=== PATIENT | female | born 1950 | race Caucasian/White ===

== ENCOUNTER 2017-07-01 00:55 | Emergency (ER) | payer MEDICARE ==
[2017-07-01] MEDS ORDERED: Nitrostat 0.4 MG (ED) SL ONE ×2 (01:10→01:28)
[2017-07-01] MEDS ORDERED: Sodium Chloride 0.9% 1000 ML 1,000 ML IV SCH (01:15)
--- NOTE | 2017-07-01 01:15 | ERPHSYRPT ---
- History of Present Illness Time Seen by Provider: 07/01/17 00:59 Source: patient, family (DAUGHTER) Exam Limitations: no limitations Physician History: FOR THE PAST WEEK PT HAS HAD A LEFT EARACHE; FOR THE PAST 2 DAYS COUGH PRODUCTIVE OF GREEN PHLEGM AND SWELLING OF THE FEET; FOR THE PAST 18.5 HOURS NAUSEA, DIAPHORESIS AND HEADACHE; FOR THE PAST 5 HOURS SHORTNESS OF AIR; FOR THE PAST HOUR CONSTANT MID ANTERIOR CHEST PRESSURE. Allergies/Adverse Reactions: levofloxacin [From Levaquin] Allergy (Mild, Verified 09/16/16 22:23) red rash/burning when gievn IV cefaclor [From Ceclor] Allergy (Verified 09/16/16 22:23) SOB, HIVES ciprofloxacin [From Cipro] Allergy (Verified 09/16/16 22:23) ciprofloxacin HCl [From Cipro] Allergy (Verified 09/16/16 22:23) clarithromycin [From Biaxin] Allergy (Verified 09/16/16 22:23) diphenhydramine HCl [From Benadryl] Allergy (Verified 09/16/16 22:23) SOB HIVES erythromycin base [Erythromycin Base] Allergy (Verified 09/16/16 22:23) SOB HIVES iodine Allergy (Verified 09/16/16 22:23) SOB HIVES latex Allergy (Verified 09/16/16 22:23) SOB HIVES Macrolide Antibiotics Allergy (Verified 09/16/16 22:23) SBO HIVES Penicillins Allergy (Verified 09/16/16 22:23) Swelling of Face sulfamethoxazole [From Bactrim] Allergy (Verified 09/16/16 22:23) trimethoprim [From Bactrim] Allergy (Verified 09/16/16 22:23) melon Adverse Reaction (Severe, Verified 09/16/16 22:23) cantaloupe ibuprofen Adverse Reaction (Verified 09/19/16 17:32) Home Medications: Atorvastatin Calcium [Lipitor 20MG Tablet] 80 mg PO HS 02/01/14 [History] Buspirone HCl 5 mg [Buspar 5 mg] 15 mg PO BID 02/01/14 [History] Cyclobenzaprine HCl [Flexeril] 10 mg PO HS 02/01/14 [History] Esomeprazole Magnesium [Nexium] 40 mg PO DAILY 02/01/14 [History] Insulin Aspart [NovoLOG Insulin] 3.1 unit SQ UD 02/01/14 [History] Levothyroxine Sodium [Synthroid] 137 mcg PO DAILY 02/01/14 [History] Liraglutide [Victoza 2-Alcon] 0.08 mg SQ DAILY 02/01/14 [History] Oxycodone HCl/Acetaminophen [Percocet 10-325 mg Tablet] 1 each PO Q4-6HPRN PRN 02/01/14 [History] Desvenlafaxine Succinate [Pristiq] 100 mg PO DAILY 07/15/14 [History] Loratadine 10 mg [Claritin 10 mg] 10 mg PO DAILY 07/15/14 [History] Pregabalin [Lyrica] 200 mg PO TID 07/15/14 [History] Ranitidine HCl [Zantac] 150 mg PO HS 07/15/14 [History] Albuterol Common Canister [Proventil Common Canister] 2 puff IH TID [History] Aspirin 81 mg PO DAILY 11/04/14 [History] Clopidogrel Bisulfate 75 mg [PLAVIX 75 MG Tablet] 75 mg PO DAILY 11/04/14 [History] Lisinopril 5 mg [Zestril 5 MG] 2.5 mg PO DAILY 11/04/14 [History] Isosorbide Mononitrate 30 mg [Imdur 30 MG] 30 mg DAILY 08/19/15 [History] Fentanyl [Duragesic 12MCG Patch] 12 mcg TOP Q3D 09/06/16 [History] Hydrochlorothiazide 25 mg [hydroDIURIL 25 MG] 12.5 mg PO DAILY 09/06/16 [ History] Metoprolol Succinate 50 mg PO DAILY 09/06/16 [History] Montelukast Sodium [Singulair] 10 mg PO DAILY 09/06/16 [History] Ondansetron [Ondansetron Odt] 4 mg PO Q4-6HPRN PRN 09/06/16 [History] Trazodone HCl 50 mg [Desyrel 50 mg] 50 - 150 mg PO HS 09/06/16 [History] Hx Tetanus, Diphtheria Vaccination/Date Given: Yes Hx Influenza Vaccination/Date Given: No Hx Pneumococcal Vaccination/Date Given: No - Review of Systems Ears, Nose, & Throat: Ear Pain Respiratory: Cough, Dyspnea Cardiac: Other (CHEST PRESSURE) Abdominal/Gastrointestinal: Nausea, No Abdominal Pain, No Vomiting Musculoskeletal: Other (SWELLING OF THE FEET) Neurological: Headache Endocrine: Excessive Sweating All Other Systems: Reviewed and Negative - Past Medical History Pertinent Past Medical History: Yes Neurological History: No Pertinent History ENT History: No Pertinent History Cardiac History: Coronary Artery Disease, High Cholesterol, Hypertension, Myocardial Infarction ([place]), Other Respiratory History: Asthma, COPD, Pneumonia, Sleep Apnea Endocrine Medical History: Diabetes Type II Musculoskeletal History: No Pertinent History GI Medical History: No Pertinent History History: No Pertinent History Psycho-Social History: No Pertinent History Female Reproductive Disorders: No Pertinent History Other Medical History: Rapid heart rate at times; lump in right breast, biopsy non-cancerous, hx breast cellulitis - Past Surgical History Past Surgical History: Yes Neuro Surgical History: No Pertinent History Cardiac: Cardiac Stent Respiratory: No Pertinent History Gastrointestinal: Cholecystectomy Genitourinary: No Pertinent History Musculoskeletal: No Pertinent History Female Surgical History: Tubal Ligation, Other Other Surgical History: Breast biopsy, 5 STENTS - Social History Smoking Status: Former smoker Exposure to second hand smoke: No Drug Use: none Patient Lives Alone: No - Female History Hx Now: No - Nursing Vital Signs Nursing Vital Signs: Initial Vital Signs Pulse Rate 104 H 07/01/17 01:01 Respiratory Rate 18 07/01/17 01:01 Blood Pressure 155/116 07/01/17 01:01 O2 Sat by Pulse Oximetry 95 07/01/17 01:01 Pain Scale Pain Intensity 9 - Physical Exam General Appearance: alert, anxiety Eye Exam: PERRL/EOMI Ears, Nose, Throat Exam: TMs normal, pharynx normal, moist mucous membranes Neck Exam: normal inspection Respiratory Exam: lungs clear Cardiovascular Exam: normal heart sounds Gastrointestinal/Abdomen Exam: soft, normal bowel sounds Back Exam: normal inspection Extremity Exam: normal inspection Neurologic Exam: alert, cooperative Skin Exam: warm, dry SpO2 Interpretation: normal SpO2: 95 Oxygen Delivery: Room Air - Course Nursing assessment & vital signs reviewed: Yes EKG Interpreted by Me: RATE (74), Sinus Rhythm, NORMAL AXIS, Non-specific ST Changes - Radiology Exams Chest X-ray Interpretation: Interpreted by me, No Pneumonia Ordered Tests: Active Orders 24 hr Category Date Time Status Eating Disorder Specialist STAT Care 07/01/17 01:11 Active EKG-ER Only STAT Care 07/01/17 01:10 Active EKG-ER Only STAT Care 07/01/17 03:34 Active IV Insertion STAT Care 07/01/17 01:10 Active Oxygen-ED Only NASAL CANNULA 2 lpm Care 07/01/17 01:10 Active Pulse Oximetry (ED) STAT Care 07/01/17 01:10 Active CHEST 1 VIEW (PORTABLE) Stat Exams 07/01/17 01:10 Taken AMYLASE Stat Lab 07/01/17 01:24 Completed ARTERIAL BLOOD GASES Urgent Lab 07/01/17 01:43 Completed BMP Stat Lab 07/01/17 03:45 Completed CBC W DIFF Stat Lab 07/01/17 01:24 Completed CMP Stat Lab 07/01/17 01:24 Completed CULTURE, THROAT Stat Lab 07/01/17 01:27 Received D-DIMER QUANTITATION Stat Lab 07/01/17 01:24 Completed LIPASE Stat Lab 07/01/17 01:24 Completed MAGNESIUM Stat Lab 07/01/17 01:24 Completed MAGNESIUM Stat Lab 07/01/17 03:45 Completed [place] Screen Stat Lab 07/01/17 01:24 Completed NT PRO BNP Stat Lab 07/01/17 01:24 Completed PROTIME WITH INR Stat Lab 07/01/17 01:24 Completed PTT Stat Lab 07/01/17 01:24 Completed STREP SCREEN-BETA A Stat Lab 07/01/17 01:27 Completed TROPONIN Q3H Lab 07/01/17 01:24 Completed TROPONIN Q3H Lab 07/01/17 03:45 Completed UA W/RFX UR CULTURE Stat Lab 07/01/17 02:26 Completed Medication Summary Generic Name Dose Route Start Last Admin Trade Name Freq PRN Reason Stop Dose Admin Sodium Chloride 1,000 mls @ 100 mls/hr 07/01/17 01:15 07/01/17 01:41 Sodium Chloride 0.9% 1000 Ml IV 07/31/17 01:14 100 mls/hr .Q10H SUZETTE Administration Magnesium Sulfate/Dextrose 100 mls @ 100 mls/hr 07/01/17 02:30 07/01/17 03:12 Magnesium 1 Gm / 100 Ml D5w IV 07/01/17 04:29 100 mls/hr Q1H SUZETTE Administration Discontinued Medications Generic Name Dose Route Start Last Admin Trade Name Mack PRN Reason Stop Dose Admin Nitroglycerin 0.4 mg 07/01/17 01:10 07/01/17 01:41 Nitrostat 0.4 Mg (Ed) SL 07/01/17 01:11 0.4 mg STAT ONE Administration Nitroglycerin Confirm 07/01/17 01:28 Nitrostat 0.4 Mg (Ed) Administered 07/01/17 01:29 Dose 0.4 mg SL .STK-MED ONE Lab/Rad Data: Laboratory Result Diagrams 07/01/17 01:24 07/01/17 03:45 Laboratory Results 07/01/17 07/01/17 07/01/17 Range/Units 03:45 03:45 02:26 WBC (4.0-10.5) K/mm3 RBC (4.1-5.4) M/mm3 Hgb (12.0-16.0) gm/dl Hct (35-47) % MCV (78-100) fl MCH (26-32) pg MCHC (32-36) g/dl RDW (11.5-14.0) % Plt Count (150-450) K/mm3 MPV (6-9.5) fl Gran % (36.0-66.0) % Lymphocytes % (24.0-44.0) % Monocytes % (0.0-12.0) % Eosinophils % (0.00-5.0) % Basophils % (0.0-0.4) % Basophils # (0-0.4) INR (0.8-3.0) APTT (25.3-37.0) SECONDS D-Dimer (0-500) ng/mL Puncture Site pCO2 (35-45) mmHg pO2 (75-100) mmHg Base Excess (-2.0-2.0) O2 Saturation (94-100) g/dF ABG pH (7.35-7.45) ABG HCO3 (22-28) ABG O2 Sat (Measured) (95-100) % Samir Test A-a Gradient a/A Ratio Hemoglobin Carboxyhemoglobin (0.0-6.9) % THgb Methemoglobin (1.4-1.5) % Temperature C POC O2 Flow Rate % Sodium 143 (136-145) mEq/L Potassium 4.1 (3.5-5.1) mEq/L Chloride 102 (98-107) mEq/L Carbon Dioxide 32.3 H (21-32) mEq/L Anion Gap 12.6 (5-15) MEQ/L BUN 19 (9-20) mg/dL Creatinine 0.94 (0.55-1.30) mg/dl Estimated GFR > 60 ML/MIN Glucose 158 H (70-110) MG/DL Calcium 9.7 (8.5-10.1) mg/dL Magnesium 2.1 (1.8-2.4) mg/dL Total Bilirubin (0.2-1.0) mg/dL AST (15-37) U/L ALT (12-78) U/L Alkaline Phosphatase (46-116) U/L Troponin I < 0.017 (0.000-0.056) ng/ml NT-Pro-B Natriuret Pep (0-125) pg/ml Serum Total Protein (6.4-8.2) gm/dL Albumin (3.4-5.0) g/dL Amylase (25-115) U/L Lipase (73-393) U/L Ur Collection Type CLEAN CATCH Urine Color YELLOW (YELLOW) Urine Appearance CLEAR (CLEAR) Urine pH 8.0 (5-6) Ur Specific [place] 1.005 (1.005-1.025) Urine Protein NEGATIVE (Negative) Urine Ketones NEGATIVE (NEGATIVE) Urine Blood NEGATIVE (0-5) [place]/ul Urine Nitrite NEGATIVE (NEGATIVE) Urine Bilirubin NEGATIVE (NEGATIVE) Urine Urobilinogen NORMAL (0-1) mg/dL Ur Leukocyte Esterase NEGATIVE (NEGATIVE) Urine Culture Reflexed NO (NO) Urine Glucose NEGATIVE (NEGATIVE) mg/dL Monoscreen (Negative) Influenza Type A Ag (NEGATIVE) Influenza Type B Ag (NEGATIVE) RSV (PCR) (Negative) Streptococcus Screen (Negative) Specimen Received [id number] 07/01/17 07/01/17 07/01/17 Range/Units 01:43 01:27 01:27 WBC (4.0-10.5) K/mm3 RBC (4.1-5.4) M/mm3 Hgb (12.0-16.0) gm/dl Hct (35-47) % MCV (78-100) fl MCH (26-32) pg MCHC (32-36) g/dl RDW (11.5-14.0) % Plt Count (150-450) K/mm3 MPV (6-9.5) fl Gran % (36.0-66.0) % Lymphocytes % (24.0-44.0) % Monocytes % (0.0-12.0) % Eosinophils % (0.00-5.0) % Basophils % (0.0-0.4) % Basophils # (0-0.4) INR (0.8-3.0) APTT (25.3-37.0) SECONDS D-Dimer (0-500) ng/mL Puncture Site LEFT BRACHIAL pCO2 43 (35-45) mmHg pO2 61 L (75-100) mmHg Base Excess 10.2 H (-2.0-2.0) O2 Saturation 91.6 L (94-100) g/dF ABG pH 7.51 H (7.35-7.45) ABG HCO3 34.3 H* (22-28) ABG O2 Sat (Measured) 93.8 L (95-100) % Samir Test NOT APPLICABLE A-a Gradient 35 a/A Ratio 0.64 Hemoglobin 12.4 Carboxyhemoglobin 1.0 (0.0-6.9) % THgb Methemoglobin 1.2 L (1.4-1.5) % Temperature 37.0 C POC O2 Flow Rate 21 % Sodium (136-145) mEq/L Potassium 3.9 (3.5-5.1) mEq/L Chloride (98-107) mEq/L Carbon Dioxide (21-32) mEq/L Anion Gap (5-15) MEQ/L BUN (9-20) mg/dL Creatinine (0.55-1.30) mg/dl Estimated GFR ML/MIN Glucose (70-110) MG/DL Calcium (8.5-10.1) mg/dL Magnesium (1.8-2.4) mg/dL Total Bilirubin (0.2-1.0) mg/dL AST (15-37) U/L ALT (12-78) U/L Alkaline Phosphatase (46-116) U/L Troponin I (0.000-0.056) ng/ml NT-Pro-B Natriuret Pep (0-125) pg/ml Serum Total Protein (6.4-8.2) gm/dL Albumin (3.4-5.0) g/dL Amylase (25-115) U/L Lipase (73-393) U/L Ur Collection Type Urine Color (YELLOW) Urine Appearance (CLEAR) Urine pH (5-6) Ur Specific [place] (1.005-1.025) Urine Protein (Negative) Urine Ketones (NEGATIVE) Urine Blood (0-5) [place]/ul Urine Nitrite (NEGATIVE) Urine Bilirubin (NEGATIVE) Urine Urobilinogen (0-1) mg/dL Ur Leukocyte Esterase (NEGATIVE) Urine Culture Reflexed (NO) Urine Glucose (NEGATIVE) mg/dL Monoscreen (Negative) Influenza Type A Ag NEGATIVE (NEGATIVE) Influenza Type B Ag NEGATIVE (NEGATIVE) RSV (PCR) NEGATIVE (Negative) Streptococcus Screen NEGATIVE (Negative) Specimen Received 07/01/17 07/01/17 07/01/17 Range/Units 01:24 01:24 01:24 WBC (4.0-10.5) K/mm3 RBC (4.1-5.4) M/mm3 Hgb (12.0-16.0) gm/dl Hct (35-47) % MCV (78-100) fl MCH (26-32) pg MCHC (32-36) g/dl RDW (11.5-14.0) % Plt Count (150-450) K/mm3 MPV (6-9.5) fl Gran % (36.0-66.0) % Lymphocytes % (24.0-44.0) % Monocytes % (0.0-12.0) % Eosinophils % (0.00-5.0) % Basophils % (0.0-0.4) % Basophils # (0-0.4) INR (0.8-3.0) APTT (25.3-37.0) SECONDS D-Dimer 482 (0-500) ng/mL Puncture Site pCO2 (35-45) mmHg pO2 (75-100) mmHg Base Excess (-2.0-2.0) O2 Saturation (94-100) g/dF ABG pH (7.35-7.45) ABG HCO3 (22-28) ABG O2 Sat (Measured) (95-100) % Samir Test A-a Gradient a/A Ratio Hemoglobin Carboxyhemoglobin (0.0-6.9) % THgb Methemoglobin (1.4-1.5) % Temperature C POC O2 Flow Rate % Sodium (136-145) mEq/L Potassium (3.5-5.1) mEq/L Chloride (98-107) mEq/L Carbon Dioxide (21-32) mEq/L Anion Gap (5-15) MEQ/L BUN (9-20) mg/dL Creatinine (0.55-1.30) mg/dl Estimated GFR ML/MIN Glucose (70-110) MG/DL Calcium (8.5-10.1) mg/dL Magnesium (1.8-2.4) mg/dL Total Bilirubin (0.2-1.0) mg/dL AST (15-37) U/L ALT (12-78) U/L Alkaline Phosphatase (46-116) U/L Troponin I < 0.017 (0.000-0.056) ng/ml NT-Pro-B Natriuret Pep (0-125) pg/ml Serum Total Protein (6.4-8.2) gm/dL Albumin (3.4-5.0) g/dL Amylase (25-115) U/L Lipase (73-393) U/L Ur Collection Type Urine Color (YELLOW) Urine Appearance (CLEAR) Urine pH (5-6) Ur Specific [place] (1.005-1.025) Urine Protein (Negative) Urine Ketones (NEGATIVE) Urine Blood (0-5) [place]/ul Urine Nitrite (NEGATIVE) Urine Bilirubin (NEGATIVE) Urine Urobilinogen (0-1) mg/dL Ur Leukocyte Esterase (NEGATIVE) Urine Culture Reflexed (NO) Urine Glucose (NEGATIVE) mg/dL Monoscreen NEGATIVE (Negative) Influenza Type A Ag (NEGATIVE) Influenza Type B Ag (NEGATIVE) RSV (PCR) (Negative) Streptococcus Screen (Negative) Specimen Received 07/01/17 07/01/17 07/01/17 Range/Units 01:24 01:24 01:24 WBC 9.6 (4.0-10.5) K/mm3 RBC 4.15 (4.1-5.4) M/mm3 Hgb 12.1 (12.0-16.0) gm/dl Hct 38.0 (35-47) % MCV 91.6 (78-100) fl MCH 29.2 (26-32) pg MCHC 31.8 L (32-36) g/dl RDW 14.7 H (11.5-14.0) % Plt Count 276 (150-450) K/mm3 MPV 11.0 H (6-9.5) fl Gran % 78.0 H (36.0-66.0) % Lymphocytes % 15.6 L (24.0-44.0) % Monocytes % 6.1 (0.0-12.0) % Eosinophils % 0.1 (0.00-5.0) % Basophils % 0.2 (0.0-0.4) % Basophils # 0.02 (0-0.4) INR 1.13 (0.8-3.0) APTT 36.4 (25.3-37.0) SECONDS D-Dimer (0-500) ng/mL Puncture Site pCO2 (35-45) mmHg pO2 (75-100) mmHg Base Excess (-2.0-2.0) O2 Saturation (94-100) g/dF ABG pH (7.35-7.45) ABG HCO3 (22-28) ABG O2 Sat (Measured) (95-100) % Samir Test A-a Gradient a/A Ratio Hemoglobin Carboxyhemoglobin (0.0-6.9) % THgb Methemoglobin (1.4-1.5) % Temperature C POC O2 Flow Rate % Sodium 143 (136-145) mEq/L Potassium 4.1 (3.5-5.1) mEq/L Chloride 101 (98-107) mEq/L Carbon Dioxide 29.9 (21-32) mEq/L Anion Gap 16.0 H (5-15) MEQ/L BUN 21 H (9-20) mg/dL Creatinine 1.09 (0.55-1.30) mg/dl Estimated GFR 54 ML/MIN Glucose 159 H (70-110) MG/DL Calcium 9.8 (8.5-10.1) mg/dL Magnesium 1.2 L (1.8-2.4) mg/dL Total Bilirubin 0.20 (0.2-1.0) mg/dL AST 17 (15-37) U/L ALT 19 (12-78) U/L Alkaline Phosphatase 107 (46-116) U/L Troponin I (0.000-0.056) ng/ml NT-Pro-B Natriuret Pep 594 H (0-125) pg/ml Serum Total Protein 7.3 (6.4-8.2) gm/dL Albumin 3.4 (3.4-5.0) g/dL Amylase 19 L (25-115) U/L Lipase 64 L (73-393) U/L Ur Collection Type Urine Color (YELLOW) Urine Appearance (CLEAR) Urine pH (5-6) Ur Specific [place] (1.005-1.025) Urine Protein (Negative) Urine Ketones (NEGATIVE) Urine Blood (0-5) [place]/ul Urine Nitrite (NEGATIVE) Urine Bilirubin (NEGATIVE) Urine Urobilinogen (0-1) mg/dL Ur Leukocyte Esterase (NEGATIVE) Urine Culture Reflexed (NO) Urine Glucose (NEGATIVE) mg/dL Monoscreen (Negative) Influenza Type A Ag (NEGATIVE) Influenza Type B Ag (NEGATIVE) RSV (PCR) (Negative) Streptococcus Screen (Negative) Specimen Received - Progress Progress Note: 07/01/17 04:18 REPEAT TROPONIN I < 0.017. REPEAT MAGNESEUM = 2.1. REPEAT EKG : RATE = 89, SINUS ARRHYTHMIA, NORMAL AXIS, NO ST ELEVATION. - Departure Time of Disposition: 04:26 Departure Disposition: Home Clinical Impression: DYSPNEA, HYPOMAGNESEMIA - CORRECTED IN ER., CHEST PAIN, ANXIETY Condition: Stable Critical Care Time: No Referrals: LEORA CORMIER [Primary Care Provider] - Instructions: Chest Pain Additional Instructions: FOLLOW UP WITH PRIVATE DOCTOR TOMORROW.
[2017-07-01] MEDS ORDERED: Sodium Chloride 0.9% 1000 ML 1,000 ML ONE (01:28)
[2017-07-01 01:29] LABS: BASOPHIL % 0.2 % (0.0-0.4); Eosinophil % 0.1 % (0.00-5.0); Lymphocytes % 15.6 % (24.0-44.0); Mean Cell Volume 91.6 fl (78-100); Mean Corpuscular Hemoglobin 29.2 pg (26-32); Monocytes % 6.1 % (0.0-12.0); Platelet Count 276 K/mm3 (150-450); Red Blood Count 4.15 M/mm3 (4.1-5.4); Red Cell Distribution Width 14.7 % (11.5-14.0); White Blood Count 9.6 K/mm3 (4.0-10.5)
[2017-07-01 01:41] LABS: INR 1.13 (0.8-3.0); PROTIME 12.6 SECONDS (9.95-12.35)
[2017-07-01 01:44] LABS: PTT 36.4 SECONDS (25.3-37.0)
[2017-07-01 01:48] LABS: A-aADO2 35; ARTERIAL BLD GAS O2 SATURATION 93.8 % (95-100); ARTERIAL BLOOD GAS BASE EXCESS 10.2 (-2.0-2.0); ARTERIAL BLOOD GAS FIO2 21 %; ARTERIAL BLOOD GAS PO2 61 mmHg (75-100); ARTERIAL BLOOD GAS pH 7.51 (7.35-7.45)
[2017-07-01 01:58] LABS: ALBUMIN 3.4 g/dL (3.4-5.0); BILIRUBIN,TOTAL 0.2 mg/dL (0.2-1.0); Carbon Dioxide 29.9 mEq/L (21-32); MAGNESIUM 1.2 mg/dL (1.8-2.4); Potassium 4.1 mEq/L (3.5-5.1); Total Protein 7.3 gm/dL (6.4-8.2)
[2017-07-01 02:28] LABS: ADD URINE CULTURE? NO (NO); Bilirubin NEGATIVE (NEGATIVE); Blood NEGATIVE Ery/ul (0-5); COMPLETE URINE MICROSCOPIC? NO; Collection Type CLEAN CATCH; Glucose NEGATIVE (NEGATIVE); Leukocyte Esterase NEGATIVE (NEGATIVE)
[2017-07-01] MEDS ORDERED: Magnesium 1 Gm / 100 Ml D5W*** 200 ML IV ONE (02:56)
[2017-07-01] MEDS: Magnesium 1 Gm / 100 Ml D5W*** 100 ML IV SCH ×2 (02:57→03:12)
[2017-07-01 04:00] LABS: ANION GAP 12.6 MEQ/L (5-15); BLOOD UREA NITROGEN 19 mg/dL (9-20); CHLORIDE 102 mEq/L (98-107); Carbon Dioxide 32.3 mEq/L (21-32); Glucose 158 MG/DL (70-110); MAGNESIUM 2.1 mg/dL (1.8-2.4); Potassium 4.1 mEq/L (3.5-5.1); SODIUM 143 mEq/L (136-145)
[2017-07-01 04:17] VITALS: BP 138/79; PULSE 88
[2017-07-01 04:23] VITALS: O2SAT 95
--- NOTE | 2017-07-01 09:28 | XRAY ---
Indication: Short of breath. Comparison: September 16, 2016. Portable chest clear. Heart and mediastinal structures within normal limits. Bony thorax intact with mild degenerative changes. Impression: Nonacute chest.
== END 2017-07-01 04:35 | disposition home or self-care (01) ==
LOC: ED 00:55
DX: R06.00 Dyspnea, unspecified (principal); E87.1 Hypo-osmolality and hyponatremia; R07.89 Other chest pain; F41.9 Anxiety disorder, unspecified; Z79.899 Other long term (current) drug therapy; Z79.891 Long term (current) use of opiate analgesic; I25.10 Atherosclerotic heart disease of native coronary artery without angina pectoris; E78.00 Pure hypercholesterolemia, unspecified; I10 Essential (primary) hypertension; I25.2 Old myocardial infarction; E11.9 Type 2 diabetes mellitus without complications
CPT/HCPCS: 36000; 36415; 36600; 71010; 80048; 80053; 81002; 82150; 82375; 82803; 83690; 83735; 83880; 84484; 85025; 85379; 85610; 85730; 86308; 87070; 87430; 87631; 93005; 93041; 96360; 96361; 96365; 99284; J3475; A9270-GY

== ENCOUNTER 2018-02-24 12:00 | Inpatient (IN) | payer MEDICARE ==
[2018-02-24] MEDS: Merrem 1 GM 1 G in Sodium Chloride 100ML MINI-BAG PLUS 100 ML IV SCH ×2 (14:09→21:41)
[2018-02-24] MEDS: Sodium Chloride 0.9% 1000 ML 1,000 ML IV SCH (14:09)
[2018-02-24 14:39] LABS: BASOPHIL % 0.4 % (0.0-0.4); Basophil (Absolute #) 0.03 (0-0.4); Eosinophil % 2.3 % (0.00-5.0); Eosinophil (Absolute #) 0.18 (0-0.5); Granulocyte Absolute (ANC) 4.99 (1.4-6.9); Granulocytes % 62.3 % (36.0-66.0); Hematocrit 40.1 % (35-47); Lymphocyte (Absolute #) 2.21 (1.0-4.6); Lymphocytes % 27.6 % (24.0-44.0); Mean Cell Volume 92.4 fl (78-100); Mean Corpuscular Hgb Concent. 32.4 g/dl (32-36); Mean Platelet Volume 10.8 fl (6-9.5); Monocyte (Absolute #) 0.59 (0.0-1.3); Monocytes % 7.4 % (0.0-12.0); Platelet Count 240 K/mm3 (150-450); Red Blood Count 4.34 M/mm3 (4.1-5.4); Red Cell Distribution Width 14.2 % (11.5-14.0)
[2018-02-24 14:47] LABS: ALKALINE PHOSPHATASE 107 U/L (38-126); ANION GAP 13.9 MEQ/L (5-15); BLOOD UREA NITROGEN 18 mg/dL (7-17); CHLORIDE 101 mmol/L (98-107); Carbon Dioxide 31 mmol/L (22-30); Creatinine 1 0.84 mg/dL (0.52-1.04); Glucose 82 mg/dL (74-106); Potassium 3.7 mmol/L (3.5-5.1); SGOT/AST 37 U/L (14-36); SGPT/ALT 23 U/L (0-35); SODIUM 142 mmol/L (137-145); Total Protein 7.7 g/dL (6.3-8.2)
[2018-02-24] MEDS ORDERED: PROVENTIL 2.5 MG/3 ML NEB IH PRN (15:11)
[2018-02-24] MEDS ORDERED: NovoLOG Insulin SQ SCH (17:00)
[2018-02-24] MEDS ORDERED: MEDICATION INTERVENTION MC SCH (17:45)
[2018-02-24] MEDS: OXYCODONE-ACETAMINOPHEN 10-325 PO PRN ×2 (18:00→21:55)
[2018-02-24 18:37] LABS: Appearance CLEAR (CLEAR); Bilirubin NEGATIVE (NEGATIVE); Blood NEGATIVE Ery/ul (0-5); Glucose NEGATIVE (NEGATIVE); Ketones NEGATIVE (NEGATIVE); Leukocyte Esterase NEGATIVE (NEGATIVE); Nitrite NEGATIVE (NEGATIVE); Protein,Urine Dip NEGATIVE (Negative); Specific Gravity 1.015 (1.005-1.025); Urobilinogen NORMAL mg/dL (0-1)
[2018-02-24] MEDS: Cyclobenzaprine 10 MG PO SCH (21:45)
[2018-02-24] MEDS: LYRICA 100MG PO SCH (21:45)
[2018-02-24] MEDS: Pepcid 20 MG PO SCH (21:46)
[2018-02-24] MEDS: Desyrel 150 MG PO SCH (21:46)
[2018-02-24] MEDS: BUSPAR 5 MG PO SCH (21:46)
[2018-02-24] MEDS: LIPITOR 40MG PO SCH (21:46)
[2018-02-24] MEDS ORDERED: DESYREL 50 MG PO SCH (22:00)
[2018-02-24] MEDS ORDERED: NON-FORMULARY ITEM (Cyclobenzaprine Hcl [Flexeril] 10 MG) PO SCH (22:00)
[2018-02-24] MEDS ORDERED: NON-FORMULARY ITEM (Ranitidine Hcl [Zantac] 150 MG) PO SCH (22:00)
[2018-02-24] MEDS ORDERED: ATORVASTATIN CALCIUM 80 MG PO SCH (22:00)
[2018-02-24] MEDS ORDERED: NON-FORMULARY ITEM (Brimonidine Tartrate/Timolol [Combigan 0.2%-0.5% Eye Drops] 1 DROP) OP SCH (22:00)
[2018-02-25] MEDS: Merrem 1 GM 1 G in Sodium Chloride 100ML MINI-BAG PLUS 100 ML IV SCH ×3 (05:44→22:18)
[2018-02-25] MEDS: Sodium Chloride 0.9% 1000 ML 1,000 ML IV SCH ×2 (05:44→20:53)
--- NOTE | 2018-02-25 08:55 | PCM.NOTE ---
Date and Time: 02/25/18 0850 Subjective Assessment: Pt is still having pain in the L ear. Drained overnight. Tolerating po well. - Review of Systems Constitutional: No Fever Ears, Nose, & Throat: Ear Pain Objective Exam General Appearance: no apparent distress, alert, obese Neurologic Exam: oriented x 3, cooperative Skin Exam: warm, dry Ears, Nose, Throat Exam: other (L pinna erythematous (with some decreased erythema inferior 1/3). Erythematous extenting approx 3cm anterior to the tragus. Crusting is present at the canal and on the pinna.) Respiratory Exam: normal breath sounds, lungs clear, No crackles/rales, No rhonchi, No wheezing Cardiovascular Exam: regular rate/rhythm, normal heart sounds, No murmur Extremity Exam: No pedal edema, No swelling Back Exam: normal inspection, No rash OBJECTIVE DATA Vital Signs: Vital Signs - 24 hr Temp Pulse Resp BP Pulse Ox 02/25/18 07:05 97.6 F 67 18 111/49 94 L 02/25/18 04:00 97.6 F 60 20 120/58 96 02/25/18 00:15 97.7 F 76 24 147/64 94 L 02/24/18 19:43 98.3 F 77 116/57 91 L 02/24/18 19:40 78 16 91 L 02/24/18 16:00 98.4 F 78 18 129/61 92 L 02/24/18 15:11 94 L 02/24/18 14:58 98.5 F 86 20 138/62 90 L Oxygen-Last 24 hours O2 Percentage 2 Liters = 28% O2 Percentage 2 Liters = 28% O2 Percentage 2 Liters = 28% Pain Assessment - Last Documented Pain Scale Used FLACC Intake and Output: Intake & Output 02/22/18 02/23/18 02/24/18 02/25/18 11:59 11:59 11:59 11:59 Intake Total 1843 Output Total 600 Balance 1243 Weight 157 kg Lab Results: Accuchecks Date 02/25/18 Date 02/24/18 Date 02/24/18 Time 07:30 Time 21:45 Time 16:15 Accucheck Value: 88 Accucheck Value: 213 Accucheck Value: 151 Lab Results-Last 24 Hours 06/05/18 06/05/18 06/05/18 Range/Units 14:35 14:35 18:05 WBC 8.0 (4.0-10.5) K/mm3 RBC 4.34 (4.1-5.4) M/mm3 Hgb 13.0 (12.0-16.0) gm/dl Hct 40.1 (35-47) % MCV 92.4 (78-100) fl MCH 30.0 (26-32) pg MCHC 32.4 (32-36) g/dl RDW 14.2 H (11.5-14.0) % Plt Count 240 (150-450) K/mm3 MPV 10.8 H (6-9.5) fl Gran % 62.3 (36.0-66.0) % Eos # (Auto) 0.18 (0-0.5) Absolute Lymphs (auto) 2.21 (1.0-4.6) Absolute Monos (auto) 0.59 (0.0-1.3) Lymphocytes % 27.6 (24.0-44.0) % Monocytes % 7.4 (0.0-12.0) % Eosinophils % 2.3 (0.00-5.0) % Basophils % 0.4 (0.0-0.4) % Absolute Granulocytes 4.99 (1.4-6.9) Basophils # 0.03 (0-0.4) Sodium 142 (137-145) mmol/L Potassium 3.7 (3.5-5.1) mmol/L Chloride 101 (98-107) mmol/L Carbon Dioxide 31 H (22-30) mmol/L Anion Gap 13.9 (5-15) MEQ/L BUN 18 H (7-17) mg/dL Creatinine 0.84 (0.52-1.04) mg/dL Estimated GFR > 60.0 ML/MIN Glucose 82 (74-106) mg/dL Calcium 9.0 (8.4-10.2) mg/dL Total Bilirubin 0.40 (0.2-1.3) mg/dL AST 37 H (14-36) U/L ALT 23 (0-35) U/L Alkaline Phosphatase 107 (38-126) U/L Serum Total Protein 7.7 (6.3-8.2) g/dL Albumin 4.0 (3.5-5.0) g/dL Ur Collection Type VOID Urine Color LT.YELLOW (YELLOW) Urine Appearance CLEAR (CLEAR) Urine pH 5.0 (5-6) Ur Specific [place] 1.015 (1.005-1.025) Urine Protein NEGATIVE (Negative) Urine Ketones NEGATIVE (NEGATIVE) Urine Blood NEGATIVE (0-5) [place]/ul Urine Nitrite NEGATIVE (NEGATIVE) Urine Bilirubin NEGATIVE (NEGATIVE) Urine Urobilinogen NORMAL (0-1) mg/dL Ur Leukocyte Esterase NEGATIVE (NEGATIVE) Urine Glucose NEGATIVE (NEGATIVE) mg/dL Specimen Received 02/24/18 1835 Assessment/Plan (1) Cellulitis Current Visit: No Status: Acute Qualifiers: Site of cellulitis: face Qualified Code(s): L03.211 - Cellulitis of face Assessment & Plan: On IV meropenem day #2. She had a similar episode last month and was admitted by ophtho/hospitalist at [facility] for what was reported as fungus-related cellulitis superimposed on shingles. Code(s): L03.90 - CELLULITIS, UNSPECIFIED (2) Otitis externa Current Visit: No Status: Acute Qualifiers: Otitis externa type: other infective Chronicity: acute Laterality: left Qualified Code(s): H60.392 - Other infective otitis externa, left ear Assessment & Plan: acute on chronic. Code(s): H60.90 - UNSPECIFIED OTITIS EXTERNA, UNSPECIFIED EAR (3) Coronary artery disease Current Visit: No Status: Chronic Qualifiers: Coronary Disease-Associated Artery/Lesion type: [place] artery Three Aff[place] vs. 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: with mcfp use Diabetes mellitus complication status: with ophthalmic complications Diabetes mellitus complication detail: with diabetic retinopathy Diabetic retinopathy severity: with unspecified retinopathy severity Diabetes mellitus macular edema: macular edema presence unspecified Laterality: bilateral Qualified Code(s): E11.319 - Type 2 diabetes mellitus with unspecified diabetic retinopathy without macular edema; Z79.4 - long-term ( current) use of insulin; 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
[2018-02-25] MEDS: LYRICA 100MG PO SCH ×3 (09:05→22:18)
[2018-02-25] MEDS: hydroDIURIL 25 MG PO SCH (09:05)
[2018-02-25] MEDS: BUSPAR 5 MG PO SCH ×2 (09:05→22:18)
[2018-02-25] MEDS: Imdur 30 MG PO SCH (09:06)
[2018-02-25] MEDS: Protonix 40MG Tablet PO SCH (09:06)
[2018-02-25] MEDS: OXYCODONE-ACETAMINOPHEN 10-325 PO PRN ×3 (09:06→19:33)
[2018-02-25] MEDS: PRISTIQ ER PO SCH (09:06)
[2018-02-25] MEDS: ECOTRIN 81 MG PO SCH (09:06)
[2018-02-25] MEDS: SYNTHROID 25 MCG PO SCH (09:07)
[2018-02-25] MEDS: Zestril 5 MG PO SCH (09:07)
[2018-02-25] MEDS: CLARITIN 10 MG PO SCH (09:07)
[2018-02-25] MEDS: PLAVIX 75 MG Tablet PO SCH (09:07)
[2018-02-25] MEDS: SYNTHROID 112 MCG PO SCH (09:08)
[2018-02-25] MEDS: Singulair 10 MG PO SCH (09:08)
[2018-02-25] MEDS: Toprol Xl 50 MG PO SCH (09:09)
[2018-02-25] MEDS ORDERED: NON-FORMULARY ITEM (Desvenlafaxine Succinate [Pristiq] 100 MG) PO SCH (10:00)
[2018-02-25] MEDS ORDERED: SYNTHROID 125 MCG PO SCH (10:00)
[2018-02-25] MEDS ORDERED: NON-FORMULARY ITEM (Aspirin [Aspirin] 81 MG) PO SCH (10:00)
[2018-02-25] MEDS ORDERED: NON-FORMULARY ITEM (Esomeprazole Magnesium [Nexium] 40 MG) PO SCH (10:00)
[2018-02-25] MEDS ORDERED: LIRAGLUTIDE SQ SCH (10:00)
[2018-02-25] MEDS: ENOXAPARIN SODIUM SQ SCH (11:33)
[2018-02-25] MEDS: LIPITOR 40MG PO SCH (22:18)
[2018-02-25] MEDS: Pepcid 20 MG PO SCH (22:18)
[2018-02-25] MEDS: Desyrel 150 MG PO SCH (22:18)
[2018-02-25] MEDS: Cyclobenzaprine 10 MG PO SCH (22:19)
[2018-02-26] MEDS: Merrem 1 GM 1 G in Sodium Chloride 100ML MINI-BAG PLUS 100 ML IV SCH ×3 (05:08→22:51)
[2018-02-26 05:41] LABS: BASOPHIL % 0.6 % (0.0-0.4); Basophil (Absolute #) 0.03 (0-0.4); Eosinophil % 2.9 % (0.00-5.0); Eosinophil (Absolute #) 0.15 (0-0.5); Granulocyte Absolute (ANC) 2.65 (1.4-6.9); Granulocytes % 50.7 % (36.0-66.0); Hematocrit 35.8 % (35-47); Hemoglobin 11.2 gm/dl (12.0-16.0); Lymphocyte (Absolute #) 1.83 (1.0-4.6); Lymphocytes % 35.1 % (24.0-44.0); Mean Cell Volume 95.5 fl (78-100); Mean Corpuscular Hgb Concent. 31.3 g/dl (32-36); Mean Platelet Volume 10.9 fl (6-9.5); Monocyte (Absolute #) 0.56 (0.0-1.3); Monocytes % 10.7 % (0.0-12.0); Platelet Count 170 K/mm3 (150-450); Red Blood Count 3.75 M/mm3 (4.1-5.4); Red Cell Distribution Width 13.7 % (11.5-14.0); White Blood Count 5.2 K/mm3 (4.0-10.5)
[2018-02-26 05:45] LABS: Mean Corpuscular Hemoglobin 29.8 pg (26-32)
[2018-02-26 06:19] LABS: ANION GAP 10.2 MEQ/L (5-15); BILIRUBIN,TOTAL 0.1 mg/dL (0.2-1.3); Calcium 8.4 mg/dL (8.4-10.2); Potassium 4.2 mmol/L (3.5-5.1); Total Protein 6.1 g/dL (6.3-8.2)
--- NOTE | 2018-02-26 08:22 | PCM.NOTE ---
Date and Time: 02/26/18816 Subjective Assessment: She feels that the ear is improving but it is still painful and draining. - Review of Systems Constitutional: No Fever Ears, Nose, & Throat: Ear Pain Objective Exam General Appearance: no apparent distress, alert, obese Neurologic Exam: oriented x 3, cooperative Ears, Nose, Throat Exam: other (R TM and canal appear wnl. L pinna erythematous and edematous central portion, less erythema/edema on the periphery. Evidence of yellow exudate. The canal is obscured by white exudate.) OBJECTIVE DATA Vital Signs: Vital Signs - 24 hr Temp Pulse Resp BP Pulse Ox 02/26/18 07:36 92 L 02/26/18 03:56 98.2 F 74 18 117/57 95 02/25/18 23:27 98.2 F 64 18 128/62 94 L 02/25/18 21:18 67 17 96 02/25/18 19:37 98.0 F 67 18 106/53 94 L 02/25/18 16:00 98.3 F 65 18 117/56 95 02/25/18 15:09 67 16 95 02/25/18 12:00 97.8 F 66 20 122/66 95 Oxygen-Last 24 hours O2 Percentage 2 Liters = 28% O2 Percentage 2 Liters = 28% O2 Percentage 2 Liters = 28% O2 Percentage 2 Liters = 28% Pain Assessment - Last Documented Pain Intensity 7 Pain Scale Used [facility] Intake and Output: Intake & Output 02/23/18 02/24/18 02/25/18 02/26/18 11:59 11:59 11:59 11:59 Intake Total 2223 3585 Output Total 600 1999 Balance 1623 1585 Weight 157 kg Lab Results: Accuchecks Date 02/25/18 Date 02/25/18 Date 02/25/18 Time 21:00 Time 16:30 Time 11:30 Accucheck Value: 154 Accucheck Value: 124 Accucheck Value: 119 Lab Results-Last 24 Hours 02/25/18 02/26/18 02/26/18 Range/Units 09:10 05:32 05:32 WBC 5.2 (4.0-10.5) K/mm3 RBC 3.75 L (4.1-5.4) M/mm3 Hgb 11.2 L (12.0-16.0) gm/dl Hct 35.8 (35-47) % MCV 95.5 (78-100) fl MCH 29.8 (26-32) pg MCHC 31.3 L (32-36) g/dl RDW 13.7 (11.5-14.0) % Plt Count 170 (150-450) K/mm3 MPV 10.9 H (6-9.5) fl Gran % 50.7 (36.0-66.0) % Eos # (Auto) 0.15 (0-0.5) Absolute Lymphs (auto) 1.83 (1.0-4.6) Absolute Monos (auto) 0.56 (0.0-1.3) Lymphocytes % 35.1 (24.0-44.0) % Monocytes % 10.7 (0.0-12.0) % Eosinophils % 2.9 (0.00-5.0) % Basophils % 0.6 (0.0-0.4) % Absolute Granulocytes 2.65 (1.4-6.9) Basophils # 0.03 (0-0.4) Sodium 141 (137-145) mmol/L Potassium 4.2 (3.5-5.1) mmol/L Chloride 99 (98-107) mmol/L Carbon Dioxide 36 H (22-30) mmol/L Anion Gap 10.2 (5-15) MEQ/L BUN 15 (7-17) mg/dL Creatinine 1.00 (0.52-1.04) mg/dL Estimated GFR 59.1 ML/MIN Glucose 99 (74-106) mg/dL Hemoglobin A1c 7.39 H (4.5-6.0) % Calcium 8.4 (8.4-10.2) mg/dL Total Bilirubin 0.10 L (0.2-1.3) mg/dL AST 39 H (14-36) U/L ALT 25 (0-35) U/L Alkaline Phosphatase 94 (38-126) U/L Serum Total Protein 6.1 L (6.3-8.2) g/dL Albumin 3.0 L (3.5-5.0) g/dL Multi-Disciplinary Progress Notes: Multi-Disciplinary Progress Notes 02/25/18 11:50 (created 02/25/18 15:36) Case Management Note by Shikha Betancourt PRINTED INSTRUCTION MANUAL FOR PT'S CONTOUR NEXT LINK GLUCOSE MONITORING SYSTEM AND GAVE TO PT. Initialized on 02/25/18 15:36 - END OF NOTE 02/25/18 10:25 (created 02/25/18 15:25) Case Management Note by Shikha Betancourt VISITED WITH PT AND DISCUSSED DISCHARGE PLANNING. REPORTS THAT SHE LIVES AT HOME WITH HER DAUGHTER, GRANDDAUGHTER, AND GREAT-GRANDDAUGHTER. IS ACTIVE AND INDEPENDENT WITH ALL ADL'S. DOES NOT USE ANY TYPE OF ASSISTIVE DEVICE, REPORTS THAT SHE WALKS WITHOUT DIFFICULTY, BUT DOES REPORT THAT SHE HAS TROUBLE WITH DISTANCE. PT IS DIABETIC, VERY KNOWLEDGEABLE, HAS A INSULIN PUMP AND A CONTOUR NEXT LINK MONITORING SYSTEM. PT REPORTS THAT SHE HAS HAD SOME TROUBLE WITH THE MONITORING SYSTEM COMMUNICATING WITH HER PUMP, AND THAT SHE HAS MISPLACED THE INSTRUCTION MANUAL. WILL CHECK TO SEE IF IT CAN BE PRINTED ON THE INTERNET. ALSO, HAS HOME OXYGEN, WEARS 2L PER N/C 14/04. REPORTS THAT AT THE END OF THE MONTH SHE IS TRAVELING TO [place] TO SPEND A FEW WEEKS WITH HER SON AND [id number]. DENIES ADDNL NEEDS AT PRESENT TIME. WILL CONTINUE TO FOLLOW AND ASSESS FOR ALL DC NEEDS. DISCUSSED THAT PT HAS APPOINTED DAUGHTER [employer]. PT REPORTS THAT SHE REALLY DID NOT UNDERSTAND WHAT THAT MEANT. UPON DISCUSSION, PT DECLINED THAT I CALL HER DAUGHTER AND DISCUSS DISCHARGE PLANS. WILL CONTINUE TO FOLLOW FOR ALL DC NEEDS. Initialized on 02/25/18 15:25 - END OF NOTE Assessment/Plan (1) Cellulitis Current Visit: Yes Status: Acute Onset Date: ~02/24/18 Qualifiers: Site of cellulitis: face Qualified Code(s): L03.211 - Cellulitis of face Assessment & Plan: On meropenem day #3. Code(s): L03.90 - CELLULITIS, UNSPECIFIED (2) Otitis externa Current Visit: Yes Status: Acute Onset Date: ~02/24/18 Qualifiers: Otitis externa type: other infective Chronicity: acute Laterality: left Qualified Code(s): H60.392 - Other infective otitis externa, left ear Assessment & Plan: She has a history of otitis externa/cellulitis requiring hospital admission ( most recently, in the past 2 mo was admitted at [facility]; she also had ophthalmic shingles on the L face at that time). I suspect pseudomonas, mostly because she is diabetic and the white exudate in the ear looks suspicious for otitis externa. The infection had extended anterior to the ear superficially and seems static there at this time. The erythema and exudate on the pinna seem less today than previously notes. Pt has an extensive allergy list, including anaphylaxis to penicillin and swelling with ciprofloxacin (including ciprodex ear drops). Code(s): H60.90 - UNSPECIFIED OTITIS EXTERNA, UNSPECIFIED EAR (3) Coronary artery disease Current Visit: Yes Status: Chronic Qualifiers: Coronary Disease-Associated Artery/Lesion type: [place] artery [place] vs. transplanted heart: [place] heart Associated angina: with stable angina Qualified Code(s): I25.118 - Atherosclerotic heart disease of [place] coronary artery with other forms of angina pectoris Code(s): I25.10 - ATHSCL HEART DISEASE OF [place] CORONARY ARTERY W/O ANG PCTRS (4) Diabetes mellitus Current Visit: Yes Status: Chronic Qualifiers: Diabetes mellitus type: type 2 Diabetes mellitus lobsterman insulin use: with lobsterman use Diabetes mellitus complication status: with ophthalmic complications Diabetes mellitus complication detail: with diabetic retinopathy Diabetic retinopathy severity: with unspecified retinopathy severity Diabetes mellitus macular edema: macular edema presence unspecified Laterality: bilateral Qualified Code(s): E11.319 - Type 2 diabetes mellitus with unspecified diabetic retinopathy without macular edema; Z79.4 - lobsterman ( current) use of insulin; Z79.4 - halfway (current) use of insulin; Z79.4 - lobsterman (current) use of insulin; Z79.4 - lobsterman (current) use of insulin Assessment & Plan: Has insulin pump. Last a1c 7.39 which is excellent for her. She sees Dr. Myers; has appointment on Friday. Code(s): E11.9 - TYPE 2 DIABETES MELLITUS WITHOUT COMPLICATIONS (5) Hypertension Current Visit: Yes Status: Chronic Qualifiers: Hypertension type: essential hypertension Assessment & Plan: Stable here. Code(s): I10 - ESSENTIAL (PRIMARY) HYPERTENSION (6) Morbid obesity Current Visit: Yes Status: Chronic Code(s): E66.01 - MORBID (SEVERE) OBESITY DUE TO EXCESS CALORIES (7) Sleep apnea Current Visit: Yes Status: Chronic Qualifiers: Sleep apnea type: unspecified type Qualified Code(s): G47.30 - Sleep apnea , unspecified Code(s): G47.30 - SLEEP APNEA, UNSPECIFIED
[2018-02-26] MEDS: PLAVIX 75 MG Tablet PO SCH (09:25)
[2018-02-26] MEDS: ECOTRIN 81 MG PO SCH (09:25)
[2018-02-26] MEDS: ENOXAPARIN SODIUM SQ SCH (09:25)
[2018-02-26] MEDS: Zestril 5 MG PO SCH (09:25)
[2018-02-26] MEDS: Singulair 10 MG PO SCH (09:25)
[2018-02-26] MEDS: CLARITIN 10 MG PO SCH (09:25)
[2018-02-26] MEDS: hydroDIURIL 25 MG PO SCH (09:25)
[2018-02-26] MEDS: OXYCODONE-ACETAMINOPHEN 10-325 PO PRN ×3 (09:25→22:52)
[2018-02-26] MEDS: LYRICA 100MG PO SCH ×3 (09:26→22:51)
[2018-02-26] MEDS: SYNTHROID 25 MCG PO SCH (09:26)
[2018-02-26] MEDS: Toprol Xl 50 MG PO SCH (09:26)
[2018-02-26] MEDS: Imdur 30 MG PO SCH (09:26)
[2018-02-26] MEDS: BUSPAR 5 MG PO SCH ×2 (09:26→22:51)
[2018-02-26] MEDS: PRISTIQ ER PO SCH (09:26)
[2018-02-26] MEDS: Protonix 40MG Tablet PO SCH (09:26)
[2018-02-26] MEDS: SYNTHROID 112 MCG PO SCH (09:27)
[2018-02-26] MEDS: Sodium Chloride 0.9% 1000 ML 1,000 ML IV SCH (12:50)
[2018-02-26] MEDS: Desyrel 150 MG PO SCH (22:51)
[2018-02-26] MEDS: Cyclobenzaprine 10 MG PO SCH (22:51)
[2018-02-26] MEDS: LIPITOR 40MG PO SCH (22:51)
[2018-02-26] MEDS: Pepcid 20 MG PO SCH (22:51)
[2018-02-27] MEDS: Sodium Chloride 0.9% 1000 ML 1,000 ML IV SCH ×2 (04:35→20:33)
[2018-02-27] MEDS: Merrem 1 GM 1 G in Sodium Chloride 100ML MINI-BAG PLUS 100 ML IV SCH ×3 (06:09→22:38)
--- NOTE | 2018-02-27 08:46 | PCM.NOTE ---
Date and Time: 02/27/18 0843 Subjective Assessment: patient doing better, redness has improved but ears are still swollen. no new complaints Objective Exam Skin Exam: normal color, warm, dry Ears, Nose, Throat Exam: other (sp EAC inflammed, debris present. mild erythema , scant drainage) Respiratory Exam: normal breath sounds, lungs clear, No respiratory distress Cardiovascular Exam: regular rate/rhythm, normal heart sounds Gastrointestinal/Abdomen Exam: soft, No tenderness, No mass Extremity Exam: normal inspection, normal range of motion OBJECTIVE DATA Vital Signs: Vital Signs - 24 hr Temp Pulse Resp BP Pulse Ox 02/27/18 07:38 98.1 F 69 18 121/55 95 02/27/18 04:00 98.4 F 72 18 102/50 94 L 02/26/18 23:36 98.1 F 75 16 100/47 94 L 02/26/18 20:16 75 20 94 L 02/26/18 20:00 98.2 F 76 17 99/49 95 02/26/18 16:00 98.6 F 70 20 114/57 93 L 02/26/18 12:00 98.2 F 82 20 103/51 95 Oxygen-Last 24 hours O2 Percentage 2 Liters = 28% O2 Percentage 2 Liters = 28% O2 Percentage 2 Liters = 28% O2 Percentage 2 Liters = 28% O2 Percentage 2 Liters = 28% O2 Percentage 2 Liters = 28% Pain Assessment - Last Documented Pain Intensity 8 Pain Scale Used [facility] Intake and Output: Intake & Output 02/24/18 02/25/18 02/26/18 02/27/18 11:59 11:59 11:59 11:59 Intake Total 2223 4065 3425 Output Total 600 2000 1900 Balance 1623 2065 1525 Weight 157 kg Lab Results: Accuchecks Date 02/26/18 Date 02/26/18 Date 02/26/18 Time 21:00 Time 11:30 Time 11:30 Accucheck Value: 89 Accucheck Value: 141 Accucheck Value: 191 Assessment/Plan (1) Bilateral otitis externa Current Visit: Yes Status: Acute Onset Date: ~02/24/18 Assessment & Plan: receiving meropenem, sounds like it has improved. will add IV solu cortef solution to ear canal tid, discussed with pharmacy to try and improve canal swelling Code(s): H60.93 - UNSPECIFIED OTITIS EXTERNA, BILATERAL (2) Failure of outpatient treatment Current Visit: Yes Status: Acute Onset Date: ~02/25/18 Code(s): Z78.9 - OTHER SPECIFIED HEALTH STATUS (3) Insulin dependent diabetes mellitus Current Visit: No Status: Chronic Code(s): E11.9 - TYPE 2 DIABETES MELLITUS WITHOUT COMPLICATIONS; Z79.4 - PENITENTIARY (CURRENT) 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
[2018-02-27] MEDS: PRISTIQ ER PO SCH (09:45)
[2018-02-27] MEDS: Imdur 30 MG PO SCH (09:45)
[2018-02-27] MEDS: CLARITIN 10 MG PO SCH (09:45)
[2018-02-27] MEDS: Protonix 40MG Tablet PO SCH (09:45)
[2018-02-27] MEDS: Zestril 5 MG PO SCH (09:45)
[2018-02-27] MEDS: BUSPAR 5 MG PO SCH ×2 (09:46→22:37)
[2018-02-27] MEDS: SYNTHROID 25 MCG PO SCH (09:48)
[2018-02-27] MEDS: ECOTRIN 81 MG PO SCH (09:49)
[2018-02-27] MEDS: Singulair 10 MG PO SCH (09:49)
[2018-02-27] MEDS: hydroDIURIL 25 MG PO SCH (09:49)
[2018-02-27] MEDS: SYNTHROID 112 MCG PO SCH (09:49)
[2018-02-27] MEDS: Toprol Xl 50 MG PO SCH (09:50)
[2018-02-27] MEDS: LYRICA 100MG PO SCH ×3 (09:50→22:37)
[2018-02-27] MEDS: ENOXAPARIN SODIUM SQ SCH (09:50)
[2018-02-27] MEDS: PLAVIX 75 MG Tablet PO SCH (09:50)
[2018-02-27] MEDS: solu-CORTEF 100MG IJ SCH ×2 (09:51→17:28)
[2018-02-27] MEDS: OXYCODONE-ACETAMINOPHEN 10-325 PO PRN ×3 (09:53→22:37)
[2018-02-27] MEDS: Pepcid 20 MG PO SCH (22:37)
[2018-02-27] MEDS: Desyrel 150 MG PO SCH (22:37)
[2018-02-27] MEDS: Cyclobenzaprine 10 MG PO SCH (22:37)
[2018-02-27] MEDS: LIPITOR 40MG PO SCH (22:38)
[2018-02-28] MEDS: solu-CORTEF 100MG IJ SCH ×3 (00:06→16:16)
[2018-02-28] MEDS: Merrem 1 GM 1 G in Sodium Chloride 100ML MINI-BAG PLUS 100 ML IV SCH ×3 (05:13→22:45)
[2018-02-28 06:00] LABS: BASOPHIL % 0.5 % (0.0-0.4); Basophil (Absolute #) 0.03 (0-0.4); Eosinophil % 4.3 % (0.00-5.0); Eosinophil (Absolute #) 0.25 (0-0.5); Granulocyte Absolute (ANC) 2.93 (1.4-6.9); Granulocytes % 50.8 % (36.0-66.0); Hematocrit 33.9 % (35-47); Hemoglobin 10.7 gm/dl (12.0-16.0); Lymphocyte (Absolute #) 1.95 (1.0-4.6); Lymphocytes % 33.8 % (24.0-44.0); Mean Cell Volume 96.6 fl (78-100); Mean Corpuscular Hgb Concent. 31.6 g/dl (32-36); Mean Platelet Volume 11.1 fl (6-9.5); Monocyte (Absolute #) 0.61 (0.0-1.3); Monocytes % 10.6 % (0.0-12.0); Platelet Count 171 K/mm3 (150-450); Red Blood Count 3.51 M/mm3 (4.1-5.4); Red Cell Distribution Width 13.8 % (11.5-14.0); White Blood Count 5.8 K/mm3 (4.0-10.5)
[2018-02-28 06:15] LABS: ALBUMIN 3.2 g/dL (3.5-5.0); ALKALINE PHOSPHATASE 92 U/L (38-126); ANION GAP 8.9 MEQ/L (5-15); BLOOD UREA NITROGEN 15 mg/dL (7-17); CHLORIDE 98 mmol/L (98-107); Calcium 8.3 mg/dL (8.4-10.2); Carbon Dioxide 35 mmol/L (22-30); Creatinine 1 0.83 mg/dL (0.52-1.04); Glucose 122 mg/dL (74-106); Potassium 4.4 mmol/L (3.5-5.1); SGOT/AST 37 U/L (14-36); SGPT/ALT 36 U/L (0-35); SODIUM 138 mmol/L (137-145); Total Protein 6.2 g/dL (6.3-8.2)
[2018-02-28 06:19] LABS: Mean Corpuscular Hemoglobin 30.4 pg (26-32)
[2018-02-28] MEDS: OXYCODONE-ACETAMINOPHEN 10-325 PO PRN ×2 (09:02→22:45)
--- NOTE | 2018-02-28 09:03 | PCM.NOTE ---
Date and Time: 02/28/18900 Subjective Assessment: no new problems or concerns, still has significant swelling in sp ears. Objective Exam General Appearance: no apparent distress, alert Ears, Nose, Throat Exam: other (sp EAC swollen, scant drainage. no significant erythema) Respiratory Exam: normal breath sounds, lungs clear, No respiratory distress Cardiovascular Exam: regular rate/rhythm, normal heart sounds OBJECTIVE DATA Vital Signs: Vital Signs - 24 hr Temp Pulse Resp BP Pulse Ox 02/28/18 08:11 95 H 20 88 L 02/28/18 07:31 98.2 F 83 20 110/53 93 L 02/28/18 04:00 98.5 F 78 20 122/56 94 L 02/28/18 00:00 98.1 F 73 18 113/59 93 L 02/27/18 20:12 80 18 94 L 02/27/18 20:00 98.1 F 75 20 103/57 93 L 02/27/18 16:00 98.6 F 76 18 126/72 95 02/27/18 12:00 98.5 F 72 18 122/76 94 L 02/27/18 10:24 92 L Oxygen-Last 24 hours O2 Percentage 2 Liters = 28% O2 Percentage 2 Liters = 28% Oxygen Flowrate (L/min)-RT 2 Oxygen Flowrate (L/min)-RT 2 Oxygen Flowrate (L/min)-RT 2 Pain Assessment - Last Documented Pain Intensity 0 Pain Scale Used 0-10 Pain Scale,FLACC Intake and Output: Intake & Output 02/25/18 02/26/18 02/27/18 02/28/18 11:59 11:59 11:59 11:59 Intake Total 2223 4065 3665 2741 Output Total 600 2000 1900 Balance 1623 2065 1765 2741 Weight 157 kg 157 kg Lab Results: Accuchecks Date 02/28/18 Date 02/27/18 Date 02/27/18 Date 02/27/18 Time 22:00 Time 16:30 Time 11:30 Accucheck Value: 128 Accucheck Value: 169 Accucheck Value: 165 Accucheck Value: 160 Lab Results-Last 24 Hours 02/28/18 02/28/18 Range/Units 05:30 05:30 WBC 5.8 (4.0-10.5) K/mm3 RBC 3.51 L (4.1-5.4) M/mm3 Hgb 10.7 L (12.0-16.0) gm/dl Hct 33.9 L (35-47) % MCV 96.6 (78-100) fl MCH 30.4 (26-32) pg MCHC 31.6 L (32-36) g/dl RDW 13.8 (11.5-14.0) % Plt Count 171 (150-450) K/mm3 MPV 11.1 H (6-9.5) fl Gran % 50.8 (36.0-66.0) % Eos # (Auto) 0.25 (0-0.5) Absolute Lymphs (auto) 1.95 (1.0-4.6) Absolute Monos (auto) 0.61 (0.0-1.3) Lymphocytes % 33.8 (24.0-44.0) % Monocytes % 10.6 (0.0-12.0) % Eosinophils % 4.3 (0.00-5.0) % Basophils % 0.5 (0.0-0.4) % Absolute Granulocytes 2.93 (1.4-6.9) Basophils # 0.03 (0-0.4) Sodium 138 (137-145) mmol/L Potassium 4.4 (3.5-5.1) mmol/L Chloride 98 (98-107) mmol/L Carbon Dioxide 35 H (22-30) mmol/L Anion Gap 8.9 (5-15) MEQ/L BUN 15 (7-17) mg/dL Creatinine 0.83 (0.52-1.04) mg/dL Estimated GFR > 60.0 ML/MIN Glucose 122 H (74-106) mg/dL Calcium 8.3 L (8.4-10.2) mg/dL Total Bilirubin 0.20 (0.2-1.3) mg/dL AST 37 H (14-36) U/L ALT 36 H (0-35) U/L Alkaline Phosphatase 92 (38-126) U/L Serum Total Protein 6.2 L (6.3-8.2) g/dL Albumin 3.2 L (3.5-5.0) g/dL Multi-Disciplinary Progress Notes: Multi-Disciplinary Progress Notes 02/27/18 09:45 (created 02/27/18 11:26) Case Management Note by Shikha Betancourt VISITED WITH PT AND REVIEWED DISCHARGE PLAN. CONTINUES TO PLAN TO RETURN HOME TO PRE EPISODIC LEVEL OF [place]. DISCUSSED SWING BED IN THE EVENT PT WOULD NEED CONTINUED IV ABX, REPORTS THAT SHE WILL NOT HAVE TRANSPORTATION FOR OUTPATIENT I.V. REPORTS THAT SHE IS AGREEABLE TO THIS, BUT HAS AN APPT WITH DR. LEWIS ON FRIDAY THAT SHE DOES NOT WANT TO MISS. REPORTS THAT HE HAS HAD TO CANCEL HER LAST 2 APPTS. DISCUSSED LEAVE OF ABSENCE IN SWING BED. DENIES ADDNL NEEDS AT THIS TIME. REPORTS THAT HER DAUGHTER OR GRANDDAUGHTER WOULD BE TAKING HER TO HER APPT. WILL FOLLOW FOR ALL DC NEEDS. Initialized on 02/27/18 11:26 - END OF NOTE Assessment/Plan (1) Bilateral otitis externa Current Visit: Yes Status: Acute Onset Date: ~02/24/18 Assessment & Plan: continue IV meropenem, added solu cortef otic drops yesterday. 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
[2018-02-28] MEDS: SYNTHROID 25 MCG PO SCH (10:13)
[2018-02-28] MEDS: Imdur 30 MG PO SCH (10:13)
[2018-02-28] MEDS: Toprol Xl 50 MG PO SCH (10:13)
[2018-02-28] MEDS: PRISTIQ ER PO SCH (10:13)
[2018-02-28] MEDS: Zestril 5 MG PO SCH (10:14)
[2018-02-28] MEDS: PLAVIX 75 MG Tablet PO SCH (10:14)
[2018-02-28] MEDS: Protonix 40MG Tablet PO SCH (10:14)
[2018-02-28] MEDS: hydroDIURIL 25 MG PO SCH (10:15)
[2018-02-28] MEDS: SYNTHROID 112 MCG PO SCH (10:15)
[2018-02-28] MEDS: CLARITIN 10 MG PO SCH (10:15)
[2018-02-28] MEDS: BUSPAR 5 MG PO SCH ×2 (10:15→22:46)
[2018-02-28] MEDS: Singulair 10 MG PO SCH (10:15)
[2018-02-28] MEDS: ECOTRIN 81 MG PO SCH (10:15)
[2018-02-28] MEDS: LYRICA 100MG PO SCH ×3 (10:15→22:45)
[2018-02-28] MEDS: ENOXAPARIN SODIUM SQ SCH (10:16)
[2018-02-28] MEDS: Sodium Chloride 0.9% 1000 ML 1,000 ML IV SCH (16:23)
[2018-02-28] MEDS: Desyrel 150 MG PO SCH (22:45)
[2018-02-28] MEDS: Cyclobenzaprine 10 MG PO SCH (22:46)
[2018-02-28] MEDS: LIPITOR 40MG PO SCH (22:46)
[2018-02-28] MEDS: Pepcid 20 MG PO SCH (22:47)
[2018-03-01] MEDS: solu-CORTEF 100MG IJ SCH ×3 (00:17→16:31)
[2018-03-01] MEDS: Merrem 1 GM 1 G in Sodium Chloride 100ML MINI-BAG PLUS 100 ML IV SCH ×3 (05:23→21:06)
[2018-03-01] MEDS: Sodium Chloride 0.9% 1000 ML 1,000 ML IV SCH (05:29)
[2018-03-01] MEDS: OXYCODONE-ACETAMINOPHEN 10-325 PO PRN ×3 (08:36→21:38)
--- NOTE | 2018-03-01 09:06 | PCM.NOTE ---
Date and Time: 03/01/18 09 Subjective Assessment: doing about the same, no new complaints. overall still has ear pain and swelling Objective Exam General Appearance: no apparent distress, alert Ears, Nose, Throat Exam: other (EAC swelling, induration and mild erythema. swelling appears improved) Respiratory Exam: normal breath sounds, lungs clear, No respiratory distress Cardiovascular Exam: regular rate/rhythm, normal heart sounds Gastrointestinal/Abdomen Exam: soft, No tenderness, No mass OBJECTIVE DATA Vital Signs: Vital Signs - 24 hr Temp Pulse Resp BP Pulse Ox 03/01/18 07:27 98.9 F 105 H 20 105/46 93 L 03/01/18 04:00 98.2 F 96 H 26 H 131/68 94 L 03/01/18 00:00 98.4 F 79 16 123/57 95 02/28/18 21:56 75 16 93 L 02/28/18 20:00 98.2 F 78 16 137/63 93 L 02/28/18 16:00 98.1 F 72 20 108/57 92 L 02/28/18 11:48 98.0 F 85 20 115/56 91 L Oxygen-Last 24 hours O2 Percentage 2 Liters = 28% O2 Percentage 2 Liters = 28% O2 Percentage 2 Liters = 28% O2 Percentage 2 Liters = 28% O2 Percentage 2 Liters = 28% O2 Percentage 2 Liters = 28% Pain Assessment - Last Documented Pain Intensity 8 Pain Scale Used [facility] Intake and Output: Intake & Output 02/26/18 02/27/18 02/28/18 03/01/18 11:59 11:59 11:59 11:59 Intake Total 4065 3665 3161 3097 Output Total 1999 1900 Balance 2065 1765 3161 3097 Weight 157 kg Lab Results: Accuchecks Date 02/28/18 Date 02/28/18 Date 02/28/18 Time 22:00 Accucheck Value: 259 Accucheck Value: 235 Accucheck Value: 202 Multi-Disciplinary Progress Notes: Multi-Disciplinary Progress Notes 02/28/18 10:05 Case Management Note by Jo Ann Donnelly DISCHARGE PLAN REVIEWED. PATIENT IS WILLING TO STAY FOR SWINGBED ON D/C FOR IV ATB IF THE MD FEELS THAT SHE REQUIRES IT, OP INFUSION WOULD BE A HARDSHIP FOR THE PATIENT. 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 WILL CONTINUE TO MONITOR FOR ALL D/C NEEDS. 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
[2018-03-01] MEDS: ENOXAPARIN SODIUM SQ SCH (09:54)
[2018-03-01] MEDS: BUSPAR 5 MG PO SCH ×2 (09:55→21:05)
[2018-03-01] MEDS: CLARITIN 10 MG PO SCH (09:55)
[2018-03-01] MEDS: ECOTRIN 81 MG PO SCH (09:56)
[2018-03-01] MEDS: hydroDIURIL 25 MG PO SCH (09:56)
[2018-03-01] MEDS: LYRICA 100MG PO SCH ×3 (09:57→21:06)
[2018-03-01] MEDS: Imdur 30 MG PO SCH (09:57)
[2018-03-01] MEDS: PLAVIX 75 MG Tablet PO SCH (09:57)
[2018-03-01] MEDS: Singulair 10 MG PO SCH (09:58)
[2018-03-01] MEDS: Protonix 40MG Tablet PO SCH (09:58)
[2018-03-01] MEDS: SYNTHROID 25 MCG PO SCH (09:58)
[2018-03-01] MEDS: PRISTIQ ER PO SCH (09:58)
[2018-03-01] MEDS: Toprol Xl 50 MG PO SCH (09:59)
[2018-03-01] MEDS: SYNTHROID 112 MCG PO SCH (09:59)
[2018-03-01] MEDS: Zestril 5 MG PO SCH (09:59)
[2018-03-01] MEDS: Cyclobenzaprine 10 MG PO SCH (21:05)
[2018-03-01] MEDS: Desyrel 150 MG PO SCH (21:05)
[2018-03-01] MEDS: LIPITOR 40MG PO SCH (21:06)
[2018-03-01] MEDS: Pepcid 20 MG PO SCH (21:06)
[2018-03-02] MEDS: Sodium Chloride 0.9% 1000 ML 1,000 ML IV SCH ×2 (00:15→02:03)
[2018-03-02] MEDS: solu-CORTEF 100MG IJ SCH ×2 (00:16→08:24)
[2018-03-02] MEDS: OXYCODONE-ACETAMINOPHEN 10-325 PO PRN (04:22)
[2018-03-02] MEDS: Merrem 1 GM 1 G in Sodium Chloride 100ML MINI-BAG PLUS 100 ML IV SCH (05:55)
[2018-03-02 06:13] LABS: BASOPHIL % 0.4 % (0.0-0.4); Basophil (Absolute #) 0.02 (0-0.4); Eosinophil % 3.8 % (0.00-5.0); Eosinophil (Absolute #) 0.17 (0-0.5); Granulocyte Absolute (ANC) 2.32 (1.4-6.9); Granulocytes % 51.6 % (36.0-66.0); Hematocrit 31.3 % (35-47); Hemoglobin 9.9 gm/dl (12.0-16.0); Lymphocyte (Absolute #) 1.58 (1.0-4.6); Lymphocytes % 35.1 % (24.0-44.0); Mean Cell Volume 96.9 fl (78-100); Mean Corpuscular Hgb Concent. 31.6 g/dl (32-36); Mean Platelet Volume 11.5 fl (6-9.5); Monocyte (Absolute #) 0.41 (0.0-1.3); Monocytes % 9.1 % (0.0-12.0); Platelet Count 161 K/mm3 (150-450); Red Blood Count 3.23 M/mm3 (4.1-5.4); Red Cell Distribution Width 13.8 % (11.5-14.0); White Blood Count 4.5 K/mm3 (4.0-10.5)
[2018-03-02 06:17] LABS: Mean Corpuscular Hemoglobin 30.6 pg (26-32)
[2018-03-02 06:30] LABS: ALBUMIN 2.9 g/dL (3.5-5.0); ALKALINE PHOSPHATASE 103 U/L (38-126); ANION GAP 8.7 MEQ/L (5-15); BILIRUBIN,TOTAL < 0.10 mg/dL (0.2-1.3); BLOOD UREA NITROGEN 14 mg/dL (7-17); CHLORIDE 98 mmol/L (98-107); Calcium 8.3 mg/dL (8.4-10.2); Carbon Dioxide 38 mmol/L (22-30); Creatinine 1 0.75 mg/dL (0.52-1.04); Glucose 194 mg/dL (74-106); Potassium 4.2 mmol/L (3.5-5.1); SGOT/AST 23 U/L (14-36); SGPT/ALT 29 U/L (0-35); SODIUM 141 mmol/L (137-145); Total Protein 5.8 g/dL (6.3-8.2)
[2018-03-02 07:59] VITALS: BP 105/50; PULSE 76; O2SAT 96
[2018-03-02] MEDS: BUSPAR 5 MG PO SCH (08:19)
[2018-03-02] MEDS: Zestril 5 MG PO SCH (08:21)
[2018-03-02] MEDS: Singulair 10 MG PO SCH (08:21)
[2018-03-02] MEDS: Imdur 30 MG PO SCH (08:21)
[2018-03-02] MEDS: LYRICA 100MG PO SCH (08:22)
[2018-03-02] MEDS: PRISTIQ ER PO SCH (08:22)
[2018-03-02] MEDS: PLAVIX 75 MG Tablet PO SCH (08:22)
[2018-03-02] MEDS: Protonix 40MG Tablet PO SCH (08:22)
[2018-03-02] MEDS: hydroDIURIL 25 MG PO SCH (08:23)
[2018-03-02] MEDS: ECOTRIN 81 MG PO SCH (08:23)
[2018-03-02] MEDS: SYNTHROID 25 MCG PO SCH (08:23)
[2018-03-02] MEDS: Toprol Xl 50 MG PO SCH (08:23)
[2018-03-02] MEDS: ENOXAPARIN SODIUM SQ SCH (08:24)
[2018-03-02] MEDS: CLARITIN 10 MG PO SCH (08:24)
[2018-03-02] MEDS: SYNTHROID 112 MCG PO SCH (08:25)
--- NOTE | 2018-03-02 08:41 | PCM.DS ---
Discharge Summary Date of Admission: 02/25/18 12:00 Admitting Physician: LEORA CORMIER Primary Care Provider: LEORA CORMIER Allergies Allergies levofloxacin [From Levaquin] Allergy (Mild, Verified 07/01/17 04:45) red rash/burning when gievn IV cefaclor [From Ceclor] Allergy (Verified 07/01/17 04:45) SOB, HIVES ciprofloxacin [From Cipro] Allergy (Verified 07/01/17 04:45) ciprofloxacin HCl [From Cipro] Allergy (Verified 07/01/17 04:45) clarithromycin [From Biaxin] Allergy (Verified 07/01/17 04:45) diphenhydramine HCl [From Benadryl] Allergy (Verified 07/01/17 04:45) SOB HIVES erythromycin base [Erythromycin Base] Allergy (Verified 07/01/17 04:45) SOB HIVES iodine Allergy (Verified 07/01/17 04:45) SOB HIVES latex Allergy (Verified 07/01/17 04:45) SOB HIVES Macrolide Antibiotics Allergy (Verified 07/01/17 04:45) SBO HIVES Penicillins Allergy (Verified 07/01/17 04:45) Swelling of Face sulfamethoxazole [From Bactrim] Allergy (Verified 07/01/17 04:45) trimethoprim [From Bactrim] Allergy (Verified 07/01/17 04:45) melon Adverse Reaction (Severe, Verified 07/01/17 04:45) cantaloupe aspirin Adverse Reaction (Verified 07/01/17 04:45) ibuprofen Adverse Reaction (Verified 07/01/17 04:45) Hospital Summary - Hospital Course Hospital Course: Pt is 67 yo female pt of mine from [facility] who was admitted from the office with otitis externa and cellulitis. She was put on IV meropenem and has gradually improved throughout her stay. She is feeling somewhat better this morning,a lthough having some nausea. She has been tolerating po. Afebrile. This morning she will be discharged to swing bed. Has an endocrinology appointment with Dr. myers this afternoon that she will leave briefly for. - Vitals & Intake/Output Vital Signs: Vital Signs Temperature 98.1 F 03/02/18 07:58 Pulse Rate 76 03/02/18 07:58 Respiratory Rate 18 03/02/18 07:58 Blood Pressure 105/50 03/02/18 07:58 O2 Sat by Pulse Oximetry 96 03/02/18 07:58 Oxygen-Last Documented O2 Percentage 3 Liters = 32% Intake & Output: Intake & Output 02/27/18 02/28/18 03/01/18 03/02/18 11:59 11:59 11:59 11:59 Intake Total 3665 3161 3097 3362 Output Total 1900 Balance 1765 3161 3097 3362 Weight 157 kg - Lab Result Diagrams: 03/02/18 05:15 03/02/18 05:15 Lab Results-Last 24 Hrs: Accuchecks Date 03/01/18 Time 11:30 Accucheck Value: 224 Accucheck Value: 228 Accucheck Value: 185 Lab Results-Last 24 Hours 03/02/18 03/02/18 Range/Units 05:15 05:15 WBC 4.5 (4.0-10.5) K/mm3 RBC 3.23 L (4.1-5.4) M/mm3 Hgb 9.9 L (12.0-16.0) gm/dl Hct 31.3 L (35-47) % MCV 96.9 (78-100) fl MCH 30.6 (26-32) pg MCHC 31.6 L (32-36) g/dl RDW 13.8 (11.5-14.0) % Plt Count 161 (150-450) K/mm3 MPV 11.5 H (6-9.5) fl Gran % 51.6 (36.0-66.0) % Eos # (Auto) 0.17 (0-0.5) Absolute Lymphs (auto) 1.58 (1.0-4.6) Absolute Monos (auto) 0.41 (0.0-1.3) Lymphocytes % 35.1 (24.0-44.0) % Monocytes % 9.1 (0.0-12.0) % Eosinophils % 3.8 (0.00-5.0) % Basophils % 0.4 (0.0-0.4) % Absolute Granulocytes 2.32 (1.4-6.9) Basophils # 0.02 (0-0.4) Sodium 141 (137-145) mmol/L Potassium 4.2 (3.5-5.1) mmol/L Chloride 98 (98-107) mmol/L Carbon Dioxide 38 H (22-30) mmol/L Anion Gap 8.7 (5-15) MEQ/L BUN 14 (7-17) mg/dL Creatinine 0.75 (0.52-1.04) mg/dL Estimated GFR > 60.0 ML/MIN Glucose 194 H (74-106) mg/dL Calcium 8.3 L (8.4-10.2) mg/dL Total Bilirubin < 0.10 L (0.2-1.3) mg/dL AST 23 (14-36) U/L ALT 29 (0-35) U/L Alkaline Phosphatase 103 (38-126) U/L Serum Total Protein 5.8 L (6.3-8.2) g/dL Albumin 2.9 L (3.5-5.0) g/dL Micro Results-Entire Visit: Accuchecks Date 03/01/18 Time 11:30 Accucheck Value: 224 Accucheck Value: 228 Accucheck Value: 185 - Procedures and Test Procedures and Tests throughout Hospitalization: Therapy Orders & Screens 02/24/18 15:11 Respiratory Nebulizer UD Comment: ALBUTEROL Q4PRN Diagnosis: otitis external 02/24/18 15:12 Oxygen NASAL CANNULA 2 lpm Comment: Diagnosis: otitis external Discharge Exam General Appearance: no apparent distress, obese Neurologic Exam: alert, oriented x 3, cooperative Skin Exam: normal color, warm, dry, No rash Ears, Nose, Throat Exam: moist mucous membranes, other (L pinna very mildly edematous, no edema. There is mild edema extending approx 3cm anterior to the tragus. Canal is edematous, but no exudate is present.) Neck Exam: normal inspection, non-tender, No lymphadenopathy Respiratory Exam: normal breath sounds, lungs clear, No crackles/rales, No rhonchi, No wheezing Cardiovascular Exam: regular rate/rhythm, normal heart sounds, No murmur Extremity Exam: normal inspection, No pedal edema, No swelling Back Exam: normal inspection, No rash Final Diagnosis/Problem List - Final Discharge Diagnosis/Problem (1) Cellulitis Current Visit: Yes Status: Acute Onset Date: ~02/24/18 Assessment & Plan: Improved, but still present. Continue on meropenem outpatient. Pt with extensive allergy list. (2) Otitis externa Current Visit: Yes Status: Acute Onset Date: ~02/24/18 Assessment & Plan: on steroid drops, which appear to have been helping. (3) Coronary artery disease Current Visit: Yes Status: Chronic (4) Diabetes mellitus Current Visit: Yes Status: Chronic Assessment & Plan: seeing Dr. Myers today. (5) Hypertension Current Visit: Yes Status: Chronic (6) Morbid obesity Current Visit: Yes Status: Chronic (7) Sleep apnea Current Visit: Yes Status: Chronic - Discharge Disposition: Swing Bed @ [facility] Condition: Good Prescriptions: No Action Insulin Aspart [NovoLOG Insulin] 3.1 unit SQ UD Esomeprazole Magnesium [Nexium] 40 mg PO DAILY Atorvastatin Calcium [Lipitor 20MG Tablet] 80 mg PO HS Buspirone HCl 5 mg [Buspar 5 mg] 15 mg PO BID Cyclobenzaprine HCl [Flexeril] 10 mg PO HS Levothyroxine Sodium [Synthroid] 137 mcg PO DAILY Oxycodone HCl/Acetaminophen [Percocet 10-325 mg Tablet] 1 each PO Q4-6HPRN PRN PRN Reason: Pain Liraglutide [Victoza 2-Alcon] 0.08 mg SQ DAILY Ranitidine HCl [Zantac] 150 mg PO HS Loratadine 10 mg [Claritin 10 mg] 10 mg PO DAILY Pregabalin [Lyrica] 200 mg PO TID Desvenlafaxine Succinate [Pristiq] 100 mg PO DAILY Lisinopril 5 mg [Zestril 5 MG] 2.5 mg PO DAILY Clopidogrel Bisulfate 75 mg [PLAVIX 75 MG Tablet] 75 mg PO DAILY Aspirin 81 mg PO DAILY Albuterol Common Canister [Proventil Common Canister] 2 puff IH TID Albuterol 2.5 mg/3 ml Neb [Proventil 2.5 mg/3 ml Neb] 2.5 mg IH Q4H # 120 neb Isosorbide Mononitrate 30 mg [Imdur 30 MG] 30 mg PO DAILY Hydrochlorothiazide 25 mg [hydroDIURIL 25 MG] 12.5 mg PO DAILY Trazodone HCl 50 mg [Desyrel 50 mg] 150 mg PO HS Montelukast Sodium [Singulair] 10 mg PO DAILY Metoprolol Succinate 50 mg PO DAILY Brimonidine Tartrate/Timolol [Combigan 0.2%-0.5% Eye Drops] 1 drop OP TID Follow up with: LEORA CORMIER [Primary Care Provider] - 1 Week
[2018-03-02] MEDS ORDERED: Zofran 4 MG/2 ML VIAL IV PRN (08:56)
--- NOTE | 2018-03-02 10:05 | XRAY ---
Indication: Short of breath. Comparison: July 01, 2017. PA/lateral chest remains clear. Heart and mediastinal structures within normal limits. Bony thorax intact again with mild degenerative changes. Impression: Stable nonacute chest.
== END 2018-03-02 10:30 | disposition swing bed (61) | DRG 603 ==
LOC: MED SURG 12:00 → OBSVTOIN 02-25 12:00
PROVIDERS: ADMIT Family Medicine; ATTEND Family Medicine
DX: L03.211 Cellulitis of face (principal); H60.92 Unspecified otitis externa, left ear; I50.9 Heart failure, unspecified; G47.30 Sleep apnea, unspecified; J45.909 Unspecified asthma, uncomplicated; F32.9 Major depressive disorder, single episode, unspecified; E03.9 Hypothyroidism, unspecified; E11.42 Type 2 diabetes mellitus with diabetic polyneuropathy; I25.10 Atherosclerotic heart disease of native coronary artery without angina pectoris; I10 Essential (primary) hypertension; E11.319 Type 2 diabetes mellitus with unspecified diabetic retinopathy without macular edema; Z79.4 Long term (current) use of insulin; Z79.899 Other long term (current) drug therapy
CPT/HCPCS: 36415; 71046; 80053; 81002; 83036; 85025; 94760; G0378; J1650; J1720; J2405; A9270-GY

== ENCOUNTER 2018-03-02 09:35 | Inpatient (IN) | payer MEDICARE ==
[2018-03-02] MEDS ORDERED: NovoLOG Insulin MC SCH (11:45)
[2018-03-02] MEDS ORDERED: Zofran 4 MG/2 ML VIAL IV PRN (11:49)
[2018-03-02] MEDS: LYRICA 100MG PO SCH ×2 (14:04→22:31)
[2018-03-02] MEDS: Merrem 1 GM 1 G in Sodium Chloride 100ML MINI-BAG PLUS 100 ML IV SCH ×2 (14:04→21:06)
[2018-03-02] MEDS: solu-CORTEF 100MG MC SCH ×2 (14:04→22:31)
[2018-03-02] MEDS: Sodium Chloride 0.9% 1000 ML 1,000 ML IV SCH (21:05)
[2018-03-02] MEDS: BUSPAR 5 MG PO SCH (22:30)
[2018-03-02] MEDS: Cyclobenzaprine 10 MG PO SCH (22:31)
[2018-03-02] MEDS: Pepcid 20 MG PO SCH (22:31)
[2018-03-02] MEDS: OXYCODONE-ACETAMINOPHEN 10-325 PO PRN (22:31)
[2018-03-02] MEDS: Desyrel 150 MG PO SCH (22:31)
[2018-03-02] MEDS: LIPITOR 40MG PO SCH (22:31)
[2018-03-03] MEDS: Merrem 1 GM 1 G in Sodium Chloride 100ML MINI-BAG PLUS 100 ML IV SCH ×3 (05:46→23:07)
[2018-03-03] MEDS: solu-CORTEF 100MG MC SCH ×3 (07:12→19:36)
[2018-03-03] MEDS ORDERED: Aplisol ID SCH (10:00)
[2018-03-03] MEDS: SYNTHROID 25 MCG PO SCH (11:19)
[2018-03-03] MEDS: ECOTRIN 81 MG PO SCH (11:19)
[2018-03-03] MEDS: Protonix 40MG Tablet PO SCH (11:19)
[2018-03-03] MEDS: CLARITIN 10 MG PO SCH (11:19)
[2018-03-03] MEDS: BUSPAR 5 MG PO SCH ×2 (11:19→23:08)
[2018-03-03] MEDS: PLAVIX 75 MG Tablet PO SCH (11:19)
[2018-03-03] MEDS: hydroDIURIL 25 MG PO SCH (11:19)
[2018-03-03] MEDS: Imdur 30 MG PO SCH (11:19)
[2018-03-03] MEDS: Singulair 10 MG PO SCH (11:20)
[2018-03-03] MEDS: Zestril 5 MG PO SCH (11:20)
[2018-03-03] MEDS: PRISTIQ ER PO SCH (11:20)
[2018-03-03] MEDS: LYRICA 100MG PO SCH ×3 (11:20→23:09)
[2018-03-03] MEDS: Toprol Xl 50 MG PO SCH (11:21)
[2018-03-03] MEDS: ENOXAPARIN SODIUM SQ SCH (11:21)
[2018-03-03] MEDS: SYNTHROID 112 MCG PO SCH (11:21)
[2018-03-03] MEDS: Sodium Chloride 0.9% 1000 ML 1,000 ML IV SCH (15:52)
[2018-03-03] MEDS: Cyclobenzaprine 10 MG PO SCH (23:08)
[2018-03-03] MEDS: Desyrel 150 MG PO SCH (23:08)
[2018-03-03] MEDS: Pepcid 20 MG PO SCH (23:09)
[2018-03-03] MEDS: LIPITOR 40MG PO SCH (23:09)
[2018-03-04] MEDS: OXYCODONE-ACETAMINOPHEN 10-325 PO PRN ×3 (03:33→21:29)
[2018-03-04] MEDS: solu-CORTEF 100MG MC SCH ×2 (04:54→15:40)
[2018-03-04] MEDS: Merrem 1 GM 1 G in Sodium Chloride 100ML MINI-BAG PLUS 100 ML IV SCH ×3 (06:19→21:46)
[2018-03-04] MEDS: Sodium Chloride 0.9% 1000 ML 1,000 ML IV SCH (06:35)
[2018-03-04 10:20] LABS: Hematocrit 31.4 % (35-47); Hemoglobin 9.7 gm/dl (12.0-16.0); Mean Cell Volume 97.8 fl (78-100); Mean Corpuscular Hemoglobin 30.2 pg (26-32); Mean Corpuscular Hgb Concent. 30.9 g/dl (32-36); Mean Platelet Volume 11.1 fl (6-9.5); Platelet Count 169 K/mm3 (150-450); Red Blood Count 3.21 M/mm3 (4.1-5.4); Red Cell Distribution Width 14.1 % (11.5-14.0)
[2018-03-04] MEDS: CLARITIN 10 MG PO SCH (10:38)
[2018-03-04] MEDS: Protonix 40MG Tablet PO SCH (10:38)
[2018-03-04] MEDS: ECOTRIN 81 MG PO SCH (10:38)
[2018-03-04] MEDS: Singulair 10 MG PO SCH (10:38)
[2018-03-04] MEDS: PLAVIX 75 MG Tablet PO SCH (10:38)
[2018-03-04] MEDS: PRISTIQ ER PO SCH (10:38)
[2018-03-04] MEDS: Imdur 30 MG PO SCH (10:38)
[2018-03-04] MEDS: SYNTHROID 25 MCG PO SCH (10:38)
[2018-03-04] MEDS: LYRICA 100MG PO SCH ×3 (10:38→21:29)
[2018-03-04] MEDS: hydroDIURIL 25 MG PO SCH (10:39)
[2018-03-04] MEDS: BUSPAR 5 MG PO SCH ×2 (10:39→21:29)
[2018-03-04] MEDS: Zestril 5 MG PO SCH (10:39)
[2018-03-04] MEDS: SYNTHROID 112 MCG PO SCH (10:40)
[2018-03-04] MEDS: Toprol Xl 50 MG PO SCH (10:44)
[2018-03-04] MEDS: ENOXAPARIN SODIUM SQ SCH (10:48)
[2018-03-04] MEDS: LIPITOR 40MG PO SCH (21:29)
[2018-03-04] MEDS: Cyclobenzaprine 10 MG PO SCH (21:30)
[2018-03-04] MEDS: Desyrel 150 MG PO SCH (21:35)
[2018-03-04] MEDS: Pepcid 20 MG PO SCH (21:35)
[2018-03-05] MEDS: solu-CORTEF 100MG MC SCH ×4 (00:37→19:53)
[2018-03-05] MEDS: Sodium Chloride 0.9% 1000 ML 1,000 ML IV SCH ×2 (01:37→10:53)
[2018-03-05] MEDS: Merrem 1 GM 1 G in Sodium Chloride 100ML MINI-BAG PLUS 100 ML IV SCH ×3 (05:21→22:32)
[2018-03-05] MEDS: OXYCODONE-ACETAMINOPHEN 10-325 PO PRN ×2 (05:24→15:49)
[2018-03-05 06:13] LABS: Hematocrit 35.1 % (35-47); Hemoglobin 10.8 gm/dl (12.0-16.0); Mean Cell Volume 99.2 fl (78-100); Mean Corpuscular Hemoglobin 30.5 pg (26-32); Mean Corpuscular Hgb Concent. 30.8 g/dl (32-36); Platelet Count 205 K/mm3 (150-450); Red Blood Count 3.54 M/mm3 (4.1-5.4); Red Cell Distribution Width 14.3 % (11.5-14.0)
[2018-03-05 06:40] LABS: BLOOD UREA NITROGEN 14 mg/dL (7-17); CHLORIDE 97 mmol/L (98-107); Calcium 8.4 mg/dL (8.4-10.2); Creatinine 1 0.77 mg/dL (0.52-1.04); SODIUM 143 mmol/L (137-145)
[2018-03-05 07:22] LABS: Glucose 55 mg/dL (74-106)
[2018-03-05 07:29] LABS: Carbon Dioxide 38 mmol/L (22-30)
[2018-03-05 07:43] LABS: ANION GAP 12 MEQ/L (5-15)
--- NOTE | 2018-03-05 08:38 | PCM.NOTE ---
Date and Time: 03/05/18832 Subjective Assessment: She is having some soreness in the ear, some drainage yesterday. She says the L eye is bothering her a little this morning. Blood sugars have been 74-130, but she did have a low of 55 this morning. - Review of Systems Constitutional: No Fever Ears, Nose, & Throat: Ear Pain Objective Exam General Appearance: no apparent distress, alert, obese Neurologic Exam: oriented x 3, cooperative Ears, Nose, Throat Exam: other (L pinna with mild erythema; anterior to tragus there is mild erythema,very mildly ttp, for approx 3 cm. the canal has edema but no exudate. there is mild yellow crusting around the tragus.) OBJECTIVE DATA Vital Signs: Vital Signs - 24 hr Temp Pulse Resp BP Pulse Ox 03/05/18 08:00 98.6 F 78 22 104/51 96 03/05/18 07:51 80 20 94 L 03/04/18 22:02 74 18 94 L 03/04/18 20:00 98.5 F 82 18 119/54 95 Oxygen-Last 24 hours O2 Percentage 2 Liters = 28% O2 Percentage 2 Liters = 28% Pain Assessment - Last Documented Pain Intensity 5 Pain Scale Used 0-10 Pain Scale Intake and Output: Intake & Output 03/02/18 03/03/18 03/04/18 03/05/18 11:59 11:59 11:59 11:59 Intake Total 3129 1440 5330 Balance 3129 1440 5330 Weight 157 kg Lab Results: Accuchecks Date 03/04/18 Time 20:56 Accucheck Value: 122 Accucheck Value: 98 Accucheck Value: 130 Lab Results-Last 24 Hours 03/04/18 03/05/18 03/05/18 Range/Units 10:11 05:45 05:45 WBC 6.0 6.0 (4.0-10.5) K/mm3 RBC 3.21 L 3.54 L (4.1-5.4) M/mm3 Hgb 9.7 L 10.8 L (12.0-16.0) gm/dl Hct 31.4 L 35.1 (35-47) % MCV 97.8 99.2 (78-100) fl MCH 30.2 30.5 (26-32) pg MCHC 30.9 L 30.8 L (32-36) g/dl RDW 14.1 H 14.3 H (11.5-14.0) % Plt Count 169 205 (150-450) K/mm3 MPV 11.1 H 11.0 H (6-9.5) fl Sodium 143 (137-145) mmol/L Potassium 4.0 (3.5-5.1) mmol/L Chloride 97 L (98-107) mmol/L Carbon Dioxide 38 H (22-30) mmol/L Anion Gap 12 (5-15) MEQ/L BUN 14 (7-17) mg/dL Creatinine 0.77 (0.52-1.04) mg/dL Estimated GFR > 60.0 ML/MIN Glucose 55 L (74-106) mg/dL Calcium 8.4 (8.4-10.2) mg/dL Assessment/Plan (1) Otitis externa Current Visit: No Status: Acute Onset Date: ~02/24/18 Qualifiers: Otitis externa type: unspecified type Chronicity: acute Laterality: left Qualified Code(s): H60.502 - Unspecified acute noninfective otitis externa, left ear Assessment & Plan: there is improvement with the merrem and steroid ear drops. Code(s): H60.90 - UNSPECIFIED OTITIS EXTERNA, UNSPECIFIED EAR (2) Cellulitis Current Visit: No Status: Acute Onset Date: ~02/24/18 Qualifiers: Site of cellulitis: head Qualified Code(s): L03.811 - Cellulitis of head [ any part, except face] Assessment & Plan: L ear and just anterior to ear. She is on merrem day #10. 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
[2018-03-05] MEDS: LYRICA 100MG PO SCH ×3 (09:38→22:33)
[2018-03-05] MEDS: PRISTIQ ER PO SCH (09:38)
[2018-03-05] MEDS: Protonix 40MG Tablet PO SCH (09:38)
[2018-03-05] MEDS: ECOTRIN 81 MG PO SCH (09:38)
[2018-03-05] MEDS: hydroDIURIL 25 MG PO SCH (09:38)
[2018-03-05] MEDS: Zestril 5 MG PO SCH (09:39)
[2018-03-05] MEDS: PLAVIX 75 MG Tablet PO SCH (09:39)
[2018-03-05] MEDS: Imdur 30 MG PO SCH (09:39)
[2018-03-05] MEDS: Toprol Xl 50 MG PO SCH (09:39)
[2018-03-05] MEDS: CLARITIN 10 MG PO SCH (09:39)
[2018-03-05] MEDS: SYNTHROID 25 MCG PO SCH (09:39)
[2018-03-05] MEDS: BUSPAR 5 MG PO SCH ×2 (09:39→22:32)
[2018-03-05] MEDS: Singulair 10 MG PO SCH (09:40)
[2018-03-05] MEDS: SYNTHROID 112 MCG PO SCH (09:40)
[2018-03-05] MEDS: ENOXAPARIN SODIUM SQ SCH (09:40)
[2018-03-05] MEDS: Desyrel 150 MG PO SCH (22:32)
[2018-03-05] MEDS: Cyclobenzaprine 10 MG PO SCH (22:32)
[2018-03-05] MEDS: Pepcid 20 MG PO SCH (22:33)
[2018-03-05] MEDS: LIPITOR 40MG PO SCH (22:33)
[2018-03-06] MEDS: Sodium Chloride 0.9% 1000 ML 1,000 ML IV SCH ×2 (02:25→17:50)
[2018-03-06] MEDS: Merrem 1 GM 1 G in Sodium Chloride 100ML MINI-BAG PLUS 100 ML IV SCH ×3 (05:35→21:12)
[2018-03-06] MEDS: solu-CORTEF 100MG MC SCH ×3 (05:39→21:13)
[2018-03-06] MEDS: ENOXAPARIN SODIUM SQ SCH (09:40)
[2018-03-06] MEDS: LYRICA 100MG PO SCH ×3 (09:42→21:12)
[2018-03-06] MEDS: PRISTIQ ER PO SCH (09:42)
[2018-03-06] MEDS: PLAVIX 75 MG Tablet PO SCH (09:42)
[2018-03-06] MEDS: Imdur 30 MG PO SCH (09:42)
[2018-03-06] MEDS: SYNTHROID 25 MCG PO SCH (09:43)
[2018-03-06] MEDS: hydroDIURIL 25 MG PO SCH (09:43)
[2018-03-06] MEDS: Protonix 40MG Tablet PO SCH (09:43)
[2018-03-06] MEDS: Toprol Xl 50 MG PO SCH (09:43)
[2018-03-06] MEDS: Zestril 5 MG PO SCH (09:43)
[2018-03-06] MEDS: ECOTRIN 81 MG PO SCH (09:44)
[2018-03-06] MEDS: BUSPAR 5 MG PO SCH ×2 (09:44→21:11)
[2018-03-06] MEDS: Singulair 10 MG PO SCH (09:44)
[2018-03-06] MEDS: CLARITIN 10 MG PO SCH (09:44)
[2018-03-06] MEDS: SYNTHROID 112 MCG PO SCH (09:45)
[2018-03-06] MEDS: PROVENTIL 2.5 MG/3 ML NEB IH PRN (19:21)
[2018-03-06] MEDS: Cyclobenzaprine 10 MG PO SCH (21:11)
[2018-03-06] MEDS: Desyrel 150 MG PO SCH (21:12)
[2018-03-06] MEDS: LIPITOR 40MG PO SCH (21:12)
[2018-03-06] MEDS: Pepcid 20 MG PO SCH (21:13)
[2018-03-07] MEDS: PROVENTIL 2.5 MG/3 ML NEB IH PRN ×3 (04:10→20:23)
[2018-03-07] MEDS ORDERED: Lasix 20 MG/2 ML IV ONE (04:30)
[2018-03-07] MEDS: solu-CORTEF 100MG MC SCH ×3 (05:15→21:02)
[2018-03-07] MEDS: Merrem 1 GM 1 G in Sodium Chloride 100ML MINI-BAG PLUS 100 ML IV SCH ×3 (05:15→21:12)
[2018-03-07] MEDS: Imdur 30 MG PO SCH (09:05)
[2018-03-07] MEDS: ENOXAPARIN SODIUM SQ SCH (09:05)
[2018-03-07] MEDS: Toprol Xl 50 MG PO SCH (09:06)
[2018-03-07] MEDS: PRISTIQ ER PO SCH (09:06)
[2018-03-07] MEDS: BUSPAR 5 MG PO SCH ×2 (09:06→21:00)
[2018-03-07] MEDS: Zestril 5 MG PO SCH (09:06)
[2018-03-07] MEDS: SYNTHROID 25 MCG PO SCH (09:06)
[2018-03-07] MEDS: PLAVIX 75 MG Tablet PO SCH (09:06)
[2018-03-07] MEDS: hydroDIURIL 25 MG PO SCH (09:06)
[2018-03-07] MEDS: Protonix 40MG Tablet PO SCH (09:06)
[2018-03-07] MEDS: CLARITIN 10 MG PO SCH (09:06)
[2018-03-07] MEDS: LYRICA 100MG PO SCH ×3 (09:06→21:01)
[2018-03-07] MEDS: ECOTRIN 81 MG PO SCH (09:07)
[2018-03-07] MEDS: SYNTHROID 112 MCG PO SCH (09:07)
[2018-03-07] MEDS: Singulair 10 MG PO SCH (09:07)
[2018-03-07] MEDS: OXYCODONE-ACETAMINOPHEN 10-325 PO PRN ×2 (15:57→21:05)
[2018-03-07] MEDS: Pepcid 20 MG PO SCH (21:00)
[2018-03-07] MEDS: Cyclobenzaprine 10 MG PO SCH (21:01)
[2018-03-07] MEDS: Desyrel 150 MG PO SCH (21:01)
[2018-03-07] MEDS: LIPITOR 40MG PO SCH (21:01)
[2018-03-08] MEDS: Merrem 1 GM 1 G in Sodium Chloride 100ML MINI-BAG PLUS 100 ML IV SCH ×3 (05:45→21:57)
[2018-03-08] MEDS: solu-CORTEF 100MG MC SCH ×3 (05:52→21:56)
[2018-03-08] MEDS: ENOXAPARIN SODIUM SQ SCH (09:47)
[2018-03-08] MEDS: PLAVIX 75 MG Tablet PO SCH (09:48)
[2018-03-08] MEDS: Imdur 30 MG PO SCH (09:48)
[2018-03-08] MEDS: PRISTIQ ER PO SCH (09:48)
[2018-03-08] MEDS: hydroDIURIL 25 MG PO SCH (09:48)
[2018-03-08] MEDS: BUSPAR 5 MG PO SCH ×2 (09:48→21:56)
[2018-03-08] MEDS: SYNTHROID 25 MCG PO SCH (09:49)
[2018-03-08] MEDS: Toprol Xl 50 MG PO SCH (09:49)
[2018-03-08] MEDS: ECOTRIN 81 MG PO SCH (09:49)
[2018-03-08] MEDS: Zestril 5 MG PO SCH (09:49)
[2018-03-08] MEDS: CLARITIN 10 MG PO SCH (09:49)
[2018-03-08] MEDS: Singulair 10 MG PO SCH (09:49)
[2018-03-08] MEDS: SYNTHROID 112 MCG PO SCH (09:50)
[2018-03-08] MEDS: Protonix 40MG Tablet PO SCH (09:50)
[2018-03-08] MEDS: LYRICA 100MG PO SCH ×3 (09:58→21:56)
[2018-03-08] MEDS: Sodium Chloride 0.9% 1000 ML 1,000 ML IV SCH (19:22)
[2018-03-08] MEDS: OXYCODONE-ACETAMINOPHEN 10-325 PO PRN (19:37)
[2018-03-08] MEDS: Pepcid 20 MG PO SCH (21:56)
[2018-03-08] MEDS: Desyrel 150 MG PO SCH (21:57)
[2018-03-08] MEDS: Cyclobenzaprine 10 MG PO SCH (21:57)
[2018-03-08] MEDS: LIPITOR 40MG PO SCH (21:57)
[2018-03-09] MEDS: OXYCODONE-ACETAMINOPHEN 10-325 PO PRN ×3 (01:59→23:41)
[2018-03-09] MEDS: solu-CORTEF 100MG MC SCH ×3 (05:29→23:09)
[2018-03-09] MEDS: Merrem 1 GM 1 G in Sodium Chloride 100ML MINI-BAG PLUS 100 ML IV SCH ×3 (05:29→23:09)
--- NOTE | 2018-03-09 08:50 | PCM.NOTE ---
Date and Time: 03/09/18 0848 Subjective Assessment: Pt had some L eye pain last night; she has episodes of pain intermittently. Has been seeing ophthalmology and is going to see a subspecialist in 2 days. This morning there is some exudate in the eye. She is tolerating po well. BS 77-306. OBJECTIVE DATA Vital Signs: Vital Signs - 24 hr Temp Pulse Resp BP Pulse Ox 03/09/18 07:23 98.3 F 67 18 123/58 93 L 03/09/18 07:22 91 L 03/08/18 20:35 70 18 91 L 03/08/18 20:00 98.2 F 68 18 115/55 91 L Oxygen-Last 24 hours O2 Percentage 2 Liters = 28% O2 Percentage 2 Liters = 28% Pain Assessment - Last Documented Pain Intensity 4 Pain Scale Used 0-10 Pain Scale Intake and Output: Intake & Output 03/06/18 03/07/18 03/08/18 03/09/18 11:59 11:59 11:59 11:59 Intake Total 2205 1891 1982 550 Output Total 750 978 5787 Balance 1805 1241 -1818 550 Weight 157 kg 170 kg 165 kg Lab Results: Accuchecks Date 03/08/18 Date 03/08/18 Date 03/08/18 Time 21:30 Time 16:30 Time 11:30 Accucheck Value: 77 Accucheck Value: 71 Accucheck Value: 91 Accucheck Value: 77 Assessment/Plan (1) Otitis externa Current Visit: No Status: Acute Onset Date: ~02/24/18 Qualifiers: Otitis externa type: unspecified type Chronicity: acute Laterality: left Qualified Code(s): H60.502 - Unspecified acute noninfective otitis externa, left ear Code(s): H60.90 - UNSPECIFIED OTITIS EXTERNA, UNSPECIFIED EAR (2) Cellulitis Current Visit: No Status: Acute Onset Date: ~02/24/18 Qualifiers: Site of cellulitis: head Qualified Code(s): L03.811 - Cellulitis of head [ any part, except face] Code(s): L03.90 - CELLULITIS, UNSPECIFIED (3) Failure of outpatient treatment Current Visit: No Status: Acute Onset Date: ~02/25/18 Code(s): Z78.9 - OTHER SPECIFIED HEALTH STATUS (4) Coronary artery disease Current Visit: No Status: Chronic Qualifiers: Code(s): I25.10 - ATHSCL HEART DISEASE OF [place] CORONARY ARTERY W/O ANG PCTRS (5) Diabetes mellitus Current Visit: No Status: Chronic Qualifiers: Diabetes mellitus type: type 2 Diabetes 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
[2018-03-09] MEDS ORDERED: PHARMACY DOSING REQUEST MC ONE (09:28)
[2018-03-09] MEDS: SYNTHROID 25 MCG PO SCH (10:16)
[2018-03-09] MEDS: Protonix 40MG Tablet PO SCH (10:16)
[2018-03-09] MEDS: PLAVIX 75 MG Tablet PO SCH (10:16)
[2018-03-09] MEDS: BUSPAR 5 MG PO SCH ×2 (10:16→23:07)
[2018-03-09] MEDS: Imdur 30 MG PO SCH (10:16)
[2018-03-09] MEDS: hydroDIURIL 25 MG PO SCH (10:17)
[2018-03-09] MEDS: SYNTHROID 112 MCG PO SCH (10:17)
[2018-03-09] MEDS: Zestril 5 MG PO SCH (10:17)
[2018-03-09] MEDS: Acidophilus TABLET PO SCH ×2 (10:17→23:06)
[2018-03-09] MEDS: CLARITIN 10 MG PO SCH (10:17)
[2018-03-09] MEDS: PRISTIQ ER PO SCH (10:17)
[2018-03-09] MEDS: LYRICA 100MG PO SCH ×3 (10:17→23:07)
[2018-03-09] MEDS: Singulair 10 MG PO SCH (10:17)
[2018-03-09] MEDS: Toprol Xl 50 MG PO SCH (10:17)
[2018-03-09] MEDS: ECOTRIN 81 MG PO SCH (10:17)
[2018-03-09] MEDS: ENOXAPARIN SODIUM SQ SCH (10:17)
--- NOTE | 2018-03-09 16:04 | XRAY ---
Indication: Left ear cellulitis 2 weeks. 0.6 mm thin axial images obtained through the left and right temporal bones. Coronal reformatted images obtained. Comparison: None There is soft tissue swelling of the left external auditory canal and external ear favoring known cellulitis. Small centimeter/subcentimeter reactive nodes adjacently. Moderate opacification of the left mastoid air cells presumed inflammatory. Right mastoid air cells pneumatized and clear. Right middle ear demonstrates minimal opacification presumed inflammatory. No suspicious bone lesions or osseous destructive process. No suspicious mass in the right middle ear or either epitympanic recess. Ossicles and scutum are bilaterally normal. Cochlea, semicircular canals, and internal auditory canals are bilaterally symmetric. Visualized brain parenchyma unremarkable. Impression: 1. Left external ear and external auditory canal soft tissue swelling favoring known cellulitis/otitis externa. There is also minimal opacification of the left middle ear probable otitis media. Small reactive lymph nodes. 2. Partial opacification of the left mastoid air cells also presumed inflammatory. 3. No suspicious bone lesions or osseous destructive process. CTDI 165.81
[2018-03-09] MEDS: LIPITOR 40MG PO SCH (23:06)
[2018-03-09] MEDS: Pepcid 20 MG PO SCH (23:06)
[2018-03-09] MEDS: Desyrel 150 MG PO SCH (23:07)
[2018-03-09] MEDS: Cyclobenzaprine 10 MG PO SCH (23:07)
[2018-03-10] MEDS: solu-CORTEF 100MG MC SCH ×3 (05:26→23:09)
[2018-03-10] MEDS: Merrem 1 GM 1 G in Sodium Chloride 100ML MINI-BAG PLUS 100 ML IV SCH ×3 (05:26→23:09)
[2018-03-10] MEDS: CLARITIN 10 MG PO SCH (09:22)
[2018-03-10] MEDS: ECOTRIN 81 MG PO SCH (09:22)
[2018-03-10] MEDS: BUSPAR 5 MG PO SCH ×2 (09:22→23:09)
[2018-03-10] MEDS: Protonix 40MG Tablet PO SCH (09:22)
[2018-03-10] MEDS: Acidophilus TABLET PO SCH ×2 (09:22→23:10)
[2018-03-10] MEDS: LYRICA 100MG PO SCH ×3 (09:22→23:10)
[2018-03-10] MEDS: Singulair 10 MG PO SCH (09:22)
[2018-03-10] MEDS: Imdur 30 MG PO SCH (09:22)
[2018-03-10] MEDS: Toprol Xl 50 MG PO SCH (09:22)
[2018-03-10] MEDS: SYNTHROID 25 MCG PO SCH (09:22)
[2018-03-10] MEDS: PRISTIQ ER PO SCH (09:22)
[2018-03-10] MEDS: ENOXAPARIN SODIUM SQ SCH (09:23)
[2018-03-10] MEDS: hydroDIURIL 25 MG PO SCH (09:23)
[2018-03-10] MEDS: PLAVIX 75 MG Tablet PO SCH (09:23)
[2018-03-10] MEDS: Zestril 5 MG PO SCH (09:23)
[2018-03-10] MEDS: SYNTHROID 112 MCG PO SCH (09:23)
[2018-03-10] MEDS: OXYCODONE-ACETAMINOPHEN 10-325 PO PRN ×2 (14:07→20:55)
--- NOTE | 2018-03-10 14:30 | PCM.NOTE ---
Date and Time: 03/10/18 1426 Subjective Assessment: Pt feeling pretty good. Less drainage from the ear. [place] po fine. - Review of Systems Constitutional: No Fever Ears, Nose, & Throat: Ear Pain Objective Exam General Appearance: no apparent distress, obese Neurologic Exam: alert, oriented x 3, cooperative Skin Exam: warm, dry Ears, Nose, Throat Exam: other (L pinna very mildly edematous; no erythema. Tragus and approx 2 cm anterior to tragus very lightly erythematous. There is minima evidence of yellow exudate. The canal is edematous but the TM is petty. Canal appears dry.) Respiratory Exam: normal breath sounds, lungs clear, No crackles/rales, No rhonchi, No wheezing Cardiovascular Exam: regular rate/rhythm, normal heart sounds, No murmur OBJECTIVE DATA Vital Signs: Vital Signs - 24 hr Temp Pulse Resp BP Pulse Ox 03/10/18 07:19 98.2 F 78 18 115/59 94 L 03/10/18 07:18 93 L 03/09/18 20:00 97.5 F 73 20 94/45 93 L 03/09/18 19:21 72 18 92 L Oxygen-Last 24 hours O2 Percentage 2 Liters = 28% O2 Percentage 2 Liters = 28% Pain Assessment - Last Documented Pain Intensity 9 Pain Scale Used 0-10 Pain Scale Intake and Output: Intake & Output 03/08/18 03/09/18 03/10/18 03/11/18 11:59 11:59 11:59 11:59 Intake Total 1982 550 520 Output Total 3800 Balance -1818 550 520 Weight 165 kg 167.9 kg Lab Results: Accuchecks Date 03/10/18 Date 03/10/18 Date 03/09/18 Time 07:30 Time 21:30 Accucheck Value: 82 Accucheck Value: 91 Accucheck Value: 79 Accucheck Value: 114 Radiology Exams: Radiology Procedures Category Date Time Status IAC W/O CONTRAST [CT] Urgent Exams 03/09/18 15:20 Completed Assessment/Plan (1) Otitis externa Current Visit: No Status: Acute Onset Date: ~02/24/18 Qualifiers: Otitis externa type: unspecified type Chronicity: acute Laterality: left Qualified Code(s): H60.502 - Unspecified acute noninfective otitis externa, left ear Assessment & Plan: Has improved since admission but still present. On merropenem IV and steroid ear drops. I spoke with Dr. Andujar, ENT in [place]. The plan is to discharge the pt to home tomorrow (on doxycycline for the celluitis) and have her see Dr. Andujar in office either that day or the following day. Code(s): H60.90 - UNSPECIFIED OTITIS EXTERNA, UNSPECIFIED EAR (2) Cellulitis Current Visit: No Status: Acute Onset Date: ~02/24/18 Qualifiers: Site of cellulitis: head Qualified Code(s): L03.811 - Cellulitis of head [ any part, except face] Assessment & Plan: Anterior to L ear; improved. Code(s): L03.90 - CELLULITIS, UNSPECIFIED (3) Failure of outpatient treatment Current Visit: No Status: Acute Onset Date: ~02/25/18 Code(s): Z78.9 - OTHER SPECIFIED HEALTH STATUS (4) Coronary artery disease Current Visit: No Status: Chronic Qualifiers: Coronary Disease-Associated Artery/Lesion type: [place] artery [place] vs. 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 Myers, BS have been fairly well controlled, 79-114 over the past 24+ hours. She did have a few elevated BS over 200 and 300 during the stay. Code(s): E11.9 - TYPE 2 DIABETES MELLITUS WITHOUT COMPLICATIONS (6) Hypertension Current Visit: No Status: Chronic Qualifiers: Hypertension type: essential hypertension Assessment & Plan: stable. Code(s): I10 - ESSENTIAL (PRIMARY) HYPERTENSION
[2018-03-10] MEDS: Cyclobenzaprine 10 MG PO SCH (23:09)
[2018-03-10] MEDS: LIPITOR 40MG PO SCH (23:09)
[2018-03-10] MEDS: Desyrel 150 MG PO SCH (23:10)
[2018-03-10] MEDS: Pepcid 20 MG PO SCH (23:10)
[2018-03-11] MEDS: solu-CORTEF 100MG MC SCH (05:47)
[2018-03-11] MEDS: Merrem 1 GM 1 G in Sodium Chloride 100ML MINI-BAG PLUS 100 ML IV SCH (05:47)
[2018-03-11] MEDS: OXYCODONE-ACETAMINOPHEN 10-325 PO PRN (05:56)
[2018-03-11 07:26] VITALS: BP 138/59; PULSE 72; O2SAT 91
--- NOTE | 2018-03-11 08:56 | PCM.DS ---
Discharge Summary Date of Admission: 03/02/18 10:30 Admitting Physician: LEORA CORMIER Primary Care Provider: LEORA CORMIER Allergies Allergies levofloxacin [From Levaquin] Allergy (Mild, Verified 03/02/18 10:52) red rash/burning when gievn IV cefaclor [From Ceclor] Allergy (Verified 03/02/18 10:52) SOB, HIVES ciprofloxacin [From Cipro] Allergy (Verified 03/02/18 10:52) ciprofloxacin HCl [From Cipro] Allergy (Verified 03/02/18 10:52) clarithromycin [From Biaxin] Allergy (Verified 03/02/18 10:52) diphenhydramine HCl [From Benadryl] Allergy (Verified 03/02/18 10:52) SOB HIVES erythromycin base [Erythromycin Base] Allergy (Verified 03/02/18 10:52) SOB HIVES iodine Allergy (Verified 03/02/18 10:52) SOB HIVES latex Allergy (Verified 03/02/18 10:52) SOB HIVES Macrolide Antibiotics Allergy (Verified 03/02/18 10:52) SBO HIVES Penicillins Allergy (Verified 03/02/18 10:52) Swelling of Face sulfamethoxazole [From Bactrim] Allergy (Verified 03/02/18 10:52) trimethoprim [From Bactrim] Allergy (Verified 03/02/18 10:52) melon Adverse Reaction (Severe, Verified 03/02/18 10:52) cantaloupe aspirin Adverse Reaction (Verified 03/02/18 10:52) ibuprofen Adverse Reaction (Verified 03/02/18 10:52) Hospital Summary - Hospital Course Hospital Course: Pt is a 67 yo diabetic pt of mine from [facility] who was admitted 16d ago from home to acute care for L otitis externa and cellulitis of the face. She has many allergies so was placed on IV meropenem and steroid ear drops. She has slowly improved and in fact was placed in a swing bed during her stay here. CT of the head with no bony changes. She has been afebrile during her stay. Although the ear is much improved, it is not back to baseline so she will be sent home on po doxycycline and has an appointment with Dr. Phoenix, ENT, tomorrow. On December 31 2017 she was sent from my office to [place] (to her opthalmologist) with a case of shingles affecting the L eye, L facial cellulitis , and L otitis externa. She was treated inpatient there and released to home but she doesn't think she ever completely recovered with respect to the ear. Blood sugars during the stay were mostly in the low 100s wiht an occasional sugar up to 300. She does have an insulin pump and sees Dr. 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 COPD was stable, with her on her home dose of 2L O2 per NC. She has complained of L eye pain intermittently during her stay. She has been seeing ophthalmology in [place] for the L eye and has an appointment wiht a subspecialist later this month. - Vitals & Intake/Output Vital Signs: Vital Signs Temperature 97.9 F 03/11/18 07:25 Pulse Rate 72 03/11/18 07:25 Respiratory Rate 18 03/11/18 07:25 Blood Pressure 138/59 03/11/18 07:25 O2 Sat by Pulse Oximetry 91 L 03/11/18 07:25 Oxygen-Last Documented O2 Percentage 2 Liters = 28% Intake & Output: Intake & Output 03/08/18 03/09/18 03/10/18 03/11/18 11:59 11:59 11:59 11:59 Intake Total 1982 184 650 3506 Output Total 3800 Balance -1818 892 551 1978 Weight 165 kg 167.9 kg 168.9 kg - Lab Result Diagrams: 03/11/18 08:58 03/11/18 08:58 Lab Results-Last 24 Hrs: Accuchecks Date 03/11/18 Date 03/10/18 Date 03/10/1803/10/18 Time 07:30 Time 21:30 Time 16:30 Accucheck Value: 86 Accucheck Value: 195 Accucheck Value: 146 Accucheck Value: 82 Micro Results-Entire Visit: Accuchecks Date 03/11/18 Date 03/10/18 Date 03/10/18 Date 03/10/18 Time 07:30 Time 21:30 Time 16:30 Accucheck Value: 86 Accucheck Value: 195 Accucheck Value: 146 Accucheck Value: 82 - Radiology Exams Ordered Rad Exams-Entire Visit: Radiology Procedures Category Date Time Status IAC W/O CONTRAST [CT] Urgent Exams 03/09/18 15:20 Completed - Procedures and Test Procedures and Tests throughout Hospitalization: Therapy Orders & Screens 03/02/18 12:44 Respiratory Nebulizer Comment: ALBUTEROL Q4PRN Diagnosis: Infection requiring I.V. Antibiotics 03/02/18 12:45 Oxygen NASAL CANNULA 2 lpm Comment: Diagnosis: Infection requiring I.V. Antibiotics Discharge Exam General Appearance: no apparent distress, obese Neurologic Exam: oriented x 3, cooperative Skin Exam: warm, dry Ears, Nose, Throat Exam: other (L pinna mildly edematous. there is erythema approx 2cm anterior to the tragus. minimal evidence of yellow exudate.) Respiratory Exam: lungs clear, diminished breath sounds, No crackles/rales, No rhonchi, No wheezing Cardiovascular Exam: regular rate/rhythm, normal heart sounds, No murmur Extremity Exam: swelling (1+ pretibial edema bilat) Back Exam: normal inspection, No rash Final Diagnosis/Problem List - Final Discharge Diagnosis/Problem (1) Otitis externa Current Visit: No Status: Acute Onset Date: ~02/24/18 Assessment & Plan: Sending pt to ENT tomorrow, Dr. Phoenix, thank you! (2) Cellulitis Current Visit: No Status: Acute Onset Date: ~02/24/18 Assessment & Plan: Home on doxycycline. Pt with extensive allergies. (3) Failure of outpatient treatment Current Visit: No Status: Acute Onset Date: ~02/25/18 (4) Coronary artery disease Current Visit: No Status: Chronic (5) Diabetes mellitus Current Visit: No Status: Chronic (6) Hypertension Current Visit: No Status: Chronic - Discharge Disposition: Home, Self-Care Condition: Stable Prescriptions: New Lactobacillus Acidophilus [Acidophilus TABLET] 1 tab PO BID #60 tablet Doxycycline Hyclate 100 mg [Vibramycin 100 MG] 100 mg PO BID #20 tab Continue Insulin Aspart [NovoLOG Insulin] 3.1 unit SQ UD Esomeprazole Magnesium [Nexium] 40 mg PO DAILY Atorvastatin Calcium [Lipitor 20MG Tablet] 80 mg PO HS Buspirone HCl 5 mg [Buspar 5 mg] 15 mg PO BID Cyclobenzaprine HCl [Flexeril] 10 mg PO HS Levothyroxine Sodium [Synthroid] 137 mcg PO DAILY Oxycodone HCl/Acetaminophen [Percocet 10-325 mg Tablet] 1 each PO Q4-6HPRN PRN PRN Reason: Pain Liraglutide [Victoza 2-Alcon] 0.08 mg SQ DAILY Ranitidine HCl [Zantac] 150 mg PO HS Loratadine 10 mg [Claritin 10 mg] 10 mg PO DAILY Pregabalin [Lyrica] 200 mg PO TID Desvenlafaxine Succinate [Pristiq] 100 mg PO DAILY Lisinopril 5 mg [Zestril 5 MG] 2.5 mg PO DAILY Clopidogrel Bisulfate 75 mg [PLAVIX 75 MG Tablet] 75 mg PO DAILY Aspirin 81 mg PO DAILY Albuterol Common Canister [Proventil Common Canister] 2 puff IH TID Albuterol 2.5 mg/3 ml Neb [Proventil 2.5 mg/3 ml Neb] 2.5 mg IH Q4H # 120 neb Isosorbide Mononitrate 30 mg [Imdur 30 MG] 30 mg PO DAILY Hydrochlorothiazide 25 mg [hydroDIURIL 25 MG] 12.5 mg PO DAILY Trazodone HCl 50 mg [Desyrel 50 mg] 150 mg PO HS Montelukast Sodium [Singulair] 10 mg PO DAILY Metoprolol Succinate 50 mg PO DAILY Brimonidine Tartrate/Timolol [Combigan 0.2%-0.5% Eye Drops] 1 drop OP TID Instructions: Cellulitis (Skin Infection), Adult (DC) Follow up with: SHYLA PHOENIX MD [NON-STAFF PHY W/O PRIVILEGES] - 03/12/18 1:00 pm LEORA CORMIER [Primary Care Provider] - 03/17/18 9:15 am Forms: Discharge Instructions
[2018-03-11 09:06] LABS: BASOPHIL % 0.5 % (0.0-0.4); Basophil (Absolute #) 0.03 (0-0.4); Eosinophil % 7.8 % (0.00-5.0); Eosinophil (Absolute #) 0.48 (0-0.5); Granulocytes % 53.3 % (36.0-66.0); Hemoglobin 11.1 gm/dl (12.0-16.0); Lymphocyte (Absolute #) 1.79 (1.0-4.6); Lymphocytes % 28.9 % (24.0-44.0); Mean Cell Volume 98.4 fl (78-100); Mean Corpuscular Hemoglobin 30.3 pg (26-32); Mean Corpuscular Hgb Concent. 30.8 g/dl (32-36); Mean Platelet Volume 10.7 fl (6-9.5); Monocyte (Absolute #) 0.59 (0.0-1.3); Monocytes % 9.5 % (0.0-12.0); Platelet Count 225 K/mm3 (150-450); Red Blood Count 3.66 M/mm3 (4.1-5.4); White Blood Count 6.2 K/mm3 (4.0-10.5)
[2018-03-11] MEDS: PLAVIX 75 MG Tablet PO SCH (09:10)
[2018-03-11] MEDS: ENOXAPARIN SODIUM SQ SCH (09:10)
[2018-03-11] MEDS: hydroDIURIL 25 MG PO SCH (09:10)
[2018-03-11] MEDS: Singulair 10 MG PO SCH (09:10)
[2018-03-11] MEDS: Toprol Xl 50 MG PO SCH (09:10)
[2018-03-11] MEDS: Imdur 30 MG PO SCH (09:10)
[2018-03-11] MEDS: Acidophilus TABLET PO SCH (09:11)
[2018-03-11] MEDS: SYNTHROID 25 MCG PO SCH (09:11)
[2018-03-11] MEDS: Zestril 5 MG PO SCH (09:11)
[2018-03-11] MEDS: PRISTIQ ER PO SCH (09:11)
[2018-03-11] MEDS: BUSPAR 5 MG PO SCH (09:11)
[2018-03-11] MEDS: Protonix 40MG Tablet PO SCH (09:11)
[2018-03-11] MEDS: ECOTRIN 81 MG PO SCH (09:11)
[2018-03-11] MEDS: LYRICA 100MG PO SCH ×2 (09:11→16:31)
[2018-03-11] MEDS: SYNTHROID 112 MCG PO SCH (09:12)
[2018-03-11] MEDS: CLARITIN 10 MG PO SCH (09:12)
[2018-03-11 09:45] LABS: ALBUMIN 3.6 g/dL (3.5-5.0); ALKALINE PHOSPHATASE 113 U/L (38-126); BLOOD UREA NITROGEN 17 mg/dL (7-17); CHLORIDE 95 mmol/L (98-107); Calcium 8.8 mg/dL (8.4-10.2); Creatinine 1 0.84 mg/dL (0.52-1.04); Glucose 67 mg/dL (74-106); Potassium 3.6 mmol/L (3.5-5.1); SGOT/AST 32 U/L (14-36); SGPT/ALT 26 U/L (0-35); SODIUM 143 mmol/L (137-145); Total Protein 7.3 g/dL (6.3-8.2)
[2018-03-11 09:53] LABS: ANION GAP 12.6 MEQ/L (5-15); Carbon Dioxide 39 mmol/L (22-30)
[2018-03-13] MEDS ORDERED: Aplisol ID SCH (10:00)
== END 2018-03-11 17:00 | disposition home or self-care (01) | DRG 155 ==
LOC: MED SURG 10:30
PROVIDERS: ADMIT Family Medicine; ATTEND Family Medicine
DX: H60.90 Unspecified otitis externa, unspecified ear (principal); L03.211 Cellulitis of face; Z78.9 Other specified health status; I25.10 Atherosclerotic heart disease of native coronary artery without angina pectoris; E11.42 Type 2 diabetes mellitus with diabetic polyneuropathy; Z79.4 Long term (current) use of insulin; H66.90 Otitis media, unspecified, unspecified ear; I10 Essential (primary) hypertension; I50.9 Heart failure, unspecified; G47.30 Sleep apnea, unspecified; K21.9 Gastro-esophageal reflux disease without esophagitis; J45.909 Unspecified asthma, uncomplicated; M19.90 Unspecified osteoarthritis, unspecified site; F32.9 Major depressive disorder, single episode, unspecified; E03.9 Hypothyroidism, unspecified; Z79.899 Other long term (current) drug therapy
CPT/HCPCS: 36415; 70480; 80048; 80053; 85025; 85027; 94640; 94760; J1650; J1720; J1940; J2405; J7609; A9270-GY

== ENCOUNTER 2018-04-08 02:19 | Emergency (ER) | payer MEDICARE ==
[2018-04-08 02:44] VITALS: BP 119/66; PULSE 85; O2SAT 93
[2018-04-08] MEDS ORDERED: Phenergan 25 MG INJ IM ONE (02:55)
[2018-04-08] MEDS ORDERED: MORPHINE SULFATE 4 MG INJ IM ONE (02:55)
[2018-04-08] MEDS ORDERED: CORTISPORIN EAR DROPS 10 ML SUSPENSION OT ONE ×2 (02:56→03:05)
[2018-04-08] MEDS ORDERED: CLEOCIN 150 MG CAPSULE PO ONE (02:56)
[2018-04-08] MEDS ORDERED: Phenergan 25 MG INJ ONE (03:05)
[2018-04-08] MEDS ORDERED: CLEOCIN 150 MG CAPSULE ONE (03:06)
[2018-04-08] MEDS ORDERED: MORPHINE SULFATE 4 MG INJ ONE (03:06)
--- NOTE | 2018-04-08 03:06 | ERPHSYRPT ---
- History of Present Illness Time Seen by Provider: 04/08/18 02:48 Source: patient Exam Limitations: no limitations Patient Subjective Stated Complaint: Pt arrives to ER with daughter for cellulitis since September stating has been treated for it multiple times but has never fully gone away. Pt states she was going to wait until the morning to see her PCP, but her daughter thought it has now become an emergency so she made pt come in. States has been more swollen over past couple days and redness and pain is worse tonight. Denies difficulty breathing or swallowing. Denies fever or any other emergency. Triage Nursing Assessment: see above Physician History: Pt is c/o left earache since September o this year. She was treated here as inpatient on iv antibiotics and discharged 3 weeks ago on PO Doxycycline. She states, her pain and swelling in front of her left ear became worse tonight. She denies fever, throat swelling, difficulty swallowing, vomiting, chest pain, SOB other complaints. He denies taking antibiotics or using ear drops at this time. Timing/Duration: gradual onset Severity: severe ENT Location: ear (L) Prearrival Treatment: no prearrival treatment Modifying Factors: Improves With: nothing Associated Symptoms: ear pain (L), No drooling, No ear drainage, No facial pain/ swelling, No headache Allergies/Adverse Reactions: levofloxacin [From Levaquin] Allergy (Mild, Verified 04/08/18 02:45) red rash/burning when gievn IV cefaclor [From Ceclor] Allergy (Verified 04/08/18 02:45) SOB, HIVES ciprofloxacin [From Cipro] Allergy (Verified 04/08/18 02:45) ciprofloxacin HCl [From Cipro] Allergy (Verified 04/08/18 02:45) clarithromycin [From Biaxin] Allergy (Verified 04/08/18 02:45) diphenhydramine HCl [From Benadryl] Allergy (Verified 04/08/18 02:45) SOB HIVES erythromycin base [Erythromycin Base] Allergy (Verified 04/08/18 02:45) SOB HIVES iodine Allergy (Verified 04/08/18 02:45) SOB HIVES latex Allergy (Verified 04/08/18 02:45) SOB HIVES Macrolide Antibiotics Allergy (Verified 04/08/18 02:45) SBO HIVES Penicillins Allergy (Verified 04/08/18 02:45) Swelling of Face sulfamethoxazole [From Bactrim] Allergy (Verified 04/08/18 02:45) trimethoprim [From Bactrim] Allergy (Verified 04/08/18 02:45) melon Adverse Reaction (Severe, Verified 04/08/18 02:45) cantaloupe aspirin Adverse Reaction (Verified 04/08/18 02:45) ibuprofen Adverse Reaction (Verified 04/08/18 02:45) Home Medications: Atorvastatin Calcium [Lipitor 20MG Tablet] 80 mg PO HS 02/01/14 [History] Buspirone HCl 5 mg [Buspar 5 mg] 15 mg PO BID 02/01/14 [History] Cyclobenzaprine HCl [Flexeril] 10 mg PO HS 02/01/14 [History] Esomeprazole Magnesium [Nexium] 40 mg PO DAILY 02/01/14 [History] Insulin Aspart [NovoLOG Insulin] 3.1 unit SQ UD 02/01/14 [History] Levothyroxine Sodium [Synthroid] 137 mcg PO DAILY 02/01/14 [History] Liraglutide [Victoza 2-Alcon] 0.08 mg SQ DAILY 02/01/14 [History] Oxycodone HCl/Acetaminophen [Percocet 10-325 mg Tablet] 1 each PO Q4-6HPRN PRN 02/01/14 [History] Desvenlafaxine Succinate [Pristiq] 100 mg PO DAILY 07/15/14 [History] Loratadine 10 mg [Claritin 10 mg] 10 mg PO DAILY 07/15/14 [History] Pregabalin [Lyrica] 200 mg PO TID 07/15/14 [History] Ranitidine HCl [Zantac] 150 mg PO HS 07/15/14 [History] Albuterol Common Canister [Proventil Common Canister] 2 puff IH TID [History] Aspirin 81 mg PO DAILY 11/04/14 [History] Clopidogrel Bisulfate 75 mg [PLAVIX 75 MG Tablet] 75 mg PO DAILY 11/04/14 [History] Lisinopril 5 mg [Zestril 5 MG] 2.5 mg PO DAILY 11/04/14 [History] Isosorbide Mononitrate 30 mg [Imdur 30 MG] 30 mg PO DAILY 08/19/15 [History ] Hydrochlorothiazide 25 mg [hydroDIURIL 25 MG] 12.5 mg PO DAILY 09/06/16 [ History] Metoprolol Succinate 50 mg PO DAILY 09/06/16 [History] Montelukast Sodium [Singulair] 10 mg PO DAILY 09/06/16 [History] Trazodone HCl 50 mg [Desyrel 50 mg] 150 mg PO HS 09/06/16 [History] Brimonidine Tartrate/Timolol [Combigan 0.2%-0.5% Eye Drops] 1 drop OP TID [History] Hx Tetanus, Diphtheria Vaccination/Date Given: Yes Hx Influenza Vaccination/Date Given: No Hx Pneumococcal Vaccination/Date Given: No - Review of Systems Constitutional: No Symptoms Ears, Nose, & Throat: Ear Pain Respiratory: No Symptoms Cardiac: No Symptoms All Other Systems: Reviewed and Negative - Past Medical History Pertinent Past Medical History: Yes Neurological History: Other ENT History: No Pertinent History Cardiac History: Coronary Artery Disease, High Cholesterol, Hypertension, Myocardial Infarction ([place]), Other Respiratory History: Asthma, COPD, Pneumonia, Sleep Apnea Endocrine Medical History: Diabetes Type II Musculoskeletal History: No Pertinent History GI Medical History: No Pertinent History History: No Pertinent History Psycho-Social History: No Pertinent History Female Reproductive Disorders: No Pertinent History Other Medical History: Rapid heart rate at times; lump in right breast, biopsy non-cancerous, "stroke" in left eye - Past Surgical History Past Surgical History: Yes Neuro Surgical History: No Pertinent History Cardiac: Cardiac Stent Respiratory: No Pertinent History Gastrointestinal: Cholecystectomy Genitourinary: No Pertinent History Musculoskeletal: No Pertinent History Female Surgical History: Tubal Ligation, Other Other Surgical History: Breast biopsy, 5 STENTS - Social History Smoking Status: Never smoker Exposure to second hand smoke: No Drug Use: none Patient Lives Alone: No - Nursing Vital Signs Nursing Vital Signs: Initial Vital Signs Temperature 97.9 F 04/08/18 02:32 Pulse Rate 85 04/08/18 02:32 Respiratory Rate 18 04/08/18 02:32 Blood Pressure 119/66 04/08/18 02:32 O2 Sat by Pulse Oximetry 93 L 04/08/18 02:32 Pain Scale Pain Intensity 10 - Physical Exam General Appearance: no apparent distress Ear Exam: left ear: auricle normal (swollen, reddened ( chronic )), canal normal (edema, eryhtema, no discharge or foreign body), TM normal (not visualized), erythema (left external canal, no blisters or other lesions), swelling (left outer canal) Nasal Exam: normal inspection Throat Exam: normal, pharynx normal Neck Exam: normal inspection, non-tender, supple, trachea midline, No JVD, No lymphadenopathy (R), No lymphadenopathy (L) Cardiovascular/Respiratory Exam: chest non-tender, normal breath sounds, regular rate/rhythm, heart sounds normal, no JVD Abdominal Exam: non-tender Neurologic Exam: alert, oriented x 3 Skin Exam: normal color, warm, dry, No rash SpO2 Interpretation: normal SpO2: 93 Oxygen Delivery: Room Air - Course Nursing assessment & vital signs reviewed: Yes Ordered Tests: Active Orders 24 hr Category Date Time Status Accucheck STAT Care 04/08/18 02:56 Active Medication Summary Discontinued Medications Generic Name Dose Route Start Last Admin Trade Name Mack PRN Reason Stop Dose Admin Clindamycin HCl 300 mg 04/08/18 02:56 Cleocin 150 Mg Capsule PO 04/08/18 02:57 STAT ONE Clindamycin HCl Confirm 04/08/18 03:06 Cleocin 150 Mg Capsule Administered 04/08/18 03:07 Dose 300 mg .ROUTE .STK-MED ONE Morphine Sulfate 4 mg 04/08/18 02:55 Morphine Sulfate 4 Mg Inj IM 04/08/18 02:56 STAT ONE Morphine Sulfate Confirm 04/08/18 03:06 Morphine Sulfate 4 Mg Inj Administered 04/08/18 03:07 Dose 4 mg .ROUTE .STK-MED ONE Neomycin/Polymyxin/Hydrocortisone 1 ml 04/08/18 02:56 Cortisporin Ear Drops 10 Ml Suspension OT 04/08/18 02:57 STAT ONE Neomycin/Polymyxin/Hydrocortisone Confirm 04/08/18 03:05 Cortisporin Ear Drops 10 Ml Suspension Administered 04/08/18 03:06 Dose 10 ml OT .STK-MED ONE Promethazine HCl 25 mg 04/08/18 02:55 Phenergan 25 Mg Inj IM 04/08/18 02:56 STAT ONE Promethazine HCl Confirm 04/08/18 03:05 Phenergan 25 Mg Inj Administered 04/08/18 03:06 Dose 25 mg .ROUTE .STK-MED ONE - Progress Progress: improved Progress Note: 04/08/18 03:19 Accucheck : 145, I reviewed her discharge summary, Dr Jiang describes erythema approximately 2 cm anterior to the tragus on the left side ( same as today) She is afebrile, no sign of severe pain or distress. She was given 4mg Morphine im, 25 mg Phenergan im, and discharged on Cortisporin eardrops and PO Clindamycin. Counseled pt/family regarding: lab results, diagnosis, need for follow-up - Departure Time of Disposition: 03:22 Departure Disposition: Home Clinical Impression: Facial cellulitis Otitis externa Qualifiers: Otitis externa type: unspecified type Chronicity: chronic Laterality: left Qualified Code(s): H60.62 - Unspecified chronic otitis externa, left ear Condition: Stable Critical Care Time: No Referrals: LEORA JIANG [Primary Care Provider] - Instructions: Outer Ear Infection (DC), Cellulitis (Skin Infection), Adult (DC) Additional Instructions: Follow up with your physician and ENT doctor in 3-4 days, return if severe headaches, vomiting, high fever> 102 F, lethargy, vomiting! Prescriptions: Clindamycin HCl [Cleocin HCl] 300 mg PO QID #40 capsule [place]/Baci/Poly/Hc Ear Susp [Cortisporin Ear Drops 10 ml Suspension] 0.5 ml OT QID #1 bottle
== END 2018-04-08 03:47 | disposition home or self-care (01) ==
LOC: ED 02:19
DX: L03.211 Cellulitis of face (principal); H60.62 Unspecified chronic otitis externa, left ear; I25.10 Atherosclerotic heart disease of native coronary artery without angina pectoris; I10 Essential (primary) hypertension; J45.909 Unspecified asthma, uncomplicated; H92.02 Otalgia, left ear; E11.9 Type 2 diabetes mellitus without complications; E78.00 Pure hypercholesterolemia, unspecified; J44.9 Chronic obstructive pulmonary disease, unspecified; Z79.899 Other long term (current) drug therapy; I25.2 Old myocardial infarction; Z79.4 Long term (current) use of insulin
CPT/HCPCS: 82962; 96372; 99284; J2270; J2550; A9270-GY

== ENCOUNTER 2018-06-04 18:05 | Inpatient (IN) | payer MEDICARE ==
--- NOTE | 2018-06-04 18:28 | ERPHSYRPT ---
- History of Present Illness Source: patient, family, EMS Exam Limitations: no limitations Timing/Duration: day(s) (2) Severity: mild Character of Deficits: altered sensation (right upper ext), RUE Baseline/Normal Cognition: alert oriented x 3 Current Cognition: alert oriented x 3 Baseline Gait: walks w/o assistance Associated Symptoms: confusion, No nausea, No vomiting Hx Tetanus, Diphtheria Vaccination/Date Given: Yes Hx Influenza Vaccination/Date Given: No Hx Pneumococcal Vaccination/Date Given: No <ANNALISE HERNANDEZ - Last Filed: 06/04/18 19:07> <DIAMOND CHU - Last Filed: 06/04/18 20:44> - History of Present Illness Time Seen by Provider: 06/04/18 18:15 Physician History: 67 y/o obese white female with h/o htn, diabetes and cadz presents with "a couple of days" h/o left sided headache, right upper ext numbness, increased confusion and slow but accurate reponses to questions per daughter. pt has a h/ o tias in past as well as recurrent bladder infections. pt also states she has mild substernal cp without radiation. no soa. pt has chronically dilated left pupil post surgical (ANNALISE HERNANDEZ) Allergies/Adverse Reactions: levofloxacin [From Levaquin] Allergy (Mild, Verified 06/04/18 18:31) red rash/burning when gievn IV cefaclor [From Ceclor] Allergy (Verified 06/04/18 18:31) SOB, HIVES ciprofloxacin [From Cipro] Allergy (Verified 06/04/18 18:31) ciprofloxacin HCl [From Cipro] Allergy (Verified 06/04/18 18:31) clarithromycin [From Biaxin] Allergy (Verified 06/04/18 18:31) diphenhydramine HCl [From Benadryl] Allergy (Verified 06/04/18 18:31) SOB HIVES erythromycin base [Erythromycin Base] Allergy (Verified 06/04/18 18:31) SOB HIVES iodine Allergy (Verified 06/04/18 18:31) SOB HIVES latex Allergy (Verified 06/04/18 18:31) SOB HIVES Macrolide Antibiotics Allergy (Verified 06/04/18 18:31) SBO HIVES Penicillins Allergy (Verified 06/04/18 18:31) Swelling of Face sulfamethoxazole [From Bactrim] Allergy (Verified 06/04/18 18:31) trimethoprim [From Bactrim] Allergy (Verified 06/04/18 18:31) melon Adverse Reaction (Severe, Verified 06/04/18 18:31) cantaloupe aspirin Adverse Reaction (Verified 06/04/18 18:31) ibuprofen Adverse Reaction (Verified 06/04/18 18:31) Home Medications: Atorvastatin Calcium [Lipitor 20MG Tablet] 80 mg PO HS 02/01/14 [History] Buspirone HCl 5 mg [Buspar 5 mg] 15 mg PO BID 02/01/14 [History] Cyclobenzaprine HCl [Flexeril] 10 mg PO HS 02/01/14 [History] Esomeprazole Magnesium [Nexium] 40 mg PO DAILY 02/01/14 [History] Insulin Aspart [NovoLOG Insulin] 3.1 unit SQ UD 02/01/14 [History] Levothyroxine Sodium [Synthroid] 137 mcg PO DAILY 02/01/14 [History] Liraglutide [Victoza 2-Alcon] 0.08 mg SQ DAILY 02/01/14 [History] Oxycodone HCl/Acetaminophen [Percocet 10-325 mg Tablet] 1 each PO Q4-6HPRN PRN 02/01/14 [History] Desvenlafaxine Succinate [Pristiq] 100 mg PO DAILY 07/15/14 [History] Loratadine 10 mg [Claritin 10 mg] 10 mg PO DAILY 07/15/14 [History] Pregabalin [Lyrica] 200 mg PO TID 07/15/14 [History] Ranitidine HCl [Zantac] 150 mg PO HS 07/15/14 [History] Albuterol Common Canister [Proventil Common Canister] 2 puff IH TID [History] Aspirin 81 mg PO DAILY 11/04/14 [History] Clopidogrel Bisulfate 75 mg [PLAVIX 75 MG Tablet] 75 mg PO DAILY 11/04/14 [History] Lisinopril 5 mg [Zestril 5 MG] 2.5 mg PO DAILY 11/04/14 [History] Isosorbide Mononitrate 30 mg [Imdur 30 MG] 30 mg PO DAILY 08/19/15 [History ] Hydrochlorothiazide 25 mg [hydroDIURIL 25 MG] 12.5 mg PO DAILY 09/06/16 [ History] Metoprolol Succinate 50 mg PO DAILY 09/06/16 [History] Montelukast Sodium [Singulair] 10 mg PO DAILY 09/06/16 [History] Trazodone HCl 50 mg [Desyrel 50 mg] 150 mg PO HS 09/06/16 [History] Brimonidine Tartrate/Timolol [Combigan 0.2%-0.5% Eye Drops] 1 drop OP TID [History] - Review of Systems Constitutional: No Symptoms, No Fever, No Chills Eyes: No Symptoms, No Discharge, No Eye Pain Ears, Nose, & Throat: No Symptoms, No Ear Pain, No Ear Discharge Respiratory: No Symptoms, No Cough, No Dyspnea, No Stridor, No Wheezing Cardiac: Chest Pain (mild), No Palpitations, No Syncope Abdominal/Gastrointestinal: No Symptoms, No Nausea, No Vomiting, No Diarrhea Genitourinary Symptoms: No Symptoms, No Dysuria, No Frequency, No Hematuria Musculoskeletal: No Symptoms Skin: No Symptoms Neurological: Headache (left), Parasthesia (left hand), No Paralysis, No Seizure , No Speech Changes Psychological: No Symptoms, No Anxiety, No Depression, No Suicidal Ideations, No Homicidal Ideations, No Hallucinations Endocrine: No Symptoms Hematologic/Lymphatic: No Symptoms Immunological/Allergic: No Symptoms All Other Systems: Reviewed and Negative <ANNALISE HERNANDEZ - Last Filed: 06/04/18 19:07> - Past Medical History Pertinent Past Medical History: Yes Neurological History: Other ENT History: No Pertinent History Cardiac History: Coronary Artery Disease, High Cholesterol, Hypertension, Myocardial Infarction ([place]), Other Respiratory History: Asthma, COPD, Pneumonia, Sleep Apnea Endocrine Medical History: Diabetes Type II Musculoskeletal History: No Pertinent History GI Medical History: No Pertinent History History: No Pertinent History Psycho-Social History: No Pertinent History Female Reproductive Disorders: No Pertinent History Other Medical History: Rapid heart rate at times; lump in right breast, biopsy non-cancerous, "stroke" in left eye - Past Surgical History Past Surgical History: Yes Neuro Surgical History: No Pertinent History Cardiac: Cardiac Stent Respiratory: No Pertinent History Gastrointestinal: Cholecystectomy Genitourinary: No Pertinent History Musculoskeletal: No Pertinent History Female Surgical History: Tubal Ligation, Other Other Surgical History: Breast biopsy, 5 STENTS - Social History Smoking Status: Never smoker Exposure to second hand smoke: No Drug Use: none Patient Lives Alone: No <ANNALISE HERNANDEZ - Last Filed: 06/04/18 19:07> - Laura Coma Scale Best Eye Response ([place]): (4) open spontaneously Best Verbal Response ([place]aura): (5) oriented Best Motor Response ([place]): (6) obeys commands [place] Total: 15 - Physical Exam General Appearance: no apparent distress, alert, anxiety Eye Exam: left eye: normal inspection (chronic dilated left pupil), bilateral eye: PERRL, EOMI Ears, Nose, Throat Exam: normal ENT inspection, TMs normal, moist mucous membranes Neck Exam: normal inspection, non-tender Respiratory: normal breath sounds, lungs clear, No chest tenderness, No respiratory distress, No airway intact, No accessory muscle use, No rhonchi, No wheezing, No stridor Cardiovascular: regular rate/rhythm, normal heart sounds, normal peripheral pulses Gastrointestinal: soft, normal bowel sounds, No tenderness, No distention, No guarding, No rebound Pelvic Exam: not done Rectal Exam: not done Back Exam: normal inspection, normal range of motion, CVA tenderness Extremity Exam: normal inspection, normal range of motion, pelvis stable, parasthesia (right hand) Mental Status: alert, oriented x 3, 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 Exam: normal hearing, normal speech, PERRL, tongue midline, No abnormal gag reflex, No abnormal speech, No facial asymmetry, No facial droop, No facial paresthesias, No facial weakness, No hearing deficit (R), No hearing deficit (L) , No tongue deviation to R, No tongue deviation to L Coordination/Gait: normal finger to nose, No ABN nose to finger (R), No ABN nose to finger (L) Motor/Sensory: no motor deficit, no sensory deficit, no pronator drift, No weak motor strength RUE, No weak motor strength LUE Skin Exam: normal color, warm, dry SpO2 Interpretation: normal <ANNALISE HERNANDEZ - Last Filed: 06/04/18 19:07> - Nursing Vital Signs Nursing Vital Signs: Initial Vital Signs Temperature 98.7 F 06/04/18 18:17 Pulse Rate 96 H 06/04/18 18:17 Respiratory Rate 18 06/04/18 18:17 Blood Pressure 153/72 06/04/18 18:17 O2 Sat by Pulse Oximetry 95 06/04/18 18:17 Pain Scale Pain Intensity 0 - Course Nursing assessment & vital signs reviewed: Yes <ANNALISE HERNANDEZ - Last Filed: 06/04/18 19:07> - Course Nursing assessment & vital signs reviewed: Yes EKG Interpreted by Me: RATE (82 bpm), Sinus Rhythm, NORMAL AXIS, Other (EKG: Sinus rhythm, 82 bpm, normal axis, no acute ST or T wave changes noted) - CT Exams Head CT Interpretation: Discussed w/radiologist (stable nefgative head ct) <DIAMOND CHU - Last Filed: 06/04/18 20:44> Ordered Tests: Active Orders 24 hr Category Date Time Status Sandblaster Supervisor STAT Care 06/04/18 18:36 Active Clean Catch Urine Specimen STAT Care 06/04/18 18:35 Active EKG-ER Only STAT Care 06/04/18 18:35 Active IV Insertion STAT Care 06/04/18 18:35 Active Pulse Oximetry (ED) STAT Care 06/04/18 18:35 Active HEAD WITHOUT CONTRAST [CT] Stat Exams 06/04/18 18:36 Taken AMYLASE Stat Lab 06/04/18 18:45 Completed CBC W DIFF Stat Lab 06/04/18 18:45 Completed CMP Stat Lab 06/04/18 18:45 Completed CULTURE,URINE Stat Lab 06/04/18 19:30 Received LIPASE Stat Lab 06/04/18 18:45 Completed Manual Differential NC Stat Lab 06/04/18 18:45 Completed PROTIME WITH INR Stat Lab 06/04/18 18:45 Completed TROPONIN Q3H Lab 06/04/18 18:45 Completed TROPONIN Q3H Lab 06/04/18 23:15 Ordered TROPONIN Q3H Lab 06/05/18 02:15 Ordered TROPONIN Q3H Lab 06/05/18 05:15 Ordered TROPONIN Q3H Lab 06/05/18 08:15 Ordered UA W/ MICROSCOPIC Stat Lab 06/04/18 19:30 Completed Lab/Rad Data: Laboratory Result Diagrams 06/04/18 18:45 06/04/18 18:45 Laboratory Results 06/04/18 06/04/18 06/04/18 Range/Units 19:30 18:45 18:45 WBC (4.0-10.5) K/mm3 RBC (4.1-5.4) M/mm3 Hgb (12.0-16.0) gm/dl Hct (35-47) % MCV (78-100) fl MCH (26-32) pg MCHC (32-36) g/dl RDW (11.5-14.0) % Plt Count (150-450) K/mm3 MPV (6-9.5) fl Absolute Granulocytes (1.4-6.9) Segmented Neutrophils (36.0-66.0) % Lymphocytes (Manual) (24-44) % Monocytes (Manual) (0.0-12.0) % Eosinophils (Manual) (0.00-3.0) % Platelet Estimate (NORMAL) RBC Morphology PT (9.95-12.35) SECONDS INR (0.8-3.0) Sodium (137-145) mmol/L Potassium (3.5-5.1) mmol/L Chloride (98-107) mmol/L Carbon Dioxide (22-30) mmol/L Anion Gap (5-15) MEQ/L BUN (7-17) mg/dL Creatinine (0.52-1.04) mg/dL Estimated GFR ML/MIN Glucose (74-106) mg/dL Calcium (8.4-10.2) mg/dL Total Bilirubin (0.2-1.3) mg/dL AST (14-36) U/L ALT (0-35) U/L Alkaline Phosphatase (38-126) U/L Troponin I < 0.012 (0.000-0.034) ng/mL Serum Total Protein (6.3-8.2) g/dL Albumin (3.5-5.0) g/dL Amylase 31 (30-110) U/L Lipase 13 L (23-300) U/L Ur Collection Type VOID Urine Color YELLOW (YELLOW) Urine Appearance CLOUDY (CLEAR) Urine pH 5.0 (5-6) Ur Specific [place] 1.025 (1.005-1.025) Urine Protein TRACE (Negative) Urine Ketones NEGATIVE (NEGATIVE) Urine Blood 250 (0-5) [place]/ul Urine Nitrite POSITIVE (NEGATIVE) Urine Bilirubin SMALL (NEGATIVE) Urine Urobilinogen NORMAL (0-1) mg/dL Ur Leukocyte Esterase 2+ (NEGATIVE) Urine Microscopic RBC 5-10 (0-2) /HPF Urine Microscopic WBC 50-100 (0-5) /HPF Ur Epithelial Cells MODERATE (FEW) /HPF Urine Bacteria PACKED (NEGATIVE) /HPF Urine Mucus MODERATE (NEGATIVE) /HPF Urine Culture Reflexed YES (NO) Urine Glucose NEGATIVE (NEGATIVE) mg/dL Specimen Received 06/04/18 19306/04/18 06/04/18 06/04/18 Range/Units 18:45 18:45 18:45 WBC 9.1 (4.0-10.5) K/mm3 RBC 4.06 L (4.1-5.4) M/mm3 Hgb 12.4 (12.0-16.0) gm/dl Hct 38.8 (35-47) % MCV 95.6 (78-100) fl MCH 30.5 (26-32) pg MCHC 32.0 (32-36) g/dl RDW 14.1 H (11.5-14.0) % Plt Count 241 (150-450) K/mm3 MPV 10.6 H (6-9.5) fl Absolute Granulocytes 5.83 (1.4-6.9) Segmented Neutrophils 69 H (36.0-66.0) % Lymphocytes (Manual) 20 L (24-44) % Monocytes (Manual) 6 (0.0-12.0) % Eosinophils (Manual) 5 H (0.00-3.0) % Platelet Estimate NORMAL (NORMAL) RBC Morphology NORMAL PT 12.7 H (9.95-12.35) SECONDS INR 1.09 (0.8-3.0) Sodium 140 (137-145) mmol/L Potassium 3.8 (3.5-5.1) mmol/L Chloride 93 L (98-107) mmol/L Carbon Dioxide 38 H (22-30) mmol/L Anion Gap 12.4 (5-15) MEQ/L BUN 18 H (7-17) mg/dL Creatinine 1.04 (0.52-1.04) mg/dL Estimated GFR 56.5 ML/MIN Glucose 171 H (74-106) mg/dL Calcium 8.9 (8.4-10.2) mg/dL Total Bilirubin 0.40 (0.2-1.3) mg/dL AST 22 (14-36) U/L ALT 18 (0-35) U/L Alkaline Phosphatase 102 (38-126) U/L Troponin I (0.000-0.034) ng/mL Serum Total Protein 7.0 (6.3-8.2) g/dL Albumin 3.9 (3.5-5.0) g/dL Amylase (30-110) U/L Lipase (23-300) U/L Ur Collection Type Urine Color (YELLOW) Urine Appearance (CLEAR) Urine pH (5-6) Ur Specific [place] (1.005-1.025) Urine Protein (Negative) Urine Ketones (NEGATIVE) Urine Blood (0-5) [place]/ul Urine Nitrite (NEGATIVE) Urine Bilirubin (NEGATIVE) Urine Urobilinogen (0-1) mg/dL Ur Leukocyte Esterase (NEGATIVE) Urine Microscopic RBC (0-2) /HPF Urine Microscopic WBC (0-5) /HPF Ur Epithelial Cells (FEW) /HPF Urine Bacteria (NEGATIVE) /HPF Urine Mucus (NEGATIVE) /HPF Urine Culture Reflexed (NO) Urine Glucose (NEGATIVE) mg/dL Specimen Received <ANNALISE HERNANDEZ - Last Filed: 06/04/18 19:07> - Progress Progress: improved <DIAMOND CHU - Last Filed: 06/04/18 20:44> - Progress Progress Note: 06/04/18 19:[address] chu. (ANNALISE HERNANDEZ) 06/04/18 20:12 67-year-old morbidly obese white female with history of diabetes, high blood pressure coronary artery disease complaints of a couple of days of left-sided headache right upper extremity numbness increased confusion and slow to answer questions Patient initially seen by Dr. Hernandez patient is alert oriented 3 patient is moving all extremities speaking without problems no focal neurologic deficits are noted Patient with a head CT which is read as normal EKG normal sinus rhythm [address] or T wave changes are noted patient's CBC essentially normal chemistry essentially normal with the exception of a glucose of 171 Patient does have a urinalysis which shows 50-100 white cells per high-power field Patient with multiple allergies to antibiotics. Family states that patient is not comfortable going home Will await troponin amylase lipase and discuss case with physician non licensed operator for Dr. Jiang 06/04/18 20:41 Patient's troponin, amylase, lipase are within normal limits. I've discussed patient's case with Dr. Jiang. Will admit patient to observation with diagnosis of UTI paresthesia right arm. Will place patient on meropenem. Sliding scale insulin coverage to telemetry. Diagnosis UTI paresthesia right arm, (DIAMOND CHU) <ANNALISE HERNANDEZ - Last Filed: 06/04/18 19:07> - Departure Time of Disposition: 20:42 Departure Disposition: Observation (Dr Jiang) Critical Care Time: No <DIAMOND CHU - Last Filed: 06/04/18 20:44> - Departure Clinical Impression: UTI (urinary tract infection) Qualifiers: Urinary tract infection type: site unspecified Hematuria presence: without hematuria Qualified Code(s): N39.0 - Urinary tract infection, site not specified Condition: Fair Referrals: LEORA JIANG [Primary Care Provider] -
[2018-06-04 18:53] LABS: Granulocyte Absolute (ANC) 5.83 (1.4-6.9); Hematocrit 38.8 % (35-47); Hemoglobin 12.4 gm/dl (12.0-16.0); Mean Cell Volume 95.6 fl (78-100); Mean Corpuscular Hemoglobin 30.5 pg (26-32); Mean Platelet Volume 10.6 fl (6-9.5); Platelet Count 241 K/mm3 (150-450); Red Blood Count 4.06 M/mm3 (4.1-5.4); Red Cell Distribution Width 14.1 % (11.5-14.0); White Blood Count 9.1 K/mm3 (4.0-10.5)
[2018-06-04 19:06] LABS: INR 1.09 (0.8-3.0)
[2018-06-04 19:10] LABS: ALBUMIN 3.9 g/dL (3.5-5.0); ANION GAP 12.4 MEQ/L (5-15); BILIRUBIN,TOTAL 0.4 mg/dL (0.2-1.3); Calcium 8.9 mg/dL (8.4-10.2); Creatinine 1 1.04 mg/dL (0.52-1.04); Potassium 3.8 mmol/L (3.5-5.1)
[2018-06-04 19:36] LABS: Eosinophil 5 % (0.00-3.0); Lymphocytes 20 % (24-44); Monocyte 6 % (0.0-12.0); Neutrophils 69 % (36.0-66.0); Platelet Estimate NORMAL (NORMAL); Total Cells Counted 100
[2018-06-04 20:00] LABS: Appearance CLOUDY (CLEAR); Bilirubin SMALL (NEGATIVE); Blood 250 Ery/ul (0-5); Glucose NEGATIVE (NEGATIVE); Ketones NEGATIVE (NEGATIVE); Leukocyte Esterase 2+ (NEGATIVE); Mucus MODERATE /HPF (NEGATIVE); Nitrite POSITIVE (NEGATIVE); Protein,Urine Dip TRACE (Negative); Specific Gravity 1.025 (1.005-1.025); Urobilinogen NORMAL mg/dL (0-1); WBC 50-100 /HPF (0-5)
[2018-06-04 20:01] LABS: Bacteria PACKED /HPF (NEGATIVE); Epithelial Cells MODERATE /HPF (FEW)
[2018-06-04 20:15] LABS: AMYLASE 31 U/L (30-110); LIPASE 13 U/L (23-300)
[2018-06-04] MEDS ORDERED: Merrem 1 GM 1 G in Sodium Chloride 100ML MINI-BAG PLUS 100 ML IV STA (20:45)
[2018-06-04] MEDS ORDERED: Merrem 1 GM IV ONE (21:00)
[2018-06-04] MEDS ORDERED: Sodium Chloride 0.9% 100 ML IVPB 100 ML IV ONE (21:00)
[2018-06-04] MEDS: Merrem 1 GM 1 G in Sodium Chloride 100ML MINI-BAG PLUS 100 ML IV SCH (23:11)
[2018-06-04] MEDS ORDERED: PROVENTIL 2.5 MG/3 ML NEB IH PRN (23:16)
[2018-06-04] MEDS ORDERED: PROVENTIL COMMON CANISTER IH PRN (23:18)
[2018-06-04] MEDS ORDERED: Cyclobenzaprine 10 MG PO SCH (23:45)
[2018-06-04] MEDS: ZOCOR 20MG PO SCH (23:50)
[2018-06-04] MEDS: LYRICA 150MG PO SCH (23:50)
[2018-06-04] MEDS: Pepcid 20 MG PO SCH (23:50)
[2018-06-04] MEDS: BUSPAR 5 MG PO SCH (23:50)
[2018-06-04] MEDS: Desyrel 150 MG PO SCH (23:51)
[2018-06-05] MEDS ORDERED: Merrem 1 GM IV ONE (05:17)
[2018-06-05] MEDS ORDERED: Sodium Chloride 0.9% 100 ML IVPB 100 ML IV ONE (05:18)
[2018-06-05] MEDS: Merrem 1 GM 1 G in Sodium Chloride 100ML MINI-BAG PLUS 100 ML IV SCH ×3 (05:28→22:15)
[2018-06-05 05:36] LABS: BASOPHIL % 0.2 % (0.0-0.4); Basophil (Absolute #) 0.02 (0-0.4); Eosinophil % 4.8 % (0.00-5.0); Eosinophil (Absolute #) 0.39 (0-0.5); Granulocytes % 60.7 % (36.0-66.0); Hematocrit 37.3 % (35-47); Hemoglobin 11.9 gm/dl (12.0-16.0); Lymphocyte (Absolute #) 2.13 (1.0-4.6); Lymphocytes % 26.4 % (24.0-44.0); Mean Cell Volume 96.6 fl (78-100); Mean Corpuscular Hemoglobin 30.8 pg (26-32); Mean Corpuscular Hgb Concent. 31.9 g/dl (32-36); Monocyte (Absolute #) 0.64 (0.0-1.3); Monocytes % 7.9 % (0.0-12.0); Platelet Count 217 K/mm3 (150-450); Red Blood Count 3.86 M/mm3 (4.1-5.4); White Blood Count 8.1 K/mm3 (4.0-10.5)
[2018-06-05 05:49] LABS: ALBUMIN 3.7 g/dL (3.5-5.0); BILIRUBIN,TOTAL 0.2 mg/dL (0.2-1.3); Calcium 8.8 mg/dL (8.4-10.2); Creatinine 1 1.04 mg/dL (0.52-1.04); Potassium 4.1 mmol/L (3.5-5.1); Total Protein 6.9 g/dL (6.3-8.2)
[2018-06-05 05:58] LABS: ANION GAP 11.1 MEQ/L (5-15)
--- NOTE | 2018-06-05 08:35 | PCM.HP ---
History of Present Illness - Chief Complaint Chief Complaint: UTI History of Present Illness: is a 67 year old female pt of mine from [facility] with DM and COPD who was admitted through ER yesterday with UTI. She had been disoriented at home, apparently, but family is not here currently to provide details. She is unsure of fever but did have dysuria a few days ago. She has had some cough for the past few days. Also c/o some pain medial to R scapula. - Review of Systems Respiratory: Cough Genitourinary Symptoms: Dysuria Musculoskeletal: Back Pain Neurological: Other (AMS) Psychological: No Depression, No Suicidal Ideations Medications & Allergies Home Medications: Home Medication List Atorvastatin Calcium [Lipitor 20MG Tablet] 80 mg PO HS 02/01/14 [History Confirmed 06/04/18] Buspirone HCl 5 mg [Buspar 5 mg] 15 mg PO BID 02/01/14 [History Confirmed 06/04/18] Cyclobenzaprine HCl [Flexeril] 10 mg PO HS 02/01/14 [History Confirmed 06/04/18] Esomeprazole Magnesium [Nexium] 40 mg PO DAILY 02/01/14 [History Confirmed 06/04] Insulin Aspart [NovoLOG Insulin] 3.1 unit SQ UD 02/01/14 [History Confirmed 06/04/18] Levothyroxine Sodium [Synthroid] 137 mcg PO DAILY 02/01/14 [History Confirmed ] Liraglutide [Victoza 2-Alcon] 0.08 mg SQ DAILY 02/01/14 [History Confirmed ] Oxycodone HCl/Acetaminophen [Percocet 10-325 mg Tablet] 1 each PO Q4-6HPRN PRN 02/01/14 [History Confirmed 06/04/18] Desvenlafaxine Succinate [Pristiq] 100 mg PO DAILY 07/15/14 [History Confirmed 06/04/18] Loratadine 10 mg [Claritin 10 mg] 10 mg PO DAILY 07/15/14 [History Confirmed 06/04/18] Pregabalin [Lyrica] 200 mg PO TID 07/15/14 [History Confirmed 06/04/18] Ranitidine HCl [Zantac] 150 mg PO HS 07/15/14 [History Confirmed 06/04/18] Albuterol Common Canister [Proventil Common Canister] 2 puff IH TID [History Confirmed 06/04/18] Aspirin 81 mg PO DAILY 11/04/14 [History Confirmed 06/04/18] Clopidogrel Bisulfate 75 mg [PLAVIX 75 MG Tablet] 75 mg PO DAILY 11/04/14 [History Confirmed 06/04/18] Lisinopril 5 mg [Zestril 5 MG] 2.5 mg PO DAILY 11/04/14 [History Confirmed 06/04/18] Albuterol 2.5 mg/3 ml Neb [Proventil 2.5 mg/3 ml Neb] 2.5 mg IH Q4H #120 neb 11/16/14 [Rx Confirmed 06/04/18] Isosorbide Mononitrate 30 mg [Imdur 30 MG] 30 mg PO DAILY 08/19/15 [ History Confirmed 06/04/18] Hydrochlorothiazide 25 mg [hydroDIURIL 25 MG] 12.5 mg PO DAILY 09/06/16 [ History Confirmed 06/04/18] Metoprolol Succinate 50 mg PO DAILY 09/06/16 [History Confirmed 06/04/18] Montelukast Sodium [Singulair] 10 mg PO DAILY 09/06/16 [History Confirmed ] Trazodone HCl 50 mg [Desyrel 50 mg] 150 mg PO HS 09/06/16 [History Confirmed 06/04/18] Brimonidine Tartrate/Timolol [Combigan 0.2%-0.5% Eye Drops] 1 drop OP TID [History Confirmed 06/04/18] Lactobacillus Acidophilus [Acidophilus TABLET] 1 tab PO BID #60 tablet [Rx Confirmed 06/04/18] Kendell/Baci/Poly/Hc Ear Susp [Cortisporin Ear Drops 10 ml Suspension] 0.5 ml OT QID #1 bottle 04/08/18 [Rx Confirmed 06/04/18] Allergies/Adverse Reactions: Allergies Allergy/AdvReac Type Severity Reaction Status Date / Time levofloxacin [From Levaquin] Allergy Mild Verified 06/04/18 18:31 cefaclor [From Ceclor] Allergy SOB, HIVES Verified 06/04/18 18:31 ciprofloxacin [From Cipro] Allergy Verified 06/04/18 18:31 ciprofloxacin HCl Allergy Verified 06/04/18 18:31 [From Cipro] clarithromycin [From Biaxin] Allergy Verified 06/04/18 18:31 diphenhydramine HCl Allergy SOB HIVES Verified 06/04/18 18:31 [From Benadryl] erythromycin base Allergy SOB HIVES Verified 06/04/18 18:31 [Erythromycin Base] iodine Allergy SOB HIVES Verified 06/04/18 18:31 latex Allergy SOB HIVES Verified 06/04/18 18:31 Macrolide Antibiotics Allergy SBO HIVES Verified 06/04/18 18:31 Penicillins Allergy Swelling Verified 06/04/18 18:31 of Face sulfamethoxazole Allergy Verified 06/04/18 18:31 [From Bactrim] trimethoprim [From Bactrim] Allergy Verified 06/04/18 18:31 melon AdvReac Severe cantaloupe Verified 06/04/18 18:31 aspirin AdvReac Verified 06/04/18 18:31 ibuprofen AdvReac Verified 06/04/18 18:31 - Past Medical History Past Medical History: Yes Neurological History: Other ENT History: Cataracts Cardiac History: Coronary Artery Disease, High Cholesterol, Hypertension, Myocardial Infarction ([place]), Other Respiratory History: Asthma, COPD, Pneumonia, Sleep Apnea Endocrine Medical History: Diabetes Type II Musculoskelatal History: No Pertinent History GI Medical History: No Pertinent History History: No Pertinent History Pyscho-Social History: No Pertinent History Reproductive Disorders: No Pertinent History Comment: Rapid heart rate at times; lump in right breast, biopsy non-cancerous, "stroke" in left eye - Female History Are you now?: No - Past Surgical History Past Surgical History: Yes Neuro Surgical History: No Pertinent History Cardiac History: Cardiac Stent Respiratory Surgery: No Pertinent History GI Surgical History: Cholecystectomy Genitourinary Surgical Hx: No Pertinent History Musculskeletal Surgical Hx: No Pertinent History Female Surgical History: Tubal Ligation, Other Other Surgical History: Breast biopsy, 5 STENTS - Social History Smoking Status: Never smoker Exposure to second hand smoke: No Alcohol: None Drug Use: none - Physical Exam Vital Signs: Vital Signs - 24 hr Temp Pulse Resp BP Pulse Ox 06/05/18 06:59 98.2 F 71 22 113/48 95 06/05/18 03:55 98.4 F 73 18 108/58 97 06/04/18 23:46 98.6 F 89 121/57 06/04/18 23:04 89 19 94 L 06/04/18 22:22 98.6 F 81 20 121/57 95 06/04/18 21:56 95 06/04/18 20:50 93 L 06/04/18 20:40 93 L 06/04/18 19:50 102/53 92 L 06/04/18 19:46 128/64 95 06/04/18 18:56 128/64 96 06/04/18 18:35 95 06/04/18 18:17 98.7 F 96 H 18 153/72 95 Oxygen-Last 24 hours O2 Percentage 4 Liters = 36% O2 Percentage 4 Liters = 36% O2 Percentage 4 Liters = 36% O2 Percentage 4 Liters = 36% O2 Percentage 4 Liters = 36% O2 Percentage 4 Liters = 36% O2 Percentage 4 Liters = 36% O2 Percentage 4 Liters = 36% O2 Percentage 4 Liters = 36% General Appearance: no apparent distress, obese Neurologic Exam: oriented x 3, cooperative Eye Exam: eyes nml inspection Ears, Nose, Throat Exam: moist mucous membranes, pharyngeal erythema (mild), other (ear canals small bilat; TM difficult to see but appear wnl bilat. no exudates.) Respiratory Exam: diminished breath sounds, prolonged expirations, No crackles/ rales, No rhonchi, No wheezing Cardiovascular Exam: regular rate/rhythm, normal heart sounds, No murmur Back Exam: normal inspection, No rash Extremity Exam: swelling (trace pretibial edema), No pedal edema Skin Exam: normal color, warm, dry, No rash Results - Labs Lab/Micro Results: Accuchecks Date 06/05/18 Time 07:17 Accucheck Value: 176 Lab Results-Last 24 Hours 06/04/18 06/04/18 06/04/18 Range/Units 18:45 18:45 18:45 WBC 9.1 (4.0-10.5) K/mm3 RBC 4.06 L (4.1-5.4) M/mm3 Hgb 12.4 (12.0-16.0) gm/dl Hct 38.8 (35-47) % MCV 95.6 (78-100) fl MCH 30.5 (26-32) pg MCHC 32.0 (32-36) g/dl RDW 14.1 H (11.5-14.0) % Plt Count 241 (150-450) K/mm3 MPV 10.6 H (6-9.5) fl Gran % (36.0-66.0) % Eos # (Auto) (0-0.5) Absolute Lymphs (auto) (1.0-4.6) Absolute Monos (auto) (0.0-1.3) Lymphocytes % (24.0-44.0) % Monocytes % (0.0-12.0) % Eosinophils % (0.00-5.0) % Basophils % (0.0-0.4) % Absolute Granulocytes 5.83 (1.4-6.9) Segmented Neutrophils 69 H (36.0-66.0) % Lymphocytes (Manual) 20 L (24-44) % Monocytes (Manual) 6 (0.0-12.0) % Eosinophils (Manual) 5 H (0.00-3.0) % Basophils # (0-0.4) Platelet Estimate NORMAL (NORMAL) RBC Morphology NORMAL PT 12.7 H (9.95-12.35) SECONDS INR 1.09 (0.8-3.0) Sodium 140 (137-145) mmol/L Potassium 3.8 (3.5-5.1) mmol/L Chloride 93 L (98-107) mmol/L Carbon Dioxide 38 H (22-30) mmol/L Anion Gap 12.4 (5-15) MEQ/L BUN 18 H (7-17) mg/dL Creatinine 1.04 (0.52-1.04) mg/dL Estimated GFR 56.5 ML/MIN Glucose 171 H (74-106) mg/dL Calcium 8.9 (8.4-10.2) mg/dL Total Bilirubin 0.40 (0.2-1.3) mg/dL AST 22 (14-36) U/L ALT 18 (0-35) U/L Alkaline Phosphatase 102 (38-126) U/L Troponin I (0.000-0.034) ng/mL Serum Total Protein 7.0 (6.3-8.2) g/dL Albumin 3.9 (3.5-5.0) g/dL Amylase (30-110) U/L Lipase (23-300) U/L Ur Collection Type Urine Color (YELLOW) Urine Appearance (CLEAR) Urine pH (5-6) Ur Specific [place] (1.005-1.025) Urine Protein (Negative) Urine Ketones (NEGATIVE) Urine Blood (0-5) [place]/ul Urine Nitrite (NEGATIVE) Urine Bilirubin (NEGATIVE) Urine Urobilinogen (0-1) mg/dL Ur Leukocyte Esterase (NEGATIVE) Urine Microscopic RBC (0-2) /HPF Urine Microscopic WBC (0-5) /HPF Ur Epithelial Cells (FEW) /HPF Urine Bacteria (NEGATIVE) /HPF Urine Mucus (NEGATIVE) /HPF Urine Culture Reflexed (NO) Urine Glucose (NEGATIVE) mg/dL Specimen Received 06/04/18 06/04/18 06/04/18 Range/Units 18:45 18:45 19:30 WBC (4.0-10.5) K/mm3 RBC (4.1-5.4) M/mm3 Hgb (12.0-16.0) gm/dl Hct (35-47) % MCV (78-100) fl MCH (26-32) pg MCHC (32-36) g/dl RDW (11.5-14.0) % Plt Count (150-450) K/mm3 MPV (6-9.5) fl Gran % (36.0-66.0) % Eos # (Auto) (0-0.5) Absolute Lymphs (auto) (1.0-4.6) Absolute Monos (auto) (0.0-1.3) Lymphocytes % (24.0-44.0) % Monocytes % (0.0-12.0) % Eosinophils % (0.00-5.0) % Basophils % (0.0-0.4) % Absolute Granulocytes (1.4-6.9) Segmented Neutrophils (36.0-66.0) % Lymphocytes (Manual) (24-44) % Monocytes (Manual) (0.0-12.0) % Eosinophils (Manual) (0.00-3.0) % Basophils # (0-0.4) Platelet Estimate (NORMAL) RBC Morphology PT (9.95-12.35) SECONDS INR (0.8-3.0) Sodium (137-145) mmol/L Potassium (3.5-5.1) mmol/L Chloride (98-107) mmol/L Carbon Dioxide (22-30) mmol/L Anion Gap (5-15) MEQ/L BUN (7-17) mg/dL Creatinine (0.52-1.04) mg/dL Estimated GFR ML/MIN Glucose (74-106) mg/dL Calcium (8.4-10.2) mg/dL Total Bilirubin (0.2-1.3) mg/dL AST (14-36) U/L ALT (0-35) U/L Alkaline Phosphatase (38-126) U/L Troponin I < 0.012 (0.000-0.034) ng/mL Serum Total Protein (6.3-8.2) g/dL Albumin (3.5-5.0) g/dL Amylase 31 (30-110) U/L Lipase 13 L (23-300) U/L Ur Collection Type VOID Urine Color YELLOW (YELLOW) Urine Appearance CLOUDY (CLEAR) Urine pH 5.0 (5-6) Ur Specific [place] 1.025 (1.005-1.025) Urine Protein TRACE (Negative) Urine Ketones NEGATIVE (NEGATIVE) Urine Blood 250 (0-5) [place]/ul Urine Nitrite POSITIVE (NEGATIVE) Urine Bilirubin SMALL (NEGATIVE) Urine Urobilinogen NORMAL (0-1) mg/dL Ur Leukocyte Esterase 2+ (NEGATIVE) Urine Microscopic RBC 5-10 (0-2) /HPF Urine Microscopic WBC 50-100 (0-5) /HPF Ur Epithelial Cells MODERATE (FEW) /HPF Urine Bacteria PACKED (NEGATIVE) /HPF Urine Mucus MODERATE (NEGATIVE) /HPF Urine Culture Reflexed YES (NO) Urine Glucose NEGATIVE (NEGATIVE) mg/dL Specimen Received 06/04/18 19306/04/18 06/05/18 06/05/18 Range/Units 23:15 02:48 05:07 WBC (4.0-10.5) K/mm3 RBC (4.1-5.4) M/mm3 Hgb (12.0-16.0) gm/dl Hct (35-47) % MCV (78-100) fl MCH (26-32) pg MCHC (32-36) g/dl RDW (11.5-14.0) % Plt Count (150-450) K/mm3 MPV (6-9.5) fl Gran % (36.0-66.0) % Eos # (Auto) (0-0.5) Absolute Lymphs (auto) (1.0-4.6) Absolute Monos (auto) (0.0-1.3) Lymphocytes % (24.0-44.0) % Monocytes % (0.0-12.0) % Eosinophils % (0.00-5.0) % Basophils % (0.0-0.4) % Absolute Granulocytes (1.4-6.9) Segmented Neutrophils (36.0-66.0) % Lymphocytes (Manual) (24-44) % Monocytes (Manual) (0.0-12.0) % Eosinophils (Manual) (0.00-3.0) % Basophils # (0-0.4) Platelet Estimate (NORMAL) RBC Morphology PT (9.95-12.35) SECONDS INR (0.8-3.0) Sodium (137-145) mmol/L Potassium (3.5-5.1) mmol/L Chloride (98-107) mmol/L Carbon Dioxide (22-30) mmol/L Anion Gap (5-15) MEQ/L BUN (7-17) mg/dL Creatinine (0.52-1.04) mg/dL Estimated GFR ML/MIN Glucose (74-106) mg/dL Calcium (8.4-10.2) mg/dL Total Bilirubin (0.2-1.3) mg/dL AST (14-36) U/L ALT (0-35) U/L Alkaline Phosphatase (38-126) U/L Troponin I < 0.012 < 0.012 < 0.012 (0.000-0.034) ng/mL Serum Total Protein (6.3-8.2) g/dL Albumin (3.5-5.0) g/dL Amylase (30-110) U/L Lipase (23-300) U/L Ur Collection Type Urine Color (YELLOW) Urine Appearance (CLEAR) Urine pH (5-6) Ur Specific [place] (1.005-1.025) Urine Protein (Negative) Urine Ketones (NEGATIVE) Urine Blood (0-5) [place]/ul Urine Nitrite (NEGATIVE) Urine Bilirubin (NEGATIVE) Urine Urobilinogen (0-1) mg/dL Ur Leukocyte Esterase (NEGATIVE) Urine Microscopic RBC (0-2) /HPF Urine Microscopic WBC (0-5) /HPF Ur Epithelial Cells (FEW) /HPF Urine Bacteria (NEGATIVE) /HPF Urine Mucus (NEGATIVE) /HPF Urine Culture Reflexed (NO) Urine Glucose (NEGATIVE) mg/dL Specimen Received 06/05/18 06/05/18 Range/Units 05:07 05:07 WBC 8.1 (4.0-10.5) K/mm3 RBC 3.86 L (4.1-5.4) M/mm3 Hgb 11.9 L (12.0-16.0) gm/dl Hct 37.3 (35-47) % MCV 96.6 (78-100) fl MCH 30.8 (26-32) pg MCHC 31.9 L (32-36) g/dl RDW 14.0 (11.5-14.0) % Plt Count 217 (150-450) K/mm3 MPV 11.0 H (6-9.5) fl Gran % 60.7 (36.0-66.0) % Eos # (Auto) 0.39 (0-0.5) Absolute Lymphs (auto) 2.13 (1.0-4.6) Absolute Monos (auto) 0.64 (0.0-1.3) Lymphocytes % 26.4 (24.0-44.0) % Monocytes % 7.9 (0.0-12.0) % Eosinophils % 4.8 (0.00-5.0) % Basophils % 0.2 (0.0-0.4) % Absolute Granulocytes 4.90 (1.4-6.9) Segmented Neutrophils (36.0-66.0) % Lymphocytes (Manual) (24-44) % Monocytes (Manual) (0.0-12.0) % Eosinophils (Manual) (0.00-3.0) % Basophils # 0.02 (0-0.4) Platelet Estimate (NORMAL) RBC Morphology PT (9.95-12.35) SECONDS INR (0.8-3.0) Sodium 139 (137-145) mmol/L Potassium 4.1 (3.5-5.1) mmol/L Chloride 93 L (98-107) mmol/L Carbon Dioxide 39 H (22-30) mmol/L Anion Gap 11.1 (5-15) MEQ/L BUN 19 H (7-17) mg/dL Creatinine 1.04 (0.52-1.04) mg/dL Estimated GFR 56.5 ML/MIN Glucose 176 H (74-106) mg/dL Calcium 8.8 (8.4-10.2) mg/dL Total Bilirubin 0.20 (0.2-1.3) mg/dL AST 21 (14-36) U/L ALT 17 (0-35) U/L Alkaline Phosphatase 100 (38-126) U/L Troponin I (0.000-0.034) ng/mL Serum Total Protein 6.9 (6.3-8.2) g/dL Albumin 3.7 (3.5-5.0) g/dL Amylase (30-110) U/L Lipase (23-300) U/L Ur Collection Type Urine Color (YELLOW) Urine Appearance (CLEAR) Urine pH (5-6) Ur Specific [place] (1.005-1.025) Urine Protein (Negative) Urine Ketones (NEGATIVE) Urine Blood (0-5) [place]/ul Urine Nitrite (NEGATIVE) Urine Bilirubin (NEGATIVE) Urine Urobilinogen (0-1) mg/dL Ur Leukocyte Esterase (NEGATIVE) Urine Microscopic RBC (0-2) /HPF Urine Microscopic WBC (0-5) /HPF Ur Epithelial Cells (FEW) /HPF Urine Bacteria (NEGATIVE) /HPF Urine Mucus (NEGATIVE) /HPF Urine Culture Reflexed (NO) Urine Glucose (NEGATIVE) mg/dL Specimen Received Microbiology 06/04/18 19:30 Urine Culture - Preliminary Urine, Void GRAM NEGATIVE ID AND SENSITIVITY PENDING Accuchecks Date 06/05/18 Time 07:17 Accucheck Value: 176 - Radiology Impressions Radiology Exams & Impressions: Radiology Procedures Category Date Time Status HEAD WITHOUT CONTRAST [CT] Stat Exams 06/04/18 18:36 Taken - Other Procedures and Tests Respiratory Therapy 06/04/18 23:17 BiPap/CPAP ROUTINE Oxygen NASAL CANNULA 4 lpm 06/04/18 23:18 Respiratory Therapy Assessment DAILY Assessment/Plan (1) Altered mental status Current Visit: Yes Status: Resolved Qualifiers: Altered mental status type: disorientation Qualified Code(s): R41.0 - Disorientation, unspecified Assessment & Plan: Appears fine this morning. due to UTI. Code(s): R41.82 - ALTERED MENTAL STATUS, UNSPECIFIED (2) UTI (urinary tract infection) Current Visit: Yes Status: Acute Qualifiers: Urinary tract infection type: site unspecified Hematuria presence: without hematuria Qualified Code(s): N39.0 - Urinary tract infection, site not specified Assessment & Plan: UCx pending. On meropenem due to numerous allergies. Code(s): N39.0 - URINARY TRACT INFECTION, SITE NOT SPECIFIED (3) Hypertension Current Visit: No Status: Chronic Qualifiers: Hypertension type: essential hypertension Assessment & Plan: stable on current meds Code(s): I10 - ESSENTIAL (PRIMARY) HYPERTENSION (4) Insulin dependent diabetes mellitus Current Visit: No Status: Chronic Assessment & Plan: stable Code(s): E11.9 - TYPE 2 DIABETES MELLITUS WITHOUT COMPLICATIONS; Z79.4 - SNF (CURRENT) 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 (5) Morbid obesity Current Visit: No Status: Chronic Code(s): E66.01 - MORBID (SEVERE) OBESITY DUE TO EXCESS CALORIES (6) Sleep apnea Current Visit: No Status: Chronic Qualifiers: Sleep apnea type: unspecified type Qualified Code(s): G47.30 - Sleep apnea , unspecified Code(s): G47.30 - SLEEP APNEA, UNSPECIFIED
[2018-06-05] MEDS ORDERED: Sodium Chloride 0.9% 10 ML FLUSH Syringe IV PRN (08:45)
--- NOTE | 2018-06-05 08:55 | XRAY ---
Indication: Confusion and slowness. Multiple contiguous axial images obtained through the head without contrast. Comparison: September 20, 2016. Again no acute intracranial hemorrhage, abnormal extra-axial fluid collection, or mass effect. Fourth ventricle is midline without hydrocephalus. Jean-white matter differentiation is preserved. Bony calvarium intact again with diffuse thickening. Visualized paranasal sinuses and mastoid air cells are clear. Impression: Stable negative CT head without contrast exam. CT DI 64.95
[2018-06-05] MEDS: Phenergan 25 MG INJ IV PRN ×2 (09:09→15:52)
[2018-06-05] MEDS: Protonix 40MG Tablet PO SCH ×2 (09:09)
[2018-06-05] MEDS ORDERED: Pepcid 20 MG PO ONE (09:15)
[2018-06-05] MEDS: Sodium Chloride 0.9% 10 ML FLUSH Syringe IV SCH ×3 (09:20→22:22)
[2018-06-05] MEDS ORDERED: BUSPAR 5 MG PO SCH (10:00)
[2018-06-05] MEDS: PROTONIX 40 MG IV IV SCH (10:10)
[2018-06-05] MEDS: BUSPAR 5 MG PO SCH ×2 (10:18→22:03)
[2018-06-05] MEDS: LYRICA 150MG PO SCH ×3 (10:18→22:04)
[2018-06-05] MEDS ORDERED: Cyclobenzaprine 10 MG PO PRN (10:30)
[2018-06-05] MEDS ORDERED: NovoLOG Insulin SQ SCH (10:45)
[2018-06-05] MEDS ORDERED: PLAVIX 75 MG Tablet PO SCH (11:00)
[2018-06-05] MEDS ORDERED: ENOXAPARIN SODIUM SQ SCH (11:00)
[2018-06-05] MEDS ORDERED: ECOTRIN 81 MG PO SCH (11:00)
[2018-06-05] MEDS ORDERED: PATIENT OWN MEDICATION SQ SCH (11:00)
[2018-06-05] MEDS ORDERED: MEDICATION INTERVENTION MC SCH ×2 (11:15)
[2018-06-05] MEDS: NovoLOG Insulin SQ PRN ×2 (12:19→16:32)
[2018-06-05] MEDS: Lactated Ringers 1,000 ML IV SCH (14:18)
[2018-06-05] MEDS: CLARITIN 10 MG PO SCH (14:21)
[2018-06-05] MEDS: hydroDIURIL 25 MG PO SCH (14:21)
[2018-06-05] MEDS: Acidophilus TABLET PO SCH ×2 (14:21→22:03)
[2018-06-05] MEDS: Imdur 30 MG PO SCH (14:21)
[2018-06-05] MEDS: Toprol Xl 50 MG PO SCH (14:22)
[2018-06-05] MEDS: SYNTHROID 25 MCG PO SCH (14:22)
[2018-06-05] MEDS: PRISTIQ ER PO SCH (14:22)
[2018-06-05] MEDS: SYNTHROID 112 MCG PO SCH (14:22)
[2018-06-05] MEDS: Singulair 10 MG PO SCH (14:22)
[2018-06-05] MEDS: Zestril 5 MG PO SCH (14:23)
[2018-06-05] MEDS: CORTISPORIN EAR DROPS 10 ML SUSPENSION OT SCH ×3 (14:24→22:15)
[2018-06-05] MEDS ORDERED: NON-FORMULARY ITEM (Brimonidine Tartrate/Timolol [Combigan 0.2%-0.5% Eye Drops] 1 DROP) OP SCH (15:00)
[2018-06-05] MEDS ORDERED: PROTONIX 40 MG IV IV ONE (17:45)
[2018-06-05] MEDS ORDERED: Sodium Chloride 0.9% 500 ML 500 ML IV ONE (17:48)
--- NOTE | 2018-06-05 18:07 | XRAY ---
Indication: Vomiting. Comparison: None 2 views of the abdomen demonstrates nonspecific nonobstructed bowel gas pattern with cholecystectomy clips. No focal bowel dilatation or free air. Solid organs unremarkable. A few round pelvic phleboliths and probable right gluteal calcified injection granuloma. Osseous structures intact with moderate multilevel degenerative spondylosis and mild double curvature scoliosis. Lung bases clear. Impression: Nonacute nonobstructed abdomen with chronic features.
[2018-06-05 18:09] LABS: Hematocrit 41.2 % (35-47); Hemoglobin 13.5 gm/dl (12.0-16.0)
[2018-06-05] MEDS: PROTONIX 40 MG IV*** 80 MG in Sodium Chloride 0.9% 500 ML 500 ML IV SCH (18:24)
[2018-06-05] MEDS ORDERED: ZOCOR 20MG PO SCH (22:00)
[2018-06-05] MEDS ORDERED: Cyclobenzaprine 10 MG PO SCH (22:00)
[2018-06-05] MEDS: Desyrel 150 MG PO SCH (22:03)
[2018-06-05] MEDS: Pepcid 20 MG PO SCH (22:04)
[2018-06-05] MEDS: ZOCOR 20MG PO SCH (22:04)
[2018-06-06] MEDS: Phenergan 25 MG INJ IV PRN (01:16)
[2018-06-06] MEDS ORDERED: Sodium Chloride 0.9% 500 ML 500 ML IV ONE (04:23)
[2018-06-06] MEDS: PROTONIX 40 MG IV*** 80 MG in Sodium Chloride 0.9% 500 ML 500 ML IV SCH ×2 (04:50→15:42)
[2018-06-06] MEDS: Lactated Ringers 1,000 ML IV SCH ×2 (04:50→17:40)
[2018-06-06] MEDS: Merrem 1 GM 1 G in Sodium Chloride 100ML MINI-BAG PLUS 100 ML IV SCH ×4 (05:22→22:02)
[2018-06-06] MEDS: Sodium Chloride 0.9% 10 ML FLUSH Syringe IV SCH ×3 (05:22→22:11)
[2018-06-06 06:14] LABS: BASOPHIL % 0.2 % (0.0-0.4); Basophil (Absolute #) 0.02 (0-0.4); Eosinophil (Absolute #) 0.38 (0-0.5); Granulocyte Absolute (ANC) 9.97 (1.4-6.9); Granulocytes % 77.6 % (36.0-66.0); Hematocrit 39.6 % (35-47); Hemoglobin 12.8 gm/dl (12.0-16.0); Lymphocytes % 13.3 % (24.0-44.0); Mean Cell Volume 94.1 fl (78-100); Mean Corpuscular Hemoglobin 30.4 pg (26-32); Mean Corpuscular Hgb Concent. 32.3 g/dl (32-36); Mean Platelet Volume 11.2 fl (6-9.5); Monocyte (Absolute #) 0.76 (0.0-1.3); Monocytes % 5.9 % (0.0-12.0); Platelet Count 279 K/mm3 (150-450); Red Blood Count 4.21 M/mm3 (4.1-5.4); White Blood Count 12.8 K/mm3 (4.0-10.5)
[2018-06-06 06:21] LABS: ALBUMIN 3.8 g/dL (3.5-5.0); ALKALINE PHOSPHATASE 98 U/L (38-126); BLOOD UREA NITROGEN 12 mg/dL (7-17); CHLORIDE 93 mmol/L (98-107); Carbon Dioxide 37 mmol/L (22-30); Creatinine 1 0.76 mg/dL (0.52-1.04); Glucose 218 mg/dL (74-106); Potassium 4.4 mmol/L (3.5-5.1); SGOT/AST 26 U/L (14-36); SGPT/ALT 16 U/L (0-35); SODIUM 137 mmol/L (137-145); Total Protein 7.2 g/dL (6.3-8.2)
--- NOTE | 2018-06-06 07:19 | PCM.NOTE ---
Date and Time: 06/06/18 0716 Subjective Assessment: patient feeling much better this am, vomiting has resolved. she has no pain in her epigastrium or chest. she has been on aspirin/plavix and lovenox which are now discontinued due to new upper gi bleed. h/h has been quite stable. Objective Exam General Appearance: no apparent distress, obese Respiratory Exam: normal breath sounds, lungs clear, No respiratory distress Cardiovascular Exam: regular rate/rhythm, normal heart sounds Gastrointestinal/Abdomen Exam: soft, No tenderness, No mass Extremity Exam: normal inspection, normal range of motion OBJECTIVE DATA Vital Signs: Vital Signs - 24 hr Temp Pulse Resp BP Pulse Ox 06/06/18 06:58 96 06/06/18 05:25 94 H 20 139/63 95 06/06/18 03:46 98.9 F 96 H 20 171/70 97 06/05/18 23:40 99.2 F 90 20 163/72 97 06/05/18 19:30 100 H 20 95 06/05/18 18:46 98.8 F 100 H 20 142/65 99 06/05/18 16:00 98 F 104 H 22 143/65 97 06/05/18 12:00 97.6 F 66 18 140/64 96 06/05/18 10:31 95 H 18 96 Oxygen-Last 24 hours O2 Percentage 4 Liters = 36% O2 Percentage 4 Liters = 36% O2 Percentage 4 Liters = 36% O2 Percentage 4 Liters = 36% O2 Percentage 4 Liters = 36% O2 Percentage 4 Liters = 36% Pain Assessment - Last Documented Pain Intensity 0 Pain Scale Used 0-10 Pain Scale,FLACC Intake and Output: Intake & Output 06/03/18 06/04/18 06/05/18 06/06/18 11:59 11:59 11:59 11:59 Intake Total 240 1618 Output Total 600 4342 Balance -360 -9595 Weight 157.8 kg 157.2 kg Lab Results: Accuchecks Date 06/05/18 Date 06/05/18 Date 06/05/18 Date 06/05/18 Time 21:50 Time 16:33 Time 12:26 Time 07:17 Accucheck Value: 220 Accucheck Value: 231 Accucheck Value: 249 Accucheck Value: 176 Lab Results-Last 24 Hours 06/05/18 06/05/18 06/05/18 Range/Units 08:07 11:15 14:22 WBC (4.0-10.5) K/mm3 RBC (4.1-5.4) M/mm3 Hgb (12.0-16.0) gm/dl Hct (35-47) % MCV (78-100) fl MCH (26-32) pg MCHC (32-36) g/dl RDW (11.5-14.0) % Plt Count (150-450) K/mm3 MPV (6-9.5) fl Gran % (36.0-66.0) % Eos # (Auto) (0-0.5) Absolute Lymphs (auto) (1.0-4.6) Absolute Monos (auto) (0.0-1.3) Lymphocytes % (24.0-44.0) % Monocytes % (0.0-12.0) % Eosinophils % (0.00-5.0) % Basophils % (0.0-0.4) % Absolute Granulocytes (1.4-6.9) Basophils # (0-0.4) Sodium (137-145) mmol/L Potassium (3.5-5.1) mmol/L Chloride (98-107) mmol/L Carbon Dioxide (22-30) mmol/L Anion Gap (5-15) MEQ/L BUN (7-17) mg/dL Creatinine (0.52-1.04) mg/dL Estimated GFR ML/MIN Glucose (74-106) mg/dL Calcium (8.4-10.2) mg/dL Total Bilirubin (0.2-1.3) mg/dL AST (14-36) U/L ALT (0-35) U/L Alkaline Phosphatase (38-126) U/L Troponin I < 0.012 < 0.012 < 0.012 (0.000-0.034) ng/mL Serum Total Protein (6.3-8.2) g/dL Albumin (3.5-5.0) g/dL 06/05/18 06/05/18 06/06/18 Range/Units 17:20 18:00 05:08 WBC 12.8 H (4.0-10.5) K/mm3 RBC 4.21 (4.1-5.4) M/mm3 Hgb 13.5 12.8 (12.0-16.0) gm/dl Hct 41.2 39.6 (35-47) % MCV 94.1 (78-100) fl MCH 30.4 (26-32) pg MCHC 32.3 (32-36) g/dl RDW 14.0 (11.5-14.0) % Plt Count 279 (150-450) K/mm3 MPV 11.2 H (6-9.5) fl Gran % 77.6 H (36.0-66.0) % Eos # (Auto) 0.38 (0-0.5) Absolute Lymphs (auto) 1.70 (1.0-4.6) Absolute Monos (auto) 0.76 (0.0-1.3) Lymphocytes % 13.3 L (24.0-44.0) % Monocytes % 5.9 (0.0-12.0) % Eosinophils % 3.0 (0.00-5.0) % Basophils % 0.2 (0.0-0.4) % Absolute Granulocytes 9.97 H (1.4-6.9) Basophils # 0.02 (0-0.4) Sodium (137-145) mmol/L Potassium (3.5-5.1) mmol/L Chloride (98-107) mmol/L Carbon Dioxide (22-30) mmol/L Anion Gap (5-15) MEQ/L BUN (7-17) mg/dL Creatinine (0.52-1.04) mg/dL Estimated GFR ML/MIN Glucose (74-106) mg/dL Calcium (8.4-10.2) mg/dL Total Bilirubin (0.2-1.3) mg/dL AST (14-36) U/L ALT (0-35) U/L Alkaline Phosphatase (38-126) U/L Troponin I < 0.012 (0.000-0.034) ng/mL Serum Total Protein (6.3-8.2) g/dL Albumin (3.5-5.0) g/dL 06/06/18 Range/Units 05:08 WBC (4.0-10.5) K/mm3 RBC (4.1-5.4) M/mm3 Hgb (12.0-16.0) gm/dl Hct (35-47) % MCV (78-100) fl MCH (26-32) pg MCHC (32-36) g/dl RDW (11.5-14.0) % Plt Count (150-450) K/mm3 MPV (6-9.5) fl Gran % (36.0-66.0) % Eos # (Auto) (0-0.5) Absolute Lymphs (auto) (1.0-4.6) Absolute Monos (auto) (0.0-1.3) Lymphocytes % (24.0-44.0) % Monocytes % (0.0-12.0) % Eosinophils % (0.00-5.0) % Basophils % (0.0-0.4) % Absolute Granulocytes (1.4-6.9) Basophils # (0-0.4) Sodium 137 (137-145) mmol/L Potassium 4.4 (3.5-5.1) mmol/L Chloride 93 L (98-107) mmol/L Carbon Dioxide 37 H (22-30) mmol/L Anion Gap 11.0 (5-15) MEQ/L BUN 12 (7-17) mg/dL Creatinine 0.76 (0.52-1.04) mg/dL Estimated GFR > 60.0 ML/MIN Glucose 218 H (74-106) mg/dL Calcium 9.0 (8.4-10.2) mg/dL Total Bilirubin 0.40 (0.2-1.3) mg/dL AST 26 (14-36) U/L ALT 16 (0-35) U/L Alkaline Phosphatase 98 (38-126) U/L Troponin I (0.000-0.034) ng/mL Serum Total Protein 7.2 (6.3-8.2) g/dL Albumin 3.8 (3.5-5.0) g/dL Radiology Exams: Radiology Procedures Category Date Time Status ABDOMEN 2 VIEW Routine Exams 06/05/18 15:59 Completed HEAD WITHOUT CONTRAST [CT] Stat Exams 06/04/18 18:36 Completed Multi-Disciplinary Progress Notes: Multi-Disciplinary Progress Notes 06/05/18 12:28 Case Management Note by Shikha Betancourt CALL TO [facility] TO REPORT THAT PT HAD REPORTED THAT HER OXYGEN EQUIPMENT HAS NOT BEEN WORKING PROPERLY AT HOME, PROVIDED DAUGHTERELISABET'S CONTACT INFORMATION. RASHMI @ [facility] REPORTS THAT THEY WILL CALL PT'S DAUGHTER TO SCHEDULE SERVICE OF EQUIP. Initialized on 06/05/18 12:28 - END OF NOTE Assessment/Plan (1) Upper GI bleed Current Visit: Yes Status: Acute Assessment & Plan: continue protonix gtt, held aspirin/plavix and lovenox. will order teds and scds. has cardiac stents but have been in place for nearly 5 years Code(s): K92.2 - GASTROINTESTINAL HEMORRHAGE, UNSPECIFIED (2) Failure of outpatient treatment Current Visit: Yes Status: Acute Onset Date: ~06/06/18 Code(s): Z78.9 - OTHER SPECIFIED HEALTH STATUS (3) UTI (urinary tract infection) Current Visit: Yes Status: Acute Onset Date: ~06/04/18 Qualifiers: Urinary tract infection type: site unspecified Hematuria presence: without hematuria Qualified Code(s): N39.0 - Urinary tract infection, site not specified Assessment & Plan: on meropenem, urine culture is pending. Code(s): N39.0 - URINARY TRACT INFECTION, SITE NOT SPECIFIED (4) Altered mental status Current Visit: Yes Status: Resolved Onset Date: ~06/04/18 Qualifiers: Altered mental status type: disorientation Qualified Code(s): R41.0 - Disorientation, unspecified Code(s): R41.82 - ALTERED MENTAL STATUS, UNSPECIFIED
[2018-06-06] MEDS: NovoLOG Insulin SQ PRN ×2 (08:21→11:46)
[2018-06-06] MEDS ORDERED: NON-FORMULARY ITEM (Desvenlafaxine Succinate [Pristiq] 100 MG) PO SCH (10:00)
[2018-06-06] MEDS ORDERED: LIRAGLUTIDE SQ SCH (10:00)
[2018-06-06] MEDS ORDERED: NON-FORMULARY ITEM (Aspirin [Aspirin] 81 MG) PO SCH (10:00)
[2018-06-06] MEDS ORDERED: NON-FORMULARY ITEM (Esomeprazole Magnesium [Nexium] 40 MG) PO SCH (10:00)
[2018-06-06] MEDS: CLARITIN 10 MG PO SCH (10:07)
[2018-06-06] MEDS: BUSPAR 5 MG PO SCH ×2 (10:07→22:02)
[2018-06-06] MEDS: Acidophilus TABLET PO SCH ×2 (10:07→22:02)
[2018-06-06] MEDS: CORTISPORIN EAR DROPS 10 ML SUSPENSION OT SCH ×4 (10:08→22:03)
[2018-06-06] MEDS: hydroDIURIL 25 MG PO SCH (10:08)
[2018-06-06] MEDS: Imdur 30 MG PO SCH (10:09)
[2018-06-06] MEDS: LYRICA 150MG PO SCH ×3 (10:09→22:02)
[2018-06-06] MEDS: PROTONIX 40 MG IV IV SCH (10:10)
[2018-06-06] MEDS: Singulair 10 MG PO SCH (10:10)
[2018-06-06] MEDS: Toprol Xl 50 MG PO SCH (10:11)
[2018-06-06] MEDS: Zestril 5 MG PO SCH (10:11)
[2018-06-06] MEDS: SYNTHROID 112 MCG PO SCH (10:11)
[2018-06-06] MEDS: SYNTHROID 25 MCG PO SCH (10:11)
[2018-06-06] MEDS: OXYCODONE-ACETAMINOPHEN 10-325 PO PRN ×2 (10:23→22:10)
[2018-06-06] MEDS: PRISTIQ ER PO SCH (10:32)
[2018-06-06] MEDS: Desyrel 150 MG PO SCH (22:02)
[2018-06-06] MEDS: ZOCOR 20MG PO SCH (22:02)
[2018-06-06] MEDS: Pepcid 20 MG PO SCH (22:03)
[2018-06-07] MEDS: PROTONIX 40 MG IV*** 80 MG in Sodium Chloride 0.9% 500 ML 500 ML IV SCH ×2 (02:29→15:02)
[2018-06-07 05:40] LABS: BASOPHIL % 0.2 % (0.0-0.4); Basophil (Absolute #) 0.02 (0-0.4); Eosinophil % 5.3 % (0.00-5.0); Eosinophil (Absolute #) 0.45 (0-0.5); Granulocyte Absolute (ANC) 5.29 (1.4-6.9); Granulocytes % 62.4 % (36.0-66.0); Hematocrit 36.1 % (35-47); Hemoglobin 11.4 gm/dl (12.0-16.0); Lymphocyte (Absolute #) 2.15 (1.0-4.6); Lymphocytes % 25.3 % (24.0-44.0); Mean Corpuscular Hemoglobin 30.3 pg (26-32); Mean Corpuscular Hgb Concent. 31.6 g/dl (32-36); Mean Platelet Volume 10.7 fl (6-9.5); Monocyte (Absolute #) 0.58 (0.0-1.3); Monocytes % 6.8 % (0.0-12.0); Platelet Count 226 K/mm3 (150-450); Red Blood Count 3.76 M/mm3 (4.1-5.4); Red Cell Distribution Width 14.2 % (11.5-14.0); White Blood Count 8.5 K/mm3 (4.0-10.5)
[2018-06-07 05:58] LABS: ALBUMIN 3.4 g/dL (3.5-5.0); ALKALINE PHOSPHATASE 76 U/L (38-126); ANION GAP 9.6 MEQ/L (5-15); BLOOD UREA NITROGEN 9 mg/dL (7-17); CHLORIDE 96 mmol/L (98-107); Calcium 8.5 mg/dL (8.4-10.2); Carbon Dioxide 37 mmol/L (22-30); Creatinine 1 0.71 mg/dL (0.52-1.04); Glucose 147 mg/dL (74-106); SGOT/AST 20 U/L (14-36); SGPT/ALT 13 U/L (0-35); SODIUM 139 mmol/L (137-145); Total Protein 6.3 g/dL (6.3-8.2)
[2018-06-07] MEDS: Merrem 1 GM 1 G in Sodium Chloride 100ML MINI-BAG PLUS 100 ML IV SCH ×3 (06:38→21:30)
[2018-06-07] MEDS: Sodium Chloride 0.9% 10 ML FLUSH Syringe IV SCH ×3 (06:38→22:03)
[2018-06-07] MEDS: Lactated Ringers 1,000 ML IV SCH ×2 (07:22→19:37)
[2018-06-07] MEDS: OXYCODONE-ACETAMINOPHEN 10-325 PO PRN ×2 (07:22→21:22)
--- NOTE | 2018-06-07 08:08 | PCM.NOTE ---
Date and Time: 06/07/18 08 Subjective Assessment: patient tolerating clear liquids, no more vomiting or epigastric/chest pain noted. overall feeling better. Objective Exam General Appearance: no apparent distress, alert Skin Exam: normal color, warm, dry Respiratory Exam: normal breath sounds, lungs clear, No respiratory distress Cardiovascular Exam: regular rate/rhythm, normal heart sounds Gastrointestinal/Abdomen Exam: soft, No tenderness, No mass Extremity Exam: normal inspection, normal range of motion OBJECTIVE DATA Vital Signs: Vital Signs - 24 hr Temp Pulse Resp BP Pulse Ox 06/07/18 07:10 97.7 F 80 20 127/59 96 06/07/18 06:57 96 06/07/18 06:00 98 06/07/18 04:12 98.1 F 60 20 114/87 98 06/06/18 23:50 98.1 F 73 20 88/40 98 06/06/18 21:00 98.3 F 103 H 20 117/59 98 06/06/18 16:07 98.6 F 88 20 129/62 96 06/06/18 11:07 98.7 F 86 20 133/63 96 Oxygen-Last 24 hours O2 Percentage 4 Liters = 36% O2 Percentage 4 Liters = 36% O2 Percentage 4 Liters = 36% O2 Percentage 4 Liters = 36% O2 Percentage 4 Liters = 36% Pain Assessment - Last Documented Pain Intensity 8 Pain Scale Used 0-10 Pain Scale Intake and Output: Intake & Output 06/04/18 06/05/18 06/06/18 06/07/18 11:59 11:59 11:59 11:59 Intake Total 240 2098 5036 Output Total 600 9222 7277 Balance -360 -7301 4936 Weight 157.8 kg 157.2 kg 157.7 kg Lab Results: Accuchecks Date 06/07/18 Date 06/06/18 Date 06/06/18 Date 06/06/18 Time 05:00 Time 21:00 Time 16:30 Accucheck Value: 155 Accucheck Value: 175 Accucheck Value: 220 Lab Results-Last 24 Hours 06/07/18 06/07/18 Range/Units 05:05 05:05 WBC 8.5 (4.0-10.5) K/mm3 RBC 3.76 L (4.1-5.4) M/mm3 Hgb 11.4 L (12.0-16.0) gm/dl Hct 36.1 (35-47) % MCV 96.0 (78-100) fl MCH 30.3 (26-32) pg MCHC 31.6 L (32-36) g/dl RDW 14.2 H (11.5-14.0) % Plt Count 226 (150-450) K/mm3 MPV 10.7 H (6-9.5) fl Gran % 62.4 (36.0-66.0) % Eos # (Auto) 0.45 (0-0.5) Absolute Lymphs (auto) 2.15 (1.0-4.6) Absolute Monos (auto) 0.58 (0.0-1.3) Lymphocytes % 25.3 (24.0-44.0) % Monocytes % 6.8 (0.0-12.0) % Eosinophils % 5.3 H (0.00-5.0) % Basophils % 0.2 (0.0-0.4) % Absolute Granulocytes 5.29 (1.4-6.9) Basophils # 0.02 (0-0.4) Sodium 139 (137-145) mmol/L Potassium 4.0 (3.5-5.1) mmol/L Chloride 96 L (98-107) mmol/L Carbon Dioxide 37 H (22-30) mmol/L Anion Gap 9.6 (5-15) MEQ/L BUN 9 (7-17) mg/dL Creatinine 0.71 (0.52-1.04) mg/dL Estimated GFR > 60.0 ML/MIN Glucose 147 H (74-106) mg/dL Calcium 8.5 (8.4-10.2) mg/dL Total Bilirubin 0.30 (0.2-1.3) mg/dL AST 20 (14-36) U/L ALT 13 (0-35) U/L Alkaline Phosphatase 76 (38-126) U/L Serum Total Protein 6.3 (6.3-8.2) g/dL Albumin 3.4 L (3.5-5.0) g/dL Radiology Exams: Radiology Procedures Category Date Time Status ABDOMEN 2 VIEW Routine Exams 06/05/18 15:59 Completed Assessment/Plan (1) Upper GI bleed Current Visit: Yes Status: Acute Assessment & Plan: on protonix gtt, tolerating clears. will continue, likely d/c protonix drip tomorrow and advance diet if continues to do well. aspirin/plavix/lovenox are all on hold at this time Code(s): K92.2 - GASTROINTESTINAL HEMORRHAGE, UNSPECIFIED (2) Failure of outpatient treatment Current Visit: Yes Status: Acute Onset Date: ~06/06/18 Code(s): Z78.9 - OTHER SPECIFIED HEALTH STATUS (3) UTI (urinary tract infection) Current Visit: Yes Status: Acute Onset Date: ~06/04/18 Qualifiers: Urinary tract infection type: site unspecified Hematuria presence: without hematuria Qualified Code(s): N39.0 - Urinary tract infection, site not specified Assessment & Plan: martell-sensitive e coli, on meropenem due to multiple drug allergies Code(s): N39.0 - URINARY TRACT INFECTION, SITE NOT SPECIFIED (4) Altered mental status Current Visit: Yes Status: Resolved Onset Date: ~06/04/18 Qualifiers: Altered mental status type: disorientation Qualified Code(s): R41.0 - Disorientation, unspecified Code(s): R41.82 - ALTERED MENTAL STATUS, UNSPECIFIED
[2018-06-07] MEDS: SYNTHROID 25 MCG PO SCH (10:13)
[2018-06-07] MEDS: Imdur 30 MG PO SCH (10:13)
[2018-06-07] MEDS: PRISTIQ ER PO SCH (10:13)
[2018-06-07] MEDS: BUSPAR 5 MG PO SCH ×2 (10:14→21:21)
[2018-06-07] MEDS: Toprol Xl 50 MG PO SCH (10:14)
[2018-06-07] MEDS: Zestril 5 MG PO SCH (10:15)
[2018-06-07] MEDS: CLARITIN 10 MG PO SCH (10:16)
[2018-06-07] MEDS: Singulair 10 MG PO SCH (10:16)
[2018-06-07] MEDS: Acidophilus TABLET PO SCH ×2 (10:16→21:21)
[2018-06-07] MEDS: SYNTHROID 112 MCG PO SCH (10:16)
[2018-06-07] MEDS: LYRICA 150MG PO SCH ×3 (10:16→21:22)
[2018-06-07] MEDS: CORTISPORIN EAR DROPS 10 ML SUSPENSION OT SCH ×4 (10:17→21:23)
[2018-06-07] MEDS: hydroDIURIL 25 MG PO SCH (13:01)
[2018-06-07] MEDS: ZOCOR 20MG PO SCH (21:22)
[2018-06-07] MEDS: Pepcid 20 MG PO SCH (21:22)
[2018-06-07] MEDS: Desyrel 150 MG PO SCH (21:23)
[2018-06-08] MEDS: PROTONIX 40 MG IV*** 80 MG in Sodium Chloride 0.9% 500 ML 500 ML IV SCH (02:08)
[2018-06-08] MEDS: Merrem 1 GM 1 G in Sodium Chloride 100ML MINI-BAG PLUS 100 ML IV SCH ×3 (05:26→22:37)
[2018-06-08] MEDS: Sodium Chloride 0.9% 10 ML FLUSH Syringe IV SCH ×3 (05:27→22:41)
[2018-06-08 05:41] LABS: BASOPHIL % 0.3 % (0.0-0.4); Basophil (Absolute #) 0.02 (0-0.4); Eosinophil % 7.8 % (0.00-5.0); Eosinophil (Absolute #) 0.47 (0-0.5); Granulocyte Absolute (ANC) 3.32 (1.4-6.9); Granulocytes % 55.2 % (36.0-66.0); Hematocrit 33.5 % (35-47); Hemoglobin 10.6 gm/dl (12.0-16.0); Lymphocyte (Absolute #) 1.71 (1.0-4.6); Lymphocytes % 28.4 % (24.0-44.0); Mean Cell Volume 96.8 fl (78-100); Mean Corpuscular Hemoglobin 30.6 pg (26-32); Mean Corpuscular Hgb Concent. 31.6 g/dl (32-36); Mean Platelet Volume 10.4 fl (6-9.5); Monocytes % 8.3 % (0.0-12.0); Platelet Count 182 K/mm3 (150-450); Red Blood Count 3.46 M/mm3 (4.1-5.4); Red Cell Distribution Width 13.9 % (11.5-14.0)
[2018-06-08 06:23] LABS: ALKALINE PHOSPHATASE 65 U/L (38-126); ANION GAP 7.8 MEQ/L (5-15); BLOOD UREA NITROGEN 7 mg/dL (7-17); CHLORIDE 98 mmol/L (98-107); Calcium 8.1 mg/dL (8.4-10.2); Carbon Dioxide 37 mmol/L (22-30); Glucose 123 mg/dL (74-106); Potassium 3.7 mmol/L (3.5-5.1); SGOT/AST 20 U/L (14-36); SGPT/ALT 12 U/L (0-35); SODIUM 140 mmol/L (137-145); Total Protein 5.7 g/dL (6.3-8.2)
--- NOTE | 2018-06-08 08:30 | PCM.NOTE ---
Date and Time: 06/08/18826 Subjective Assessment: She is tolerating clear liquid diet. Feeling somewhat shaky. - Review of Systems Constitutional: No Fever Abdominal/Gastrointestinal: No Vomiting Objective Exam General Appearance: no apparent distress, obese Neurologic Exam: alert, oriented x 3, cooperative Skin Exam: normal color, warm, dry, No rash Respiratory Exam: lungs clear, diminished breath sounds (good air exchange), No crackles/rales, No rhonchi, No wheezing Cardiovascular Exam: regular rate/rhythm, normal heart sounds, No murmur Gastrointestinal/Abdomen Exam: soft, normal bowel sounds, No tenderness OBJECTIVE DATA Vital Signs: Vital Signs - 24 hr Temp Pulse Resp BP Pulse Ox 06/08/18 07:47 98.3 F 69 20 127/61 95 06/08/18 07:30 95 06/08/18 04:25 98.2 F 64 20 98/52 98 06/07/18 23:42 97.8 F 64 20 90/46 96 06/07/18 19:44 97.8 F 79 20 110/58 95 06/07/18 19:15 73 20 96 06/07/18 16:00 98.1 F 64 18 96/48 98 06/07/18 11:43 98.2 F 84 18 98/50 96 Oxygen-Last 24 hours O2 Percentage 2 Liters = 28% O2 Percentage 4 Liters = 36% O2 Percentage 4 Liters = 36% O2 Percentage 4 Liters = 36% O2 Percentage 4 Liters = 36% O2 Percentage 4 Liters = 36% Pain Assessment - Last Documented Pain Intensity 9 Pain Scale Used 0-10 Pain Scale Intake and Output: Intake & Output 06/05/18 06/06/18 06/07/18 06/08/18 11:59 11:59 11:59 11:59 Intake Total 240 3361 5336 5192 Output Total 600 4982 2721 831 Balance -094 -8694 4317 2461 Weight 157.8 kg 157.2 kg 157.7 kg 162 kg Lab Results: Accuchecks Date 06/08/18 Date 06/07/18 Date 06/07/1806/07/18 Time 05:00 Time 21:50 Time 16:30 Time 11:30 Accucheck Value: 145 Accucheck Value: 130 Accucheck Value: 178 Lab Results-Last 24 Hours 09/06/08/18 06/08/18 Range/Units 05:00 05:00 05:00 WBC 6.0 (4.0-10.5) K/mm3 RBC 3.46 L (4.1-5.4) M/mm3 Hgb 10.6 L (12.0-16.0) gm/dl Hct 33.5 L (35-47) % MCV 96.8 (78-100) fl MCH 30.6 (26-32) pg MCHC 31.6 L (32-36) g/dl RDW 13.9 (11.5-14.0) % Plt Count 182 (150-450) K/mm3 MPV 10.4 H (6-9.5) fl Gran % 55.2 (36.0-66.0) % Eos # (Auto) 0.47 (0-0.5) Absolute Lymphs (auto) 1.71 (1.0-4.6) Absolute Monos (auto) 0.50 (0.0-1.3) Lymphocytes % 28.4 (24.0-44.0) % Monocytes % 8.3 (0.0-12.0) % Eosinophils % 7.8 H (0.00-5.0) % Basophils % 0.3 (0.0-0.4) % Absolute Granulocytes 3.32 (1.4-6.9) Basophils # 0.02 (0-0.4) Sodium 140 (137-145) mmol/L Potassium 3.7 (3.5-5.1) mmol/L Chloride 98 (98-107) mmol/L Carbon Dioxide 37 H (22-30) mmol/L Anion Gap 7.8 (5-15) MEQ/L BUN 7 (7-17) mg/dL Creatinine 0.70 (0.52-1.04) mg/dL Estimated GFR > 60.0 ML/MIN Glucose 123 H (74-106) mg/dL Hemoglobin A1c 7.34 H (4.5-6.0) % Calcium 8.1 L (8.4-10.2) mg/dL Total Bilirubin 0.20 (0.2-1.3) mg/dL AST 20 (14-36) U/L ALT 12 (0-35) U/L Alkaline Phosphatase 65 (38-126) U/L Serum Total Protein 5.7 L (6.3-8.2) g/dL Albumin 3.0 L (3.5-5.0) g/dL Multi-Disciplinary Progress Notes: Multi-Disciplinary Progress Notes 06/07/18 12:55 Case Management Note by Jo Ann Donnelly DISCHARGE PLANS REVIEWED WITH MS CHAVEZ. HER OXYGEN, NEBS AND BIPAP AT HOME ARE FROM [facility]. SHE ALSO HAS A WALKER, A WHEELCHAIR AND A DIABETIC STERLING. SHE LIVES AT HOME WITH FAMILY. SHE DENIES THE NEED FOR ANY HELP AT HOME, BUT SHE STATES THAT SHE RECENTLY MOVED AND CANNOT FIND HER BIPAP MACHINE. HER FAMILY IS STILL LOOKING FOR THIS. SHE STATES THAT SHE HAS HAD IT FOR 2-3 YEARS. UNKNOWN WHETHER [facility] WOULD COVER ANOTHER AT THIS TIME, IF IT CANNOT BE FOUND. WILL CHECK WITH RESPIRATORY HERE AT THE HOSPITAL TO SEE IF THEY WOULD HAVE KNOWLEDGE, AND CONTACT RACHEL IF HER FAMILY CANNOT FIND HERS. IMPORTANT PAPERS FROM MEDICARE EXPLAINED, SIGNED, COPY GIVEN TO THE PATIENT AND THE ORIGINAL GIVEN TO JAYLYN, PACKING CHECKER, TO PUT ON THE PAPER CHART. WILL CONTINUE TO MONITOR FOR ALL D/C NEEDS. Initialized on 06/07/18 12:55 - END OF NOTE Assessment/Plan (1) UTI (urinary tract infection) Current Visit: Yes Status: Acute Onset Date: ~06/04/18 Qualifiers: Urinary tract infection type: site unspecified Hematuria presence: without hematuria Qualified Code(s): N39.0 - Urinary tract infection, site not specified Assessment & Plan: On IV meropenem. Code(s): N39.0 - URINARY TRACT INFECTION, SITE NOT SPECIFIED (2) Hypertension Current Visit: No Status: Chronic Qualifiers: Hypertension type: essential hypertension Assessment & Plan: stable; actually had some decreased bp in the past 24 h (98/52). Code(s): I10 - ESSENTIAL (PRIMARY) HYPERTENSION (3) Insulin dependent diabetes mellitus Current Visit: No Status: Chronic Assessment & Plan: BS 130-175. Code(s): E11.9 - TYPE 2 DIABETES MELLITUS WITHOUT COMPLICATIONS; Z79.4 - SNF (CURRENT) 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 (4) Morbid obesity Current Visit: No Status: Chronic Code(s): E66.01 - MORBID (SEVERE) OBESITY DUE TO EXCESS CALORIES (5) Sleep apnea Current Visit: No Status: Chronic Qualifiers: Sleep apnea type: unspecified type Qualified Code(s): G47.30 - Sleep apnea , unspecified Code(s): G47.30 - SLEEP APNEA, UNSPECIFIED
[2018-06-08] MEDS: Imdur 30 MG PO SCH (08:47)
[2018-06-08] MEDS: BUSPAR 5 MG PO SCH ×2 (08:47→22:30)
[2018-06-08] MEDS: OXYCODONE-ACETAMINOPHEN 10-325 PO PRN ×2 (08:47→22:34)
[2018-06-08] MEDS: Singulair 10 MG PO SCH (08:47)
[2018-06-08] MEDS: Acidophilus TABLET PO SCH ×2 (08:47→22:29)
[2018-06-08] MEDS: PRISTIQ ER PO SCH (08:47)
[2018-06-08] MEDS: hydroDIURIL 25 MG PO SCH (08:48)
[2018-06-08] MEDS: CLARITIN 10 MG PO SCH (08:48)
[2018-06-08] MEDS: Zestril 5 MG PO SCH (08:48)
[2018-06-08] MEDS: SYNTHROID 25 MCG PO SCH (08:48)
[2018-06-08] MEDS: Toprol Xl 50 MG PO SCH (08:49)
[2018-06-08] MEDS: SYNTHROID 112 MCG PO SCH (08:49)
[2018-06-08] MEDS: LYRICA 150MG PO SCH ×3 (08:49→22:29)
[2018-06-08] MEDS: CORTISPORIN EAR DROPS 10 ML SUSPENSION OT SCH ×4 (08:49→22:31)
[2018-06-08] MEDS: Pepcid 20 MG PO SCH (22:30)
[2018-06-08] MEDS: ZOCOR 20MG PO SCH (22:31)
[2018-06-08] MEDS: Desyrel 150 MG PO SCH (22:32)
[2018-06-09] MEDS: OXYCODONE-ACETAMINOPHEN 10-325 PO PRN (03:21)
[2018-06-09] MEDS: Sodium Chloride 0.9% 10 ML FLUSH Syringe IV SCH ×2 (06:40→14:02)
[2018-06-09] MEDS: Merrem 1 GM 1 G in Sodium Chloride 100ML MINI-BAG PLUS 100 ML IV SCH ×2 (06:40→14:02)
--- NOTE | 2018-06-09 09:49 | XRAY ---
Indication: Cough. Comparison: March 02, 2018. PA/lateral chest now demonstrates mild lingular infiltrate versus atelectasis without consolidation or large effusion. Remaining heart, lungs, and bony thorax unremarkable.
[2018-06-09] MEDS ORDERED: Protonix 40MG Tablet PO SCH (10:00)
[2018-06-09] MEDS: Zestril 5 MG PO SCH (10:14)
[2018-06-09] MEDS: Singulair 10 MG PO SCH (10:14)
[2018-06-09] MEDS: Imdur 30 MG PO SCH (10:14)
[2018-06-09] MEDS: SYNTHROID 25 MCG PO SCH (10:15)
[2018-06-09] MEDS: BUSPAR 5 MG PO SCH (10:15)
[2018-06-09] MEDS: CLARITIN 10 MG PO SCH (10:15)
[2018-06-09] MEDS: Acidophilus TABLET PO SCH (10:15)
[2018-06-09] MEDS: PRISTIQ ER PO SCH (10:15)
[2018-06-09] MEDS: hydroDIURIL 25 MG PO SCH (10:15)
[2018-06-09] MEDS: Toprol Xl 50 MG PO SCH (10:15)
[2018-06-09] MEDS: CORTISPORIN EAR DROPS 10 ML SUSPENSION OT SCH ×3 (10:16→17:30)
[2018-06-09] MEDS: SYNTHROID 112 MCG PO SCH (10:16)
[2018-06-09] MEDS: LYRICA 150MG PO SCH ×2 (10:16→15:24)
--- NOTE | 2018-06-09 15:24 | PCM.DS ---
Discharge Summary Date of Admission: 06/05/18 17:35 Admitting Physician: LEORA CORMIER Primary Care Provider: LEORA CORMIER Allergies Allergies levofloxacin [From Levaquin] Allergy (Mild, Verified 06/04/18 18:31) red rash/burning when gievn IV cefaclor [From Ceclor] Allergy (Verified 06/04/18 18:31) SOB, HIVES ciprofloxacin [From Cipro] Allergy (Verified 06/04/18 18:31) ciprofloxacin HCl [From Cipro] Allergy (Verified 06/04/18 18:31) clarithromycin [From Biaxin] Allergy (Verified 06/04/18 18:31) diphenhydramine HCl [From Benadryl] Allergy (Verified 06/04/18 18:31) SOB HIVES erythromycin base [Erythromycin Base] Allergy (Verified 06/04/18 18:31) SOB HIVES iodine Allergy (Verified 06/04/18 18:31) SOB HIVES latex Allergy (Verified 06/04/18 18:31) SOB HIVES Macrolide Antibiotics Allergy (Verified 06/04/18 18:31) SBO HIVES Penicillins Allergy (Verified 06/04/18 18:31) Swelling of Face sulfamethoxazole [From Bactrim] Allergy (Verified 06/04/18 18:31) trimethoprim [From Bactrim] Allergy (Verified 06/04/18 18:31) melon Adverse Reaction (Severe, Verified 06/04/18 18:31) cantaloupe aspirin Adverse Reaction (Verified 06/04/18 18:31) ibuprofen Adverse Reaction (Verified 06/04/18 18:31) Hospital Summary - Hospital Course Hospital Course: Pt is 67 yo with DM and COPD admitted through ER with confusion. Found to have UTI and put on IV meropenem due to numerous antibiotic allergies. CT head non acute. She started having epigastric pain and vomiting the next day; abd XR was fine but she vomited blood so her aspirin, plavix, and lovenox were all held. Pt on plavix s/p cardiac stents but they were remote (several years ago). Pt was placed on protonix drip with resolution of GI bleeding. Hemoglobin has been stable. She is tolerating po. BS have been stable. She will be discharged to home, off ASA, plavix, and protonix and have EGD in [address] Quigley. - Vitals & Intake/Output Vital Signs: Vital Signs Temperature 98.0 F 06/09/18 12:12 Pulse Rate 71 06/09/18 12:12 Respiratory Rate 19 06/09/18 12:12 Blood Pressure 113/50 06/09/18 12:12 O2 Sat by Pulse Oximetry 97 06/09/18 12:12 Oxygen-Last Documented O2 Percentage 3 Liters = 32% Intake & Output: Intake & Output 06/07/18 06/08/18 06/09/18 06/10/18 11:59 11:59 11:59 11:59 Intake Total 5336 5672 1660 120 Output Total 2950 800 Balance 2386 4872 1660 120 Weight 157.7 kg 162 kg 161.3 kg - Lab Result Diagrams: 06/08/18 05:00 06/08/18 05:00 Lab Results-Last 24 Hrs: Accuchecks Date 06/09/18 Date 06/09/18 Date 06/08/18 Date 06/08/18 Time 11:30 Time 07:30 Time 21:30 Time 16:30 Accucheck Value: 166 Accucheck Value: 120 Accucheck Value: 162 Accucheck Value: 152 Micro Results-Entire Visit: Microbiology 06/04/18 19:30 Urine Culture - Final Urine, Void Escherichia Coli Accuchecks Date 06/09/18 Date 06/09/18 Date 06/08/18 Date 06/08/18 Time 11:30 Time 07:30 Time 21:30 Time 16:30 Accucheck Value: 166 Accucheck Value: 120 Accucheck Value: 162 Accucheck Value: 152 - Radiology Exams Ordered Rad Exams-Entire Visit: Radiology Procedures Category Date Time Status CHEST 2 VIEWS (PA AND LAT) Routine Exams 06/09/18 09:34 Completed - Procedures and Test Procedures and Tests throughout Hospitalization: Therapy Orders & Screens 06/04/18 21:56 Respiratory Therapy Consult ROUTINE Comment: Reason For Exam: 06/04/18 23:03 RT Screen per Nursing Assess ONCE Comment: Protocol Order Physician Instructions: Greater than 3 points order RT Admission Screen Reason For Exam: Triggered on Admission Diagnosis: UTI Diagnosis: UTI Pneumonia: No Home O2: Yes Asthma: No CHF: No Home CPAP/BIPAP: Yes Home Nebs/MDI: Yes Total Points: 15 06/04/18 23:17 BiPap/CPAP ROUTINE Comment: PER HOME SETTINGS. Diagnosis: UTI Oxygen NASAL CANNULA 4 lpm Comment: Diagnosis: UTI 06/04/18 23:18 Respiratory Therapy Assessment DAILY Comment: Diagnosis: UTI 06/05/18 08:57 EKG STAT Comment: Diagnosis: chest pain Discharge Exam General Appearance: no apparent distress, alert, obese Neurologic Exam: oriented x 3, cooperative Skin Exam: normal color, warm, dry, No rash Ears, Nose, Throat Exam: moist mucous membranes Neck Exam: normal inspection Respiratory Exam: lungs clear, diminished breath sounds, prolonged expirations, No crackles/rales, No rhonchi, No wheezing Cardiovascular Exam: regular rate/rhythm, normal heart sounds, No murmur Gastrointestinal/Abdomen Exam: soft, normal bowel sounds, No tenderness, No distention, No mass, No guarding, No rebound Extremity Exam: swelling (trace LE edema bilat) Back Exam: normal inspection, No rash Final Diagnosis/Problem List - Final Discharge Diagnosis/Problem (1) Upper GI bleed Current Visit: Yes Status: Acute Assessment & Plan: Will have OP EGD in 1 wk; home off blood thinners until then. (2) UTI (urinary tract infection) Current Visit: Yes Status: Resolved Onset Date: ~06/04/18 (3) Hypertension Current Visit: No Status: Chronic (4) Insulin dependent diabetes mellitus Current Visit: No Status: Chronic (5) Morbid obesity Current Visit: No Status: Chronic (6) Sleep apnea Current Visit: No Status: Chronic - Discharge Disposition: Home, Self-Care Condition: Good Prescriptions: Continue Insulin Aspart [NovoLOG Insulin] 3.1 unit SQ UD Esomeprazole Magnesium [Nexium] 40 mg PO DAILY Atorvastatin Calcium [Lipitor 20MG Tablet] 80 mg PO HS Buspirone HCl 5 mg [Buspar 5 mg] 15 mg PO BID Cyclobenzaprine HCl [Flexeril] 10 mg PO HS Levothyroxine Sodium [Synthroid] 137 mcg PO DAILY Oxycodone HCl/Acetaminophen [Percocet 10-325 mg Tablet] 1 each PO Q4-6HPRN PRN PRN Reason: Pain Liraglutide [Victoza 2-Alcon] 0.08 mg SQ DAILY Ranitidine HCl [Zantac] 150 mg PO HS Loratadine 10 mg [Claritin 10 mg] 10 mg PO DAILY Pregabalin [Lyrica] 200 mg PO TID Desvenlafaxine Succinate [Pristiq] 100 mg PO DAILY Lisinopril 5 mg [Zestril 5 MG] 2.5 mg PO DAILY Albuterol Common Canister [Proventil Common Canister] 2 puff IH TID Albuterol 2.5 mg/3 ml Neb [Proventil 2.5 mg/3 ml Neb] 2.5 mg IH Q4H # 120 neb Isosorbide Mononitrate 30 mg [Imdur 30 MG] 30 mg PO DAILY Hydrochlorothiazide 25 mg [hydroDIURIL 25 MG] 12.5 mg PO DAILY Trazodone HCl 50 mg [Desyrel 50 mg] 150 mg PO HS Montelukast Sodium [Singulair] 10 mg PO DAILY Metoprolol Succinate 50 mg PO DAILY Brimonidine Tartrate/Timolol [Combigan 0.2%-0.5% Eye Drops] 1 drop OP TID Lactobacillus Acidophilus [Acidophilus TABLET] 1 tab PO BID #60 tablet Kendell/Baci/Poly/Hc Ear Susp [Cortisporin Ear Drops 10 ml Suspension] 0.5 ml OT QID #1 bottle Discontinued Clopidogrel Bisulfate 75 mg [PLAVIX 75 MG Tablet] 75 mg PO DAILY Aspirin 81 mg PO DAILY Additional Instructions: Return to ER [facility] for any vomiting blood, blood in stool, black tarry stool, severe abdominal pain, or passing out. Return to ER [facility] for any unexplained numbness or tingling, difficulty speaking , or other signs of stroke. Follow up with: LEORA CORMIER [Primary Care Provider] - 06/16/18 10:00 am
[2018-06-09 19:50] VITALS: PULSE 72; O2SAT 98
[2018-06-09 20:31] VITALS: BP 90/50
== END 2018-06-09 20:40 | disposition home or self-care (01) | DRG 378 ==
LOC: ED 18:05 → MED SURG 21:53 → OBSVTOIN 06-05 17:35 → INTOOBSV 06-05 17:35
PROVIDERS: ADMIT Family Medicine; ATTEND Family Medicine
DX: K92.2 Gastrointestinal hemorrhage, unspecified (principal); N39.0 Urinary tract infection, site not specified; I10 Essential (primary) hypertension; E66.01 Morbid (severe) obesity due to excess calories; Z79.4 Long term (current) use of insulin; E11.9 Type 2 diabetes mellitus without complications; G47.30 Sleep apnea, unspecified; I25.10 Atherosclerotic heart disease of native coronary artery without angina pectoris; J44.9 Chronic obstructive pulmonary disease, unspecified; R41.0 Disorientation, unspecified; E78.00 Pure hypercholesterolemia, unspecified; I25.2 Old myocardial infarction; J45.909 Unspecified asthma, uncomplicated; R41.82 Altered mental status, unspecified; Z79.899 Other long term (current) drug therapy; Z78.9 Other specified health status
CPT/HCPCS: 36415; 70450; 71046; 74021; 80053; 81000; 82150; 82962; 83036; 83690; 84484; 85014; 85018; 85025; 85610; 87077; 87086; 87186; 93005; 93041; 93268; 94002; 94003; 94760; 94762; 96365; 99285; G0378; J1650; J2550; A9270-GY

== ENCOUNTER 2018-06-16 15:43 | Emergency (ER) | payer MEDICARE ==
[2018-06-16] MEDS ORDERED: Sodium Chloride 0.9% 1000 ML 1,000 ML IV SCH ×2 (16:15→17:15)
[2018-06-16] MEDS ORDERED: Sodium Chloride 0.9% 1000 ML 1,000 ML ONE ×2 (16:29→17:12)
[2018-06-16 16:30] LABS: BASOPHIL % 0.5 % (0.0-0.4); Basophil (Absolute #) 0.05 (0-0.4); Eosinophil (Absolute #) 0.42 (0-0.5); Granulocyte Absolute (ANC) 7.93 (1.4-6.9); Granulocytes % 75.4 % (36.0-66.0); Hematocrit 42.4 % (35-47); Hemoglobin 13.8 gm/dl (12.0-16.0); Lymphocyte (Absolute #) 1.49 (1.0-4.6); Lymphocytes % 14.2 % (24.0-44.0); Mean Cell Volume 93.6 fl (78-100); Mean Corpuscular Hemoglobin 30.5 pg (26-32); Mean Corpuscular Hgb Concent. 32.5 g/dl (32-36); Mean Platelet Volume 10.7 fl (6-9.5); Monocyte (Absolute #) 0.62 (0.0-1.3); Monocytes % 5.9 % (0.0-12.0); Platelet Count 269 K/mm3 (150-450); Red Blood Count 4.53 M/mm3 (4.1-5.4); Red Cell Distribution Width 13.7 % (11.5-14.0); White Blood Count 10.5 K/mm3 (4.0-10.5)
[2018-06-16 16:46] LABS: INR 1.09 (0.8-3.0)
[2018-06-16 16:51] LABS: ALBUMIN 4.3 g/dL (3.5-5.0); ANION GAP 16.5 MEQ/L (5-15); BILIRUBIN,TOTAL 0.7 mg/dL (0.2-1.3); Calcium 9.1 mg/dL (8.4-10.2); Creatinine 1 1.26 mg/dL (0.52-1.04); Potassium 3.6 mmol/L (3.5-5.1); Total Protein 7.7 g/dL (6.3-8.2)
--- NOTE | 2018-06-16 17:34 | ERPHSYRPT ---
- History of Present Illness Time Seen by Provider: 06/16/18 15:50 Source: patient, family Exam Limitations: clinical condition Patient Subjective Stated Complaint: Medics states "When we got there she was a little cyanotic and not responding. She was breathing and had a sinus rhythm, she also had a FSBS of 171. Her family stated she was just fine then she sat down on the ground." Triage Nursing Assessment: Pt arrived via SCAT 4, pt responsive with slow speech , alert and oriented X 4. Pt able to move all extremeties. Pt does not remember what happened. Physician History: PATIENT WITH A HISTORY OF CVA, COPD, HYPERTENSION, TYPE 2 DIABETES, HYPOTHYROIDISM, FAMILY STATES WHILE SITTING UP IN BED HAS AN EPISODE OF SYNCOPE , FELL AND STRUCK HEAD AGAINST NIGHT STAND, BECAME UNRESPONSIVE, APHASIC, DROOPING CORNER OF RIGHT MOUTH, AND RIGHT SIDED WEAKNESS. EMS STATES PATIENT WAS APHASIC, WITH RIGHT SIDE PARALYSIS. Timing/Duration: resolved prior to arrival Severity: mild Character of Deficits: altered sensation Deficits: no difficulties Baseline/Normal Cognition: alert oriented x 3 Current Cognition: alert oriented x 3 Associated Symptoms: paresthesia (RIGHT SIDED) Allergies/Adverse Reactions: levofloxacin [From Levaquin] Allergy (Mild, Verified 06/04/18 18:31) red rash/burning when gievn IV cefaclor [From Ceclor] Allergy (Verified 06/04/18 18:31) SOB, HIVES ciprofloxacin [From Cipro] Allergy (Verified 06/04/18 18:31) ciprofloxacin HCl [From Cipro] Allergy (Verified 06/04/18 18:31) clarithromycin [From Biaxin] Allergy (Verified 06/04/18 18:31) diphenhydramine HCl [From Benadryl] Allergy (Verified 06/04/18 18:31) SOB HIVES erythromycin base [Erythromycin Base] Allergy (Verified 06/04/18 18:31) SOB HIVES iodine Allergy (Verified 06/04/18 18:31) SOB HIVES latex Allergy (Verified 06/04/18 18:31) SOB HIVES Macrolide Antibiotics Allergy (Verified 06/04/18 18:31) SBO HIVES Penicillins Allergy (Verified 06/04/18 18:31) Swelling of Face sulfamethoxazole [From Bactrim] Allergy (Verified 06/04/18 18:31) trimethoprim [From Bactrim] Allergy (Verified 06/04/18 18:31) melon Adverse Reaction (Severe, Verified 06/04/18 18:31) cantaloupe aspirin Adverse Reaction (Verified 06/04/18 18:31) ibuprofen Adverse Reaction (Verified 06/04/18 18:31) Home Medications: Atorvastatin Calcium [Lipitor 20MG Tablet] 80 mg PO HS 02/01/14 [History] Buspirone HCl 5 mg [Buspar 5 mg] 15 mg PO BID 02/01/14 [History] Cyclobenzaprine HCl [Flexeril] 10 mg PO HS 02/01/14 [History] Esomeprazole Magnesium [Nexium] 40 mg PO DAILY 02/01/14 [History] Insulin Aspart [NovoLOG Insulin] 3.1 unit SQ UD 02/01/14 [History] Levothyroxine Sodium [Synthroid] 137 mcg PO DAILY 02/01/14 [History] Liraglutide [Victoza 2-Alcon] 0.08 mg SQ DAILY 02/01/14 [History] Oxycodone HCl/Acetaminophen [Percocet 10-325 mg Tablet] 1 each PO Q4-6HPRN PRN 02/01/14 [History] Desvenlafaxine Succinate [Pristiq] 100 mg PO DAILY 07/15/14 [History] Loratadine 10 mg [Claritin 10 mg] 10 mg PO DAILY 07/15/14 [History] Pregabalin [Lyrica] 200 mg PO TID 07/15/14 [History] Ranitidine HCl [Zantac] 150 mg PO HS 07/15/14 [History] Albuterol Common Canister [Proventil Common Canister] 2 puff IH TID [History] Lisinopril 5 mg [Zestril 5 MG] 2.5 mg PO DAILY 11/04/14 [History] Isosorbide Mononitrate 30 mg [Imdur 30 MG] 30 mg PO DAILY 08/19/15 [History ] Hydrochlorothiazide 25 mg [hydroDIURIL 25 MG] 12.5 mg PO DAILY 09/06/16 [ History] Metoprolol Succinate 50 mg PO DAILY 09/06/16 [History] Montelukast Sodium [Singulair] 10 mg PO DAILY 09/06/16 [History] Trazodone HCl 50 mg [Desyrel 50 mg] 150 mg PO HS 09/06/16 [History] Brimonidine Tartrate/Timolol [Combigan 0.2%-0.5% Eye Drops] 1 drop OP TID [History] Hx Tetanus, Diphtheria Vaccination/Date Given: No Hx Influenza Vaccination/Date Given: Yes Hx Pneumococcal Vaccination/Date Given: Yes Immunizations Up to Date: Yes - Review of Systems Constitutional: No Fever, No Chills Eyes: No Symptoms Ears, Nose, & Throat: No Symptoms Respiratory: No Symptoms, No Cough, No Dyspnea Cardiac: No Chest Pain, No Edema, No Syncope Abdominal/Gastrointestinal: No Symptoms, No Abdominal Pain, No Nausea, No Vomiting, No Diarrhea Genitourinary Symptoms: No Symptoms, No Dysuria Musculoskeletal: No Back Pain, No Neck Pain Skin: No Rash Neurological: Parasthesia, No Dizziness, No Focal Weakness, No Sensory Changes Psychological: No Symptoms Endocrine: No Symptoms All Other Systems: Reviewed and Negative - Past Medical History Pertinent Past Medical History: Yes Neurological History: Other ENT History: Cataracts Cardiac History: Coronary Artery Disease, High Cholesterol, Hypertension, Myocardial Infarction ([place]), Other Respiratory History: Asthma, COPD, Pneumonia, Sleep Apnea Endocrine Medical History: Diabetes Type II Musculoskeletal History: No Pertinent History GI Medical History: No Pertinent History History: No Pertinent History Psycho-Social History: No Pertinent History Female Reproductive Disorders: No Pertinent History Other Medical History: Rapid heart rate at times; lump in right breast, biopsy non-cancerous, "stroke" in left eye - Past Surgical History Past Surgical History: Yes Neuro Surgical History: No Pertinent History Cardiac: Cardiac Stent Respiratory: No Pertinent History Gastrointestinal: Cholecystectomy Genitourinary: No Pertinent History Musculoskeletal: No Pertinent History Female Surgical History: Tubal Ligation, Other Other Surgical History: Breast biopsy, 5 STENTS - Social History Smoking Status: Never smoker Exposure to second hand smoke: Yes Drug Use: none Patient Lives Alone: No - Female History Hx Now: No - Nursing Vital Signs Nursing Vital Signs: Initial Vital Signs Temperature 97.9 F 06/16/18 15:46 Pulse Rate 94 H 06/16/18 15:46 Respiratory Rate 16 06/16/18 15:46 Blood Pressure 107/79 06/16/18 15:46 O2 Sat by Pulse Oximetry 95 06/16/18 15:46 Pain Scale Pain Intensity 4 - Physical Exam SpO2: 98 Oxygen Delivery: Nasal Cannula - Course EKG Interpreted by Me: RATE, Sinus Rhythm, NORMAL AXIS - CT Exams Head CT Interpretation: Discussed w/radiologist, No/Intracranial Hemorrhag Ordered Tests: Active Orders 24 hr Category Date Time Status English Professor STAT Care 06/16/18 16:10 Active Cath [Catheter-[place] Valadez] STAT Care 06/16/18 17:07 Active EKG-ER Only STAT Care 06/16/18 16:11 Active IV Insertion STAT Care 06/16/18 16:10 Active Oxygen-ED Only NASAL CANNULA 2 lpm Care 06/16/18 16:10 Active CERVICAL SPINE WO CONTRAST [CT] Stat Exams 06/16/18 18:16 Taken CHEST 1 VIEW (PORTABLE) Stat Exams 06/16/18 16:10 Taken HEAD WITHOUT CONTRAST [CT] Stat Exams 06/16/18 15:45 Taken BLOOD CULTURE Stat Lab 06/16/18 18:44 Received CBC W DIFF Stat Lab 06/16/18 16:25 Completed CMP Stat Lab 06/16/18 16:25 Completed CULTURE,URINE Stat Lab 06/16/18 18:00 Received PROTIME WITH INR Stat Lab 06/16/18 16:25 Completed UA W/ MICROSCOPIC Stat Lab 06/16/18 18:00 Completed Medication Summary Generic Name Dose Route Start Last Admin Trade Name Freq PRN Reason Stop Dose Admin Sodium Chloride 1,000 mls @ 50 mls/hr 06/16/18 16:15 06/16/18 16:31 Sodium Chloride 0.9% 1000 Ml IV 07/16/18 16:14 50 mls/hr .Q20H SUZETTE Administration Discontinued Medications Generic Name Dose Route Start Last Admin Trade Name Freq PRN Reason Stop Dose Admin Fentanyl Citrate 25 mcg 06/16/18 18:57 Sublimaze 100 Mcg/2 Ml IV 06/16/18 18:58 STAT ONE Ondansetron HCl Confirm 06/16/18 17:40 Zofran 4 Mg/2 Ml Vial Administered 06/16/18 17:41 Dose 4 mg .ROUTE .STK-MED ONE Ondansetron HCl 4 mg 06/16/18 17:42 06/16/18 17:44 Zofran 4 Mg/2 Ml Vial IV 06/16/18 17:43 4 mg STAT ONE Administration Lab/Rad Data: Laboratory Result Diagrams 06/16/18 16:25 06/16/18 16:25 Laboratory Results 06/16/18 06/16/18 06/16/18 Range/Units 18:00 16:25 16:25 WBC (4.0-10.5) K/mm3 RBC (4.1-5.4) M/mm3 Hgb (12.0-16.0) gm/dl Hct (35-47) % MCV (78-100) fl MCH (26-32) pg MCHC (32-36) g/dl RDW (11.5-14.0) % Plt Count (150-450) K/mm3 MPV (6-9.5) fl Gran % (36.0-66.0) % Eos # (Auto) (0-0.5) Absolute Lymphs (auto) (1.0-4.6) Absolute Monos (auto) (0.0-1.3) Lymphocytes % (24.0-44.0) % Monocytes % (0.0-12.0) % Eosinophils % (0.00-5.0) % Basophils % (0.0-0.4) % Absolute Granulocytes (1.4-6.9) Basophils # (0-0.4) PT 12.7 H (9.95-12.35) SECONDS INR 1.09 (0.8-3.0) Sodium 140 (137-145) mmol/L Potassium 3.6 (3.5-5.1) mmol/L Chloride 96 L (98-107) mmol/L Carbon Dioxide 31 H (22-30) mmol/L Anion Gap 16.5 H (5-15) MEQ/L BUN 18 H (7-17) mg/dL Creatinine 1.26 H (0.52-1.04) mg/dL Estimated GFR 45.3 ML/MIN Glucose 228 H (74-106) mg/dL Calcium 9.1 (8.4-10.2) mg/dL Total Bilirubin 0.70 (0.2-1.3) mg/dL AST 56 H (14-36) U/L ALT 39 H (0-35) U/L Alkaline Phosphatase 107 (38-126) U/L Serum Total Protein 7.7 (6.3-8.2) g/dL Albumin 4.3 (3.5-5.0) g/dL Ur Collection Type CATH Urine Color DARK YELLOW (YELLOW) Urine Appearance HAZY (CLEAR) Urine pH 5.0 (5-6) Ur Specific [place] 1.025 (1.005-1.025) Urine Protein TRACE (Negative) Urine Ketones SMALL (NEGATIVE) Urine Blood TRACE NON-HEM (0-5) [place]/ul Urine Nitrite NEGATIVE (NEGATIVE) Urine Bilirubin MODERATE (NEGATIVE) Urine Urobilinogen NORMAL (0-1) mg/dL Ur Leukocyte Esterase TRACE (NEGATIVE) Urine Microscopic RBC 2-5 (0-2) /HPF Urine Microscopic WBC 15-25 (0-5) /HPF Ur Epithelial Cells MODERATE (FEW) /HPF Urine Bacteria MANY (NEGATIVE) /HPF Hyaline Casts 2-5 (0-2) /LPF Urine Mucus MANY (NEGATIVE) /HPF Urine Culture Reflexed YES (NO) Urine Glucose 50 (NEGATIVE) mg/dL 06/16/18 Range/Units 16:25 WBC 10.5 (4.0-10.5) K/mm3 RBC 4.53 (4.1-5.4) M/mm3 Hgb 13.8 (12.0-16.0) gm/dl Hct 42.4 (35-47) % MCV 93.6 (78-100) fl MCH 30.5 (26-32) pg MCHC 32.5 (32-36) g/dl RDW 13.7 (11.5-14.0) % Plt Count 269 (150-450) K/mm3 MPV 10.7 H (6-9.5) fl Gran % 75.4 H (36.0-66.0) % Eos # (Auto) 0.42 (0-0.5) Absolute Lymphs (auto) 1.49 (1.0-4.6) Absolute Monos (auto) 0.62 (0.0-1.3) Lymphocytes % 14.2 L (24.0-44.0) % Monocytes % 5.9 (0.0-12.0) % Eosinophils % 4.0 (0.00-5.0) % Basophils % 0.5 (0.0-0.4) % Absolute Granulocytes 7.93 H (1.4-6.9) Basophils # 0.05 (0-0.4) PT (9.95-12.35) SECONDS INR (0.8-3.0) Sodium (137-145) mmol/L Potassium (3.5-5.1) mmol/L Chloride (98-107) mmol/L Carbon Dioxide (22-30) mmol/L Anion Gap (5-15) MEQ/L BUN (7-17) mg/dL Creatinine (0.52-1.04) mg/dL Estimated GFR ML/MIN Glucose (74-106) mg/dL Calcium (8.4-10.2) mg/dL Total Bilirubin (0.2-1.3) mg/dL AST (14-36) U/L ALT (0-35) U/L Alkaline Phosphatase (38-126) U/L Serum Total Protein (6.3-8.2) g/dL Albumin (3.5-5.0) g/dL Ur Collection Type Urine Color (YELLOW) Urine Appearance (CLEAR) Urine pH (5-6) Ur Specific [place] (1.005-1.025) Urine Protein (Negative) Urine Ketones (NEGATIVE) Urine Blood (0-5) [place]/ul Urine Nitrite (NEGATIVE) Urine Bilirubin (NEGATIVE) Urine Urobilinogen (0-1) mg/dL Ur Leukocyte Esterase (NEGATIVE) Urine Microscopic RBC (0-2) /HPF Urine Microscopic WBC (0-5) /HPF Ur Epithelial Cells (FEW) /HPF Urine Bacteria (NEGATIVE) /HPF Hyaline Casts (0-2) /LPF Urine Mucus (NEGATIVE) /HPF Urine Culture Reflexed (NO) Urine Glucose (NEGATIVE) mg/dL - Progress Progress Note: 06/16/18 19:03 IV NORMAL SALINE 200ML/HR, ZOFRAN 4MG, FENTANYL 25MCG IV, REMAINS ALERT ORIENTED X 3 THROUGH ER VISIT, FAMILY REQUEST TRANSFER TO [facility] 06/16/18 19:04 Discussed with : Other (DISCUSSED WITH DR SHANE AT 1800 ACCEPTS TRANSFER VIA [facility] TO [facility]) - Departure Time of Disposition: 19:30 Departure Disposition: Transfer Clinical Impression: TRANSIENT ISCHEMIC ATTACK Condition: Stable Critical Care Time: No Referrals: LEORA CORMIER [Primary Care Provider] -
[2018-06-16] MEDS ORDERED: Zofran 4 MG/2 ML VIAL ONE (17:40)
[2018-06-16] MEDS ORDERED: Zofran 4 MG/2 ML VIAL IV ONE (17:42)
[2018-06-16 18:24] LABS: Appearance HAZY (CLEAR); Bilirubin MODERATE (NEGATIVE); Blood TRACE NON-HEM Ery/ul (0-5); Glucose 50 mg/dL (NEGATIVE); Ketones SMALL (NEGATIVE); Leukocyte Esterase TRACE (NEGATIVE); Nitrite NEGATIVE (NEGATIVE); Protein,Urine Dip TRACE (Negative); Specific Gravity 1.025 (1.005-1.025); Urobilinogen NORMAL mg/dL (0-1)
[2018-06-16 18:25] LABS: Bacteria MANY /HPF (NEGATIVE); Epithelial Cells MODERATE /HPF (FEW); Mucus MANY /HPF (NEGATIVE); WBC 15-25 /HPF (0-5)
[2018-06-16] MEDS ORDERED: SUBLIMAZE 100 MCG/2 ML IV ONE (18:57)
[2018-06-16] MEDS ORDERED: SUBLIMAZE 100 MCG/2 ML ONE (19:16)
[2018-06-16] MEDS ORDERED: TYLENOL 325 MG PO STA (19:21)
[2018-06-16] MEDS ORDERED: TYLENOL 325 MG ONE (19:22)
[2018-06-16 19:48] VITALS: BP 124/90; PULSE 85; O2SAT 95
[2018-06-16] MEDS ORDERED: MORPHINE SULFATE 2 MG INJ ONE (19:50)
[2018-06-16] MEDS ORDERED: MORPHINE SULFATE 2 MG INJ IV ONE (19:50)
--- NOTE | 2018-06-16 21:52 | XRAY ---
Indication: Short of breath. Possible stroke. Comparison: June 09, 2018. Portable chest unchanged again demonstrating minimal lingular atelectasis/scarring. Remaining heart and lungs normal. No new/acute findings.
--- NOTE | 2018-06-16 21:56 | XRAY ---
Indication: Right arm weakness. Possible stroke. Multiple contiguous axial images obtained through the head without contrast. Comparison: June 04, 2018. Again no acute intracranial hemorrhage, abnormal extra-axial fluid collection, or mass effect. Fourth ventricle is midline without hydrocephalus. Jean-white matter differentiation is preserved. Bony calvarium intact. Visualized paranasal sinuses and mastoid air cells are clear. Impression: Stable negative CT head without contrast exam. CTDI 66.90
--- NOTE | 2018-06-17 13:37 | XRAY ---
Exam: CT of the cervical spine without IV contrast from 06/16/2018. CTDI: 75.08 Comparison: None. Indication: 67-year-old female fell out of bed, striking head on nightstand, right arm weakness. Technique: Non-IV contrast axial images were obtained through the cervical spine. Reconstructed coronal and sagittal images were created and reviewed. Findings: There is mild reversal of the normal cervical lordosis centered at C3-C4. I see no acute cervical spine fracture, AP traumatic subluxation, or prevertebral soft tissue swelling. There are moderate to marked osteoarthritic changes at the preodontoid space. Several old small calcifications are seen adjacent to the superior margin of the odontoid process tip. There is moderate to marked degenerative disc disease at C6-C7 and mild degenerative disc disease at C5-C6. I also note minimal anterior vertebral endplate spurring at C3-C4. I believe there is slight retrolisthesis of C4 with respect to C3 on the sagittal images, likely due to mild posterior facet joint arthropathy at C3-C4, left greater than right.. A lesser amount of bilateral facet joint arthropathy is seen at C2-C3, left greater than right. There is also mild bilateral posterior facet joint arthropathy at C4-C5, right greater than left. I also note some mild scattered spurring of the uncovertebral joints. This is more pronounced on the left than right on the coronal images. No central cervical canal stenosis is seen. There is a tiny nuchal ligament calcification posterior to the C4 spinous process. The lung apices have not been included on this study.. Regarding the neural foramen, there is minimal narrowing at C2-C3 on the left and moderate narrowing at C3-C4 on the left. Impression: 1. I see no acute cervical spine fracture or AP traumatic subluxation. The prevertebral soft tissues appear unremarkable. 2. Slight retrolisthesis of C4 with respect to C3, likely degenerative. 3. Moderate to marked degenerative disc disease at C6-C7 and mild degenerative disc disease at C5-C6 are seen. I also note scattered degenerative changes of the cervical facet joints and uncovertebral joints, more pronounced on the left than right.
== END 2018-06-16 20:01 | disposition short-term general hospital (02) ==
LOC: ED 15:43
DX: G45.9 Transient cerebral ischemic attack, unspecified (principal); I10 Essential (primary) hypertension; R53.1 Weakness; R47.01 Aphasia; R20.2 Paresthesia of skin; W06.XXXA Fall from bed, initial encounter; Y93.9 Activity, unspecified; Y92.003 Bedroom of unspecified non-institutional (private) residence as the place of occurrence of the external cause; Z79.899 Other long term (current) drug therapy; E11.9 Type 2 diabetes mellitus without complications; Z79.4 Long term (current) use of insulin
CPT/HCPCS: 36000; 36415; 51702; 70450; 71045; 72125; 80053; 81001; 85025; 85610; 87040; 87086; 93005; 93041; 96374; 96375; 99285; J2270; J2405; J3010; A9270-GY

== ENCOUNTER 2018-08-03 09:38 | Inpatient (IN) | payer MEDICARE ==
[2018-08-03] MEDS: Invanz 1 GM*** 1 G in Sodium Chloride 100ML MINI-BAG PLUS 100 ML IV SCH (12:01)
[2018-08-03 12:57] LABS: BASOPHIL % 0.2 % (0.0-0.4); Basophil (Absolute #) 0.01 (0-0.4); Eosinophil % 2.3 % (0.00-5.0); Eosinophil (Absolute #) 0.15 (0-0.5); Granulocyte Absolute (ANC) 3.93 (1.4-6.9); Granulocytes % 61.5 % (36.0-66.0); Hematocrit 35.2 % (35-47); Hemoglobin 10.7 gm/dl (12.0-16.0); Lymphocyte (Absolute #) 1.77 (1.0-4.6); Lymphocytes % 27.7 % (24.0-44.0); Mean Cell Volume 98.3 fl (78-100); Mean Corpuscular Hgb Concent. 30.4 g/dl (32-36); Mean Platelet Volume 11.5 fl (6-9.5); Monocyte (Absolute #) 0.53 (0.0-1.3); Monocytes % 8.3 % (0.0-12.0); Platelet Count 179 K/mm3 (150-450); Red Blood Count 3.58 M/mm3 (4.1-5.4); White Blood Count 6.4 K/mm3 (4.0-10.5)
[2018-08-03 12:59] LABS: Mean Corpuscular Hemoglobin 29.8 pg (26-32)
[2018-08-03] MEDS ORDERED: Sodium Chloride 0.9% 10 ML FLUSH Syringe IV PRN (13:15)
[2018-08-03 13:20] LABS: ALBUMIN 3.5 g/dL (3.5-5.0); ALKALINE PHOSPHATASE 107 U/L (38-126); BLOOD UREA NITROGEN 13 mg/dL (7-17); CHLORIDE 97 mmol/L (98-107); Calcium 8.8 mg/dL (8.4-10.2); Creatinine 1 0.84 mg/dL (0.52-1.04); Glucose 67 mg/dL (74-106); Potassium 3.9 mmol/L (3.5-5.1); SGOT/AST 22 U/L (14-36); SGPT/ALT 17 U/L (0-35); SODIUM 141 mmol/L (137-145); Total Protein 6.6 g/dL (6.3-8.2)
[2018-08-03 13:28] LABS: Carbon Dioxide 40 mmol/L (22-30)
[2018-08-03 13:42] LABS: ANION GAP 7.9 MEQ/L (5-15)
[2018-08-03 14:03] LABS: Erythrocyte Sedimentation Rate 67 mm/hr (0-20)
[2018-08-03] MEDS: Sodium Chloride 0.9% 10 ML FLUSH Syringe IV SCH ×2 (15:06→22:21)
[2018-08-03] MEDS ORDERED: PROVENTIL 2.5 MG/3 ML NEB IH PRN (15:25)
[2018-08-03] MEDS ORDERED: DESYREL 50 MG PO PRN (15:28)
[2018-08-03] MEDS ORDERED: NON-FORMULARY ITEM (Cholecalciferol (Vitamin D3) [Vitamin D3] 50,000 UNIT) PO SCH (15:30)
[2018-08-03] MEDS ORDERED: NovoLOG Insulin SQ SCH (15:30)
[2018-08-03] MEDS ORDERED: Desyrel 150 MG PO PRN (15:38)
[2018-08-03] MEDS ORDERED: PATIENT OWN MEDICATION IJ PRN (15:50)
[2018-08-03] MEDS ORDERED: MEDICATION INTERVENTION MC SCH ×2 (16:00→16:15)
[2018-08-03] MEDS ORDERED: TYLENOL 325 MG PO PRN (16:22)
[2018-08-03] MEDS ORDERED: CORTISPORIN EAR DROPS 10 ML SUSPENSION OT SCH (17:00)
[2018-08-03] MEDS ORDERED: Advair Hfa 230/21 Mcg COMMON CANISTER IH SCH (19:00)
[2018-08-03] MEDS: OXYCODONE-ACETAMINOPHEN 10-325 PO PRN (20:27)
[2018-08-03] MEDS ORDERED: NON-FORMULARY ITEM (Cyclobenzaprine Hcl [Flexeril] 10 MG) PO SCH (22:00)
[2018-08-03] MEDS ORDERED: ADVAIR 500-50 DISKUS IH SCH (22:00)
[2018-08-03] MEDS ORDERED: NON-FORMULARY ITEM (Ranitidine Hcl [Zantac] 150 MG) PO SCH (22:00)
[2018-08-03] MEDS ORDERED: NON-FORMULARY ITEM (Brimonidine Tartrate/Timolol [Combigan 0.2%-0.5% Eye Drops] 1 DROP) OP SCH (22:00)
[2018-08-03] MEDS ORDERED: ATORVASTATIN CALCIUM 80 MG PO SCH (22:00)
[2018-08-03] MEDS: Acidophilus TABLET PO SCH (22:01)
[2018-08-03] MEDS: BUSPAR 5 MG PO SCH (22:02)
[2018-08-03] MEDS: Cyclobenzaprine 10 MG PO SCH (22:02)
[2018-08-03] MEDS: LYRICA 100MG PO SCH (22:03)
[2018-08-03] MEDS: NYSTOP POWDER 15 GM TOP SCH (22:04)
[2018-08-03] MEDS: Pepcid 20 MG PO SCH (22:04)
[2018-08-03] MEDS: LIPITOR 40MG PO SCH (22:05)
[2018-08-03] MEDS: Lantus Insulin SQ SCH (22:05)
[2018-08-04] MEDS: OXYCODONE-ACETAMINOPHEN 10-325 PO PRN ×3 (04:54→22:08)
[2018-08-04] MEDS: Sodium Chloride 0.9% 10 ML FLUSH Syringe IV SCH ×3 (06:39→22:08)
--- NOTE | 2018-08-04 08:32 | PCM.NOTE ---
Date and Time: 08/04/18826 Subjective Assessment: Pt admitted from office yesterday with UTI; pt has many medication allergies so the only susceptible medicines she can take are IV. She was symptomatic with some dysuria and pelvic pressure with urination. Started on IV Invanz. She was also c/o increased pain in L eye yesterday with some erythema inferior to the eye; has known issues in that eye, has partial blindness and hx zoster. I did do a sed rate which was elevated but the pt was not c/o headache after admission and was not tender to the mormon on the L. This morning she is tolerating po well. Still having some pelvic pressure with urination. States the eye discomfort is "the same as ever." Last night her insulin pump stopped working and she will need new supplies before she restarts it - Dr. Solorio started her on 20 units of Lantus and her a.m. bs was 155. - Review of Systems Constitutional: No Fever Genitourinary Symptoms: Other (pelvic pressure) Objective Exam General Appearance: no apparent distress, obese (morbidly) Neurologic Exam: alert, oriented x 3, cooperative Skin Exam: normal color, warm, dry, No rash Eye Exam: other (no erythema inferior to eye. There is some increased erythema surrounding the iris; decreased from yesterday. no exudate.) Respiratory Exam: lungs clear, diminished breath sounds, prolonged expirations, No crackles/rales, No rhonchi, No wheezing Cardiovascular Exam: regular rate/rhythm, normal heart sounds, No murmur OBJECTIVE DATA Vital Signs: Vital Signs - 24 hr Temp Pulse Resp BP Pulse Ox 08/04/18 07:36 95 08/04/18 07:23 98.0 F 79 18 91/43 98 08/04/18 04:00 98 F 87 21 135/64 92 L 08/04/18 00:00 98.4 F 74 134/61 95 08/03/18 20:09 75 18 97 08/03/18 19:48 98.3 F 70 22 134/62 70 L 08/03/18 16:00 98.4 F 68 18 101/49 98 08/03/18 15:29 79 16 98 08/03/18 10:38 98.4 F 72 18 120/58 89 L Oxygen-Last 24 hours O2 Percentage 3 Liters = 32% O2 Percentage 3 Liters = 32% O2 Percentage 3 Liters = 32% O2 Percentage 3 Liters = 32% O2 Percentage 3 Liters = 32% Pain Assessment - Last Documented Pain Intensity 0 Pain Scale Used 0-10 Pain Scale Intake and Output: Intake & Output 08/01/18 08/02/18 08/03/18 08/04/18 11:59 11:59 11:59 11:59 Intake Total 1680 Output Total 1400 Balance 280 Weight 155 kg Lab Results: Accuchecks Date 08/03/18 Time 22:05 Accucheck Value: 129 Accucheck Value: 155 Accucheck Value: 82 Accucheck Value: 64 Lab Results-Last 24 Hours 08/03/18 08/03/18 Range/Units 12:30 12:30 WBC 6.4 (4.0-10.5) K/mm3 RBC 3.58 L (4.1-5.4) M/mm3 Hgb 10.7 L (12.0-16.0) gm/dl Hct 35.2 (35-47) % MCV 98.3 (78-100) fl MCH 29.8 (26-32) pg MCHC 30.4 L (32-36) g/dl RDW 13.0 (11.5-14.0) % Plt Count 179 (150-450) K/mm3 MPV 11.5 H (6-9.5) fl Gran % 61.5 (36.0-66.0) % Eos # (Auto) 0.15 (0-0.5) Absolute Lymphs (auto) 1.77 (1.0-4.6) Absolute Monos (auto) 0.53 (0.0-1.3) Lymphocytes % 27.7 (24.0-44.0) % Monocytes % 8.3 (0.0-12.0) % Eosinophils % 2.3 (0.00-5.0) % Basophils % 0.2 (0.0-0.4) % Absolute Granulocytes 3.93 (1.4-6.9) Basophils # 0.01 (0-0.4) ESR 67 H (0-20) mm/hr Sodium 141 (137-145) mmol/L Potassium 3.9 (3.5-5.1) mmol/L Chloride 97 L (98-107) mmol/L Carbon Dioxide 40 H (22-30) mmol/L Anion Gap 7.9 (5-15) MEQ/L BUN 13 (7-17) mg/dL Creatinine 0.84 (0.52-1.04) mg/dL Estimated GFR > 60.0 ML/MIN Glucose 67 L (74-106) mg/dL Calcium 8.8 (8.4-10.2) mg/dL Total Bilirubin 0.20 (0.2-1.3) mg/dL AST 22 (14-36) U/L ALT 17 (0-35) U/L Alkaline Phosphatase 107 (38-126) U/L Serum Total Protein 6.6 (6.3-8.2) g/dL Albumin 3.5 (3.5-5.0) g/dL Assessment/Plan (1) UTI (urinary tract infection) Current Visit: No Status: Resolved Onset Date: ~06/04/18 Qualifiers: Urinary tract infection type: site unspecified Hematuria presence: without hematuria Qualified Code(s): N39.0 - Urinary tract infection, site not specified Assessment & Plan: On IV Invanz day #2. Code(s): N39.0 - URINARY TRACT INFECTION, SITE NOT SPECIFIED (2) Eye pain Current Visit: Yes Status: Chronic Qualifiers: Laterality: left Qualified Code(s): H57.12 - Ocular pain, left eye Assessment & Plan: at baseline this morning Code(s): H57.10 - OCULAR PAIN, UNSPECIFIED EYE (3) COPD (chronic obstructive pulmonary disease) Current Visit: Yes Status: Chronic Qualifiers: COPD type: unspecified COPD Qualified Code(s): J44.9 - Chronic obstructive pulmonary disease, unspecified Assessment & Plan: stable (4) Coronary artery disease Current Visit: No Status: Chronic Qualifiers: Coronary Disease-Associated Artery/Lesion type: [place] artery [place] vs. transplanted heart: [place] heart Associated angina: with stable angina Qualified Code(s): I25.118 - Atherosclerotic heart disease of [place] coronary artery with other forms of angina pectoris Code(s): I25.10 - ATHSCL HEART DISEASE OF [place] CORONARY ARTERY W/O ANG PCTRS (5) Diabetes mellitus Current Visit: No Status: Chronic Qualifiers: Diabetes mellitus type: type 2 Diabetes mellitus retirement insulin use: with retirement use Diabetes mellitus complication status: with ophthalmic complications Assessment & Plan: stable; ok to resume insulin pump when she gets supplies Code(s): E11.9 - TYPE 2 DIABETES MELLITUS WITHOUT COMPLICATIONS (6) Hypertension Current Visit: No Status: Chronic Qualifiers: Hypertension type: essential hypertension Assessment & Plan: stable Code(s): I10 - ESSENTIAL (PRIMARY) HYPERTENSION (7) Morbid obesity Current Visit: No Status: Chronic Code(s): E66.01 - MORBID (SEVERE) OBESITY DUE TO EXCESS CALORIES
[2018-08-04] MEDS: ENOXAPARIN SODIUM SQ SCH (09:50)
[2018-08-04] MEDS: NYSTOP POWDER 15 GM TOP SCH ×2 (09:51→22:07)
[2018-08-04] MEDS: PRISTIQ ER PO SCH (09:56)
[2018-08-04] MEDS: Pepcid 20 MG PO SCH ×2 (09:56→22:07)
[2018-08-04] MEDS: Toprol Xl 50 MG PO SCH (09:57)
[2018-08-04] MEDS: hydroDIURIL 25 MG PO SCH (09:58)
[2018-08-04] MEDS: Acidophilus TABLET PO SCH ×2 (09:59→22:05)
[2018-08-04] MEDS: Imdur 30 MG PO SCH (09:59)
[2018-08-04] MEDS: LYRICA 100MG PO SCH ×2 (09:59→22:07)
[2018-08-04] MEDS ORDERED: NON-FORMULARY ITEM (Desvenlafaxine Succinate [Pristiq] 100 MG) PO SCH (10:00)
[2018-08-04] MEDS: Zestril 5 MG PO SCH (10:00)
[2018-08-04] MEDS ORDERED: NON-FORMULARY ITEM (Esomeprazole Magnesium [Nexium] 40 MG) PO SCH (10:00)
[2018-08-04] MEDS ORDERED: LIRAGLUTIDE 18 MG SQ SCH (10:00)
[2018-08-04] MEDS: SYNTHROID 150 MCG PO SCH (10:02)
[2018-08-04] MEDS: BUSPAR 5 MG PO SCH ×2 (10:02→22:05)
[2018-08-04] MEDS: ECOTRIN 81 MG PO SCH (10:03)
[2018-08-04] MEDS: PLAVIX 75 MG Tablet PO SCH (10:03)
[2018-08-04] MEDS: Protonix 40MG Tablet PO SCH (10:04)
[2018-08-04] MEDS: Singulair 10 MG PO SCH (10:04)
[2018-08-04] MEDS: CLARITIN 10 MG PO SCH (10:04)
[2018-08-04] MEDS: Invanz 1 GM*** 1 G in Sodium Chloride 100ML MINI-BAG PLUS 100 ML IV SCH (10:08)
[2018-08-04] MEDS: NovoLOG Insulin SQ PRN (17:17)
[2018-08-04] MEDS: Cyclobenzaprine 10 MG PO SCH (22:05)
[2018-08-04] MEDS: Lantus Insulin SQ SCH (22:06)
[2018-08-04] MEDS: LIPITOR 40MG PO SCH (22:07)
[2018-08-05] MEDS: OXYCODONE-ACETAMINOPHEN 10-325 PO PRN ×3 (03:44→15:16)
--- NOTE | 2018-08-05 09:35 | PCM.NOTE ---
Date and Time: 08/05/18932 Subjective Assessment: Pt is feeling tired this morning. Still c/o lower abd pressure. [place] po well. Has been up out of bed without issues (in the room). - Review of Systems Constitutional: No Fever Abdominal/Gastrointestinal: Abdominal Pain Objective Exam General Appearance: no apparent distress, alert, obese Neurologic Exam: oriented x 3, cooperative Skin Exam: normal color, warm, dry, No rash Respiratory Exam: normal breath sounds, lungs clear, No crackles/rales, No rhonchi, No wheezing Cardiovascular Exam: regular rate/rhythm, normal heart sounds, No murmur Gastrointestinal/Abdomen Exam: soft, normal bowel sounds, No tenderness, No distention, No mass, No guarding, No rebound Extremity Exam: No pedal edema, No swelling OBJECTIVE DATA Vital Signs: Vital Signs - 24 hr Temp Pulse Resp BP Pulse Ox 08/05/18 08:00 98 F 66 18 115/56 95 08/05/18 07:10 95 08/05/18 04:08 97.9 F 69 20 125/64 94 L 08/05/18 00:09 98.2 F 69 16 120/56 97 08/04/18 20:00 68 20 95 08/04/18 19:53 98.4 F 70 20 112/56 96 08/04/18 16:00 98.2 F 68 18 121/58 96 08/04/18 11:20 98.2 F 68 18 107/52 95 Oxygen-Last 24 hours O2 Percentage 3 Liters = 32% O2 Percentage 3 Liters = 32% O2 Percentage 3 Liters = 32% O2 Percentage 3 Liters = 32% O2 Percentage 3 Liters = 32% O2 Percentage 3 Liters = 32% Pain Assessment - Last Documented Pain Intensity 8 Pain Scale Used 0-10 Pain Scale Intake and Output: Intake & Output 08/02/18 08/03/18 08/04/18 08/05/18 11:59 11:59 11:59 11:59 Intake Total 2160 1820 Output Total 1400 2800 Balance 760 -980 Weight 155 kg Lab Results: Accuchecks Date 08/05/18 Time 07:30 Accucheck Value: 164 Accucheck Value: 155 Accucheck Value: 206 Accucheck Value: 181 Assessment/Plan (1) UTI (urinary tract infection) Current Visit: No Status: Resolved Onset Date: ~06/04/18 Qualifiers: Urinary tract infection type: site unspecified Hematuria presence: without hematuria Qualified Code(s): N39.0 - Urinary tract infection, site not specified Assessment & Plan: Will treat for 5 d instead of 3d since she is diabetic and frequently ill. On day #3 of IV Invanz. Code(s): N39.0 - URINARY TRACT INFECTION, SITE NOT SPECIFIED (2) Eye pain Current Visit: Yes Status: Chronic Qualifiers: Laterality: left Qualified Code(s): H57.12 - Ocular pain, left eye Assessment & Plan: no c/o this morning. Code(s): H57.10 - OCULAR PAIN, UNSPECIFIED EYE (3) COPD (chronic obstructive pulmonary disease) Current Visit: Yes Status: Chronic Qualifiers: COPD type: unspecified COPD Qualified Code(s): J44.9 - Chronic obstructive pulmonary disease, unspecified (4) Coronary artery disease Current Visit: No Status: Chronic Qualifiers: Coronary Disease-Associated Artery/Lesion type: [place] artery [place] vs. transplanted heart: [place] heart Associated angina: with stable angina Qualified Code(s): I25.118 - Atherosclerotic heart disease of [place] coronary artery with other forms of angina pectoris Code(s): I25.10 - ATHSCL HEART DISEASE OF [place] CORONARY ARTERY W/O ANG PCTRS (5) Diabetes mellitus Current Visit: No Status: Chronic Qualifiers: Diabetes mellitus type: type 2 Diabetes mellitus snf insulin use: with long term care social worker use Diabetes mellitus complication status: with ophthalmic complications Code(s): E11.9 - TYPE 2 DIABETES MELLITUS WITHOUT COMPLICATIONS (6) Hypertension Current Visit: No Status: Chronic Qualifiers: Hypertension type: essential hypertension Code(s): I10 - ESSENTIAL (PRIMARY) HYPERTENSION (7) Morbid obesity Current Visit: No Status: Chronic Code(s): E66.01 - MORBID (SEVERE) OBESITY DUE TO EXCESS CALORIES
[2018-08-05] MEDS: BUSPAR 5 MG PO SCH ×2 (10:07→22:20)
[2018-08-05] MEDS: PRISTIQ ER PO SCH (10:07)
[2018-08-05] MEDS: Protonix 40MG Tablet PO SCH (10:08)
[2018-08-05] MEDS: CLARITIN 10 MG PO SCH (10:08)
[2018-08-05] MEDS: Toprol Xl 50 MG PO SCH (10:08)
[2018-08-05] MEDS: SYNTHROID 150 MCG PO SCH (10:08)
[2018-08-05] MEDS: LYRICA 100MG PO SCH ×2 (10:08→22:20)
[2018-08-05] MEDS: Zestril 5 MG PO SCH (10:08)
[2018-08-05] MEDS: ECOTRIN 81 MG PO SCH (10:08)
[2018-08-05] MEDS: Singulair 10 MG PO SCH (10:08)
[2018-08-05] MEDS: Acidophilus TABLET PO SCH ×2 (10:09→22:20)
[2018-08-05] MEDS: Imdur 30 MG PO SCH (10:09)
[2018-08-05] MEDS: Pepcid 20 MG PO SCH ×2 (10:09→22:20)
[2018-08-05] MEDS: hydroDIURIL 25 MG PO SCH (10:09)
[2018-08-05] MEDS: PLAVIX 75 MG Tablet PO SCH (10:09)
[2018-08-05] MEDS: ENOXAPARIN SODIUM SQ SCH (10:10)
[2018-08-05] MEDS: Invanz 1 GM*** 1 G in Sodium Chloride 100ML MINI-BAG PLUS 100 ML IV SCH (10:10)
[2018-08-05] MEDS: NYSTOP POWDER 15 GM TOP SCH ×2 (10:10→22:22)
[2018-08-05] MEDS: Sodium Chloride 0.9% 10 ML FLUSH Syringe IV SCH ×2 (15:18→22:20)
[2018-08-05] MEDS: Lantus Insulin SQ SCH (22:21)
[2018-08-05] MEDS: LIPITOR 40MG PO SCH (22:21)
[2018-08-05] MEDS: Cyclobenzaprine 10 MG PO SCH (22:22)
[2018-08-06] MEDS: Sodium Chloride 0.9% 10 ML FLUSH Syringe IV SCH ×3 (05:47→22:36)
--- NOTE | 2018-08-06 08:37 | PCM.NOTE ---
Date and Time: 08/06/18 0835 Subjective Assessment: Pt having a bit more bladder discomfort today. Has been up out of bed. vito po fine. Objective Exam General Appearance: no apparent distress, obese Neurologic Exam: alert, oriented x 3, cooperative Skin Exam: normal color, warm, dry, No rash Respiratory Exam: normal breath sounds, lungs clear, No crackles/rales, No rhonchi, No wheezing Cardiovascular Exam: regular rate/rhythm, normal heart sounds, No murmur Gastrointestinal/Abdomen Exam: soft, normal bowel sounds, No tenderness, No guarding, No rebound Extremity Exam: No pedal edema, No swelling OBJECTIVE DATA Vital Signs: Vital Signs - 24 hr Temp Pulse Resp BP Pulse Ox 08/06/18 08:01 88 16 96 08/06/18 08:00 97.9 F 70 18 113/53 95 08/06/18 04:05 98.3 F 66 16 102/49 96 08/05/18 23:40 98.1 F 65 18 103/50 97 08/05/18 20:55 66 20 97 08/05/18 19:19 97.6 F 68 20 90/50 96 08/05/18 16:07 97.2 F 68 18 116/60 96 08/05/18 11:56 97.8 F 67 18 113/55 95 Oxygen-Last 24 hours O2 Percentage 3 Liters = 32% O2 Percentage 3 Liters = 32% O2 Percentage 3 Liters = 32% O2 Percentage 3 Liters = 32% O2 Percentage 3 Liters = 32% O2 Percentage 3 Liters = 32% Pain Assessment - Last Documented Pain Intensity 6 Pain Scale Used [facility] Intake and Output: Intake & Output 08/03/18 08/04/18 08/05/18 08/06/18 11:59 11:59 11:59 11:59 Intake Total 2160 2180 1640 Output Total 1400 2800 1700 Balance 760 -620 -60 Weight 155 kg Lab Results: Accuchecks Date 08/06/18 Date 08/05/18 Date 08/05/18 Time 07:30 Time 16:30 Time 11:30 Accucheck Value: 151 Accucheck Value: 188 Accucheck Value: 192 Accucheck Value: 174 Assessment/Plan (1) UTI (urinary tract infection) Current Visit: Yes Status: Acute Onset Date: ~08/03/18 Qualifiers: Urinary tract infection type: site unspecified Hematuria presence: without hematuria Qualified Code(s): N39.0 - Urinary tract infection, site not specified Assessment & Plan: On IV Invanz, day #4. Plan is to d/c home tomorrow. Will add pyridium today. F/ u outpatient with urology - my office to schedule. Code(s): N39.0 - URINARY TRACT INFECTION, SITE NOT SPECIFIED (2) Eye pain Current Visit: Yes Status: Chronic Qualifiers: Laterality: left Qualified Code(s): H57.12 - Ocular pain, left eye Code(s): H57.10 - OCULAR PAIN, UNSPECIFIED EYE (3) COPD (chronic obstructive pulmonary disease) Current Visit: Yes Status: Chronic Qualifiers: COPD type: unspecified COPD Qualified Code(s): J44.9 - Chronic obstructive pulmonary disease, unspecified (4) Coronary artery disease Current Visit: No Status: Chronic Qualifiers: Coronary Disease-Associated Artery/Lesion type: [place] artery [place] vs. transplanted heart: [place] heart Associated angina: with stable angina Qualified Code(s): I25.118 - Atherosclerotic heart disease of [place] coronary artery with other forms of angina pectoris Code(s): I25.10 - ATHSCL HEART DISEASE OF [place] CORONARY ARTERY W/O ANG PCTRS (5) Diabetes mellitus Current Visit: No Status: Chronic Qualifiers: Diabetes mellitus type: type 2 Diabetes mellitus jail insulin use: with jail use Diabetes mellitus complication status: with ophthalmic complications Code(s): E11.9 - TYPE 2 DIABETES MELLITUS WITHOUT COMPLICATIONS (6) Hypertension Current Visit: No Status: Chronic Qualifiers: Hypertension type: essential hypertension Code(s): I10 - ESSENTIAL (PRIMARY) HYPERTENSION (7) Morbid obesity Current Visit: No Status: Chronic Code(s): E66.01 - MORBID (SEVERE) OBESITY DUE TO EXCESS CALORIES
[2018-08-06] MEDS: OXYCODONE-ACETAMINOPHEN 10-325 PO PRN (09:12)
[2018-08-06] MEDS: PYRIDIUM 200 MG PO SCH ×3 (09:12→22:35)
[2018-08-06] MEDS: BUSPAR 5 MG PO SCH ×2 (09:39→22:33)
[2018-08-06] MEDS: Imdur 30 MG PO SCH (09:39)
[2018-08-06] MEDS: Invanz 1 GM*** 1 G in Sodium Chloride 100ML MINI-BAG PLUS 100 ML IV SCH (09:39)
[2018-08-06] MEDS: PLAVIX 75 MG Tablet PO SCH (09:39)
[2018-08-06] MEDS: PRISTIQ ER PO SCH (09:39)
[2018-08-06] MEDS: Pepcid 20 MG PO SCH ×2 (09:39→22:35)
[2018-08-06] MEDS: Zestril 5 MG PO SCH (09:40)
[2018-08-06] MEDS: SYNTHROID 150 MCG PO SCH (09:40)
[2018-08-06] MEDS: LYRICA 100MG PO SCH ×2 (09:40→22:34)
[2018-08-06] MEDS: Singulair 10 MG PO SCH (09:40)
[2018-08-06] MEDS: Toprol Xl 50 MG PO SCH (09:40)
[2018-08-06] MEDS: ECOTRIN 81 MG PO SCH (09:40)
[2018-08-06] MEDS: Acidophilus TABLET PO SCH ×2 (09:40→22:33)
[2018-08-06] MEDS: Protonix 40MG Tablet PO SCH (09:40)
[2018-08-06] MEDS: NYSTOP POWDER 15 GM TOP SCH ×2 (09:41→22:35)
[2018-08-06] MEDS: CLARITIN 10 MG PO SCH (09:41)
[2018-08-06] MEDS: hydroDIURIL 25 MG PO SCH (09:41)
[2018-08-06] MEDS: ENOXAPARIN SODIUM SQ SCH (09:41)
[2018-08-06] MEDS ORDERED: VITAMIN D2 PO SCH (10:00)
[2018-08-06] MEDS: Cyclobenzaprine 10 MG PO SCH (22:33)
[2018-08-06] MEDS: LIPITOR 40MG PO SCH (22:34)
[2018-08-06] MEDS: Lantus Insulin SQ SCH (22:34)
[2018-08-07] MEDS: Sodium Chloride 0.9% 10 ML FLUSH Syringe IV SCH (06:48)
--- NOTE | 2018-08-07 08:27 | PCM.DS ---
Discharge Summary Date of Admission: 08/05/18 09:38 Admitting Physician: LEORA CORMIER Primary Care Provider: LEORA CORMIER Allergies Allergies levofloxacin [From Levaquin] Allergy (Mild, Verified 08/03/18 11:29) red rash/burning when gievn IV cefaclor [From Ceclor] Allergy (Verified 08/03/18 11:29) SOB, HIVES ciprofloxacin [From Cipro] Allergy (Verified 08/03/18 11:29) ciprofloxacin HCl [From Cipro] Allergy (Verified 08/03/18 11:29) clarithromycin [From Biaxin] Allergy (Verified 08/03/18 11:29) diphenhydramine HCl [From Benadryl] Allergy (Verified 08/03/18 11:29) SOB HIVES erythromycin base [Erythromycin Base] Allergy (Verified 08/03/18 11:29) SOB HIVES iodine Allergy (Verified 08/03/18 11:29) SOB HIVES latex Allergy (Verified 08/03/18 11:29) SOB HIVES Macrolide Antibiotics Allergy (Verified 08/03/18 11:29) SBO HIVES Penicillins Allergy (Verified 08/03/18 11:29) Swelling of Face sulfamethoxazole [From Bactrim] Allergy (Verified 08/03/18 11:29) trimethoprim [From Bactrim] Allergy (Verified 08/03/18 11:29) melon Adverse Reaction (Severe, Verified 08/03/18 11:29) cantaloupe aspirin Adverse Reaction (Verified 08/03/18 11:29) ibuprofen Adverse Reaction (Verified 08/03/18 11:29) Hospital Summary - Hospital Course Hospital Course: Pt is 67 yo female pt of mine with DM, obesity, CAD, COPD admitted directly for UTI with known C&S results, pt wiht multiple drugs allergies so placed in hospital for IV Invanz. She was having lower abd pressure which has persisted - she is feeling better with the addition of pyridium yesterday. She has had 5d of Invanz so will be discharged to home and f/u OP with urologist. - Vitals & Intake/Output Vital Signs: Vital Signs Temperature 98.1 F 08/07/18 07:40 Pulse Rate 60 08/07/18 07:40 Respiratory Rate 18 08/07/18 07:40 Blood Pressure 139/64 08/07/18 07:40 O2 Sat by Pulse Oximetry 92 L 08/07/18 07:40 Oxygen-Last Documented O2 Percentage 3 Liters = 32% Intake & Output: Intake & Output 08/04/18 08/05/18 08/06/18 08/07/18 11:59 11:59 11:59 11:59 Intake Total 2160 2180 1880 1890 Output Total 1400 2800 1700 2300 Balance 760 -460 180 -410 - Lab Result Diagrams: 08/03/18 12:30 08/03/18 12:30 Lab Results-Last 24 Hrs: Accuchecks Date 08/07/18 Date 08/06/18 Date 08/06/18 Time 07:17 Time 16:30 Time 11:30 Accucheck Value: 166 Accucheck Value: 184 Accucheck Value: 192 Accucheck Value: 199 Micro Results-Entire Visit: Accuchecks Date 08/07/18 Date 08/06/18 Date 08/06/18 Time 07:17 Time 16:30 Time 11:30 Accucheck Value: 166 Accucheck Value: 184 Accucheck Value: 192 Accucheck Value: 199 - Procedures and Test Procedures and Tests throughout Hospitalization: Therapy Orders & Screens 08/03/18 11:22 RT Screen per Nursing Assess ONCE Comment: Protocol Order Physician Instructions: Greater than 3 points order RT Admission Screen Reason For Exam: Triggered on Admission Diagnosis: UTI Diagnosis: UTI Pneumonia: No Home O2: Yes Asthma: No CHF: No Home CPAP/BIPAP: No Home Nebs/MDI: Yes Total Points: 10 08/03/18 15:26 Peak Expiratory Flow Rate ONCE Comment: Reason For Exam: Diagnosis: UTI Respiratory Therapy Assessment DAILY Comment: Diagnosis: UTI 08/03/18 15:27 Oxygen NASAL CANNULA 3 lpm Comment: Diagnosis: UTI Discharge Exam General Appearance: no apparent distress, alert, obese Neurologic Exam: oriented x 3, cooperative Skin Exam: normal color, warm, dry, No rash Respiratory Exam: normal breath sounds, lungs clear, No crackles/rales, No rhonchi, No wheezing Cardiovascular Exam: regular rate/rhythm, normal heart sounds, No murmur Gastrointestinal/Abdomen Exam: soft, normal bowel sounds, tenderness (mild suprapubic) Extremity Exam: No pedal edema, No swelling Back Exam: normal inspection, No rash Final Diagnosis/Problem List - Final Discharge Diagnosis/Problem (1) UTI (urinary tract infection) Current Visit: Yes Status: Acute Onset Date: ~08/03/18 Assessment & Plan: D/c home today (2) Eye pain Current Visit: Yes Status: Chronic (3) COPD (chronic obstructive pulmonary disease) Current Visit: Yes Status: Chronic (4) Coronary artery disease Current Visit: No Status: Chronic (5) Diabetes mellitus Current Visit: No Status: Chronic (6) Hypertension Current Visit: No Status: Chronic (7) Morbid obesity Current Visit: No Status: Chronic - Discharge Disposition: Home, Self-Care Condition: Good Prescriptions: New Phenazopyridine HCl 200 mg [Pyridium 200 mg] 200 mg PO TID #15 tablet Continue Insulin Aspart [NovoLOG Insulin] 3.1 unit SQ UD Esomeprazole Magnesium [Nexium] 40 mg PO DAILY Atorvastatin Calcium [Lipitor 20MG Tablet] 80 mg PO HS Buspirone HCl 5 mg [Buspar 5 mg] 15 mg PO BID Cyclobenzaprine HCl [Flexeril] 10 mg PO HS Oxycodone HCl/Acetaminophen [Percocet 10-325 mg Tablet] 1 each PO Q4-6HPRN PRN PRN Reason: Pain Liraglutide [Victoza 2-Alcon] 18 mg SQ DAILY Ranitidine HCl [Zantac] 150 mg PO BID Loratadine 10 mg [Claritin 10 mg] 10 mg PO DAILY Pregabalin [Lyrica] 200 mg PO BID Desvenlafaxine Succinate [Pristiq] 100 mg PO DAILY Lisinopril 5 mg [Zestril 5 MG] 2.5 mg PO DAILY Albuterol Common Canister [Proventil Common Canister] 1 - 2 puff IH Q4- 6HPRN PRN PRN Reason: Shortness Of Breath Isosorbide Mononitrate 30 mg [Imdur 30 MG] 30 mg PO DAILY Hydrochlorothiazide 25 mg [hydroDIURIL 25 MG] 12.5 mg PO DAILY Trazodone HCl 50 mg [Desyrel 50 mg] 150 mg PO HSPRN PRN PRN Reason: Insomnia Montelukast Sodium [Singulair] 10 mg PO DAILY Metoprolol Succinate 50 mg PO DAILY Brimonidine Tartrate/Timolol [Combigan 0.2%-0.5% Eye Drops] 1 drop OP TID Lactobacillus Acidophilus [Acidophilus TABLET] 1 tab PO BID #60 tablet Levothyroxine Sodium 150 Mcg [Synthroid 150 Mcg] 150 mcg PO DAILY Aspirin EC 81 mg [Ecotrin 81 mg] 81 mg PO DAILY Exenatide Microspheres [Bydureon Bcise] 2 mg SQ WEEKLY Nystatin Powder 15 gm [Nystop Powder 15 gm] 1 applic TOP BID Clopidogrel Bisulfate 75 mg [PLAVIX 75 MG Tablet] 75 mg PO DAILY Fluticasone/Salmeterol 500/50* [Advair 500-50 Diskus] 1 each IH BID Cholecalciferol (Vitamin D3) [Vitamin D3] 50,000 unit PO UD Follow up with: LEORA CORMIER [Primary Care Provider] - 1 Week
[2018-08-07] MEDS: PRISTIQ ER PO SCH (09:25)
[2018-08-07] MEDS: Acidophilus TABLET PO SCH (09:25)
[2018-08-07] MEDS: CLARITIN 10 MG PO SCH (09:25)
[2018-08-07] MEDS: ENOXAPARIN SODIUM SQ SCH (09:25)
[2018-08-07] MEDS: Pepcid 20 MG PO SCH (09:25)
[2018-08-07] MEDS: Imdur 30 MG PO SCH (09:25)
[2018-08-07] MEDS: SYNTHROID 150 MCG PO SCH (09:26)
[2018-08-07] MEDS: NYSTOP POWDER 15 GM TOP SCH (09:26)
[2018-08-07] MEDS: PLAVIX 75 MG Tablet PO SCH (09:26)
[2018-08-07] MEDS: Toprol Xl 50 MG PO SCH (09:26)
[2018-08-07] MEDS: hydroDIURIL 25 MG PO SCH (09:26)
[2018-08-07] MEDS: ECOTRIN 81 MG PO SCH (09:27)
[2018-08-07] MEDS: LYRICA 100MG PO SCH (09:27)
[2018-08-07] MEDS: Protonix 40MG Tablet PO SCH (09:27)
[2018-08-07] MEDS: PYRIDIUM 200 MG PO SCH (09:27)
[2018-08-07] MEDS: Zestril 5 MG PO SCH (09:27)
[2018-08-07] MEDS: BUSPAR 5 MG PO SCH (09:27)
[2018-08-07] MEDS: Singulair 10 MG PO SCH (09:28)
[2018-08-07] MEDS: Invanz 1 GM*** 1 G in Sodium Chloride 100ML MINI-BAG PLUS 100 ML IV SCH (09:43)
[2018-08-07 11:04] VITALS: BP 118/50; PULSE 62; O2SAT 95
[2018-08-07] MEDS: NovoLOG Insulin SQ PRN (11:34)
== END 2018-08-07 14:32 | disposition home or self-care (01) | DRG 690 ==
LOC: MED SURG 09:38 → OBSVTOIN 08-05 09:38
PROVIDERS: ADMIT Family Medicine; ATTEND Family Medicine
DX: N39.0 Urinary tract infection, site not specified (principal); H57.12 Ocular pain, left eye; J44.9 Chronic obstructive pulmonary disease, unspecified; I25.10 Atherosclerotic heart disease of native coronary artery without angina pectoris; E11.42 Type 2 diabetes mellitus with diabetic polyneuropathy; Z79.4 Long term (current) use of insulin; I10 Essential (primary) hypertension; E66.01 Morbid (severe) obesity due to excess calories; I50.9 Heart failure, unspecified; G47.30 Sleep apnea, unspecified; K21.9 Gastro-esophageal reflux disease without esophagitis; J45.909 Unspecified asthma, uncomplicated; F32.9 Major depressive disorder, single episode, unspecified; E03.9 Hypothyroidism, unspecified; Z79.899 Other long term (current) drug therapy
CPT/HCPCS: 36415; 80053; 82962; 85025; 85652; 94760; G0378; J1335; J1650; A9270-GY

== ENCOUNTER 2018-12-19 17:36 | Emergency (ER) | payer MEDICARE ==
[2018-12-19] MEDS ORDERED: Sodium Chloride 0.9% 1000 ML 1,000 ML IV STA (18:23)
[2018-12-19] MEDS ORDERED: Zofran 4 MG/2 ML VIAL IV ONE (18:23)
--- NOTE | 2018-12-19 18:31 | ERPHSYRPT ---
<ANNALISE HERNANDEZ - Last Filed: 12/20/18 00:14> - History of Present Illness Historian: patient Exam Limitations: no limitations Patient Subjective Stated Complaint: all over abdominal pain with N&V since Friday Triage Nursing Assessment: Pt presents with abdominal pain in all quadrants with more on the upper and lower left side, red, hot and hard umbilical hernia, rates pain 10/10, abdomen appears off center and umbilicus is more to the left, N&V, last intake on Friday, decreased fluid intake, reports less urinating than usual, reports urinating one time today, diarrhea, lethargic Timing/Duration: day(s) (3) Activities at Onset: none Quality: cramping, sharpness Abdominal Pain Onset Location: periumbilical Pain Radiation: no radiation Severity of Pain-Max: severe Severity of Pain-Current: severe Modifying Factors: Improves With: nothing Associated Symptoms: nausea, vomiting Previous symptoms: no prior history Hx Tetanus, Diphtheria Vaccination/Date Given: No Hx Influenza Vaccination/Date Given: Yes Hx Pneumococcal Vaccination/Date Given: Yes <FAVIAN ADAN - Last Filed: 12/21/18 11:16> - History of Present Illness Time Seen by Provider: 12/19/18 18:22 Physician History: Pt has been c/o mid abdominal pain, nausea, frequent vomiting x 3 days, denies fever, chills, had one loose BM today, denies vomiting, or passing blood or black stool, no urinary complaints. (FAVIAN ADAN) Allergies/Adverse Reactions: levofloxacin [From Levaquin] Allergy (Mild, Verified 08/03/18 11:29) red rash/burning when gievn IV cefaclor [From Ceclor] Allergy (Verified 08/03/18 11:29) SOB, HIVES ciprofloxacin [From Cipro] Allergy (Verified 08/03/18 11:29) ciprofloxacin HCl [From Cipro] Allergy (Verified 08/03/18 11:29) clarithromycin [From Biaxin] Allergy (Verified 08/03/18 11:29) diphenhydramine HCl [From Benadryl] Allergy (Verified 08/03/18 11:29) SOB HIVES erythromycin base [Erythromycin Base] Allergy (Verified 08/03/18 11:29) SOB HIVES Iodinated Contrast- Oral and IV Dye Allergy (Verified 03/30/19 19:45) iodine Allergy (Verified 08/03/18 11:29) SOB HIVES latex Allergy (Verified 08/03/18 11:29) SOB HIVES Macrolide Antibiotics Allergy (Verified 08/03/18 11:29) SBO HIVES Penicillins Allergy (Verified 08/03/18 11:29) Swelling of Face sulfamethoxazole [From Bactrim] Allergy (Verified 08/03/18 11:29) trimethoprim [From Bactrim] Allergy (Verified 08/03/18 11:29) melon Adverse Reaction (Severe, Verified 08/03/18 11:29) cantaloupe aspirin Adverse Reaction (Verified 08/03/18 11:29) ibuprofen Adverse Reaction (Verified 08/03/18 11:29) Home Medications: Atorvastatin Calcium [Lipitor 20MG Tablet] 80 mg PO HS 02/01/14 [History] Buspirone HCl 5 mg [Buspar 5 mg] 15 mg PO BID 02/01/14 [History] Cyclobenzaprine HCl [Flexeril] 10 mg PO HS 02/01/14 [History] Esomeprazole Magnesium [Nexium] 40 mg PO DAILY 02/01/14 [History] Insulin Aspart [NovoLOG Insulin] 3.1 unit SQ UD 02/01/14 [History] Liraglutide [Victoza 2-Alcon] 18 mg SQ DAILY 02/01/14 [History] Oxycodone HCl/Acetaminophen [Percocet 10-325 mg Tablet] 1 each PO Q4-6HPRN PRN 02/01/14 [History] Desvenlafaxine Succinate [Pristiq] 100 mg PO DAILY 07/15/14 [History] Loratadine 10 mg [Claritin 10 mg] 10 mg PO DAILY 07/15/14 [History] Pregabalin [Lyrica] 200 mg PO BID 07/15/14 [History] Ranitidine HCl [Zantac] 150 mg PO BID 07/15/14 [History] Albuterol Common Canister [Proventil Common Canister] 1 - 2 puff IH Q4- 6HPRN PRN 11/04/14 [History] Lisinopril 5 mg [Zestril 5 MG] 2.5 mg PO DAILY 11/04/14 [History] Isosorbide Mononitrate 30 mg [Imdur 30 MG] 30 mg PO DAILY 08/19/15 [History ] Hydrochlorothiazide 25 mg [hydroDIURIL 25 MG] 12.5 mg PO DAILY 09/06/16 [ History] Metoprolol Succinate 50 mg PO DAILY 09/06/16 [History] Montelukast Sodium [Singulair] 10 mg PO DAILY 09/06/16 [History] Trazodone HCl 50 mg [Desyrel 50 mg] 150 mg PO HSPRN PRN 09/06/16 [History] Brimonidine Tartrate/Timolol [Combigan 0.2%-0.5% Eye Drops] 1 drop OP TID [History] Aspirin EC 81 mg [Ecotrin 81 mg] 81 mg PO DAILY 08/03/18 [History] Cholecalciferol (Vitamin D3) [Vitamin D3] 50,000 unit PO UD 08/03/18 [History] Clopidogrel Bisulfate 75 mg [PLAVIX 75 MG Tablet] 75 mg PO DAILY 08/03/18 [History] Exenatide Microspheres [Bydureon Bcise] 2 mg SQ WEEKLY 08/03/18 [History] Fluticasone/Salmeterol 500/50* [Advair 500-50 Diskus] 1 each IH BID 08/03/18 [History] Levothyroxine Sodium 150 Mcg [Synthroid 150 Mcg] 150 mcg PO DAILY 08/03/18 [History] Nystatin Powder 15 gm [Nystop Powder 15 gm] 1 applic TOP BID 08/03/18 [ History] - Review of Systems Constitutional: No Symptoms Eyes: No Symptoms Ears, Nose, & Throat: No Symptoms Respiratory: No Symptoms Abdominal/Gastrointestinal: Abdominal Pain, Nausea, Vomiting Genitourinary Symptoms: No Symptoms Musculoskeletal: No Symptoms Skin: No Symptoms Neurological: No Symptoms All Other Systems: Reviewed and Negative <FAVIAN ADAN - Last Filed: 12/21/18 11:16> - Past Medical History Pertinent Past Medical History: Yes Neurological History: Stroke ENT History: Cataracts Cardiac History: Coronary Artery Disease, High Cholesterol, Hypertension, Myocardial Infarction (CA), Other Respiratory History: Asthma, COPD, Pneumonia, Sleep Apnea Endocrine Medical History: Diabetes Type II Musculoskeletal History: No Pertinent History GI Medical History: No Pertinent History History: No Pertinent History Psycho-Social History: No Pertinent History Female Reproductive Disorders: No Pertinent History Other Medical History: Rapid heart rate at times; lump in right breast, biopsy non-cancerous, "stroke" in left eye - Past Surgical History Past Surgical History: Yes Neuro Surgical History: No Pertinent History Cardiac: Cardiac Stent Respiratory: No Pertinent History Gastrointestinal: Cholecystectomy Genitourinary: No Pertinent History Musculoskeletal: No Pertinent History Female Surgical History: Tubal Ligation, Other Other Surgical History: Breast biopsy, 5 STENTS, CLOT REMOVED FROM ARTERY ON LEFT NECK/STROKE - Social History Smoking Status: Never smoker Exposure to second hand smoke: Yes Drug Use: none Patient Lives Alone: No - Female History Hx Now: No <FAVIAN ADAN - Last Filed: 12/21/18 11:16> - Physical Exam General Appearance: no apparent distress Eye Exam: eyes nml inspection Ears, Nose, Throat Exam: normal ENT inspection Neck Exam: normal inspection, non-tender, No JVD Respiratory Exam: normal breath sounds, lungs clear, airway intact Cardiovascular Exam: regular rate/rhythm, normal heart sounds, normal peripheral pulses, No murmur Gastrointestinal/Abdomen Exam: soft, tenderness, mass, other (obese, diminished bowel sounds. large umbilical hernia, hard, double adult palm sized erythema, no skin lesion or necrosis.) Back Exam: normal inspection, No CVA tenderness Extremity Exam: normal inspection Neurologic Exam: alert, oriented x 3, cooperative, normal mood/affect Skin Exam: normal color, warm, dry, No rash Lymphatic Exam: No adenopathy SpO2 Interpretation: normal SpO2: 98 O2 Delivery: Room Air <FAVIAN ADAN - Last Filed: 12/21/18 11:16> - Nursing Vital Signs Nursing Vital Signs: Initial Vital Signs Temperature 98.1 F 12/19/18 17:44 Pulse Rate 95 H 12/19/18 17:44 Blood Pressure 147/48 12/19/18 17:44 O2 Sat by Pulse Oximetry 98 12/19/18 17:44 Pain Scale Pain Intensity 4 - Course Nursing assessment & vital signs reviewed: Yes EKG Interpreted by Me: RATE, Sinus Rhythm, NORMAL AXIS, NORMAL INTERVALS, NORMAL QRS, Non-specific ST Changes <FAVIAN ADAN - Last Filed: 12/21/18 11:16> Ordered Tests: Medication Summary Discontinued Medications Generic Name Dose Route Start Last Admin Trade Name Mack PRN Reason Stop Dose Admin Sodium Chloride 1,000 mls @ 999 mls/hr 12/19/18 18:23 12/20/18 02:22 Sodium Chloride 0.9% 1000 Ml IV 12/19/18 19:23 Infused .Q1H1M STA Infusion Sodium Chloride Confirm 12/19/18 18:34 Sodium Chloride 0.9% 1000 Ml Administered 12/19/18 18:35 Dose 1,000 mls @ ud .ROUTE .STK-MED ONE Sodium Chloride 500 mls @ 500 mls/hr 12/19/18 19:46 12/20/18 02:23 Sodium Chloride 0.9% 500 Ml IV 12/19/18 20:45 Infused .Q1H ONE Infusion Sodium Chloride Confirm 12/19/18 19:53 Sodium Chloride 0.9% 500 Ml Administered 12/19/18 19:54 Dose 500 mls @ ud IV .STK-MED ONE Lorazepam 1 mg 12/19/18 22:09 12/19/18 22:36 Ativan 2 Mg/1 Ml Vial IV 12/19/18 22:10 1 mg STAT ONE Administration Lorazepam Confirm 12/19/18 22:33 Ativan 2 Mg/1 Ml Vial Administered 12/19/18 22:34 Dose 2 mg .ROUTE .STK-MED ONE Morphine Sulfate 4 mg 12/19/18 20:06 12/19/18 20:10 Morphine Sulfate 4 Mg Inj IV 12/19/18 20:07 4 mg STAT ONE Administration Morphine Sulfate Confirm 12/19/18 20:10 Morphine Sulfate 4 Mg Inj Administered 12/19/18 20:11 Dose 4 mg .ROUTE .STK-MED ONE Morphine Sulfate 4 mg 12/19/18 22:08 12/19/18 22:24 Morphine Sulfate 4 Mg Inj IV 12/19/18 22:09 4 mg STAT ONE Administration Morphine Sulfate Confirm 12/19/18 22:23 Morphine Sulfate 4 Mg Inj Administered 12/19/18 22:24 Dose 4 mg .ROUTE .STK-MED ONE Ondansetron HCl 4 mg 12/19/18 18:23 12/19/18 18:37 Zofran 4 Mg/2 Ml Vial IV 12/19/18 18:24 4 mg STAT ONE Administration Ondansetron HCl Confirm 12/19/18 18:34 Zofran 4 Mg/2 Ml Vial Administered 12/19/18 18:35 Dose 4 mg .ROUTE .STK-MED ONE Lab/Rad Data: Laboratory Result Diagrams 12/19/18 18:29 12/19/18 18:29 Laboratory Results 12/19/18 12/19/18 12/19/18 Range/Units 19:41 19:00 18:29 WBC (4.0-10.5) K/mm3 RBC (4.1-5.4) M/mm3 Hgb (12.0-16.0) gm/dl Hct (35-47) % MCV (78-100) fl MCH (26-32) pg MCHC (32-36) g/dl RDW (11.5-14.0) % Plt Count (150-450) K/mm3 MPV (6-9.5) fl Gran % (36.0-66.0) % Eos # (Auto) (0-0.5) Absolute Lymphs (auto) (1.0-4.6) Absolute Monos (auto) (0.0-1.3) Lymphocytes % (24.0-44.0) % Monocytes % (0.0-12.0) % Eosinophils % (0.00-5.0) % Basophils % (0.0-0.4) % Absolute Granulocytes (1.4-6.9) Basophils # (0-0.4) PT 13.3 H (9.95-12.35) SECONDS INR 1.14 (0.8-3.0) Sodium (137-145) mmol/L Potassium (3.5-5.1) mmol/L Chloride (98-107) mmol/L Carbon Dioxide (22-30) mmol/L Anion Gap (5-15) MEQ/L BUN (7-17) mg/dL Creatinine (0.52-1.04) mg/dL Estimated GFR ML/MIN Glucose (74-106) mg/dL Lactic Acid 1.6 (0.4-2.0) Calcium (8.4-10.2) mg/dL Total Bilirubin (0.2-1.3) mg/dL AST (14-36) U/L ALT (0-35) U/L Alkaline Phosphatase (38-126) U/L Serum Total Protein (6.3-8.2) g/dL Albumin (3.5-5.0) g/dL Lipase (23-300) U/L Urine Color YELLOW (YELLOW) Urine Appearance SLIGHTLY CLOUDY (CLEAR) Urine pH 5.0 (5-6) Ur Specific [place] 1.026 (1.005-1.025) Urine Protein NEGATIVE (Negative) Urine Ketones TRACE (NEGATIVE) Urine Blood NEGATIVE (0-5) [place]/ul Urine Nitrite NEGATIVE (NEGATIVE) Urine Bilirubin SMALL (NEGATIVE) Urine Urobilinogen 4 (0-1) mg/dL Ur Leukocyte Esterase NEGATIVE (NEGATIVE) Urine WBC (Auto) 3-5 (0-5) /HPF Urine RBC (Auto) NONE (0-2) /HPF U Hyaline Cast (Auto) 0-2 (0-2) /LPF U Epithel Cells (Auto) MODERATE (FEW) /HPF Urine Bacteria (Auto) NONE (NEGATIVE) /HPF Other Casts (Auto) NEGATIVE (NEGATIVE) /LPF Urine Culture Reflexed NO (NO) Urine Glucose NEGATIVE (NEGATIVE) mg/dL 12/19/18 12/19/18 Range/Units 18:29 18:29 WBC 11.7 H (4.0-10.5) K/mm3 RBC 4.18 (4.1-5.4) M/mm3 Hgb 12.5 (12.0-16.0) gm/dl Hct 39.1 (35-47) % MCV 93.5 (78-100) fl MCH 29.9 (26-32) pg MCHC 32.0 (32-36) g/dl RDW 13.9 (11.5-14.0) % Plt Count 289 (150-450) K/mm3 MPV 11.1 H (6-9.5) fl Gran % 72.2 H (36.0-66.0) % Eos # (Auto) 0.07 (0-0.5) Absolute Lymphs (auto) 2.25 (1.0-4.6) Absolute Monos (auto) 0.91 (0.0-1.3) Lymphocytes % 19.2 L (24.0-44.0) % Monocytes % 7.8 (0.0-12.0) % Eosinophils % 0.6 (0.00-5.0) % Basophils % 0.2 (0.0-0.4) % Absolute Granulocytes 8.45 H (1.4-6.9) Basophils # 0.02 (0-0.4) PT (9.95-12.35) SECONDS INR (0.8-3.0) Sodium 134 L (137-145) mmol/L Potassium 4.4 (3.5-5.1) mmol/L Chloride 89 L (98-107) mmol/L Carbon Dioxide 32 H (22-30) mmol/L Anion Gap 16.4 H (5-15) MEQ/L BUN 28 H (7-17) mg/dL Creatinine 1.17 H (0.52-1.04) mg/dL Estimated GFR 49.2 ML/MIN Glucose 175 H (74-106) mg/dL Lactic Acid (0.4-2.0) Calcium 9.4 (8.4-10.2) mg/dL Total Bilirubin 1.20 (0.2-1.3) mg/dL AST 24 (14-36) U/L ALT 21 (0-35) U/L Alkaline Phosphatase 116 (38-126) U/L Serum Total Protein 8.2 (6.3-8.2) g/dL Albumin 4.0 (3.5-5.0) g/dL Lipase 25 (23-300) U/L Urine Color (YELLOW) Urine Appearance (CLEAR) Urine pH (5-6) Ur Specific [place] (1.005-1.025) Urine Protein (Negative) Urine Ketones (NEGATIVE) Urine Blood (0-5) [place]/ul Urine Nitrite (NEGATIVE) Urine Bilirubin (NEGATIVE) Urine Urobilinogen (0-1) mg/dL Ur Leukocyte Esterase (NEGATIVE) Urine WBC (Auto) (0-5) /HPF Urine RBC (Auto) (0-2) /HPF U Hyaline Cast (Auto) (0-2) /LPF U Epithel Cells (Auto) (FEW) /HPF Urine Bacteria (Auto) (NEGATIVE) /HPF Other Casts (Auto) (NEGATIVE) /LPF Urine Culture Reflexed (NO) Urine Glucose (NEGATIVE) mg/dL - Progress Progress: improved, re-examined Discussed with .: Gloria, Other (Joya) Counseled pt/family regarding: need for follow-up, rad results <ANNALISE HERNANDEZ - Last Filed: 12/20/18 00:14> <FAVIAN ADAN - Last Filed: 12/21/18 11:16> - Progress Progress Note: 12/20/18 00:[address] javier, general surgeon, at [facility] he will be information systems consultant. i also reviewed pt hx, condition, lab, xray results with [facility] hospitalist dr. pina . he accepts pt for transfer to [facility] and general surgery to consult. ( ANNALISE HERNANDEZ) - Departure Departure Disposition: Transfer Critical Care Time: No <ANNALISE HERNANDEZ - Last Filed: 12/20/18 00:14> <FAVIAN ADAN - Last Filed: 12/21/18 11:16> - Departure Clinical Impression: Incarcerated ventral hernia, Abdominal pain, Vomiting Condition: Stable Referrals: LEORA CORMIER [Primary Care Provider] -
[2018-12-19 18:33] LABS: BASOPHIL % 0.2 % (0.0-0.4); Basophil (Absolute #) 0.02 (0-0.4); Eosinophil % 0.6 % (0.00-5.0); Eosinophil (Absolute #) 0.07 (0-0.5); Granulocyte Absolute (ANC) 8.45 (1.4-6.9); Granulocytes % 72.2 % (36.0-66.0); Hematocrit 39.1 % (35-47); Hemoglobin 12.5 gm/dl (12.0-16.0); Lymphocyte (Absolute #) 2.25 (1.0-4.6); Lymphocytes % 19.2 % (24.0-44.0); Mean Cell Volume 93.5 fl (78-100); Mean Corpuscular Hemoglobin 29.9 pg (26-32); Mean Platelet Volume 11.1 fl (6-9.5); Monocyte (Absolute #) 0.91 (0.0-1.3); Monocytes % 7.8 % (0.0-12.0); Platelet Count 289 K/mm3 (150-450); Red Blood Count 4.18 M/mm3 (4.1-5.4); Red Cell Distribution Width 13.9 % (11.5-14.0); White Blood Count 11.7 K/mm3 (4.0-10.5)
[2018-12-19 18:34] LABS: INR 1.14 (0.8-3.0); PROTIME 13.3 SECONDS (9.95-12.35)
[2018-12-19] MEDS ORDERED: Zofran 4 MG/2 ML VIAL ONE (18:34)
[2018-12-19] MEDS ORDERED: Sodium Chloride 0.9% 1000 ML 1,000 ML ONE (18:34)
[2018-12-19 18:40] LABS: ANION GAP 16.4 MEQ/L (5-15); BILIRUBIN,TOTAL 1.2 mg/dL (0.2-1.3); Calcium 9.4 mg/dL (8.4-10.2); Creatinine 1 1.17 mg/dL (0.52-1.04); Potassium 4.4 mmol/L (3.5-5.1); Total Protein 8.2 g/dL (6.3-8.2)
[2018-12-19] MEDS ORDERED: Sodium Chloride 0.9% 500 ML 500 ML IV ONE ×2 (19:46→19:53)
[2018-12-19 19:56] LABS: Appearance SLIGHTLY CLOUDY (CLEAR); Bilirubin SMALL (NEGATIVE); Blood NEGATIVE Ery/ul (0-5); Epithelial Cells MODERATE /HPF (FEW); Glucose NEGATIVE (NEGATIVE); Hyaline Casts 0-2 /LPF (0-2); Ketones TRACE (NEGATIVE); Leukocyte Esterase NEGATIVE (NEGATIVE); Nitrite NEGATIVE (NEGATIVE); Protein,Urine Dip NEGATIVE (Negative); Specific Gravity 1.026 (1.005-1.025); Urobilinogen 4 mg/dL (0-1)
[2018-12-19] MEDS ORDERED: MORPHINE SULFATE 4 MG INJ IV ONE ×2 (20:06→22:08)
[2018-12-19] MEDS ORDERED: MORPHINE SULFATE 4 MG INJ ONE ×2 (20:10→22:23)
--- NOTE | 2018-12-19 20:14 | XRAY ---
Indication: Vomiting. Comparison: June 09, 2018. Portable chest less inflated and clear. Heart and mediastinal structures within normal limits. Bony thorax intact again with mild osteopenia, degenerative changes, and proximal left humeral enchondroma. Impression: Stable nonacute chest with chronic features.
[2018-12-19] MEDS ORDERED: Ativan 2 MG/1 ML VIAL IV ONE (22:09)
[2018-12-19] MEDS ORDERED: Ativan 2 MG/1 ML VIAL ONE (22:33)
[2018-12-20 02:14] VITALS: BP 128/75; PULSE 74
--- NOTE | 2018-12-20 07:59 | XRAY ---
Indication: Abdomen pain. Multiple contiguous axial images obtained through the abdomen and pelvis without contrast as ordered. Comparison: None Lung bases are clear. Heart is not enlarged. Limited exam due to patient body habitus. Noncontrasted stomach appears nonobstructed. Moderate sized periumbilical hernia with knuckle of small bowel herniating. The more proximal small bowel loops are moderately fluid distended with air-fluid leveling favoring partial obstruction. Normal colonic bowel gas and normal appearing appendix. No free fluid/air. Previous cholecystectomy. Remaining liver, pancreas, spleen, adrenal glands, kidneys, ureters, bladder, and uterus appear unremarkable for noncontrast exam. Moderate scattered vascular calcifications. No AAA. Osseous structures intact with mild degenerative changes throughout the thoracolumbar spine. Impression: 1. Partial small bowel obstruction due to moderate sized periumbilical ventral hernia as detailed. 2. Remaining CT abdomen/pelvis without contrast exam is negative. Comment: Preliminary interpretation was made by [facility]. No critical discrepancy. CTDI 23.68
[2018-12-21 11:16] VITALS: O2SAT 98
== END 2018-12-20 01:55 | disposition short-term general hospital (02) ==
LOC: ED 17:36
DX: K43.6 Other and unspecified ventral hernia with obstruction, without gangrene (principal); R10.9 Unspecified abdominal pain; R11.2 Nausea with vomiting, unspecified; I25.10 Atherosclerotic heart disease of native coronary artery without angina pectoris; E78.00 Pure hypercholesterolemia, unspecified; I10 Essential (primary) hypertension; I25.2 Old myocardial infarction; J44.9 Chronic obstructive pulmonary disease, unspecified; J45.909 Unspecified asthma, uncomplicated; E11.9 Type 2 diabetes mellitus without complications; G47.30 Sleep apnea, unspecified; Z79.899 Other long term (current) drug therapy
CPT/HCPCS: 36000; 36415; 71045; 74176; 80053; 81001; 83605; 83690; 85025; 85610; 87040; 93005; 96360; 96361; 96374; 96375; 96376; 99285; J2060; J2270; J2405

== ENCOUNTER 2019-04-27 08:00 | Inpatient (IN) | payer MEDICARE ==
[2019-04-27 15:25] LABS: BASOPHIL % 0.4 % (0.0-0.4); Basophil (Absolute #) 0.03 (0-0.4); Eosinophil % 2.6 % (0.00-5.0); Granulocyte Absolute (ANC) 4.94 (1.4-6.9); Granulocytes % 64.6 % (36.0-66.0); Hemoglobin 11.7 gm/dl (12.0-16.0); Lymphocyte (Absolute #) 1.92 (1.0-4.6); Lymphocytes % 25.1 % (24.0-44.0); Mean Cell Volume 89.8 fl (78-100); Mean Corpuscular Hgb Concent. 31.6 g/dl (32-36); Mean Platelet Volume 11.9 fl (6-9.5); Monocyte (Absolute #) 0.56 (0.0-1.3); Monocytes % 7.3 % (0.0-12.0); Platelet Count 238 K/mm3 (150-450); Red Blood Count 4.12 M/mm3 (4.1-5.4); Red Cell Distribution Width 14.8 % (11.5-14.0); White Blood Count 7.7 K/mm3 (4.0-10.5)
[2019-04-27 15:28] LABS: Mean Corpuscular Hemoglobin 28.3 pg (26-32)
--- NOTE | 2019-04-27 15:37 | XRAY ---
Indication: COPD. Comparison: December 19, 2018. PA/lateral chest remains clear. Heart and mediastinal structures within normal limits. Bony thorax intact again with mild osteopenia, degenerative changes, and proximal left humeral enchondroma. Interval left carotid endarterectomy. Impression: Again nonacute chest with chronic features.
[2019-04-27 15:45] LABS: ALBUMIN 3.9 g/dL (3.5-5.0); ALKALINE PHOSPHATASE 122 U/L (38-126); ANION GAP 13.4 MEQ/L (5-15); BLOOD UREA NITROGEN 11 mg/dL (7-17); CHLORIDE 99 mmol/L (98-107); Calcium 9.3 mg/dL (8.4-10.2); Carbon Dioxide 33 mmol/L (22-30); Creatinine 1 0.85 mg/dL (0.52-1.04); Glucose 289 mg/dL (74-106); NT PRO BNP 353 pg/mL (0-900); Potassium 3.8 mmol/L (3.5-5.1); SGOT/AST 22 U/L (14-36); SGPT/ALT 21 U/L (0-35); SODIUM 142 mmol/L (137-145); Total Protein 7.5 g/dL (6.3-8.2)
[2019-04-27] MEDS: Sodium Chloride 0.9% 1000 ML 1,000 ML IV SCH (15:46)
[2019-04-27] MEDS: MERREM 500MG 500 MG in Sodium Chloride 100ML MINI-BAG PLUS 100 ML IV SCH ×2 (15:51→22:13)
[2019-04-27] MEDS: NovoLOG Insulin SQ PRN ×2 (16:44→22:06)
[2019-04-27] MEDS ORDERED: PROVENTIL COMMON CANISTER IH PRN (16:55)
[2019-04-27] MEDS ORDERED: NYSTOP POWDER 15 GM TOP PRN (16:55)
[2019-04-27] MEDS ORDERED: DESYREL 50 MG PO PRN (16:55)
[2019-04-27] MEDS ORDERED: MEDICATION INTERVENTION MC SCH (17:30)
[2019-04-27] MEDS: Advair Hfa 230/21 Mcg COMMON CANISTER IH SCH (18:37)
[2019-04-27] MEDS: OXYCODONE-ACETAMINOPHEN 10-325 PO PRN (18:44)
[2019-04-27 19:31] LABS: Appearance SLIGHTLY CLOUDY (CLEAR); Bacteria RARE /HPF (NEGATIVE); Bilirubin NEGATIVE (NEGATIVE); Blood NEGATIVE Ery/ul (0-5); Epithelial Cells RARE /HPF (FEW); Glucose 150 mg/dL (NEGATIVE); Ketones TRACE (NEGATIVE); Leukocyte Esterase NEGATIVE (NEGATIVE); Mucus SLIGHT /HPF (NEGATIVE); Nitrite NEGATIVE (NEGATIVE); Protein,Urine Dip NEGATIVE (Negative); RBC 0-2 /HPF (0-2); Urobilinogen NEGATIVE mg/dL (0-1)
[2019-04-27] MEDS ORDERED: ADVAIR 500-50 DISKUS IH SCH (22:00)
[2019-04-27] MEDS ORDERED: ATORVASTATIN CALCIUM 80 MG PO SCH (22:00)
[2019-04-27] MEDS ORDERED: AZELASTINE HCL SCH (22:00)
[2019-04-27] MEDS ORDERED: NON-FORMULARY ITEM (Cyclobenzaprine Hcl [Flexeril] 10 MG) PO SCH (22:00)
[2019-04-27] MEDS ORDERED: NON-FORMULARY ITEM (Ranitidine Hcl [Zantac] 150 MG) PO SCH (22:00)
[2019-04-27] MEDS: BUSPAR 5 MG PO SCH (22:04)
[2019-04-27] MEDS: Acidophilus TABLET PO SCH (22:04)
[2019-04-27] MEDS: Cyclobenzaprine 10 MG PO SCH (22:05)
[2019-04-27] MEDS: Pepcid 20 MG PO SCH (22:05)
[2019-04-27] MEDS: LYRICA 100MG PO SCH (22:05)
[2019-04-27] MEDS: ZOCOR 20MG PO SCH (22:06)
[2019-04-28] MEDS: MERREM 500MG 500 MG in Sodium Chloride 100ML MINI-BAG PLUS 100 ML IV SCH ×3 (05:21→21:09)
[2019-04-28] MEDS: Sodium Chloride 0.9% 1000 ML 1,000 ML IV SCH ×2 (05:21→19:40)
[2019-04-28] MEDS: Advair Hfa 230/21 Mcg COMMON CANISTER IH SCH ×2 (06:59→19:05)
[2019-04-28] MEDS: NovoLOG Insulin SQ PRN ×4 (08:05→22:37)
--- NOTE | 2019-04-28 08:15 | PCM.HP.ADD ---
Addendum to History & Physical - History & Physical Addendum Addendum to History & Physical: This certifies that the History & Physical in the electronic chart reflects the current health status of the patient. If there are changes in the H&P these changes/exceptions are listed as follows.
--- NOTE | 2019-04-28 08:20 | PCM.NOTE ---
Date and Time: 04/28/19814 Subjective Assessment: Pt "not feeling good" this morning. Having exudate from eyes, L>R. Dalton po. On O2. Sitting at bedside, preparing to eat. - Review of Systems Constitutional: No Fever Respiratory: Cough Objective Exam General Appearance: no apparent distress, alert, obese Neurologic Exam: oriented x 3, cooperative Skin Exam: normal color, warm, dry, No rash Respiratory Exam: diminished breath sounds, prolonged expirations, No crackles/ rales, No rhonchi, No wheezing Cardiovascular Exam: regular rate/rhythm, normal heart sounds, No murmur Back Exam: normal inspection, No rash OBJECTIVE DATA Vital Signs: Vital Signs - 24 hr Temp Pulse Resp BP Pulse Ox 04/28/19 07:10 97.9 F 78 20 140/68 98 04/28/19 06:59 66 18 97 04/28/19 04:16 98.2 F 75 20 153/70 97 04/27/19 23:44 97.9 F 80 20 138/61 96 04/27/19 19:02 97.7 F 94 H 20 127/71 96 04/27/19 18:37 96 H 21 96 04/27/19 17:08 94 H 18 95 04/27/19 16:05 98.4 F 99 H 18 164/67 94 L 04/27/19 16:00 98.4 F 99 H 18 164/67 94 L 04/27/19 14:45 98.4 F 99 H 18 164/67 94 L 04/27/19 14:38 98.4 F 99 H 18 164/67 94 L Oxygen-Last 24 hours O2 Percentage 3 Liters = 32% O2 Percentage 3 Liters = 32% O2 Percentage 3 Liters = 32% O2 Percentage 3 Liters = 32% Pain Assessment - Last Documented Pain Intensity 10 Pain Scale Used [facility] Intake and Output: Intake & Output 04/25/19 04/26/19 04/27/19 04/28/19 11:59 11:59 11:59 11:59 Intake Total 2791 Output Total 2200 Balance 591 Weight 141.1 kg Lab Results: Accuchecks Accucheck Value: 306 Accucheck Value: 317 Lab Results-Last 24 Hours 04/27/19 04/27/19 04/27/19 Range/Units 15:18 15:18 15:18 WBC 7.7 (4.0-10.5) K/mm3 RBC 4.12 (4.1-5.4) M/mm3 Hgb 11.7 L (12.0-16.0) gm/dl Hct 37.0 (35-47) % MCV 89.8 (78-100) fl MCH 28.3 (26-32) pg MCHC 31.6 L (32-36) g/dl RDW 14.8 H (11.5-14.0) % Plt Count 238 (150-450) K/mm3 MPV 11.9 H (6-9.5) fl Gran % 64.6 (36.0-66.0) % Eos # (Auto) 0.20 (0-0.5) Absolute Lymphs (auto) 1.92 (1.0-4.6) Absolute Monos (auto) 0.56 (0.0-1.3) Lymphocytes % 25.1 (24.0-44.0) % Monocytes % 7.3 (0.0-12.0) % Eosinophils % 2.6 (0.00-5.0) % Basophils % 0.4 (0.0-0.4) % Absolute Granulocytes 4.94 (1.4-6.9) Basophils # 0.03 (0-0.4) Sodium 142 (137-145) mmol/L Potassium 3.8 (3.5-5.1) mmol/L Chloride 99 (98-107) mmol/L Carbon Dioxide 33 H (22-30) mmol/L Anion Gap 13.4 (5-15) MEQ/L BUN 11 (7-17) mg/dL Creatinine 0.85 (0.52-1.04) mg/dL Estimated GFR > 60.0 ML/MIN Glucose 289 H (74-106) mg/dL Hemoglobin A1c 8.04 H (4.5-6.0) % Calcium 9.3 (8.4-10.2) mg/dL Total Bilirubin 0.40 (0.2-1.3) mg/dL AST 22 (14-36) U/L ALT 21 (0-35) U/L Alkaline Phosphatase 122 (38-126) U/L NT-Pro-B Natriuret Pep 353 (0-900) pg/mL Serum Total Protein 7.5 (6.3-8.2) g/dL Albumin 3.9 (3.5-5.0) g/dL Urine Color (YELLOW) Urine Appearance (CLEAR) Urine pH (5-6) Ur Specific Bucks (1.005-1.025) Urine Protein (Negative) Urine Ketones (NEGATIVE) Urine Blood (0-5) Ti[place]/ul Urine Nitrite (NEGATIVE) Urine Bilirubin (NEGATIVE) Urine Urobilinogen (0-1) mg/dL Ur Leukocyte Esterase (NEGATIVE) Urine WBC (Auto) (0-5) /HPF Urine RBC (Auto) (0-2) /HPF U Epithel Cells (Auto) (FEW) /HPF Urine Bacteria (Auto) (NEGATIVE) /HPF Urine Mucus (Auto) (NEGATIVE) /HPF Urine Glucose (NEGATIVE) mg/dL 04/27/19 Range/Units 19:00 WBC (4.0-10.5) K/mm3 RBC (4.1-5.4) M/mm3 Hgb (12.0-16.0) gm/dl Hct (35-47) % MCV (78-100) fl MCH (26-32) pg MCHC (32-36) g/dl RDW (11.5-14.0) % Plt Count (150-450) K/mm3 MPV (6-9.5) fl Gran % (36.0-66.0) % Eos # (Auto) (0-0.5) Absolute Lymphs (auto) (1.0-4.6) Absolute Monos (auto) (0.0-1.3) Lymphocytes % (24.0-44.0) % Monocytes % (0.0-12.0) % Eosinophils % (0.00-5.0) % Basophils % (0.0-0.4) % Absolute Granulocytes (1.4-6.9) Basophils # (0-0.4) Sodium (137-145) mmol/L Potassium (3.5-5.1) mmol/L Chloride (98-107) mmol/L Carbon Dioxide (22-30) mmol/L Anion Gap (5-15) MEQ/L BUN (7-17) mg/dL Creatinine (0.52-1.04) mg/dL Estimated GFR ML/MIN Glucose (74-106) mg/dL Hemoglobin A1c (4.5-6.0) % Calcium (8.4-10.2) mg/dL Total Bilirubin (0.2-1.3) mg/dL AST (14-36) U/L ALT (0-35) U/L Alkaline Phosphatase (38-126) U/L NT-Pro-B Natriuret Pep (0-900) pg/mL Serum Total Protein (6.3-8.2) g/dL Albumin (3.5-5.0) g/dL Urine Color YELLOW (YELLOW) Urine Appearance SLIGHTLY CLOUDY (CLEAR) Urine pH 5.0 (5-6) Ur Specific Bucks 1.030 (1.005-1.025) Urine Protein NEGATIVE (Negative) Urine Ketones TRACE (NEGATIVE) Urine Blood NEGATIVE (0-5) [place]/ul Urine Nitrite NEGATIVE (NEGATIVE) Urine Bilirubin NEGATIVE (NEGATIVE) Urine Urobilinogen NEGATIVE (0-1) mg/dL Ur Leukocyte Esterase NEGATIVE (NEGATIVE) Urine WBC (Auto) 6-10 (0-5) /HPF Urine RBC (Auto) 0-2 (0-2) /HPF U Epithel Cells (Auto) RARE (FEW) /HPF Urine Bacteria (Auto) RARE (NEGATIVE) /HPF Urine Mucus (Auto) SLIGHT (NEGATIVE) /HPF Urine Glucose 150 (NEGATIVE) mg/dL Radiology Exams: Radiology Procedures Category Date Time Status CHEST 2 VIEWS (PA AND LAT) Routine Exams 04/27/19 15:00 Completed Assessment/Plan (1) COPD exacerbation Current Visit: Yes Status: Acute Assessment & Plan: On IV merrem day #2 (due to many allergies). Will add duonebs QID. Just not moving a lot of air this morning. Does seem less visibly SOB than in the office , but that may be due to the oxygen. Code(s): J44.1 - CHRONIC OBSTRUCTIVE PULMONARY DISEASE W (ACUTE) EXACERBATION (2) Otitis externa Current Visit: Yes Status: Acute Qualifiers: Otitis externa type: noninfectious Noninfectious otitis externa type: eczematoid Chronicity: chronic Laterality: left Qualified Code(s): H60.8X2 - Other otitis externa, left ear Assessment & Plan: Has chronic issues, there is no exudate currently but there is pain with traction on pinna and edema in the canal. Start with ear drops. Verbally ordered from pharmacy this morning. Code(s): H60.90 - UNSPECIFIED OTITIS EXTERNA, UNSPECIFIED EAR (3) Conjunctivitis Current Visit: Yes Status: Acute Qualifiers: Conjunctivitis type: acute Acute conjunctivitis type: unspecified Laterality: bilateral Qualified Code(s): H10.33 - Unspecified acute conjunctivitis, bilateral Assessment & Plan: Will try patanol drops first. If persistent exudate will change to abx. Code(s): H10.9 - UNSPECIFIED CONJUNCTIVITIS (4) Diabetes mellitus out of control Current Visit: No Status: Chronic Onset Date: ~08/05/18 Qualifiers: Diabetes mellitus type: type 2 Glycemic state: with hyperglycemia Qualified Code(s): E11.65 - Type 2 diabetes mellitus with hyperglycemia Assessment & Plan: Add lantus 20 units. She normally has an insulin pump but is out of supplies until Friday. Sees Dr. Myers. Her A1c was actually not too bad at 8.04. Code(s): E11.65 - TYPE 2 DIABETES MELLITUS WITH HYPERGLYCEMIA (5) Hypertension Current Visit: No Status: Chronic Qualifiers: Hypertension type: essential hypertension Code(s): I10 - ESSENTIAL (PRIMARY) HYPERTENSION
[2019-04-28] MEDS: OXYCODONE-ACETAMINOPHEN 10-325 PO PRN ×3 (08:29→19:50)
[2019-04-28] MEDS: ENOXAPARIN SODIUM SQ SCH (09:37)
[2019-04-28] MEDS: Lantus Insulin SQ SCH (09:37)
[2019-04-28] MEDS: ECOTRIN 81 MG PO SCH (09:39)
[2019-04-28] MEDS: hydroDIURIL 25 MG PO SCH (09:40)
[2019-04-28] MEDS: LYRICA 100MG PO SCH ×2 (09:41→21:10)
[2019-04-28] MEDS: Imdur 30 MG PO SCH (09:41)
[2019-04-28] MEDS: Pepcid 20 MG PO SCH ×2 (09:42→21:11)
[2019-04-28] MEDS: PRISTIQ ER PO SCH (09:42)
[2019-04-28] MEDS: PLAVIX 75 MG Tablet PO SCH (09:42)
[2019-04-28] MEDS: Singulair 10 MG PO SCH (09:43)
[2019-04-28] MEDS: Zestril 5 MG PO SCH (09:43)
[2019-04-28] MEDS: Protonix 40MG Tablet PO SCH (09:43)
[2019-04-28] MEDS: SYNTHROID 150 MCG PO SCH (09:43)
[2019-04-28] MEDS: Toprol Xl 50 MG PO SCH (09:43)
[2019-04-28] MEDS: CLARITIN 10 MG PO SCH (09:44)
[2019-04-28] MEDS: BUSPAR 5 MG PO SCH ×2 (09:45→21:09)
[2019-04-28] MEDS: Acidophilus TABLET PO SCH ×2 (09:45→21:11)
[2019-04-28] MEDS: CORTISPORIN EAR DROPS 10 ML SUSPENSION OT SCH ×2 (09:52→21:12)
[2019-04-28] MEDS: Patanol 1% OPHTHALMIC OP SCH ×2 (09:55→21:13)
[2019-04-28] MEDS ORDERED: NON-FORMULARY ITEM (Esomeprazole Magnesium [Nexium] 40 MG) PO SCH (10:00)
[2019-04-28] MEDS ORDERED: NON-FORMULARY ITEM (Desvenlafaxine Succinate [Pristiq] 100 MG) PO SCH (10:00)
[2019-04-28] MEDS: DUONEB 0.5-3 MG/3 ml Neb IH SCH ×3 (13:55→19:02)
[2019-04-28] MEDS: ZOCOR 20MG PO SCH (21:10)
[2019-04-28] MEDS: Cyclobenzaprine 10 MG PO SCH (21:11)
[2019-04-29] MEDS: DUONEB 0.5-3 MG/3 ml Neb IH SCH ×4 (00:36→19:43)
[2019-04-29] MEDS: OXYCODONE-ACETAMINOPHEN 10-325 PO PRN ×2 (03:47→20:31)
[2019-04-29] MEDS: MERREM 500MG 500 MG in Sodium Chloride 100ML MINI-BAG PLUS 100 ML IV SCH ×3 (06:19→22:24)
[2019-04-29] MEDS: Advair Hfa 230/21 Mcg COMMON CANISTER IH SCH ×2 (06:56→19:44)
[2019-04-29] MEDS: Lantus Insulin SQ SCH (08:14)
[2019-04-29] MEDS: NovoLOG Insulin SQ PRN ×3 (08:14→22:25)
[2019-04-29] MEDS: Sodium Chloride 0.9% 1000 ML 1,000 ML IV SCH (10:04)
[2019-04-29] MEDS: LYRICA 100MG PO SCH ×2 (10:04→22:24)
[2019-04-29] MEDS: Imdur 30 MG PO SCH (10:04)
[2019-04-29] MEDS: ENOXAPARIN SODIUM SQ SCH (10:05)
[2019-04-29] MEDS: Zestril 5 MG PO SCH (10:05)
[2019-04-29] MEDS: PRISTIQ ER PO SCH (10:05)
[2019-04-29] MEDS: CLARITIN 10 MG PO SCH (10:05)
[2019-04-29] MEDS: Pepcid 20 MG PO SCH ×2 (10:05→22:25)
[2019-04-29] MEDS: ECOTRIN 81 MG PO SCH (10:05)
[2019-04-29] MEDS: SYNTHROID 150 MCG PO SCH (10:05)
[2019-04-29] MEDS: BUSPAR 5 MG PO SCH ×2 (10:05→22:23)
[2019-04-29] MEDS: hydroDIURIL 25 MG PO SCH (10:05)
[2019-04-29] MEDS: Singulair 10 MG PO SCH (10:05)
[2019-04-29] MEDS: Protonix 40MG Tablet PO SCH (10:05)
[2019-04-29] MEDS: Toprol Xl 50 MG PO SCH (10:05)
[2019-04-29] MEDS: PLAVIX 75 MG Tablet PO SCH (10:05)
[2019-04-29] MEDS: CORTISPORIN EAR DROPS 10 ML SUSPENSION OT SCH ×2 (10:06→22:23)
[2019-04-29] MEDS: Acidophilus TABLET PO SCH ×2 (10:06→22:22)
[2019-04-29] MEDS: Patanol 1% OPHTHALMIC OP SCH ×2 (10:07→22:24)
--- NOTE | 2019-04-29 16:59 | PCM.NOTE ---
Date and Time: 04/29/19 1653 Subjective Assessment: Pt seen at 0830 this morning. She said her eyes were no better, in fact feeling worse, with exudate and diffuse pain. Her ear pain does seem better. Breathing better but feels tight. Having mild nausea. - Review of Systems Constitutional: Fever Respiratory: Cough Objective Exam General Appearance: no apparent distress, alert, obese Neurologic Exam: oriented x 3, cooperative Skin Exam: normal color, warm, dry, rash Eye Exam: eyes nml inspection (grossly) Ears, Nose, Throat Exam: moist mucous membranes Respiratory Exam: diminished breath sounds, prolonged expirations, No crackles/ rales, No rhonchi, No wheezing Cardiovascular Exam: regular rate/rhythm, normal heart sounds, No murmur OBJECTIVE DATA Vital Signs: Vital Signs - 24 hr Temp Pulse Resp BP Pulse Ox 04/29/19 16:31 98 F 89 20 129/58 96 04/29/19 13:52 78 18 98 04/29/19 12:00 97.6 F 84 17 156/68 95 04/29/19 08:00 97.5 F 76 16 136/62 96 04/29/19 07:30 97.5 F 76 16 136/62 96 04/29/19 06:58 97 H 18 98 04/29/19 04:05 98.0 F 75 20 135/60 96 04/29/19 00:36 74 15 98 04/28/19 23:49 97.5 F 66 20 116/54 98 04/28/19 20:22 97.9 F 71 18 109/55 97 04/28/19 19:02 70 18 97 Oxygen-Last 24 hours O2 Percentage 2 Liters = 28% O2 Percentage 3 Liters = 32% O2 Percentage 3 Liters = 32% O2 Percentage 3 Liters = 32% O2 Percentage 3 Liters = 32% O2 Percentage 3 Liters = 32% O2 Percentage 3 Liters = 32% Pain Assessment - Last Documented Pain Intensity 0 Pain Scale Used 0-10 Pain Scale Intake and Output: Intake & Output 04/27/19 04/28/19 04/29/19 04/30/19 11:59 11:59 11:59 11:59 Intake Total 3151 4904 360 Output Total 2200 5400 Balance 951 -496 360 Weight 141.1 kg Lab Results: Accuchecks Accucheck Value: 180 Accucheck Value: 247 Accucheck Value: 252 Accucheck Value: 278 Assessment/Plan (1) COPD exacerbation Current Visit: Yes Status: Acute Assessment & Plan: Breathing is better, and SOB at rest is markedly improved. Will continue to monitor for improvement. Code(s): J44.1 - CHRONIC OBSTRUCTIVE PULMONARY DISEASE W (ACUTE) EXACERBATION (2) Otitis externa Current Visit: Yes Status: Acute Qualifiers: Otitis externa type: noninfectious Noninfectious otitis externa type: eczematoid Chronicity: chronic Laterality: left Qualified Code(s): H60.8X2 - Other otitis externa, left ear Code(s): H60.90 - UNSPECIFIED OTITIS EXTERNA, UNSPECIFIED EAR (3) Conjunctivitis Current Visit: Yes Status: Acute Qualifiers: Conjunctivitis type: acute Acute conjunctivitis type: unspecified Laterality: bilateral Qualified Code(s): H10.33 - Unspecified acute conjunctivitis, bilateral Assessment & Plan: add antibiotic salve to eyes. Code(s): H10.9 - UNSPECIFIED CONJUNCTIVITIS (4) Diabetes mellitus out of control Current Visit: No Status: Chronic Onset Date: ~08/05/18 Qualifiers: Diabetes mellitus type: type 2 Glycemic state: with hyperglycemia Qualified Code(s): E11.65 - Type 2 diabetes mellitus with hyperglycemia Assessment & Plan: added 20 units lantus daily yesterday Code(s): E11.65 - TYPE 2 DIABETES MELLITUS WITH HYPERGLYCEMIA (5) Hypertension Current Visit: No Status: Chronic Qualifiers: Hypertension type: essential hypertension Code(s): I10 - ESSENTIAL (PRIMARY) HYPERTENSION
[2019-04-29] MEDS: Bacitracin EYE OINT OP SCH ×2 (17:52→22:22)
[2019-04-29] MEDS: Cyclobenzaprine 10 MG PO SCH (22:24)
[2019-04-29] MEDS: ZOCOR 20MG PO SCH (22:25)
[2019-04-30] MEDS: Sodium Chloride 0.9% 1000 ML 1,000 ML IV SCH ×2 (00:10→13:34)
[2019-04-30] MEDS: DUONEB 0.5-3 MG/3 ml Neb IH SCH ×4 (01:23→19:34)
[2019-04-30] MEDS: OXYCODONE-ACETAMINOPHEN 10-325 PO PRN ×3 (02:32→13:35)
[2019-04-30 05:09] LABS: BASOPHIL % 0.4 % (0.0-0.4); Basophil (Absolute #) 0.02 (0-0.4); Eosinophil (Absolute #) 0.17 (0-0.5); Granulocytes % 58.2 % (36.0-66.0); Hematocrit 32.2 % (35-47); Lymphocyte (Absolute #) 1.69 (1.0-4.6); Lymphocytes % 29.8 % (24.0-44.0); Mean Cell Volume 92.8 fl (78-100); Mean Corpuscular Hemoglobin 28.8 pg (26-32); Mean Corpuscular Hgb Concent. 31.1 g/dl (32-36); Mean Platelet Volume 11.6 fl (6-9.5); Monocyte (Absolute #) 0.49 (0.0-1.3); Monocytes % 8.6 % (0.0-12.0); Platelet Count 153 K/mm3 (150-450); Red Blood Count 3.47 M/mm3 (4.1-5.4); Red Cell Distribution Width 14.8 % (11.5-14.0); White Blood Count 5.7 K/mm3 (4.0-10.5)
[2019-04-30 05:31] LABS: ANION GAP 7.6 MEQ/L (5-15); BLOOD UREA NITROGEN 9 mg/dL (7-17); CHLORIDE 98 mmol/L (98-107); Calcium 8.1 mg/dL (8.4-10.2); Carbon Dioxide 39 mmol/L (22-30); Creatinine 1 0.72 mg/dL (0.52-1.04); Glucose 210 mg/dL (74-106); Potassium 3.9 mmol/L (3.5-5.1); SODIUM 140 mmol/L (137-145)
[2019-04-30] MEDS: MERREM 500MG 500 MG in Sodium Chloride 100ML MINI-BAG PLUS 100 ML IV SCH ×3 (06:28→21:52)
[2019-04-30] MEDS: Advair Hfa 230/21 Mcg COMMON CANISTER IH SCH ×2 (06:36→19:34)
[2019-04-30] MEDS: NovoLOG Insulin SQ PRN ×4 (07:40→21:25)
[2019-04-30] MEDS: Lantus Insulin SQ SCH (07:40)
--- NOTE | 2019-04-30 09:07 | PCM.NOTE ---
Date and Time: 04/30/19901 Subjective Assessment: Her breathing is gradually getting better. Still having discomfort in eyes, L> R. Dalton po well. urinating well. - Review of Systems Constitutional: No Fever Respiratory: Cough Objective Exam General Appearance: no apparent distress, alert Neurologic Exam: oriented x 3, cooperative Skin Exam: normal color, warm, dry, No rash Ears, Nose, Throat Exam: moist mucous membranes, other (L conjunctiva with erythema, no exudates bilat) Respiratory Exam: diminished breath sounds, prolonged expirations, No crackles/ rales, No rhonchi, No wheezing Cardiovascular Exam: regular rate/rhythm, normal heart sounds, No murmur Extremity Exam: swelling (trace pretibial edema) OBJECTIVE DATA Vital Signs: Vital Signs - 24 hr Temp Pulse Resp BP Pulse Ox 04/30/19 07:45 98.1 F 82 20 135/62 93 L 04/30/19 06:43 72 18 97 04/30/19 04:00 98.1 F 82 20 124/61 97 04/30/19 01:24 80 17 92 L 04/30/19 00:00 98.2 F 78 20 140/63 97 04/29/19 20:05 98.4 F 80 20 137/76 97 04/29/19 19:47 80 20 97 04/29/19 16:31 98 F 89 20 129/58 96 04/29/19 13:52 78 18 98 04/29/19 12:00 97.6 F 84 17 156/68 95 Oxygen-Last 24 hours O2 Percentage 3 Liters = 32% O2 Percentage 3 Liters = 32% O2 Percentage 3 Liters = 32% O2 Percentage 3 Liters = 32% O2 Percentage 2 Liters = 28% O2 Percentage 3 Liters = 32% Pain Assessment - Last Documented Pain Intensity 8 Pain Scale Used 0-10 Pain Scale Intake and Output: Intake & Output 04/27/19 04/28/19 04/29/19 04/30/19 11:59 11:59 11:59 11:59 Intake Total 3151 4904 4149 Output Total 2200 5400 3850 Balance 951 -076 299 Weight 141.1 kg Lab Results: Accuchecks Date 04/30/19 Accucheck Value: 210 Accucheck Value: 309 Accucheck Value: 180 Accucheck Value: 247 Lab Results-Last 24 Hours 04/30/19 04/30/19 Range/Units 05:07 05:17 WBC 5.7 (4.0-10.5) K/mm3 RBC 3.47 L (4.1-5.4) M/mm3 Hgb 10.0 L (12.0-16.0) gm/dl Hct 32.2 L (35-47) % MCV 92.8 (78-100) fl MCH 28.8 (26-32) pg MCHC 31.1 L (32-36) g/dl RDW 14.8 H (11.5-14.0) % Plt Count 153 (150-450) K/mm3 MPV 11.6 H (6-9.5) fl Gran % 58.2 (36.0-66.0) % Eos # (Auto) 0.17 (0-0.5) Absolute Lymphs (auto) 1.69 (1.0-4.6) Absolute Monos (auto) 0.49 (0.0-1.3) Lymphocytes % 29.8 (24.0-44.0) % Monocytes % 8.6 (0.0-12.0) % Eosinophils % 3.0 (0.00-5.0) % Basophils % 0.4 (0.0-0.4) % Absolute Granulocytes 3.30 (1.4-6.9) Basophils # 0.02 (0-0.4) Sodium 140 (137-145) mmol/L Potassium 3.9 (3.5-5.1) mmol/L Chloride 98 (98-107) mmol/L Carbon Dioxide 39 H (22-30) mmol/L Anion Gap 7.6 (5-15) MEQ/L BUN 9 (7-17) mg/dL Creatinine 0.72 (0.52-1.04) mg/dL Estimated GFR > 60.0 ML/MIN Glucose 210 H (74-106) mg/dL Calcium 8.1 L (8.4-10.2) mg/dL Assessment/Plan (1) COPD exacerbation Current Visit: Yes Status: Acute Assessment & Plan: overall she is looking better. continue meropenem Code(s): J44.1 - CHRONIC OBSTRUCTIVE PULMONARY DISEASE W (ACUTE) EXACERBATION (2) Otitis externa Current Visit: Yes Status: Acute Qualifiers: Otitis externa type: noninfectious Noninfectious otitis externa type: eczematoid Chronicity: chronic Laterality: left Qualified Code(s): H60.8X2 - Other otitis externa, left ear Code(s): H60.90 - UNSPECIFIED OTITIS EXTERNA, UNSPECIFIED EAR (3) Conjunctivitis Current Visit: Yes Status: Acute Qualifiers: Conjunctivitis type: acute Acute conjunctivitis type: unspecified Laterality: bilateral Qualified Code(s): H10.33 - Unspecified acute conjunctivitis, bilateral Code(s): H10.9 - UNSPECIFIED CONJUNCTIVITIS (4) Diabetes mellitus out of control Current Visit: No Status: Chronic Onset Date: ~08/05/18 Qualifiers: Diabetes mellitus type: type 2 Glycemic state: with hyperglycemia Qualified Code(s): E11.65 - Type 2 diabetes mellitus with hyperglycemia Assessment & Plan: on Lantus 20 units daily Code(s): E11.65 - TYPE 2 DIABETES MELLITUS WITH HYPERGLYCEMIA (5) Hypertension Current Visit: No Status: Chronic Qualifiers: Hypertension type: essential hypertension Code(s): I10 - ESSENTIAL (PRIMARY) HYPERTENSION
[2019-04-30] MEDS: LYRICA 100MG PO SCH ×2 (09:21→21:24)
[2019-04-30] MEDS: BUSPAR 5 MG PO SCH ×2 (09:21→21:23)
[2019-04-30] MEDS: Protonix 40MG Tablet PO SCH (09:22)
[2019-04-30] MEDS: hydroDIURIL 25 MG PO SCH (09:22)
[2019-04-30] MEDS: Imdur 30 MG PO SCH (09:22)
[2019-04-30] MEDS: Zestril 5 MG PO SCH (09:22)
[2019-04-30] MEDS: Pepcid 20 MG PO SCH ×2 (09:22→21:24)
[2019-04-30] MEDS: SYNTHROID 150 MCG PO SCH (09:22)
[2019-04-30] MEDS: Singulair 10 MG PO SCH (09:22)
[2019-04-30] MEDS: PRISTIQ ER PO SCH (09:22)
[2019-04-30] MEDS: CLARITIN 10 MG PO SCH (09:22)
[2019-04-30] MEDS: ECOTRIN 81 MG PO SCH (09:22)
[2019-04-30] MEDS: PLAVIX 75 MG Tablet PO SCH (09:23)
[2019-04-30] MEDS: Toprol Xl 50 MG PO SCH (09:23)
[2019-04-30] MEDS: ENOXAPARIN SODIUM SQ SCH (09:23)
[2019-04-30] MEDS: Patanol 1% OPHTHALMIC OP SCH ×2 (09:24→21:27)
[2019-04-30] MEDS: CORTISPORIN EAR DROPS 10 ML SUSPENSION OT SCH ×2 (09:26→21:28)
[2019-04-30] MEDS: Bacitracin EYE OINT OP SCH ×4 (09:27→21:29)
[2019-04-30] MEDS: Acidophilus TABLET PO SCH ×2 (09:31→21:23)
[2019-04-30] MEDS: ZOCOR 20MG PO SCH (21:24)
[2019-04-30] MEDS: Cyclobenzaprine 10 MG PO SCH (21:24)
[2019-04-30] MEDS: Zofran 4 MG/2 ML VIAL IV PRN (21:25)
[2019-05-01] MEDS: DUONEB 0.5-3 MG/3 ml Neb IH SCH ×4 (01:17→19:02)
[2019-05-01] MEDS: Sodium Chloride 0.9% 1000 ML 1,000 ML IV SCH ×2 (03:43→17:33)
[2019-05-01] MEDS: OXYCODONE-ACETAMINOPHEN 10-325 PO PRN ×4 (04:01→23:14)
[2019-05-01] MEDS: MERREM 500MG 500 MG in Sodium Chloride 100ML MINI-BAG PLUS 100 ML IV SCH ×3 (04:01→22:03)
[2019-05-01] MEDS: Zofran 4 MG/2 ML VIAL IV PRN ×3 (04:03→23:14)
[2019-05-01] MEDS: Advair Hfa 230/21 Mcg COMMON CANISTER IH SCH ×2 (06:27→19:03)
[2019-05-01] MEDS: BUSPAR 5 MG PO SCH ×2 (08:23→22:03)
[2019-05-01] MEDS: hydroDIURIL 25 MG PO SCH (08:24)
[2019-05-01] MEDS: PRISTIQ ER PO SCH (08:24)
[2019-05-01] MEDS: Imdur 30 MG PO SCH (08:24)
[2019-05-01] MEDS: LYRICA 100MG PO SCH ×2 (08:26→22:03)
[2019-05-01] MEDS: CLARITIN 10 MG PO SCH (08:26)
[2019-05-01] MEDS: PLAVIX 75 MG Tablet PO SCH (08:26)
[2019-05-01] MEDS: Singulair 10 MG PO SCH (08:27)
[2019-05-01] MEDS: Zestril 5 MG PO SCH (08:27)
[2019-05-01] MEDS: Pepcid 20 MG PO SCH ×2 (08:27→22:03)
[2019-05-01] MEDS: Protonix 40MG Tablet PO SCH (08:27)
[2019-05-01] MEDS: ENOXAPARIN SODIUM SQ SCH (08:27)
[2019-05-01] MEDS: SYNTHROID 150 MCG PO SCH (08:27)
[2019-05-01] MEDS: ECOTRIN 81 MG PO SCH (08:27)
[2019-05-01] MEDS: Acidophilus TABLET PO SCH ×2 (08:27→22:03)
[2019-05-01] MEDS: Lantus Insulin SQ SCH (08:28)
[2019-05-01] MEDS: Toprol Xl 50 MG PO SCH (08:28)
[2019-05-01] MEDS: NovoLOG Insulin SQ PRN ×4 (08:28→22:04)
[2019-05-01] MEDS: Bacitracin EYE OINT OP SCH ×4 (08:28→22:05)
[2019-05-01] MEDS: CORTISPORIN EAR DROPS 10 ML SUSPENSION OT SCH ×2 (08:33→22:06)
[2019-05-01] MEDS: Patanol 1% OPHTHALMIC OP SCH ×2 (08:35→22:07)
--- NOTE | 2019-05-01 11:17 | PCM.NOTE ---
Date and Time: 05/01/19 1113 Subjective Assessment: She is not feeling good but can't pinpoint why. Her breathing is better but still not at baseline. Her L eye feels just a little better. L ear is much better. Dalton po. - Review of Systems Constitutional: No Fever Respiratory: Cough, Short Of Breath Objective Exam General Appearance: no apparent distress, other (sleeping initially but wakes to voice) Neurologic Exam: alert, cooperative Skin Exam: normal color, warm, dry, No rash Respiratory Exam: diminished breath sounds, prolonged expirations, No crackles/ rales, No rhonchi, No wheezing Cardiovascular Exam: regular rate/rhythm, normal heart sounds, No murmur Gastrointestinal/Abdomen Exam: soft, normal bowel sounds Extremity Exam: No pedal edema, No swelling Back Exam: normal inspection, No rash OBJECTIVE DATA Vital Signs: Vital Signs - 24 hr Temp Pulse Resp BP Pulse Ox 05/01/19 07:28 97.5 F 76 18 121/58 97 05/01/19 06:28 76 18 97 05/01/19 04:33 97.7 F 93 H 20 174/72 94 L 05/01/19 01:18 61 18 98 04/30/19 23:58 98.2 F 70 18 130/62 96 04/30/19 20:51 97.6 F 75 19 143/65 97 04/30/19 19:35 96 04/30/19 17:45 98.2 F 98 H 20 131/70 96 04/30/19 12:40 88 20 85 L 04/30/19 12:00 97.6 F 78 18 113/51 96 Oxygen-Last 24 hours O2 Percentage 3 Liters = 32% O2 Percentage 3 Liters = 32% O2 Percentage 3 Liters = 32% O2 Percentage 3 Liters = 32% O2 Percentage 3 Liters = 32% O2 Percentage 3 Liters = 32% Pain Assessment - Last Documented Pain Intensity 8 Pain Scale Used 0-10 Pain Scale Intake and Output: Intake & Output 04/28/19 04/29/19 04/30/19 05/01/19 11:59 11:59 11:59 11:59 Intake Total 3151 4904 4149 5327 Output Total 2200 5400 4050 Balance 951 020 08 8252 Weight 141.1 kg 141.1 kg Lab Results: Accuchecks Date 04/30/19 Date 04/30/19 Date 04/30/19 Time 22:00 Time 16:30 Time 11:30 Accucheck Value: 283 Accucheck Value: 217 Accucheck Value: 297 Assessment/Plan (1) COPD exacerbation Current Visit: Yes Status: Acute Assessment & Plan: Slowly improving. On day #5 of meropenem. Expect her to be on 7-14 days of merrem depending on her clinical status. Code(s): J44.1 - CHRONIC OBSTRUCTIVE PULMONARY DISEASE W (ACUTE) EXACERBATION (2) Otitis externa Current Visit: Yes Status: Acute Qualifiers: Otitis externa type: noninfectious Noninfectious otitis externa type: eczematoid Chronicity: chronic Laterality: left Qualified Code(s): H60.8X2 - Other otitis externa, left ear Assessment & Plan: improved Code(s): H60.90 - UNSPECIFIED OTITIS EXTERNA, UNSPECIFIED EAR (3) Conjunctivitis Current Visit: Yes Status: Acute Qualifiers: Conjunctivitis type: acute Acute conjunctivitis type: unspecified Laterality: bilateral Qualified Code(s): H10.33 - Unspecified acute conjunctivitis, bilateral Assessment & Plan: on eye ointment, antibacterial. Code(s): H10.9 - UNSPECIFIED CONJUNCTIVITIS (4) Diabetes mellitus out of control Current Visit: No Status: Chronic Onset Date: ~08/05/18 Qualifiers: Diabetes mellitus type: type 2 Glycemic state: with hyperglycemia Qualified Code(s): E11.65 - Type 2 diabetes mellitus with hyperglycemia Assessment & Plan: increased lantus to 25 units/d. Code(s): E11.65 - TYPE 2 DIABETES MELLITUS WITH HYPERGLYCEMIA (5) Hypertension Current Visit: No Status: Chronic Qualifiers: Hypertension type: essential hypertension Code(s): I10 - ESSENTIAL (PRIMARY) HYPERTENSION (6) DVT prophylaxis Current Visit: Yes Status: Acute Assessment & Plan: on lovenox 40mg SQ daily. Code(s): Z29.9 - ENCOUNTER FOR PROPHYLACTIC MEASURES, UNSPECIFIED
[2019-05-01] MEDS: Cyclobenzaprine 10 MG PO SCH (22:03)
[2019-05-01] MEDS: ZOCOR 20MG PO SCH (22:04)
[2019-05-02] MEDS: DUONEB 0.5-3 MG/3 ml Neb IH SCH ×4 (00:55→19:12)
[2019-05-02] MEDS: MERREM 500MG 500 MG in Sodium Chloride 100ML MINI-BAG PLUS 100 ML IV SCH ×3 (05:51→21:58)
[2019-05-02 06:18] LABS: BASOPHIL % 0.5 % (0.0-0.4); Basophil (Absolute #) 0.03 (0-0.4); Eosinophil % 2.1 % (0.00-5.0); Eosinophil (Absolute #) 0.14 (0-0.5); Granulocytes % 67.6 % (36.0-66.0); Hematocrit 32.7 % (35-47); Hemoglobin 9.8 gm/dl (12.0-16.0); Lymphocyte (Absolute #) 1.48 (1.0-4.6); Lymphocytes % 22.3 % (24.0-44.0); Mean Cell Volume 95.6 fl (78-100); Monocytes % 7.5 % (0.0-12.0); Platelet Count 157 K/mm3 (150-450); Red Blood Count 3.42 M/mm3 (4.1-5.4); Red Cell Distribution Width 15.3 % (11.5-14.0); White Blood Count 6.7 K/mm3 (4.0-10.5)
[2019-05-02 06:45] LABS: Mean Corpuscular Hemoglobin 28.6 pg (26-32)
[2019-05-02] MEDS: Advair Hfa 230/21 Mcg COMMON CANISTER IH SCH ×2 (06:47→19:14)
[2019-05-02 06:52] LABS: ANION GAP 7.4 MEQ/L (5-15); BLOOD UREA NITROGEN 12 mg/dL (7-17); CHLORIDE 97 mmol/L (98-107); Calcium 7.6 mg/dL (8.4-10.2); Carbon Dioxide 39 mmol/L (22-30); Creatinine 1 0.74 mg/dL (0.52-1.04); Glucose 186 mg/dL (74-106); Potassium 4.2 mmol/L (3.5-5.1); SODIUM 139 mmol/L (137-145)
[2019-05-02] MEDS: Lantus Insulin SQ SCH (07:55)
[2019-05-02] MEDS: BUSPAR 5 MG PO SCH ×2 (09:18→21:29)
[2019-05-02] MEDS: Acidophilus TABLET PO SCH ×2 (09:18→21:29)
[2019-05-02] MEDS: ECOTRIN 81 MG PO SCH (09:19)
[2019-05-02] MEDS: CLARITIN 10 MG PO SCH (09:19)
[2019-05-02] MEDS: ENOXAPARIN SODIUM SQ SCH (09:19)
[2019-05-02] MEDS: Imdur 30 MG PO SCH (09:20)
[2019-05-02] MEDS: hydroDIURIL 25 MG PO SCH (09:20)
[2019-05-02] MEDS: LYRICA 100MG PO SCH ×2 (09:20→21:29)
[2019-05-02] MEDS: Zestril 5 MG PO SCH (09:21)
[2019-05-02] MEDS: SYNTHROID 150 MCG PO SCH (09:21)
[2019-05-02] MEDS: PLAVIX 75 MG Tablet PO SCH (09:21)
[2019-05-02] MEDS: Toprol Xl 50 MG PO SCH (09:21)
[2019-05-02] MEDS: Protonix 40MG Tablet PO SCH (09:21)
[2019-05-02] MEDS: Singulair 10 MG PO SCH (09:21)
[2019-05-02] MEDS: Pepcid 20 MG PO SCH ×2 (09:22→21:30)
[2019-05-02] MEDS: PRISTIQ ER PO SCH (09:22)
[2019-05-02] MEDS: CORTISPORIN EAR DROPS 10 ML SUSPENSION OT SCH ×2 (09:28→21:34)
[2019-05-02] MEDS: Patanol 1% OPHTHALMIC OP SCH ×2 (09:30→21:33)
[2019-05-02] MEDS: Bacitracin EYE OINT OP SCH ×4 (09:31→21:31)
[2019-05-02] MEDS: NovoLOG Insulin SQ PRN ×2 (12:24→21:36)
[2019-05-02] MEDS: Sodium Chloride 0.9% 1000 ML 1,000 ML IV SCH (13:23)
[2019-05-02] MEDS: OXYCODONE-ACETAMINOPHEN 10-325 PO PRN ×2 (13:28→21:25)
[2019-05-02] MEDS: Zofran 4 MG/2 ML VIAL IV PRN ×3 (13:29→22:07)
--- NOTE | 2019-05-02 15:15 | PCM.NOTE ---
Date and Time: 05/02/19 1512 Subjective Assessment: Her breathing is better today! Still feeling generally under the weather. Her L eye is better but not back to baseline. [place] po. Was taking a nap when I entered her room today. - Review of Systems Constitutional: No Fever Abdominal/Gastrointestinal: No Vomiting Objective Exam General Appearance: no apparent distress (wakes to voice), alert, obese Neurologic Exam: oriented x 3, cooperative Skin Exam: normal color, warm, dry, No rash Eye Exam: eyes nml inspection Neck Exam: normal inspection, non-tender, No lymphadenopathy Respiratory Exam: lungs clear, diminished breath sounds, No crackles/rales, No rhonchi, No wheezing Cardiovascular Exam: regular rate/rhythm, normal heart sounds, No murmur Gastrointestinal/Abdomen Exam: soft, normal bowel sounds, No tenderness Extremity Exam: normal inspection, No pedal edema, No swelling OBJECTIVE DATA Vital Signs: Vital Signs - 24 hr Temp Pulse Resp BP Pulse Ox 05/02/19 11:54 98.2 F 87 18 124/58 96 05/02/19 07:54 98.4 F 87 20 115/51 97 05/02/19 06:48 87 20 97 05/02/19 04:00 97.7 F 81 20 130/60 96 05/02/19 00:55 70 20 96 05/01/19 23:37 97.8 F 70 20 128/68 96 05/01/19 21:00 98.9 F 83 16 117/56 94 L 05/01/19 19:05 72 18 92 L 05/01/19 16:53 98.4 F 75 18 105/51 96 Oxygen-Last 24 hours O2 Percentage 3 Liters = 32% O2 Percentage 3 Liters = 32% O2 Percentage 3 Liters = 32% O2 Percentage 3 Liters = 32% O2 Percentage 3 Liters = 32% Pain Assessment - Last Documented Pain Intensity 9 Pain Scale Used 0-10 Pain Scale Intake and Output: Intake & Output 04/30/19 05/01/19 05/02/19 05/03/19 11:59 11:59 11:59 11:59 Intake Total 4149 5327 4197 580 Output Total 4050 3100 Balance 99 5327 1097 580 Weight 141.1 kg Lab Results: Accuchecks Date 05/02/19 Date 05/02/19 Date 05/01/19 Date 05/01/19 Time 11:30 Time 07:50 Time 22:00 Time 02:54 Accucheck Value: 229 Accucheck Value: 189 Accucheck Value: 204 Lab Results-Last 24 Hours 05/02/19 05/02/19 Range/Units 05:37 05:37 WBC 6.7 (4.0-10.5) K/mm3 RBC 3.42 L (4.1-5.4) M/mm3 Hgb 9.8 L (12.0-16.0) gm/dl Hct 32.7 L (35-47) % MCV 95.6 (78-100) fl MCH 28.6 (26-32) pg MCHC 30.0 L (32-36) g/dl RDW 15.3 H (11.5-14.0) % Plt Count 157 (150-450) K/mm3 MPV 12.0 H (6-9.5) fl Gran % 67.6 H (36.0-66.0) % Eos # (Auto) 0.14 (0-0.5) Absolute Lymphs (auto) 1.48 (1.0-4.6) Absolute Monos (auto) 0.50 (0.0-1.3) Lymphocytes % 22.3 L (24.0-44.0) % Monocytes % 7.5 (0.0-12.0) % Eosinophils % 2.1 (0.00-5.0) % Basophils % 0.5 (0.0-0.4) % Absolute Granulocytes 4.50 (1.4-6.9) Basophils # 0.03 (0-0.4) Sodium 139 (137-145) mmol/L Potassium 4.2 (3.5-5.1) mmol/L Chloride 97 L (98-107) mmol/L Carbon Dioxide 39 H (22-30) mmol/L Anion Gap 7.4 (5-15) MEQ/L BUN 12 (7-17) mg/dL Creatinine 0.74 (0.52-1.04) mg/dL Estimated GFR > 60.0 ML/MIN Glucose 186 H (74-106) mg/dL Calcium 7.6 L (8.4-10.2) mg/dL Assessment/Plan (1) COPD exacerbation Current Visit: Yes Status: Acute Assessment & Plan: Improving. My plan is to finish 7d of randi and send her home tomorrow (today is day #6). Code(s): J44.1 - CHRONIC OBSTRUCTIVE PULMONARY DISEASE W (ACUTE) EXACERBATION (2) Otitis externa Current Visit: Yes Status: Acute Qualifiers: Otitis externa type: noninfectious Noninfectious otitis externa type: eczematoid Chronicity: chronic Laterality: left Qualified Code(s): H60.8X2 - Other otitis externa, left ear Assessment & Plan: much improved. Code(s): H60.90 - UNSPECIFIED OTITIS EXTERNA, UNSPECIFIED EAR (3) Conjunctivitis Current Visit: Yes Status: Acute Qualifiers: Conjunctivitis type: acute Acute conjunctivitis type: unspecified Laterality: bilateral Qualified Code(s): H10.33 - Unspecified acute conjunctivitis, bilateral Assessment & Plan: improving. She does have chronic issues with that L eye. Code(s): H10.9 - UNSPECIFIED CONJUNCTIVITIS (4) Diabetes mellitus out of control Current Visit: No Status: Chronic Onset Date: ~08/05/18 Qualifiers: Diabetes mellitus type: type 2 Glycemic state: with hyperglycemia Qualified Code(s): E11.65 - Type 2 diabetes mellitus with hyperglycemia Assessment & Plan: She will need to f/u with Dr. Myers - needs to resume her insulin pump when she returns home. Code(s): E11.65 - TYPE 2 DIABETES MELLITUS WITH HYPERGLYCEMIA (5) Hypertension Current Visit: No Status: Chronic Qualifiers: Hypertension type: essential hypertension Code(s): I10 - ESSENTIAL (PRIMARY) HYPERTENSION (6) DVT prophylaxis Current Visit: Yes Status: Acute Code(s): Z29.9 - ENCOUNTER FOR PROPHYLACTIC MEASURES, UNSPECIFIED (7) Anemia Current Visit: Yes Status: Acute Qualifiers: Anemia type: iron deficiency Iron deficiency anemia type: chronic blood loss Qualified Code(s): D50.0 - Iron deficiency anemia secondary to blood loss (chronic) Assessment & Plan: will check a hemoccult; initially hgb 11.7, then 10.0, now 9.8 (could be largely dilutional). Code(s): D64.9 - ANEMIA, UNSPECIFIED
[2019-05-02] MEDS: ZOCOR 20MG PO SCH (21:29)
[2019-05-02] MEDS: Cyclobenzaprine 10 MG PO SCH (21:29)
[2019-05-03] MEDS: DUONEB 0.5-3 MG/3 ml Neb IH SCH ×3 (01:06→12:45)
[2019-05-03] MEDS: Zofran 4 MG/2 ML VIAL IV PRN (03:29)
[2019-05-03] MEDS: OXYCODONE-ACETAMINOPHEN 10-325 PO PRN (03:33)
[2019-05-03] MEDS: Sodium Chloride 0.9% 1000 ML 1,000 ML IV SCH (04:42)
[2019-05-03] MEDS: MERREM 500MG 500 MG in Sodium Chloride 100ML MINI-BAG PLUS 100 ML IV SCH ×2 (05:34→14:12)
[2019-05-03] MEDS: Advair Hfa 230/21 Mcg COMMON CANISTER IH SCH (06:40)
[2019-05-03] MEDS: Lantus Insulin SQ SCH (08:23)
[2019-05-03] MEDS: NovoLOG Insulin SQ PRN ×2 (08:23→12:26)
--- NOTE | 2019-05-03 08:29 | PCM.DS ---
Discharge Summary Date of Admission: 04/29/19 08:00 Admitting Physician: LEORA CORMIER Primary Care Provider: LEORA CORMIER Allergies Allergies levofloxacin [From Levaquin] Allergy (Mild, Verified 08/03/18 11:29) red rash/burning when gievn IV cefaclor [From Ceclor] Allergy (Verified 08/03/18 11:29) SOB, HIVES ciprofloxacin [From Cipro] Allergy (Verified 08/03/18 11:29) ciprofloxacin HCl [From Cipro] Allergy (Verified 08/03/18 11:29) clarithromycin [From Biaxin] Allergy (Verified 08/03/18 11:29) diphenhydramine HCl [From Benadryl] Allergy (Verified 08/03/18 11:29) SOB HIVES erythromycin base [Erythromycin Base] Allergy (Verified 08/03/18 11:29) SOB HIVES Iodinated Contrast- Oral and IV Dye Allergy (Verified 12/19/18 19:45) iodine Allergy (Verified 08/03/18 11:29) SOB HIVES latex Allergy (Verified 08/03/18 11:29) SOB HIVES Macrolide Antibiotics Allergy (Verified 08/03/18 11:29) SBO HIVES Penicillins Allergy (Verified 08/03/18 11:29) Swelling of Face sulfamethoxazole [From Bactrim] Allergy (Verified 08/03/18 11:29) trimethoprim [From Bactrim] Allergy (Verified 08/03/18 11:29) melon Adverse Reaction (Severe, Verified 08/03/18 11:29) cantaloupe aspirin Adverse Reaction (Verified 08/03/18 11:29) ibuprofen Adverse Reaction (Verified 08/03/18 11:29) Hospital Summary - Hospital Course Hospital Course: Pt is a 68 yo female pt of mine from [facility] with DM on insuline pump, COPD, morbid obesity, CHF, GERD, depression, peripheral neuropathy, CAD, and OA who was admitted directly from office last week with COPD exacerbation. She c/o about a week of increased cough and drinking more fluids. She was also having L ear pain. She was directly admitted on IV meropenem due to many medication allergies. Her ear felt better within a few days (on ear gtts). She did develop bilateral eye exudate for which I tried patanol x 1d first; when it worsened I added bacitracin ophthalmic. It is slowly improving; she does have a hx of surgery on that L eye so I will get her in to the local eye doctor this week. Her breathing has slowly improved. Will send her home after her 2 pm dose of merrem (today is day #7) - no antibiotics at home. She will f/u with me in 1 week. She will resume her insulin pump and follow up with Dr. Myers as scheduled. - Vitals & Intake/Output Vital Signs: Vital Signs Temperature 98.2 F 05/03/19 07:30 Pulse Rate 75 05/03/19 07:30 Respiratory Rate 18 05/03/19 07:30 Blood Pressure 110/54 05/03/19 07:30 O2 Sat by Pulse Oximetry 96 05/03/19 07:30 Oxygen-Last Documented O2 Percentage 2 Liters = 28% Intake & Output: Intake & Output 04/30/19 05/01/19 05/02/19 05/03/19 11:59 11:59 11:59 11:59 Intake Total 4149 5327 4197 3562 Output Total 4050 3100 2250 Balance 99 5327 1097 1312 Weight 141.1 kg - Lab Result Diagrams: 05/02/19 05:37 05/02/19 05:37 Lab Results-Last 24 Hrs: Accuchecks Date 05/02/19 Date 05/02/19 Time 16:30 Time 11:30 Accucheck Value: 214 Accucheck Value: 170 Accucheck Value: 229 Micro Results-Entire Visit: Microbiology 04/27/19 19:00 Urine Culture - Final Urine, Void NO GROWTH Accuchecks Date 05/02/19 Date 05/02/19 Time 16:30 Time 11:30 Accucheck Value: 214 Accucheck Value: 170 Accucheck Value: 229 - Procedures and Test Procedures and Tests throughout Hospitalization: Therapy Orders & Screens 04/27/19 14:41 Oxygen Nasal Cannula 2 lpm Comment: O2 TO KEEP SATS 89-93% 04/27/19 16:45 OT Screen per Nursing Assess ONCE Comment: Protocol Order Physician Instructions: Greater than 3 points order OT Admission Screening Reason For Exam: Triggered on Admission Diagnosis: COPD exacerbation; otitis media Open Wound/Cellutlitis/Pressure Ulcers: No Acute Fx/ORIF/Change in wt bearing status: No Severe MUSCULOSKELETAL pain: No ADL Dysfunction: Yes Acute CVA w/Hemiparesis/Hemiplegia: No Decreased Functional Mobility/Strength: Yes Sprain/Strain: No Acute Post-op Mobility Dysfunction: No Total Points: 4 PT Screen per Nursing Assess ONCE Comment: Protocol Order Physician Instructions: Greater than 3 points order PT Admission Screenin Reason For Exam: Triggered on Admission Diagnosis: COPD exacerbation; otitis media Open Wound/Cellutlitis/Pressure Ulcers: No Acute Fx/ORIF/Change in wt bearing status: No Severe MUSCULOSKELETAL pain: No ADL Dysfunction: Yes Acute CVA w/Hemiparesis/Hemiplegia: No Decreased Functional Mobility/Strength: Yes Sprain/Strain: No Acute Post-op Mobility Dysfunction: No Total Points: 4 RT Screen per Nursing Assess ONCE Comment: Protocol Order Physician Instructions: Greater than 3 points order RT Admission Screen Reason For Exam: Triggered on Admission Diagnosis: COPD exacerbation; otitis media Diagnosis: COPD exacerbation; otitis media Pneumonia: No Home O2: Yes Asthma: Yes CHF: No Home CPAP/BIPAP: Yes: B[facility]ap @[facility] Home Nebs/MDI: Yes Total Points: 19 04/28/19 07:00 Respiratory Therapy Assessment DAILY Comment: Diagnosis: COPD exacerbation; otitis media 04/28/19 19:07 Peak Expiratory Flow Rate ONCE Comment: Reason For Exam: Diagnosis: COPD exacerbation; otitis media Discharge Exam General Appearance: no apparent distress, alert, obese Neurologic Exam: cooperative, normal mood/affect Eye Exam: eyes nml inspection Ears, Nose, Throat Exam: moist mucous membranes Respiratory Exam: lungs clear, diminished breath sounds, No crackles/rales, No rhonchi, No wheezing Cardiovascular Exam: regular rate/rhythm, normal heart sounds, No murmur Extremity Exam: swelling (tr LLE edema, none on R) Skin Exam: normal color, warm, dry, No rash Final Diagnosis/Problem List - Final Discharge Diagnosis/Problem (1) COPD exacerbation Current Visit: Yes Status: Acute Assessment & Plan: improved. OK to d/c to home. She finished 7d of IV meropenem; will not send her home on abx po due to her many allergies. Code(s): J44.1 - CHRONIC OBSTRUCTIVE PULMONARY DISEASE W (ACUTE) EXACERBATION (2) Otitis externa Current Visit: Yes Status: Resolved Code(s): H60.90 - UNSPECIFIED OTITIS EXTERNA, UNSPECIFIED EAR (3) Conjunctivitis Current Visit: Yes Status: Acute Assessment & Plan: f/u with ophtho this week Code(s): H10.9 - UNSPECIFIED CONJUNCTIVITIS (4) Diabetes mellitus out of control Current Visit: No Status: Chronic Onset Date: ~08/05/18 Assessment & Plan: resume insulin pump at home. F/u with Dr. Myers as scheduled. Code(s): E11.65 - TYPE 2 DIABETES MELLITUS WITH HYPERGLYCEMIA (5) Hypertension Current Visit: No Status: Chronic Code(s): I10 - ESSENTIAL (PRIMARY) HYPERTENSION (6) Anemia Current Visit: Yes Status: Chronic Code(s): D64.9 - ANEMIA, UNSPECIFIED - Discharge Disposition: Home, Self-Care Condition: Stable Prescriptions: New Bacitracin Opht 3.5 gm [Bacitracin EYE OINT] 0.1 gm OP QID #1 tube Continue Insulin Aspart [NovoLOG Insulin] 3.1 unit SQ UD Esomeprazole Magnesium [Nexium] 40 mg PO DAILY Atorvastatin Calcium [Lipitor 20MG Tablet] 80 mg PO HS Buspirone HCl 5 mg [Buspar 5 mg] 15 mg PO BID Cyclobenzaprine HCl [Flexeril] 10 mg PO HS Oxycodone HCl/Acetaminophen [Percocet 10-325 mg Tablet] 1 each PO Q4-6HPRN PRN PRN Reason: Pain Liraglutide [Victoza 2-Alcon] 18 mg SQ DAILY Ranitidine HCl [Zantac] 150 mg PO BID Loratadine 10 mg [Claritin 10 mg] 10 mg PO DAILY Pregabalin [Lyrica] 200 mg PO BID Desvenlafaxine Succinate [Pristiq] 100 mg PO DAILY Lisinopril 5 mg [Zestril 5 MG] 5 mg PO DAILY Albuterol Common Canister [Proventil Common Canister] 1 - 2 puff IH Q4- 6HPRN PRN PRN Reason: Shortness Of Breath Isosorbide Mononitrate 30 mg [Imdur 30 MG] 30 mg PO DAILY Hydrochlorothiazide 25 mg [hydroDIURIL 25 MG] 12.5 mg PO DAILY Trazodone HCl 50 mg [Desyrel 50 mg] 150 mg PO HSPRN PRN PRN Reason: Insomnia Montelukast Sodium [Singulair] 10 mg PO DAILY Metoprolol Succinate 50 mg PO DAILY Lactobacillus Acidophilus [Acidophilus TABLET] 1 tab PO BID #60 tablet Levothyroxine Sodium 150 Mcg [Synthroid 150 Mcg] 150 mcg PO DAILY Aspirin EC 81 mg [Ecotrin 81 mg] 81 mg PO DAILY Exenatide Microspheres [Bydureon Bcise] 2 mg SQ WEEKLY Nystatin Powder 15 gm [Nystop Powder 15 gm] 1 applic TOP BID Clopidogrel Bisulfate 75 mg [PLAVIX 75 MG Tablet] 75 mg PO DAILY Fluticasone/Salmeterol 500/50* [Advair 500-50 Diskus] 1 each IH BID Cholecalciferol (Vitamin D3) [Vitamin D3] 50,000 unit PO UD Azelastine HCl 1 drop .ROUTE BID Follow up with: LEORA CORMIER [Primary Care Provider] - 1 Week
[2019-05-03] MEDS: ECOTRIN 81 MG PO SCH (08:46)
[2019-05-03] MEDS: CLARITIN 10 MG PO SCH (08:47)
[2019-05-03] MEDS: hydroDIURIL 25 MG PO SCH (08:47)
[2019-05-03] MEDS: PRISTIQ ER PO SCH (08:47)
[2019-05-03] MEDS: LYRICA 100MG PO SCH (08:47)
[2019-05-03] MEDS: BUSPAR 5 MG PO SCH (08:47)
[2019-05-03] MEDS: Imdur 30 MG PO SCH (08:48)
[2019-05-03] MEDS: Pepcid 20 MG PO SCH (08:48)
[2019-05-03] MEDS: PLAVIX 75 MG Tablet PO SCH (08:48)
[2019-05-03] MEDS: Zestril 5 MG PO SCH (08:48)
[2019-05-03] MEDS: Acidophilus TABLET PO SCH (08:48)
[2019-05-03] MEDS: ENOXAPARIN SODIUM SQ SCH (08:48)
[2019-05-03] MEDS: Toprol Xl 50 MG PO SCH (08:48)
[2019-05-03] MEDS: Singulair 10 MG PO SCH (08:48)
[2019-05-03] MEDS: Protonix 40MG Tablet PO SCH (08:48)
[2019-05-03] MEDS: SYNTHROID 150 MCG PO SCH (08:48)
[2019-05-03] MEDS: CORTISPORIN EAR DROPS 10 ML SUSPENSION OT SCH (08:49)
[2019-05-03] MEDS: Patanol 1% OPHTHALMIC OP SCH (08:50)
[2019-05-03] MEDS: Bacitracin EYE OINT OP SCH ×2 (08:50→12:27)
[2019-05-03 16:12] VITALS: BP 118/56; PULSE 68; O2SAT 96
== END 2019-05-03 17:25 | disposition home or self-care (01) | DRG 191 ==
LOC: MED SURG 08:00 → OBSVTOIN 04-29 08:00
PROVIDERS: ADMIT Family Medicine; ATTEND Family Medicine
DX: J44.1 Chronic obstructive pulmonary disease with (acute) exacerbation (principal); Z68.43 Body mass index [BMI] 50.0-59.9, adult; E66.01 Morbid (severe) obesity due to excess calories; I50.9 Heart failure, unspecified; K21.9 Gastro-esophageal reflux disease without esophagitis; G62.9 Polyneuropathy, unspecified; I25.10 Atherosclerotic heart disease of native coronary artery without angina pectoris; M19.90 Unspecified osteoarthritis, unspecified site; H60.92 Unspecified otitis externa, left ear; E11.65 Type 2 diabetes mellitus with hyperglycemia; I10 Essential (primary) hypertension; D64.9 Anemia, unspecified; Z79.01 Long term (current) use of anticoagulants; Z79.899 Other long term (current) drug therapy; H10.33 Unspecified acute conjunctivitis, bilateral
CPT/HCPCS: 36415; 71046; 80048; 80053; 81001; 82962; 83036; 83880; 85025; 87086; 94150; 94640; 94760; G0378; J1650; J2405; A9270-GY

== ENCOUNTER 2019-11-01 19:43 | Inpatient (IN) | payer MEDICARE ==
--- NOTE | 2019-11-01 20:33 | ERPHSYRPT ---
- History of Present Illness Time Seen by Provider: 11/01/19 20:15 Source: patient, family Patient Subjective Stated Complaint: pt c/o cough, fever, headache, sob Triage Nursing Assessment: pt c/o cough, headache, fever and sob. Afebrile at this time, 98.7. Pt has rattley, moist cough with thick green expectorant. Lungs diminished with rales. Heart tones reg, abd lg, obese with active bs x4 quad, nontender. Pt c/o low back pain, pressure with urination. Physician History: This is a 69-year-old obese white female who has a history of diabetes and asthma. She presents with a 3 to 4-day history of worsening cough, shortness of breath and headache. Patient also complains of some bilateral flank pain as well. Her symptoms have been worsening. Patient has had similar symptoms like this in the past and has had to be admitted for this. Patient's primary care physician is Dr. Jiang. Patient denies chest pain, she denies nausea vomiting and diarrhea. Does not have abdominal pain. Timing/Duration: day(s) (3 to 4) Cough Quality/Degree: productive cough (Greenish sputum), sputum Possible Cause: occasional episodes Modifying Factors: Improves With: coughing Associated Symptoms: cough, headache, shortness of breath (Mild), No fever, No chest pain/soreness Allergies/Adverse Reactions: levofloxacin [From Levaquin] Allergy (Mild, Verified 08/03/18 11:29) red rash/burning when gievn IV cefaclor [From Ceclor] Allergy (Verified 08/03/18 11:29) SOB, HIVES ciprofloxacin [From Cipro] Allergy (Verified 08/03/18 11:29) ciprofloxacin HCl [From Cipro] Allergy (Verified 08/03/18 11:29) clarithromycin [From Biaxin] Allergy (Verified 08/03/18 11:29) diphenhydramine HCl [From Benadryl] Allergy (Verified 08/03/18 11:29) SOB HIVES erythromycin base [Erythromycin Base] Allergy (Verified 08/03/18 11:29) SOB HIVES Iodinated Contrast Media [Iodinated Contrast- Oral and IV Dye] Allergy ( Verified 12/19/18 19:45) iodine Allergy (Verified 08/03/18 11:29) SOB HIVES latex Allergy (Verified 08/03/18 11:29) SOB HIVES Macrolide Antibiotics Allergy (Verified 08/03/18 11:29) SBO HIVES Penicillins Allergy (Verified 08/03/18 11:29) Swelling of Face sulfamethoxazole [From Bactrim] Allergy (Verified 08/03/18 11:29) trimethoprim [From Bactrim] Allergy (Verified 08/03/18 11:29) melon Adverse Reaction (Severe, Verified 08/03/18 11:29) cantaloupe aspirin Adverse Reaction (Verified 08/03/18 11:29) ibuprofen Adverse Reaction (Verified 08/03/18 11:29) Home Medications: Atorvastatin Calcium [Lipitor 20MG Tablet] 80 mg PO HS 02/01/14 [History] Buspirone HCl 5 mg [Buspar 5 mg] 15 mg PO BID 02/01/14 [History] Cyclobenzaprine HCl [Flexeril] 10 mg PO HS 02/01/14 [History] Esomeprazole Magnesium [Nexium] 40 mg PO DAILY 02/01/14 [History] Insulin Aspart [NovoLOG Insulin] 3.1 unit SQ UD 02/01/14 [History] Liraglutide [Victoza 2-Alcon] 18 mg SQ DAILY 02/01/14 [History] Oxycodone HCl/Acetaminophen [Percocet 10-325 mg Tablet] 1 each PO Q4-6HPRN PRN 02/01/14 [History] Desvenlafaxine Succinate [Pristiq] 100 mg PO DAILY 07/15/14 [History] Loratadine 10 mg [Claritin 10 mg] 10 mg PO DAILY 07/15/14 [History] Pregabalin [Lyrica] 200 mg PO BID 07/15/14 [History] Ranitidine HCl [Zantac] 150 mg PO BID 07/15/14 [History] Albuterol Common Canister [Ventolin Common Canister] 1 - 2 puff IH Q4- 6HPRN PRN 11/04/14 [History] Lisinopril 5 mg [Zestril 5 MG] 5 mg PO DAILY 11/04/14 [History] Isosorbide Mononitrate 30 mg [Imdur 30 MG] 30 mg PO DAILY 08/19/15 [History ] Metoprolol Succinate 50 mg PO DAILY 09/06/16 [History] Montelukast Sodium [Singulair] 10 mg PO DAILY 09/06/16 [History] Trazodone HCl 50 mg [Desyrel 50 mg] 150 mg PO HSPRN PRN 09/06/16 [History] Aspirin EC 81 mg [Ecotrin 81 mg] 81 mg PO DAILY 08/03/18 [History] Cholecalciferol (Vitamin D3) [Vitamin D3] 50,000 unit PO UD 08/03/18 [History] Clopidogrel Bisulfate 75 mg [PLAVIX 75 MG Tablet] 75 mg PO DAILY 08/03/18 [History] Exenatide Microspheres [Bydureon Bcise] 2 mg SQ WEEKLY 08/03/18 [History] Fluticasone/Salmeterol 500/50* [Advair 500-50 Diskus] 1 each IH BID 08/03/18 [History] Levothyroxine Sodium 150 Mcg [Synthroid 150 Mcg] 150 mcg PO DAILY 08/03/18 [History] Nystatin Powder 15 gm [Nystop Powder 15 gm] 1 applic TOP BID 08/03/18 [ History] Azelastine HCl 1 drop .ROUTE BID 04/27/19 [History] Hx Tetanus, Diphtheria Vaccination/Date Given: Yes Hx Influenza Vaccination/Date Given: Yes Hx Pneumococcal Vaccination/Date Given: Yes Immunizations Up to Date: Yes - Review of Systems Constitutional: No Symptoms Eyes: No Symptoms Ears, Nose, & Throat: No Symptoms Respiratory: Cough, Dyspnea Cardiac: No Symptoms Abdominal/Gastrointestinal: No Symptoms Genitourinary Symptoms: No Symptoms Musculoskeletal: No Symptoms Skin: No Symptoms Neurological: No Symptoms Psychological: No Symptoms Endocrine: No Symptoms Hematologic/Lymphatic: No Symptoms Immunological/Allergic: No Symptoms All Other Systems: Reviewed and Negative - Past Medical History Pertinent Past Medical History: Yes Neurological History: Stroke ENT History: Cataracts Cardiac History: Coronary Artery Disease, High Cholesterol, Hypertension, Myocardial Infarction (VT), Other Respiratory History: Asthma, COPD, Pneumonia, Sleep Apnea Endocrine Medical History: Diabetes Type II Musculoskeletal History: No Pertinent History GI Medical History: No Pertinent History History: No Pertinent History Psycho-Social History: No Pertinent History Female Reproductive Disorders: No Pertinent History Other Medical History: Rapid heart rate at times; lump in right breast, biopsy non-cancerous, "stroke" in left eye - Past Surgical History Past Surgical History: Yes Neuro Surgical History: No Pertinent History Cardiac: Cardiac Stent Respiratory: No Pertinent History Gastrointestinal: Bowel Surgery, Cholecystectomy, Hernia Repair Genitourinary: No Pertinent History Musculoskeletal: No Pertinent History Female Surgical History: Tubal Ligation, Other Other Surgical History: Breast biopsy, 5 STENTS, CLOT REMOVED FROM ARTERY ON LEFT NECK/STROKE; "part of my bowel was taken out"; - Social History Smoking Status: Never smoker Exposure to second hand smoke: Yes Drug Use: none Patient Lives Alone: No - Female History Hx Now: No - Nursing Vital Signs Nursing Vital Signs: Initial Vital Signs Temperature 98.7 F 11/01/19 19:52 Pulse Rate 108 H 11/01/19 19:52 Respiratory Rate 22 11/01/19 19:52 Blood Pressure 152/83 11/01/19 19:52 O2 Sat by Pulse Oximetry 95 11/01/19 19:52 Pain Scale Pain Intensity 10 - Physical Exam General Appearance: mild distress, alert, anxiety, obese Eye Exam: PERRL/EOMI, eyes nml inspection Ears, Nose, Throat Exam: normal ENT inspection, moist mucous membranes Neck Exam: normal inspection, non-tender, supple, full range of motion Respiratory Exam: airway intact, rhonchi, No chest tenderness Cardiovascular Exam: tachycardia Gastrointestinal/Abdomen Exam: soft, normal bowel sounds, No tenderness Pelvic Exam: not done Rectal Exam: not done Extremity Exam: normal inspection, normal range of motion, pelvis stable Neurologic Exam: alert, oriented x 3, cooperative, site acquisition specialist II-XII nml as tested Skin Exam: normal color, warm, dry Lymphatic Exam: No adenopathy SpO2 Interpretation: normal SpO2: 95 O2 Delivery: Room Air - Course Nursing assessment & vital signs reviewed: Yes Ordered Tests: Active Orders 24 hr Category Date Time Status IV Insertion STAT Care 11/01/19 20:33 Active Pulse Oximetry (ED) STAT Care 11/01/19 20:33 Active CHEST 1 VIEW (PORTABLE) Stat Exams 11/01/19 20:33 Taken BLOOD CULTURE Stat Lab 11/01/19 21:00 Received CBC W DIFF Stat Lab 11/01/19 20:53 Completed CMP Stat Lab 11/01/19 20:53 Completed Lactic Acid Stat Lab 11/01/19 20:51 Completed Reynolds Screen Stat Lab 11/01/19 20:53 Completed UA W/RFX UR CULTURE Stat Lab 11/01/19 20:33 Uncollected Transfer Order Routine Transfer 11/01/19 Ordered Medication Summary Generic Name Dose Route Start Last Admin Trade Name Freq PRN Reason Stop Dose Admin Sodium Chloride 1,000 mls @ 100 mls/hr 11/01/19 20:45 11/01/19 21:19 Sodium Chloride 0.9% 1000 Ml IV 12/01/19 20:44 100 mls/hr .Q10H SUZETTE Administration Meropenem 1 g/ Sodium Chloride 100 mls @ 200 mls/hr 11/01/19 21:51 11/01/19 21:55 IV 11/01/19 22:20 200 mls/hr STAT ONE Administration Discontinued Medications Generic Name Dose Route Start Last Admin Trade Name Freq PRN Reason Stop Dose Admin Hydrocodone Bitart/Acetaminophen 10 ml 11/01/19 21:29 11/01/19 21:36 Hydrocodone-Acetamin 2.5-108/5 Ml Solution PO 11/01/19 21:30 10 ml STAT STA Administration Hydrocodone Bitart/Acetaminophen Confirm 11/01/19 21:34 Hydrocodone-Acetamin 2.5-108/5 Ml Solution Administered 11/01/19 21:35 Dose 10 ml .ROUTE .STK-MED ONE Sodium Chloride Confirm 11/01/19 21:55 Sodium Chloride 0.9% 100 Ml Ivpb Administered 11/01/19 21:56 Dose 100 mls @ ud IV .STK-MED ONE Meropenem Confirm 11/01/19 21:55 Merrem 1 Gm Administered 11/01/19 21:56 Dose 1 g IV .STK-MED ONE Lab/Rad Data: Laboratory Result Diagrams 11/01/19 20:53 11/01/19 20:53 Laboratory Results 11/01/19 11/01/19 11/01/19 Range/Units 21:10 20:53 20:53 WBC (4.0-10.5) K/mm3 RBC (4.1-5.4) M/mm3 Hgb (12.0-16.0) gm/dl Hct (35-47) % MCV (78-100) fl MCH (26-32) pg MCHC (32-36) g/dl RDW (11.5-14.0) % Plt Count (150-450) K/mm3 MPV (7.5-11.0) fl Gran % (36.0-66.0) % Eos # (Auto) (0-0.5) Absolute Lymphs (auto) (1.0-4.6) Absolute Monos (auto) (0.0-1.3) Lymphocytes % (24.0-44.0) % Monocytes % (0.0-12.0) % Eosinophils % (0.00-5.0) % Basophils % (0.0-0.4) % Absolute Granulocytes (1.4-6.9) Basophils # (0-0.4) Sodium 140 (137-145) mmol/L Potassium 4.1 (3.5-5.1) mmol/L Chloride 99 (98-107) mmol/L Carbon Dioxide 38 H (22-30) mmol/L Anion Gap 7.2 (5-15) MEQ/L BUN 14 (7-17) mg/dL Creatinine 0.93 (0.52-1.04) mg/dL Estimated GFR > 60.0 ML/MIN Glucose 166 H (74-106) mg/dL Lactic Acid (0.4-2.0) Calcium 9.4 (8.4-10.2) mg/dL Total Bilirubin 0.30 (0.2-1.3) mg/dL AST 17 (14-36) U/L ALT 13 (0-35) U/L Alkaline Phosphatase 105 (38-126) U/L Serum Total Protein 7.6 (6.3-8.2) g/dL Albumin 3.8 (3.5-5.0) g/dL Monoscreen NEGATIVE (Negative) Influenza Type A Ag NEGATIVE (NEGATIVE) Influenza Type B Ag NEGATIVE (NEGATIVE) RSV (PCR) NEGATIVE (Negative) Group A Strep Antibody NEGATIVE (NEGATIVE) 11/01/19 11/01/19 Range/Units 20:53 20:51 WBC 6.5 (4.0-10.5) K/mm3 RBC 3.84 L (4.1-5.4) M/mm3 Hgb 11.1 L (12.0-16.0) gm/dl Hct 36.3 (35-47) % MCV 94.5 (78-100) fl MCH 28.9 (26-32) pg MCHC 30.6 L (32-36) g/dl RDW 13.3 (11.5-14.0) % Plt Count 298 (150-450) K/mm3 MPV 10.7 (7.5-11.0) fl Gran % 60.1 (36.0-66.0) % Eos # (Auto) 0.29 (0-0.5) Absolute Lymphs (auto) 1.73 (1.0-4.6) Absolute Monos (auto) 0.55 (0.0-1.3) Lymphocytes % 26.5 (24.0-44.0) % Monocytes % 8.4 (0.0-12.0) % Eosinophils % 4.4 (0.00-5.0) % Basophils % 0.6 (0.0-0.4) % Absolute Granulocytes 3.93 (1.4-6.9) Basophils # 0.04 (0-0.4) Sodium (137-145) mmol/L Potassium (3.5-5.1) mmol/L Chloride (98-107) mmol/L Carbon Dioxide (22-30) mmol/L Anion Gap (5-15) MEQ/L BUN (7-17) mg/dL Creatinine (0.52-1.04) mg/dL Estimated GFR ML/MIN Glucose (74-106) mg/dL Lactic Acid 1.2 (0.4-2.0) Calcium (8.4-10.2) mg/dL Total Bilirubin (0.2-1.3) mg/dL AST (14-36) U/L ALT (0-35) U/L Alkaline Phosphatase (38-126) U/L Serum Total Protein (6.3-8.2) g/dL Albumin (3.5-5.0) g/dL Monoscreen (Negative) Influenza Type A Ag (NEGATIVE) Influenza Type B Ag (NEGATIVE) RSV (PCR) (Negative) Group A Strep Antibody (NEGATIVE) - Progress Progress: improved Air Movement: fair Progress Note: 11/01/19 21:55 Chest x-ray reveals a possible early right basilar infiltrate versus atelectasis. Differential diagnosis includes: Pneumonia, bronchitis, COPD exacerbation. Medical decision making: I spoke with Dr. Jiang, the patient's primary care physician. Due to the patient's significant allergy history, we are placing the patient on meropenem. She has had this antibiotic in the past without any problems. Patient was also given a dose of hydrocodone and acetaminophen elixir for her cough which she has tolerated. We will be placing the patient in observation for management of her cough and condition. Blood Culture(s) Obtained: Yes Antibiotics given: Yes Discussed with : Mireya Counseled pt/family regarding: lab results, diagnosis, rad results - Departure Departure Disposition: Observation Clinical Impression: Cough due to bronchospasm, Right pulmonary infiltrate on CXR Condition: Stable Critical Care Time: No Referrals: LEORA JIANG [Primary Care Provider] -
[2019-11-01] MEDS ORDERED: Sodium Chloride 0.9% 1000 ML 1,000 ML IV SCH (20:45)
[2019-11-01 21:10] LABS: Absolute Neutrophil Ct (ANC) 3.93 (1.4-6.9); BASOPHIL % 0.6 % (0.0-0.4); Basophil (Absolute #) 0.04 (0-0.4); Eosinophil % 4.4 % (0.00-5.0); Eosinophil (Absolute #) 0.29 (0-0.5); Hematocrit 36.3 % (35-47); Hemoglobin 11.1 gm/dl (12.0-16.0); Lymphocyte (Absolute #) 1.73 (1.0-4.6); Lymphocytes % 26.5 % (24.0-44.0); Mean Cell Volume 94.5 fl (78-100); Mean Corpuscular Hemoglobin 28.9 pg (26-32); Mean Corpuscular Hgb Concent. 30.6 g/dl (32-36); Mean Platelet Volume 10.7 fl (7.5-11.0); Monocyte (Absolute #) 0.55 (0.0-1.3); Monocytes % 8.4 % (0.0-12.0); Neutrophil % 60.1 % (36.0-66.0); Platelet Count 298 K/mm3 (150-450); Red Blood Count 3.84 M/mm3 (4.1-5.4); Red Cell Distribution Width 13.3 % (11.5-14.0); White Blood Count 6.5 K/mm3 (4.0-10.5)
[2019-11-01] MEDS ORDERED: Sodium Chloride 0.9% 1000 ML 1,000 ML ONE (21:16)
[2019-11-01 21:25] LABS: ALBUMIN 3.8 g/dL (3.5-5.0); ALKALINE PHOSPHATASE 105 U/L (38-126); ANION GAP 7.2 MEQ/L (5-15); BLOOD UREA NITROGEN 14 mg/dL (7-17); CHLORIDE 99 mmol/L (98-107); Calcium 9.4 mg/dL (8.4-10.2); Carbon Dioxide 38 mmol/L (22-30); Creatinine 1 0.93 mg/dL (0.52-1.04); Glucose 166 mg/dL (74-106); Potassium 4.1 mmol/L (3.5-5.1); SGOT/AST 17 U/L (14-36); SGPT/ALT 13 U/L (0-35); SODIUM 140 mmol/L (137-145); Total Protein 7.6 g/dL (6.3-8.2)
[2019-11-01] MEDS ORDERED: HYDROCODONE-ACETAMIN 2.5-108/5 ML SOLUTION PO STA (21:29)
[2019-11-01] MEDS ORDERED: HYDROCODONE-ACETAMIN 2.5-108/5 ML SOLUTION ONE (21:34)
[2019-11-01 21:43] LABS: INFLUENZA A NEGATIVE (NEGATIVE); INFLUENZA B NEGATIVE (NEGATIVE); RESPIRATORY SYNCTIAL VIRUS NEGATIVE (Negative)
[2019-11-01] MEDS ORDERED: Merrem 1 GM 1 G in Sodium Chloride 100ML MINI-BAG PLUS 100 ML IV ONE (21:51)
[2019-11-01] MEDS ORDERED: Merrem 1 GM IV ONE (21:55)
[2019-11-01] MEDS ORDERED: Sodium Chloride 0.9% 100 ML IVPB 100 ML IV ONE (21:55)
[2019-11-01 22:39] LABS: Appearance SLIGHTLY CLOUDY (CLEAR); Bacteria RARE /HPF (NEGATIVE); Bilirubin NEGATIVE (NEGATIVE); Blood NEGATIVE Ery/ul (0-5); Epithelial Cells MODERATE /HPF (FEW); Glucose NEGATIVE (NEGATIVE); Ketones NEGATIVE (NEGATIVE); Leukocyte Esterase SMALL (NEGATIVE); Mucus MODERATE /HPF (NEGATIVE); Nitrite POSITIVE (NEGATIVE); Protein,Urine Dip NEGATIVE (Negative); RBC 0-2 /HPF (0-2); Urobilinogen NEGATIVE mg/dL (0-1); WBC 51-100 /HPF (0-5)
[2019-11-01] MEDS ORDERED: HYDROCODONE-ACETAMIN 2.5-108/5 ML SOLUTION PO PRN (23:09)
[2019-11-01] MEDS ORDERED: TYLENOL 325 MG PO PRN (23:09)
[2019-11-02] MEDS ORDERED: Lyrica 50MG PO SCH (00:29)
[2019-11-02] MEDS ORDERED: Desyrel 150 MG PO PRN (00:30)
[2019-11-02] MEDS: Pepcid 20 MG PO SCH ×3 (00:57→20:29)
[2019-11-02] MEDS: ASTELIN NASAL INTRANASAL SCH ×3 (00:57→20:29)
[2019-11-02] MEDS: Acidophilus TABLET PO SCH ×3 (00:58→20:30)
[2019-11-02] MEDS: Cyclobenzaprine 10 MG PO SCH ×2 (00:58→20:31)
[2019-11-02] MEDS: BUSPAR 5 MG PO SCH ×3 (00:58→20:30)
[2019-11-02] MEDS ORDERED: VENTOLIN COMMON CANISTER IH PRN (03:01)
[2019-11-02 04:48] LABS: Absolute Neutrophil Ct (ANC) 3.71 (1.4-6.9); BASOPHIL % 0.6 % (0.0-0.4); Basophil (Absolute #) 0.04 (0-0.4); Eosinophil % 3.4 % (0.00-5.0); Eosinophil (Absolute #) 0.23 (0-0.5); Hematocrit 32.7 % (35-47); Hemoglobin 9.9 gm/dl (12.0-16.0); Lymphocyte (Absolute #) 2.06 (1.0-4.6); Lymphocytes % 30.3 % (24.0-44.0); Mean Cell Volume 94.8 fl (78-100); Mean Corpuscular Hemoglobin 28.7 pg (26-32); Mean Corpuscular Hgb Concent. 30.3 g/dl (32-36); Mean Platelet Volume 10.6 fl (7.5-11.0); Monocyte (Absolute #) 0.76 (0.0-1.3); Monocytes % 11.2 % (0.0-12.0); Neutrophil % 54.5 % (36.0-66.0); Platelet Count 260 K/mm3 (150-450); Red Blood Count 3.45 M/mm3 (4.1-5.4); Red Cell Distribution Width 13.1 % (11.5-14.0); White Blood Count 6.8 K/mm3 (4.0-10.5)
[2019-11-02 05:14] LABS: ANION GAP 7.2 MEQ/L (5-15); BLOOD UREA NITROGEN 13 mg/dL (7-17); CHLORIDE 101 mmol/L (98-107); Calcium 8.6 mg/dL (8.4-10.2); Carbon Dioxide 35 mmol/L (22-30); Creatinine 1 0.89 mg/dL (0.52-1.04); Glucose 157 mg/dL (74-106); Potassium 3.6 mmol/L (3.5-5.1); SODIUM 139 mmol/L (137-145)
[2019-11-02] MEDS ORDERED: Merrem 1 GM IV ONE (05:55)
[2019-11-02] MEDS ORDERED: Sodium Chloride 0.9% 100 ML IVPB 100 ML IV ONE (05:56)
[2019-11-02] MEDS: Merrem 1 GM 1 G in Sodium Chloride 100ML MINI-BAG PLUS 100 ML IV SCH ×3 (06:08→20:28)
[2019-11-02] MEDS: Advair Hfa 230/21 Mcg COMMON CANISTER IH SCH ×2 (07:18→19:12)
[2019-11-02] MEDS: DUONEB 0.5-3 MG/3 ml Neb IH SCH ×4 (07:18→17:59)
[2019-11-02] MEDS ORDERED: PATIENT OWN MEDICATION SQ SCH (07:45)
[2019-11-02] MEDS ORDERED: NON-FORMULARY ITEM (Exenatide Microspheres [Bydureon Bcise] 2 MG) SQ SCH (07:45)
[2019-11-02] MEDS ORDERED: NovoLOG Insulin SQ SCH (07:45)
--- NOTE | 2019-11-02 08:25 | PCM.HP ---
History of Present Illness - Chief Complaint Chief Complaint: pulmonary infiltrate, cough History of Present Illness: is a 69 year old female pt of mine from [facility] with DM with peripheral neuropathy (on insulin pump), CHF, COPD, arhtritis, depression, HTN, hypothyroid , hx long QT syndrome, and morbid obesity who was admitted from home with 4-5d of cough and SOB. Had subjective fevers. In ER was found to have possible infiltrates in the R base and due to many drug allergies was started on IV meropenem. She also had positive nitrates and urine culture is pending. - Review of Systems Constitutional: Fever Respiratory: Cough, Short Of Breath, Wheezing Abdominal/Gastrointestinal: Nausea, Appetite Changes Genitourinary Symptoms: Other (suprapubic pressure) Neurological: Dizziness (chronic) Psychological: No Suicidal Ideations All Other Systems: Reviewed and Negative Medications & Allergies Home Medications: Home Medication List Atorvastatin Calcium [Lipitor 20MG Tablet] 80 mg PO HS 02/01/14 [History Confirmed 11/01/19] Buspirone HCl 5 mg [Buspar 5 mg] 15 mg PO BID 02/01/14 [History Confirmed 11/01/19] Cyclobenzaprine HCl [Flexeril] 10 mg PO HS 02/01/14 [History Confirmed 11/01/19] Esomeprazole Magnesium [Nexium] 40 mg PO DAILY 02/01/14 [History Confirmed 11/01] Insulin Aspart [NovoLOG Insulin] 3.1 unit SQ UD 02/01/14 [History Confirmed 11/01/19] Liraglutide [Victoza 2-Alcon] 18 mg SQ DAILY 02/01/14 [History Confirmed 11/01/19] Oxycodone HCl/Acetaminophen [Percocet 10-325 mg Tablet] 1 each PO Q4-6HPRN PRN 02/01/14 [History Confirmed 11/01/19] Desvenlafaxine Succinate [Pristiq] 100 mg PO DAILY 07/15/14 [History Confirmed 11/01/19] Loratadine 10 mg [Claritin 10 mg] 10 mg PO DAILY 07/15/14 [History Confirmed 11/01/19] Pregabalin [Lyrica] 200 mg PO BID 07/15/14 [History Confirmed 11/01/19] Ranitidine HCl [Zantac] 150 mg PO BID 07/15/14 [History Confirmed 11/01/19] Albuterol Common Canister [Ventolin Common Canister] 1 - 2 puff IH Q4- 6HPRN PRN 11/04/14 [History Confirmed 11/01/19] Lisinopril 5 mg [Zestril 5 MG] 5 mg PO DAILY 11/04/14 [History Confirmed 11/01/19] Isosorbide Mononitrate 30 mg [Imdur 30 MG] 30 mg PO DAILY 08/19/15 [ History Confirmed 11/01/19] Metoprolol Succinate 50 mg PO DAILY 09/06/16 [History Confirmed 11/01/19] Montelukast Sodium [Singulair] 10 mg PO DAILY 09/06/16 [History Confirmed ] Trazodone HCl 50 mg [Desyrel 50 mg] 150 mg PO HSPRN PRN 09/06/16 [History Confirmed 11/01/19] Lactobacillus Acidophilus [Acidophilus TABLET] 1 tab PO BID #60 tablet [Rx Confirmed 11/01/19] Aspirin EC 81 mg [Ecotrin 81 mg] 81 mg PO DAILY 08/03/18 [History Confirmed 11/01/19] Cholecalciferol (Vitamin D3) [Vitamin D3] 50,000 unit PO UD 08/03/18 [History Confirmed 11/01/19] Clopidogrel Bisulfate 75 mg [PLAVIX 75 MG Tablet] 75 mg PO DAILY 08/03/18 [History Confirmed 11/01/19] Exenatide Microspheres [Bydureon Bcise] 2 mg SQ WEEKLY 08/03/18 [History Confirmed 11/01/19] Fluticasone/Salmeterol 500/50* [Advair 500-50 Diskus] 1 each IH BID 08/03/18 [History Confirmed 11/01/19] Levothyroxine Sodium 150 Mcg [Synthroid 150 Mcg] 150 mcg PO DAILY 08/03/18 [History Confirmed 11/01/19] Nystatin Powder 15 gm [Nystop Powder 15 gm] 1 applic TOP BID 08/03/18 [ History Confirmed 11/01/19] Azelastine HCl 1 drop .ROUTE BID 04/27/19 [History Confirmed 11/01/19] Bacitracin Opht 3.5 gm [Bacitracin EYE OINT] 0.1 gm OP QID #1 tube [Rx Confirmed 11/01/19] Allergies/Adverse Reactions: Allergies Allergy/AdvReac Type Severity Reaction Status Date / Time levofloxacin [From Levaquin] Allergy Mild Verified 08/03/18 11:29 cefaclor [From Ceclor] Allergy SOB, HIVES Verified 08/03/18 11:29 ciprofloxacin [From Cipro] Allergy Verified 08/03/18 11:29 ciprofloxacin HCl Allergy Verified 08/03/18 11:29 [From Cipro] clarithromycin [From Biaxin] Allergy Verified 08/03/18 11:29 diphenhydramine HCl Allergy SOB HIVES Verified 08/03/18 11:29 [From Benadryl] erythromycin base Allergy SOB HIVES Verified 08/03/18 11:29 [Erythromycin Base] Iodinated Contrast Media Allergy Verified 12/19/18 19:45 [Iodinated Contrast- Oral and IV Dye] iodine Allergy SOB HIVES Verified 08/03/18 11:29 latex Allergy SOB HIVES Verified 08/03/18 11:29 Macrolide Antibiotics Allergy SBO HIVES Verified 08/03/18 11:29 Penicillins Allergy Swelling Verified 08/03/18 11:29 of Face sulfamethoxazole Allergy Verified 08/03/18 11:29 [From Bactrim] trimethoprim [From Bactrim] Allergy Verified 08/03/18 11:29 melon AdvReac Severe cantaloupe Verified 08/03/18 11:29 aspirin AdvReac Verified 08/03/18 11:29 ibuprofen AdvReac Verified 08/03/18 11:29 - Past Medical History Past Medical History: Yes Neurological History: Stroke ENT History: Cataracts Cardiac History: Coronary Artery Disease, High Cholesterol, Hypertension, Myocardial Infarction ([place]), Other Respiratory History: Asthma, COPD, Pneumonia, Sleep Apnea Endocrine Medical History: Diabetes Type II Musculoskelatal History: No Pertinent History GI Medical History: No Pertinent History History: No Pertinent History Pyscho-Social History: No Pertinent History Reproductive Disorders: No Pertinent History Comment: Rapid heart rate at times; lump in right breast, biopsy non-cancerous, "stroke" in left eye - Female History Are you now?: No - Past Surgical History Past Surgical History: Yes Neuro Surgical History: No Pertinent History Cardiac History: Cardiac Stent Respiratory Surgery: No Pertinent History GI Surgical History: Bowel Surgery, Cholecystectomy, Hernia Repair Genitourinary Surgical Hx: No Pertinent History Musculskeletal Surgical Hx: No Pertinent History Female Surgical History: Tubal Ligation, Other Other Surgical History: Breast biopsy, 5 STENTS, CLOT REMOVED FROM ARTERY ON LEFT NECK/STROKE; "part of my bowel was taken out"; - Social History Smoking Status: Never smoker Exposure to second hand smoke: Yes Alcohol: None Drug Use: none - Physical Exam Vital Signs: Vital Signs - 24 hr Temp Pulse Resp BP Pulse Ox 11/02/19 07:24 97.8 F 82 20 136/80 96 11/02/19 07:20 80 20 97 11/02/19 04:00 98.4 F 76 22 128/69 97 11/02/19 03:03 75 21 96 11/02/19 00:00 98.9 F 85 20 146/81 93 L 11/01/19 23:47 98.9 F 85 20 146/81 93 L 11/01/19 22:10 97 H 18 145/73 98 11/01/19 22:03 95 11/01/19 21:09 86 16 146/95 94 L 11/01/19 21:04 94 L 11/01/19 19:57 22 95 11/01/19 19:52 98.7 F 108 H 22 152/83 95 General Appearance: no apparent distress, alert, obese Neurologic Exam: oriented x 3, cooperative Ears, Nose, Throat Exam: moist mucous membranes Neck Exam: normal inspection, non-tender, No lymphadenopathy Respiratory Exam: diminished breath sounds, rhonchi (bibasilar), wheezing (faint , scattered) Cardiovascular Exam: regular rate/rhythm, normal heart sounds, No murmur Extremity Exam: normal inspection, No pedal edema, No swelling Skin Exam: normal color, warm, dry, No rash Results - Labs Lab/Micro Results: Lab Results-Last 24 Hours 11/01/19 11/01/19 11/01/19 Range/Units 20:51 20:53 20:53 WBC 6.5 (4.0-10.5) K/mm3 RBC 3.84 L (4.1-5.4) M/mm3 Hgb 11.1 L (12.0-16.0) gm/dl Hct 36.3 (35-47) % MCV 94.5 (78-100) fl MCH 28.9 (26-32) pg MCHC 30.6 L (32-36) g/dl RDW 13.3 (11.5-14.0) % Plt Count 298 (150-450) K/mm3 MPV 10.7 (7.5-11.0) fl Gran % 60.1 (36.0-66.0) % Eos # (Auto) 0.29 (0-0.5) Absolute Lymphs (auto) 1.73 (1.0-4.6) Absolute Monos (auto) 0.55 (0.0-1.3) Lymphocytes % 26.5 (24.0-44.0) % Monocytes % 8.4 (0.0-12.0) % Eosinophils % 4.4 (0.00-5.0) % Basophils % 0.6 (0.0-0.4) % Absolute Granulocytes 3.93 (1.4-6.9) Basophils # 0.04 (0-0.4) Sodium 140 (137-145) mmol/L Potassium 4.1 (3.5-5.1) mmol/L Chloride 99 (98-107) mmol/L Carbon Dioxide 38 H (22-30) mmol/L Anion Gap 7.2 (5-15) MEQ/L BUN 14 (7-17) mg/dL Creatinine 0.93 (0.52-1.04) mg/dL Estimated GFR > 60.0 ML/MIN Glucose 166 H (74-106) mg/dL Lactic Acid 1.2 (0.4-2.0) Calcium 9.4 (8.4-10.2) mg/dL Total Bilirubin 0.30 (0.2-1.3) mg/dL AST 17 (14-36) U/L ALT 13 (0-35) U/L Alkaline Phosphatase 105 (38-126) U/L Serum Total Protein 7.6 (6.3-8.2) g/dL Albumin 3.8 (3.5-5.0) g/dL Urine Color (YELLOW) Urine Appearance (CLEAR) Urine pH (5-6) Ur Specific [place] (1.005-1.025) Urine Protein (Negative) Urine Ketones (NEGATIVE) Urine Blood (0-5) [place]/ul Urine Nitrite (NEGATIVE) Urine Bilirubin (NEGATIVE) Urine Urobilinogen (0-1) mg/dL Ur Leukocyte Esterase (NEGATIVE) Urine WBC (Auto) (0-5) /HPF Urine RBC (Auto) (0-2) /HPF U Epithel Cells (Auto) (FEW) /HPF Urine Bacteria (Auto) (NEGATIVE) /HPF Urine Mucus (Auto) (NEGATIVE) /HPF Urine Culture Reflexed (NO) Urine Glucose (NEGATIVE) mg/dL Monoscreen (Negative) Influenza Type A Ag (NEGATIVE) Influenza Type B Ag (NEGATIVE) RSV (PCR) (Negative) Group A Strep Antibody (NEGATIVE) 11/01/19 11/01/19 11/01/19 Range/Units 20:53 21:10 22:00 WBC (4.0-10.5) K/mm3 RBC (4.1-5.4) M/mm3 Hgb (12.0-16.0) gm/dl Hct (35-47) % MCV (78-100) fl MCH (26-32) pg MCHC (32-36) g/dl RDW (11.5-14.0) % Plt Count (150-450) K/mm3 MPV (7.5-11.0) fl Gran % (36.0-66.0) % Eos # (Auto) (0-0.5) Absolute Lymphs (auto) (1.0-4.6) Absolute Monos (auto) (0.0-1.3) Lymphocytes % (24.0-44.0) % Monocytes % (0.0-12.0) % Eosinophils % (0.00-5.0) % Basophils % (0.0-0.4) % Absolute Granulocytes (1.4-6.9) Basophils # (0-0.4) Sodium (137-145) mmol/L Potassium (3.5-5.1) mmol/L Chloride (98-107) mmol/L Carbon Dioxide (22-30) mmol/L Anion Gap (5-15) MEQ/L BUN (7-17) mg/dL Creatinine (0.52-1.04) mg/dL Estimated GFR ML/MIN Glucose (74-106) mg/dL Lactic Acid (0.4-2.0) Calcium (8.4-10.2) mg/dL Total Bilirubin (0.2-1.3) mg/dL AST (14-36) U/L ALT (0-35) U/L Alkaline Phosphatase (38-126) U/L Serum Total Protein (6.3-8.2) g/dL Albumin (3.5-5.0) g/dL Urine Color YELLOW (YELLOW) Urine Appearance SLIGHTLY CLOUDY (CLEAR) Urine pH 5.0 (5-6) Ur Specific [place] 1.020 (1.005-1.025) Urine Protein NEGATIVE (Negative) Urine Ketones NEGATIVE (NEGATIVE) Urine Blood NEGATIVE (0-5) [place]/ul Urine Nitrite POSITIVE (NEGATIVE) Urine Bilirubin NEGATIVE (NEGATIVE) Urine Urobilinogen NEGATIVE (0-1) mg/dL Ur Leukocyte Esterase SMALL (NEGATIVE) Urine WBC (Auto) 51-100 (0-5) /HPF Urine RBC (Auto) 0-2 (0-2) /HPF U Epithel Cells (Auto) MODERATE (FEW) /HPF Urine Bacteria (Auto) RARE (NEGATIVE) /HPF Urine Mucus (Auto) MODERATE (NEGATIVE) /HPF Urine Culture Reflexed YES (NO) Urine Glucose NEGATIVE (NEGATIVE) mg/dL Monoscreen NEGATIVE (Negative) Influenza Type A Ag NEGATIVE (NEGATIVE) Influenza Type B Ag NEGATIVE (NEGATIVE) RSV (PCR) NEGATIVE (Negative) Group A Strep Antibody NEGATIVE (NEGATIVE) 11/02/19 11/02/19 Range/Units 04:26 04:26 WBC 6.8 (4.0-10.5) K/mm3 RBC 3.45 L (4.1-5.4) M/mm3 Hgb 9.9 L (12.0-16.0) gm/dl Hct 32.7 L (35-47) % MCV 94.8 (78-100) fl MCH 28.7 (26-32) pg MCHC 30.3 L (32-36) g/dl RDW 13.1 (11.5-14.0) % Plt Count 260 (150-450) K/mm3 MPV 10.6 (7.5-11.0) fl Gran % 54.5 (36.0-66.0) % Eos # (Auto) 0.23 (0-0.5) Absolute Lymphs (auto) 2.06 (1.0-4.6) Absolute Monos (auto) 0.76 (0.0-1.3) Lymphocytes % 30.3 (24.0-44.0) % Monocytes % 11.2 (0.0-12.0) % Eosinophils % 3.4 (0.00-5.0) % Basophils % 0.6 (0.0-0.4) % Absolute Granulocytes 3.71 (1.4-6.9) Basophils # 0.04 (0-0.4) Sodium 139 (137-145) mmol/L Potassium 3.6 (3.5-5.1) mmol/L Chloride 101 (98-107) mmol/L Carbon Dioxide 35 H (22-30) mmol/L Anion Gap 7.2 (5-15) MEQ/L BUN 13 (7-17) mg/dL Creatinine 0.89 (0.52-1.04) mg/dL Estimated GFR > 60.0 ML/MIN Glucose 157 H (74-106) mg/dL Lactic Acid (0.4-2.0) Calcium 8.6 (8.4-10.2) mg/dL Total Bilirubin (0.2-1.3) mg/dL AST (14-36) U/L ALT (0-35) U/L Alkaline Phosphatase (38-126) U/L Serum Total Protein (6.3-8.2) g/dL Albumin (3.5-5.0) g/dL Urine Color (YELLOW) Urine Appearance (CLEAR) Urine pH (5-6) Ur Specific [place] (1.005-1.025) Urine Protein (Negative) Urine Ketones (NEGATIVE) Urine Blood (0-5) [place]/ul Urine Nitrite (NEGATIVE) Urine Bilirubin (NEGATIVE) Urine Urobilinogen (0-1) mg/dL Ur Leukocyte Esterase (NEGATIVE) Urine WBC (Auto) (0-5) /HPF Urine RBC (Auto) (0-2) /HPF U Epithel Cells (Auto) (FEW) /HPF Urine Bacteria (Auto) (NEGATIVE) /HPF Urine Mucus (Auto) (NEGATIVE) /HPF Urine Culture Reflexed (NO) Urine Glucose (NEGATIVE) mg/dL Monoscreen (Negative) Influenza Type A Ag (NEGATIVE) Influenza Type B Ag (NEGATIVE) RSV (PCR) (Negative) Group A Strep Antibody (NEGATIVE) - Radiology Impressions Radiology Exams & Impressions: Radiology Procedures Category Date Time Status CHEST 1 VIEW (PORTABLE) Stat Exams 11/01/19 20:33 Taken - Other Procedures and Tests Respiratory Therapy 11/02/19 04:29 Oxygen Nasal Cannula 3 lpm Respiratory Therapy Assessment DAILY 11/02/19 04:30 Peak Expiratory Flow Rate DAILY Assessment/Plan (1) Pneumonia Current Visit: Yes Status: Acute Qualifiers: Pneumonia type: due to unspecified organism Laterality: right Lung location: lower lobe of lung Qualified Code(s): J18.9 - Pneumonia, unspecified organism Assessment & Plan: On day #2 meropenem. Will add steroids as she is wheezy and does have COPD. Code(s): J18.9 - PNEUMONIA, UNSPECIFIED ORGANISM (2) UTI (urinary tract infection) Current Visit: No Status: Acute Onset Date: ~08/03/18 Qualifiers: Urinary tract infection type: site unspecified Hematuria presence: without hematuria Qualified Code(s): N39.0 - Urinary tract infection, site not specified Code(s): N39.0 - URINARY TRACT INFECTION, SITE NOT SPECIFIED (3) COPD (chronic obstructive pulmonary disease) Current Visit: No Status: Chronic Qualifiers: COPD type: unspecified COPD Qualified Code(s): J44.9 - Chronic obstructive pulmonary disease, unspecified (4) Coronary artery disease Current Visit: No Status: Chronic Qualifiers: Coronary Disease-Associated Artery/Lesion type: [place] artery [place] vs. transplanted heart: [place] heart Associated angina: with stable angina Qualified Code(s): I25.118 - Atherosclerotic heart disease of [place] coronary artery with other forms of angina pectoris Code(s): I25.10 - ATHSCL HEART DISEASE OF [place] CORONARY ARTERY W/O ANG PCTRS (5) Diabetes mellitus Current Visit: No Status: Chronic Qualifiers: Diabetes mellitus type: type 2 Diabetes mellitus material attendant insulin use: with material attendant use Diabetes mellitus complication status: with ophthalmic complications Assessment & Plan: pt thinks she is on victoza and also a weekly GLP-1 agonist; we are holding both of those. Sees Dr. Myers. Has her insulin pump on. Code(s): E11.9 - TYPE 2 DIABETES MELLITUS WITHOUT COMPLICATIONS (6) Hypertension Current Visit: No Status: Chronic Qualifiers: Hypertension type: essential hypertension Code(s): I10 - ESSENTIAL (PRIMARY) HYPERTENSION (7) Morbid obesity Current Visit: No Status: Chronic Code(s): E66.01 - MORBID (SEVERE) OBESITY DUE TO EXCESS CALORIES
--- NOTE | 2019-11-02 09:00 | XRAY ---
Indication: Cough. Short of breath. Comparison: April 27, 2019. Portable chest remains clear. Heart is not enlarged. Bony thorax intact again with mild osteopenia, degenerative changes, and proximal left humerus enchondroma. No new/acute findings.
[2019-11-02] MEDS: PLAVIX 75 MG Tablet PO SCH (09:31)
[2019-11-02] MEDS: Protonix 40MG Tablet PO SCH (09:31)
[2019-11-02] MEDS: SYNTHROID 150 MCG PO SCH (09:32)
[2019-11-02] MEDS: Toprol Xl 50 MG PO SCH (09:32)
[2019-11-02] MEDS: Imdur 30 MG PO SCH (09:32)
[2019-11-02] MEDS: Zestril 5 MG PO SCH (09:32)
[2019-11-02] MEDS: CLARITIN 10 MG PO SCH (09:32)
[2019-11-02] MEDS: Singulair 10 MG PO SCH (09:33)
[2019-11-02] MEDS: PRISTIQ ER PO SCH (09:34)
[2019-11-02] MEDS: ECOTRIN 81 MG PO SCH (09:34)
[2019-11-02] MEDS: LYRICA 100MG PO SCH ×2 (09:34→20:31)
[2019-11-02] MEDS: NYSTOP POWDER 15 GM TOP SCH ×2 (09:36→20:29)
[2019-11-02] MEDS: Bacitracin EYE OINT OP SCH ×4 (09:37→20:30)
[2019-11-02] MEDS: Sodium Chloride 0.9% 1000 ML 1,000 ML IV SCH (09:43)
[2019-11-02] MEDS ORDERED: NON-FORMULARY ITEM (Desvenlafaxine Succinate [Pristiq] 100 MG) PO SCH (10:00)
[2019-11-02] MEDS ORDERED: LIRAGLUTIDE 18 MG SQ SCH (10:00)
[2019-11-02] MEDS ORDERED: ADVAIR 500-50 DISKUS IH SCH (10:00)
[2019-11-02] MEDS ORDERED: NON-FORMULARY ITEM (Esomeprazole Magnesium [Nexium] 40 MG) PO SCH (10:00)
[2019-11-02] MEDS: ZOCOR 20MG PO SCH (20:30)
[2019-11-02] MEDS: Desyrel 150 MG PO PRN (20:47)
[2019-11-02] MEDS ORDERED: ATORVASTATIN CALCIUM 80 MG PO SCH (22:00)
[2019-11-03 03:20] LABS: Absolute Neutrophil Ct (ANC) 4.43 (1.4-6.9); BASOPHIL % 0.5 % (0.0-0.4); Basophil (Absolute #) 0.03 (0-0.4); Eosinophil % 2.9 % (0.00-5.0); Eosinophil (Absolute #) 0.19 (0-0.5); Hemoglobin 10.9 gm/dl (12.0-16.0); Lymphocyte (Absolute #) 1.42 (1.0-4.6); Lymphocytes % 21.7 % (24.0-44.0); Mean Cell Volume 95.2 fl (78-100); Mean Corpuscular Hemoglobin 28.8 pg (26-32); Mean Corpuscular Hgb Concent. 30.3 g/dl (32-36); Mean Platelet Volume 10.6 fl (7.5-11.0); Monocyte (Absolute #) 0.47 (0.0-1.3); Monocytes % 7.2 % (0.0-12.0); Neutrophil % 67.7 % (36.0-66.0); Platelet Count 281 K/mm3 (150-450); Red Blood Count 3.78 M/mm3 (4.1-5.4); Red Cell Distribution Width 13.4 % (11.5-14.0); White Blood Count 6.5 K/mm3 (4.0-10.5)
[2019-11-03 03:31] LABS: ANION GAP 9.1 MEQ/L (5-15); BLOOD UREA NITROGEN 9 mg/dL (7-17); CHLORIDE 101 mmol/L (98-107); Calcium 8.3 mg/dL (8.4-10.2); Carbon Dioxide 35 mmol/L (22-30); Creatinine 1 0.76 mg/dL (0.52-1.04); Glucose 154 mg/dL (74-106); Potassium 4.1 mmol/L (3.5-5.1); SODIUM 141 mmol/L (137-145)
[2019-11-03] MEDS ORDERED: Cardizem IV 50 MG/10 ML IV ONE ×2 (03:32→04:00)
[2019-11-03] MEDS ORDERED: ENOXAPARIN SODIUM SQ SCH ×2 (03:32→22:00)
[2019-11-03 04:44] LABS: A-aADO2 54; ABG HEMOGLOBIN 10.1; ABG POTASSIUM 3.6 (3.5-5.1); ARTERIAL BLD GAS O2 SATURATION 94.2 % (95-100); ARTERIAL BLOOD GAS BASE EXCESS 8.2 (-2.0-2.0); ARTERIAL BLOOD GAS FIO2 28 %; ARTERIAL BLOOD GAS PO2 68 mmHg (75-100); ARTERIAL BLOOD GAS pH 7.37 (7.35-7.45); CARBOXYHEMOGLOBIN 0.5 % THgb (0.0-6.9); HCO3- 35.8 (22-28); HGB O2 SAT 93.6 g/dF (94-100); Lactic Acid 1.2 (0.4-2.0); paO2 pAO1 0.56
[2019-11-03 04:45] LABS: ABG SITE rr; ALLEN TEST OK? y; ARTERIAL BLOOD GAS PCO2 62 mmHg (35-45)
[2019-11-03] MEDS ORDERED: CARDIZEM DRIP 100 MG/100 ML D5W 100 ML IV ONE (05:31)
[2019-11-03] MEDS ORDERED: CARDIZEM DRIP 100 MG/100 ML D5W 100 ML IV PRN (05:50)
[2019-11-03] MEDS: SYNTHROID 150 MCG PO SCH (05:55)
[2019-11-03] MEDS: Merrem 1 GM 1 G in Sodium Chloride 100ML MINI-BAG PLUS 100 ML IV SCH ×3 (05:55→22:25)
[2019-11-03] MEDS ORDERED: Cardizem CD 120 MG ONE (06:36)
[2019-11-03] MEDS: Cardizem CD 120 MG PO SCH ×2 (06:38→09:19)
[2019-11-03] MEDS: Advair Hfa 230/21 Mcg COMMON CANISTER IH SCH ×2 (07:04→19:57)
[2019-11-03] MEDS: DUONEB 0.5-3 MG/3 ml Neb IH SCH ×4 (07:04→19:57)
--- NOTE | 2019-11-03 08:36 | PCM.NOTE ---
Date and Time: 11/03/19830 Subjective Assessment: Overnight pt got lightheaded with some chest pain and her rhythm was atrial fibrillation with HR 140; was given 5mg IV push cardizem x2 then was started on cardizem drip, however she converted after 30 minutes and the drip was stopped. She tells me she has a similar episode on a daily basis at home. - Review of Systems Constitutional: No Fever Respiratory: Cough, Short Of Breath Objective Exam General Appearance: no apparent distress, obese Neurologic Exam: alert, oriented x 3, cooperative Skin Exam: normal color, warm, dry, No rash Respiratory Exam: normal breath sounds, lungs clear, No crackles/rales, No rhonchi, No wheezing Cardiovascular Exam: regular rate/rhythm, normal heart sounds, No murmur Extremity Exam: No pedal edema, No swelling Back Exam: normal inspection, No rash OBJECTIVE DATA Vital Signs: Vital Signs - 24 hr Temp Pulse Resp BP Pulse Ox 11/03/19 07:06 77 20 94 L 11/03/19 04:00 97.8 F 144 H 18 121/82 94 L 11/03/19 00:00 98.4 F 84 20 125/58 97 11/02/19 20:00 98.3 F 85 19 93/51 99 11/02/19 19:12 80 16 95 11/02/19 18:08 84 20 96 11/02/19 16:36 98.4 F 95 H 20 100/54 96 11/02/19 14:47 76 20 11/02/19 12:17 97.8 F 64 22 100/56 96 11/02/19 11:06 88 24 Pain Assessment - Last Documented Pain Intensity 0 Pain Scale Used 0-10 Pain Scale Intake and Output: Intake & Output 10/31/19 11/01/19 11/02/19 11/03/19 11:59 11:59 11:59 11:59 Intake Total 1095 2778 Output Total 200 4850 Balance 895 -2072 Weight 143.6 kg Lab Results: Accuchecks Accucheck Value: 161 Lab Results-Last 24 Hours 11/02/19 11/03/19 11/03/19 Range/Units 04:30 03:10 03:10 WBC 6.5 (4.0-10.5) K/mm3 RBC 3.78 L (4.1-5.4) M/mm3 Hgb 10.9 L (12.0-16.0) gm/dl Hct 36.0 (35-47) % MCV 95.2 (78-100) fl MCH 28.8 (26-32) pg MCHC 30.3 L (32-36) g/dl RDW 13.4 (11.5-14.0) % Plt Count 281 (150-450) K/mm3 MPV 10.6 (7.5-11.0) fl Gran % 67.7 H (36.0-66.0) % Eos # (Auto) 0.19 (0-0.5) Absolute Lymphs (auto) 1.42 (1.0-4.6) Absolute Monos (auto) 0.47 (0.0-1.3) Lymphocytes % 21.7 L (24.0-44.0) % Monocytes % 7.2 (0.0-12.0) % Eosinophils % 2.9 (0.00-5.0) % Basophils % 0.5 (0.0-0.4) % Absolute Granulocytes 4.43 (1.4-6.9) Basophils # 0.03 (0-0.4) Puncture Site pCO2 (35-45) mmHg pO2 (75-100) mmHg Base Excess (-2.0-2.0) O2 Saturation (94-100) g/dF ABG pH (7.35-7.45) ABG HCO3 (22-28) ABG O2 Sat (Measured) (95-100) % Samir Test A-a Gradient a/A Ratio Hemoglobin Carboxyhemoglobin (0.0-6.9) % THgb Methemoglobin (1.4-1.5) % Temperature C POC O2 Flow Rate % Sodium 141 (137-145) mmol/L Potassium 4.1 (3.5-5.1) mmol/L Chloride 101 (98-107) mmol/L Carbon Dioxide 35 H (22-30) mmol/L Anion Gap 9.1 (5-15) MEQ/L BUN 9 (7-17) mg/dL Creatinine 0.76 (0.52-1.04) mg/dL Estimated GFR > 60.0 ML/MIN Glucose 154 H (74-106) mg/dL Hemoglobin A1c 6.41 H (4.5-6.0) % Lactic Acid (0.4-2.0) Calcium 8.3 L (8.4-10.2) mg/dL Troponin I (0.000-0.034) ng/mL 11/03/19 11/03/19 11/03/19 Range/Units 03:10 04:41 06:32 WBC (4.0-10.5) K/mm3 RBC (4.1-5.4) M/mm3 Hgb (12.0-16.0) gm/dl Hct (35-47) % MCV (78-100) fl MCH (26-32) pg MCHC (32-36) g/dl RDW (11.5-14.0) % Plt Count (150-450) K/mm3 MPV (7.5-11.0) fl Gran % (36.0-66.0) % Eos # (Auto) (0-0.5) Absolute Lymphs (auto) (1.0-4.6) Absolute Monos (auto) (0.0-1.3) Lymphocytes % (24.0-44.0) % Monocytes % (0.0-12.0) % Eosinophils % (0.00-5.0) % Basophils % (0.0-0.4) % Absolute Granulocytes (1.4-6.9) Basophils # (0-0.4) Puncture Site rr pCO2 62 H* (35-45) mmHg pO2 68 L (75-100) mmHg Base Excess 8.2 H (-2.0-2.0) O2 Saturation 93.6 L (94-100) g/dF ABG pH 7.37 (7.35-7.45) ABG HCO3 35.8 H* (22-28) ABG O2 Sat (Measured) 94.2 L (95-100) % Samir Test y A-a Gradient 54 a/A Ratio 0.56 Hemoglobin 10.1 Carboxyhemoglobin 0.5 (0.0-6.9) % THgb Methemoglobin 0.0 L (1.4-1.5) % Temperature 37.0 C POC O2 Flow Rate 28 % Sodium (137-145) mmol/L Potassium 3.6 (3.5-5.1) mmol/L Chloride (98-107) mmol/L Carbon Dioxide (22-30) mmol/L Anion Gap (5-15) MEQ/L BUN (7-17) mg/dL Creatinine (0.52-1.04) mg/dL Estimated GFR ML/MIN Glucose (74-106) mg/dL Hemoglobin A1c (4.5-6.0) % Lactic Acid 1.2 (0.4-2.0) Calcium (8.4-10.2) mg/dL Troponin I 0.016 0.019 (0.000-0.034) ng/mL Radiology Exams: Radiology Procedures Category Date Time Status CHEST 1 VIEW (PORTABLE) Stat Exams 11/01/19 20:33 Completed Multi-Disciplinary Progress Notes: Multi-Disciplinary Progress Notes 11/02/19 10:24 Case Management Note by Brittni Gomez S/W [facility] AT [facility]- SHE REPORTS PATIENT GOT HER NEB MACHINE IN 2015 AND MEDICARE WILL ONLY PAY FOR ONE EVERY 5 YRS. SHE ALSO NOTED THAT PATIENT WAS NOTED TO BE NON COMPLIANT WITH HER BIPAP MACHINE FAR BACK 2016. SHE REPORTS MEDICARE WILL NOT PAY FOR A SECOND MACHINE SINCE SHE HAS BEEN NON COMPLIANT AND IF SHE FINDS HER MACHINE AND NEEDS SUPPLIES SHE WILL NEED TO HAVE A NEW SLEEP STUDY AND ORDER AT THAT TIME. PATIENT GIVEN THIS INFORMATION AND VERIFIED UNDERSTANDING. SHE REPORTS HER NEB MACHINE THAT SHE CURRENTLY USES IS HER GRANDDAUGHTERS BUT DOES WORK. Initialized on 11/02/19 10:24 - END OF NOTE Assessment/Plan (1) Atrial fibrillation with RVR Current Visit: Yes Status: Acute Assessment & Plan: Per hx she is possibly having daily episodes of afib. Cardiology consult on this pt with multiple medical issues. Would like guidance regarding thinners and management (pt currently on plavix, and 40mg SQ lovenox started yesterday). Code(s): I48.91 - UNSPECIFIED ATRIAL FIBRILLATION (2) Pneumonia Current Visit: Yes Status: Acute Qualifiers: Pneumonia type: due to unspecified organism Laterality: right Lung location: lower lobe of lung Qualified Code(s): J18.9 - Pneumonia, unspecified organism Assessment & Plan: On IV meropenem. Code(s): J18.9 - PNEUMONIA, UNSPECIFIED ORGANISM (3) UTI (urinary tract infection) Current Visit: No Status: Acute Onset Date: ~08/03/18 Qualifiers: Urinary tract infection type: site unspecified Hematuria presence: without hematuria Qualified Code(s): N39.0 - Urinary tract infection, site not specified Assessment & Plan: UCx pending. Code(s): N39.0 - URINARY TRACT INFECTION, SITE NOT SPECIFIED (4) COPD (chronic obstructive pulmonary disease) Current Visit: No Status: Chronic Qualifiers: COPD type: unspecified COPD Qualified Code(s): J44.9 - Chronic obstructive pulmonary disease, unspecified (5) Coronary artery disease Current Visit: No Status: Chronic Qualifiers: Coronary Disease-Associated Artery/Lesion type: [place] artery [place] vs. 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
[2019-11-03] MEDS: Sodium Chloride 0.9% 1000 ML 1,000 ML IV SCH (08:50)
[2019-11-03] MEDS: ECOTRIN 81 MG PO SCH (09:16)
[2019-11-03] MEDS: PLAVIX 75 MG Tablet PO SCH (09:17)
[2019-11-03] MEDS: Imdur 30 MG PO SCH (09:17)
[2019-11-03] MEDS: LYRICA 100MG PO SCH ×2 (09:18→22:25)
[2019-11-03] MEDS: CLARITIN 10 MG PO SCH (09:19)
[2019-11-03] MEDS: Acidophilus TABLET PO SCH ×2 (09:19→22:24)
[2019-11-03] MEDS: Protonix 40MG Tablet PO SCH (09:19)
[2019-11-03] MEDS: Singulair 10 MG PO SCH (09:20)
[2019-11-03] MEDS: Zestril 5 MG PO SCH (09:20)
[2019-11-03] MEDS: BUSPAR 5 MG PO SCH ×2 (09:21→22:25)
[2019-11-03] MEDS: Pepcid 20 MG PO SCH ×2 (09:22→22:25)
[2019-11-03] MEDS: PRISTIQ ER PO SCH (09:23)
[2019-11-03] MEDS: Toprol Xl 50 MG PO SCH (09:24)
[2019-11-03] MEDS: NYSTOP POWDER 15 GM TOP SCH ×2 (09:30→22:26)
[2019-11-03] MEDS: Bacitracin EYE OINT OP SCH ×4 (09:30→22:26)
[2019-11-03] MEDS: ASTELIN NASAL INTRANASAL SCH ×2 (09:31→22:25)
[2019-11-03] MEDS: Zofran 4 MG/2 ML VIAL IV PRN ×2 (11:44→17:22)
[2019-11-03] MEDS: Phenergan 25 MG INJ IV PRN ×2 (15:39→22:37)
[2019-11-03] MEDS: OXYCODONE-ACETAMINOPHEN 10-325 PO PRN (19:50)
[2019-11-03] MEDS ORDERED: Reglan 10 MG/2 ML IV ONE (20:58)
[2019-11-03 21:18] LABS: Absolute Neutrophil Ct (ANC) 6.23 (1.4-6.9); BASOPHIL % 0.3 % (0.0-0.4); Basophil (Absolute #) 0.02 (0-0.4); Eosinophil % 3.5 % (0.00-5.0); Eosinophil (Absolute #) 0.28 (0-0.5); Hematocrit 34.1 % (35-47); Hemoglobin 10.1 gm/dl (12.0-16.0); Lymphocyte (Absolute #) 0.82 (1.0-4.6); Lymphocytes % 10.3 % (24.0-44.0); Mean Cell Volume 96.6 fl (78-100); Mean Corpuscular Hemoglobin 28.6 pg (26-32); Mean Corpuscular Hgb Concent. 29.6 g/dl (32-36); Mean Platelet Volume 10.3 fl (7.5-11.0); Monocytes % 7.5 % (0.0-12.0); Neutrophil % 78.4 % (36.0-66.0); Platelet Count 274 K/mm3 (150-450); Red Blood Count 3.53 M/mm3 (4.1-5.4); Red Cell Distribution Width 13.6 % (11.5-14.0)
[2019-11-03 21:29] LABS: ALBUMIN 3.5 g/dL (3.5-5.0); ALKALINE PHOSPHATASE 109 U/L (38-126); ANION GAP 9.8 MEQ/L (5-15); BLOOD UREA NITROGEN 10 mg/dL (7-17); CHLORIDE 100 mmol/L (98-107); Calcium 8.1 mg/dL (8.4-10.2); Carbon Dioxide 36 mmol/L (22-30); Creatinine 1 0.82 mg/dL (0.52-1.04); Glucose 204 mg/dL (74-106); Potassium 4.4 mmol/L (3.5-5.1); SGOT/AST 22 U/L (14-36); SGPT/ALT 17 U/L (0-35); SODIUM 142 mmol/L (137-145); Total Protein 6.8 g/dL (6.3-8.2)
[2019-11-03] MEDS: ZOCOR 20MG PO SCH (22:24)
[2019-11-03] MEDS: Cyclobenzaprine 10 MG PO SCH (22:25)
[2019-11-03] MEDS: Desyrel 150 MG PO PRN (22:25)
[2019-11-03] MEDS: ELIQUIS 2.5 MG TABLET PO SCH (22:25)
[2019-11-04] MEDS: Sodium Chloride 0.9% 1000 ML 1,000 ML IV SCH ×3 (04:26→13:36)
[2019-11-04] MEDS: Merrem 1 GM 1 G in Sodium Chloride 100ML MINI-BAG PLUS 100 ML IV SCH ×3 (05:06→22:04)
[2019-11-04] MEDS: SYNTHROID 150 MCG PO SCH (05:06)
[2019-11-04] MEDS: DUONEB 0.5-3 MG/3 ml Neb IH SCH ×4 (05:44→17:45)
[2019-11-04] MEDS: Advair Hfa 230/21 Mcg COMMON CANISTER IH SCH ×2 (05:47→19:00)
[2019-11-04] MEDS: LYRICA 100MG PO SCH ×2 (08:43→22:04)
[2019-11-04] MEDS: BUSPAR 5 MG PO SCH ×2 (08:43→22:05)
[2019-11-04] MEDS: PRISTIQ ER PO SCH (08:43)
--- NOTE | 2019-11-04 08:43 | XRAY ---
Indication: Left lower quadrant pain. Multiple contiguous axial images obtained through the abdomen and pelvis without contrast as ordered. Comparison: December 19, 2018. Lung bases demonstrates new bibasilar subsegmental atelectasis/scarring. No infiltrate or effusion. Heart is not enlarged. Stomach is distended with food/fluid. Noncontrasted stomach and bowel loops appear nonobstructed. Mild diffuse scattered colonic fecal debris greatest in the transverse, descending, and sigmoid colon. Interval ventral hernia repair. Stable cholecystectomy and hepatosplenomegaly. No free fluid/air. Remaining liver, pancreas, spleen, adrenal glands, kidneys, ureters, bladder, and uterus appear unremarkable for noncontrast exam. Stable moderate scattered vascular calcifications. No AAA. Osseous structures intact again with mild degenerative changes throughout the thoracolumbar spine and both hips. Impression: 1. Mild fecal stasis without obstruction. 2. Stable hepatosplenomegaly and chronic bony findings. 3. Remaining CT abdomen/pelvis without contrast exam is negative.
[2019-11-04] MEDS: Cardizem CD 120 MG PO SCH (08:44)
[2019-11-04] MEDS: Zestril 5 MG PO SCH (08:45)
[2019-11-04] MEDS: Toprol Xl 50 MG PO SCH (08:45)
[2019-11-04] MEDS: ECOTRIN 81 MG PO SCH (08:45)
[2019-11-04] MEDS: CLARITIN 10 MG PO SCH (08:45)
[2019-11-04] MEDS: Pepcid 20 MG PO SCH ×2 (08:45→22:04)
[2019-11-04] MEDS: Singulair 10 MG PO SCH (08:45)
[2019-11-04] MEDS: ELIQUIS 2.5 MG TABLET PO SCH ×2 (08:45→22:05)
[2019-11-04] MEDS: Protonix 40MG Tablet PO SCH (08:45)
[2019-11-04] MEDS: Acidophilus TABLET PO SCH ×2 (08:45→22:05)
[2019-11-04] MEDS: Bacitracin EYE OINT OP SCH ×4 (08:50→22:05)
[2019-11-04] MEDS: ASTELIN NASAL INTRANASAL SCH ×2 (08:50→22:05)
[2019-11-04] MEDS: NYSTOP POWDER 15 GM TOP SCH ×2 (08:51→22:06)
[2019-11-04] MEDS: Imdur 30 MG PO SCH (08:51)
[2019-11-04] MEDS: Mucinex 600MG ER Tabs PO SCH ×2 (09:11→22:04)
--- NOTE | 2019-11-04 09:13 | PCM.NOTE ---
Date and Time: 11/04/19 09 Subjective Assessment: Pt had some vomiting yesterday per her report. Feeling somewhat nauseated but also hungry this morning. - Review of Systems Constitutional: No Fever Respiratory: Cough, Short Of Breath Objective Exam General Appearance: no apparent distress, obese Neurologic Exam: alert, oriented x 3, cooperative Skin Exam: normal color, warm, dry, No rash Ears, Nose, Throat Exam: moist mucous membranes Respiratory Exam: diminished breath sounds, wheezing (expiratory, bilat), No crackles/rales, No rhonchi Cardiovascular Exam: regular rate/rhythm, normal heart sounds, No murmur Gastrointestinal/Abdomen Exam: soft, normal bowel sounds, tenderness (epigastrum ), No distention, No mass, No guarding, No rebound Extremity Exam: normal inspection, No swelling Back Exam: normal inspection, No rash OBJECTIVE DATA Vital Signs: Vital Signs - 24 hr Temp Pulse Resp BP Pulse Ox 11/04/19 08:00 97.7 F 104 H 18 95/53 92 L 11/04/19 07:21 90 11/04/19 05:48 87 18 94 L 11/04/19 04:00 98.0 F 83 19 115/50 96 11/04/19 00:01 74 11/04/19 00:00 76 20 139/60 95 11/03/19 20:00 98.1 F 78 15 142/78 97 11/03/19 19:59 97 11/03/19 16:00 97.9 F 70 19 105/52 94 L 11/03/19 15:52 88 11/03/19 14:47 88 16 95 11/03/19 12:00 97.4 F 88 17 114/52 96 11/03/19 10:26 79 20 95 Oxygen-Last 24 hours Oxygen Flowrate (L/min)-RT 3 Pain Assessment - Last Documented Pain Intensity 2 Pain Scale Used 0-10 Pain Scale,FLACC Intake and Output: Intake & Output 11/01/19 11/02/19 11/03/19 11/04/19 11:59 11:59 11:59 11:59 Intake Total 1095 2758 2347 Output Total 200 4850 600 Balance 895 -4563 1747 Weight 143.6 kg 145.1 kg 144.8 kg Lab Results: Accuchecks Date 11/04/19 Date 11/03/19 Date 11/03/19 Date 11/03/19 Time 08:05 Time 22:00 Time 16:30 Time 11:30 Accucheck Value: 198 Accucheck Value: 223 Accucheck Value: 147 Accucheck Value: 171 Lab Results-Last 24 Hours 11/03/19 11/03/19 11/03/19 Range/Units 09:35 12:45 15:37 WBC (4.0-10.5) K/mm3 RBC (4.1-5.4) M/mm3 Hgb (12.0-16.0) gm/dl Hct (35-47) % MCV (78-100) fl MCH (26-32) pg MCHC (32-36) g/dl RDW (11.5-14.0) % Plt Count (150-450) K/mm3 MPV (7.5-11.0) fl Gran % (36.0-66.0) % Eos # (Auto) (0-0.5) Absolute Lymphs (auto) (1.0-4.6) Absolute Monos (auto) (0.0-1.3) Lymphocytes % (24.0-44.0) % Monocytes % (0.0-12.0) % Eosinophils % (0.00-5.0) % Basophils % (0.0-0.4) % Absolute Granulocytes (1.4-6.9) Basophils # (0-0.4) Sodium (137-145) mmol/L Potassium (3.5-5.1) mmol/L Chloride (98-107) mmol/L Carbon Dioxide (22-30) mmol/L Anion Gap (5-15) MEQ/L BUN (7-17) mg/dL Creatinine (0.52-1.04) mg/dL Estimated GFR ML/MIN Glucose (74-106) mg/dL Calcium (8.4-10.2) mg/dL Total Bilirubin (0.2-1.3) mg/dL AST (14-36) U/L ALT (0-35) U/L Alkaline Phosphatase (38-126) U/L Troponin I 0.017 0.014 < 0.012 (0.000-0.034) ng/mL Serum Total Protein (6.3-8.2) g/dL Albumin (3.5-5.0) g/dL 11/03/19 11/03/19 Range/Units 21:10 21:10 WBC 8.0 (4.0-10.5) K/mm3 RBC 3.53 L (4.1-5.4) M/mm3 Hgb 10.1 L (12.0-16.0) gm/dl Hct 34.1 L (35-47) % MCV 96.6 (78-100) fl MCH 28.6 (26-32) pg MCHC 29.6 L (32-36) g/dl RDW 13.6 (11.5-14.0) % Plt Count 274 (150-450) K/mm3 MPV 10.3 (7.5-11.0) fl Gran % 78.4 H (36.0-66.0) % Eos # (Auto) 0.28 (0-0.5) Absolute Lymphs (auto) 0.82 L (1.0-4.6) Absolute Monos (auto) 0.60 (0.0-1.3) Lymphocytes % 10.3 L (24.0-44.0) % Monocytes % 7.5 (0.0-12.0) % Eosinophils % 3.5 (0.00-5.0) % Basophils % 0.3 (0.0-0.4) % Absolute Granulocytes 6.23 (1.4-6.9) Basophils # 0.02 (0-0.4) Sodium 142 (137-145) mmol/L Potassium 4.4 (3.5-5.1) mmol/L Chloride 100 (98-107) mmol/L Carbon Dioxide 36 H (22-30) mmol/L Anion Gap 9.8 (5-15) MEQ/L BUN 10 (7-17) mg/dL Creatinine 0.82 (0.52-1.04) mg/dL Estimated GFR > 60.0 ML/MIN Glucose 204 H (74-106) mg/dL Calcium 8.1 L (8.4-10.2) mg/dL Total Bilirubin 0.30 (0.2-1.3) mg/dL AST 22 (14-36) U/L ALT 17 (0-35) U/L Alkaline Phosphatase 109 (38-126) U/L Troponin I (0.000-0.034) ng/mL Serum Total Protein 6.8 (6.3-8.2) g/dL Albumin 3.5 (3.5-5.0) g/dL Radiology Exams: Radiology Procedures Category Date Time Status ABDOMEN AND PELVIS W/0 CONTRAS [CT] Routine Exams 11/03/19 21:30 Completed ECHO W/2D AND DOPPLER [US] Routine Exams 11/04/19 08:19 Ordered Assessment/Plan (1) Atrial fibrillation with RVR Current Visit: Yes Status: Acute Assessment & Plan: Cardiology consulted, thank you. Changed her plavix to Eliquis (stop lovenox). Echocardiogram. Code(s): I48.91 - UNSPECIFIED ATRIAL FIBRILLATION (2) Pneumonia Current Visit: Yes Status: Acute Qualifiers: Pneumonia type: due to unspecified organism Laterality: right Lung location: lower lobe of lung Qualified Code(s): J18.9 - Pneumonia, unspecified organism Assessment & Plan: On IV meropenem. Improved somewhat. Code(s): J18.9 - PNEUMONIA, UNSPECIFIED ORGANISM (3) UTI (urinary tract infection) Current Visit: No Status: Acute Onset Date: ~08/03/18 Qualifiers: Urinary tract infection type: site unspecified Hematuria presence: without hematuria Qualified Code(s): N39.0 - Urinary tract infection, site not specified Assessment & Plan: UCx +, susceptible to merrem. Code(s): N39.0 - URINARY TRACT INFECTION, SITE NOT SPECIFIED (4) COPD (chronic obstructive pulmonary disease) Current Visit: No Status: Chronic Qualifiers: COPD type: unspecified COPD Qualified Code(s): J44.9 - Chronic obstructive pulmonary disease, unspecified (5) Coronary artery disease Current Visit: No Status: Chronic Qualifiers: Coronary Disease-Associated Artery/Lesion type: [place] artery [place] vs. transplanted heart: [place] heart Associated angina: with stable angina Qualified Code(s): I25.118 - Atherosclerotic heart disease of [place] coronary artery with other forms of angina pectoris Code(s): I25.10 - ATHSCL HEART DISEASE OF [place] CORONARY ARTERY W/O ANG PCTRS (6) Diabetes mellitus Current Visit: No Status: Chronic Qualifiers: Diabetes mellitus type: type 2 Diabetes mellitus buttermaker continuous churn insulin use: with buttermaker continuous churn use Diabetes mellitus complication status: with ophthalmic complications Code(s): E11.9 - TYPE 2 DIABETES MELLITUS WITHOUT COMPLICATIONS (7) Hypertension Current Visit: No Status: Chronic Qualifiers: Hypertension type: essential hypertension Code(s): I10 - ESSENTIAL (PRIMARY) HYPERTENSION (8) Morbid obesity Current Visit: No Status: Chronic Code(s): E66.01 - MORBID (SEVERE) OBESITY DUE TO EXCESS CALORIES
[2019-11-04] MEDS: OXYCODONE-ACETAMINOPHEN 10-325 PO PRN (14:02)
[2019-11-04] MEDS: ZOCOR 20MG PO SCH (22:04)
[2019-11-04] MEDS: Desyrel 150 MG PO PRN (22:04)
[2019-11-04] MEDS: Cyclobenzaprine 10 MG PO SCH (22:04)
[2019-11-05] MEDS: Sodium Chloride 0.9% 1000 ML 1,000 ML IV SCH (02:01)
[2019-11-05] MEDS: Reglan 10 MG/2 ML IV PRN (02:42)
[2019-11-05] MEDS: Phenergan 25 MG INJ IV PRN (03:30)
[2019-11-05 05:26] LABS: Hematocrit 33.6 % (35-47); Hemoglobin 9.7 gm/dl (12.0-16.0); Mean Cell Volume 98.8 fl (78-100); Mean Corpuscular Hemoglobin 28.5 pg (26-32); Mean Corpuscular Hgb Concent. 28.9 g/dl (32-36); Mean Platelet Volume 10.6 fl (7.5-11.0); Platelet Count 265 K/mm3 (150-450); Red Cell Distribution Width 13.8 % (11.5-14.0); White Blood Count 8.7 K/mm3 (4.0-10.5)
[2019-11-05] MEDS: Merrem 1 GM 1 G in Sodium Chloride 100ML MINI-BAG PLUS 100 ML IV SCH ×3 (05:31→22:46)
[2019-11-05] MEDS: SYNTHROID 150 MCG PO SCH (05:31)
[2019-11-05] MEDS: Advair Hfa 230/21 Mcg COMMON CANISTER IH SCH ×2 (05:46→20:52)
[2019-11-05] MEDS: DUONEB 0.5-3 MG/3 ml Neb IH SCH ×4 (05:46→20:51)
[2019-11-05 06:11] LABS: ANION GAP 5.5 MEQ/L (5-15); BLOOD UREA NITROGEN 10 mg/dL (7-17); CHLORIDE 100 mmol/L (98-107); Calcium 7.9 mg/dL (8.4-10.2); Carbon Dioxide 39 mmol/L (22-30); Creatinine 1 0.84 mg/dL (0.52-1.04); Glucose 90 mg/dL (74-106); Potassium 4.3 mmol/L (3.5-5.1); SODIUM 140 mmol/L (137-145)
[2019-11-05 06:31] LABS: Slide Review YES
--- NOTE | 2019-11-05 08:55 | PCM.DS ---
Discharge Summary Date of Admission: 11/03/19 06:20 Admitting Physician: LEORA CORMIER Consults: Consults on Case 11/03/19 08:00 Tele-Health Consult ROUTINE Primary Care Provider: LEORA CORMIER Allergies Allergies levofloxacin [From Levaquin] Allergy (Mild, Verified 08/03/18 11:29) red rash/burning when gievn IV cefaclor [From Ceclor] Allergy (Verified 08/03/18 11:29) SOB, HIVES ciprofloxacin [From Cipro] Allergy (Verified 08/03/18 11:29) ciprofloxacin HCl [From Cipro] Allergy (Verified 08/03/18 11:29) clarithromycin [From Biaxin] Allergy (Verified 08/03/18 11:29) diphenhydramine HCl [From Benadryl] Allergy (Verified 08/03/18 11:29) SOB HIVES erythromycin base [Erythromycin Base] Allergy (Verified 08/03/18 11:29) SOB HIVES Iodinated Contrast Media [Iodinated Contrast- Oral and IV Dye] Allergy ( Verified 12/19/18 19:45) iodine Allergy (Verified 08/03/18 11:29) SOB HIVES latex Allergy (Verified 08/03/18 11:29) SOB HIVES Macrolide Antibiotics Allergy (Verified 08/03/18 11:29) SBO HIVES Penicillins Allergy (Verified 08/03/18 11:29) Swelling of Face sulfamethoxazole [From Bactrim] Allergy (Verified 08/03/18 11:29) trimethoprim [From Bactrim] Allergy (Verified 08/03/18 11:29) melon Adverse Reaction (Severe, Verified 08/03/18 11:29) cantaloupe aspirin Adverse Reaction (Verified 08/03/18 11:29) ibuprofen Adverse Reaction (Verified 08/03/18 11:29) Hospital Summary - Hospital Course Hospital Course: Pt is 69 yo female pt of mine from [facility] with DM on insulin pump, CHF, OA, CAD with hx [place], chronic hypoxemic respiratory failure, depression, and morbid obesity who came to ER and was found to have pneumonia. She began IV merrem due to her many drug allergies. Was also found to have UTI (E. coli, susceptible to meropenem). She had an episode of afib with RVR her first night with HR to the 140s; converted after about 30 min on cardizem drip. She was started on po cardizem; cardiology was consulted and advised increase her beta meme instead of adding another med, and change her plavix to Eliquis. She has remained in NSR. Today is complaining that she's had diarrhea which made her feel weaker. She is feeling better overall, is stand by regarding assistance when she gets up , and has a walker to use at home. However with her many allergies there is not an appropriate po antibiotic with which to treat, so I would like her to finish at least 7 days (and possibly 10) of IV merrem before discharge to home. If possible pt may be discharged to swing bed today. - Vitals & Intake/Output Vital Signs: Vital Signs Temperature 98 F 11/05/19 07:24 Pulse Rate 82 11/05/19 07:24 Respiratory Rate 20 11/05/19 07:24 Blood Pressure 124/78 11/05/19 07:24 O2 Sat by Pulse Oximetry 95 11/05/19 07:24 Intake & Output: Intake & Output 11/02/19 11/03/19 11/04/19 11/05/19 11:59 11:59 11:59 11:59 Intake Total 1095 2778 2347 2580 Output Total 200 4850 600 Balance 895 2072 1747 2580 Weight 143.6 kg 145.1 kg 144.8 kg 147.1 kg - Lab Result Diagrams: 11/05/19 04:30 11/05/19 04:30 Lab Results-Last 24 Hrs: Accuchecks Date 11/05/19 Date 11/04/19 Date 11/04/19 Date 11/04/19 Time 08:01 Time 22:00 Time 17:09 Time 12:00 Accucheck Value: 91 Accucheck Value: 141 Accucheck Value: 130 Accucheck Value: 160 Lab Results-Last 24 Hours 11/05/19 11/05/19 Range/Units 04:30 04:30 WBC 8.7 (4.0-10.5) K/mm3 RBC 3.40 L (4.1-5.4) M/mm3 Hgb 9.7 L (12.0-16.0) gm/dl Hct 33.6 L (35-47) % MCV 98.8 (78-100) fl MCH 28.5 (26-32) pg MCHC 28.9 L (32-36) g/dl RDW 13.8 (11.5-14.0) % Plt Count 265 (150-450) K/mm3 MPV 10.6 (7.5-11.0) fl Sodium 140 (137-145) mmol/L Potassium 4.3 (3.5-5.1) mmol/L Chloride 100 (98-107) mmol/L Carbon Dioxide 39 H (22-30) mmol/L Anion Gap 5.5 (5-15) MEQ/L BUN 10 (7-17) mg/dL Creatinine 0.84 (0.52-1.04) mg/dL Estimated GFR > 60.0 ML/MIN Glucose 90 (74-106) mg/dL Calcium 7.9 L (8.4-10.2) mg/dL Slides for Path Review YES Micro Results-Entire Visit: Microbiology 11/01/19 22:00 Urine Culture - Final Clean Catch Midstream Escherichia Coli 11/01/19 21:00 Blood Culture - Preliminary Blood NO GROWTH TO DATE 11/01/19 20:53 Blood Culture - Preliminary Blood NO GROWTH TO DATE Accuchecks Date 11/05/19 Date 11/04/19 Date 11/04/19 Date 11/04/19 Time 08:01 Time 22:00 Time 17:09 Time 12:00 Accucheck Value: 91 Accucheck Value: 141 Accucheck Value: 130 Accucheck Value: 160 - Radiology Exams Ordered Rad Exams-Entire Visit: Radiology Procedures Category Date Time Status ABDOMEN AND PELVIS W/0 CONTRAS [CT] Routine Exams 11/03/19 21:30 Completed ECHO W/2D AND DOPPLER [US] Routine Exams 11/04/19 08:19 Taken - Procedures and Test Procedures and Tests throughout Hospitalization: Therapy Orders & Screens 11/01/19 23:09 Respiratory Therapy Consult ROUTINE Comment: Reason For Exam: 11/02/19 04:29 Oxygen Nasal Cannula 3 lpm Comment: Diagnosis: pulmonary infiltrate, cough Respiratory Therapy Assessment DAILY Comment: Diagnosis: pulmonary infiltrate, cough 11/02/19 04:30 Peak Expiratory Flow Rate DAILY Comment: Reason For Exam: Diagnosis: pulmonary infiltrate, cough 11/02/19 04:38 Respiratory Nebulizer UD Comment: CHICHI PACKER Diagnosis: pulmonary infiltrate, cough 11/03/19 02:57 EKG STAT Comment: Diagnosis: pulmonary infiltrate, cough 11/03/19 04:41 BiPap/CPAP ROUTINE Comment: Diagnosis: pulmonary infiltrate, cough Discharge Exam General Appearance: no apparent distress, obese Neurologic Exam: alert, cooperative, other (pt wakes to touch) Eye Exam: eyes nml inspection Ears, Nose, Throat Exam: moist mucous membranes Respiratory Exam: diminished breath sounds (good air exchange), wheezing (faint ANISH), No crackles/rales, No rhonchi Gastrointestinal/Abdomen Exam: soft, normal bowel sounds, tenderness ( generalized, mild), No mass, No guarding, No rebound Extremity Exam: normal inspection, No pedal edema, No swelling Skin Exam: normal color, warm, dry, No rash Final Diagnosis/Problem List - Final Discharge Diagnosis/Problem (1) Atrial fibrillation with RVR Current Visit: Yes Status: Resolved Assessment & Plan: increasing toprol to 100mg po daily today, and d/cing the cardizem. Code(s): I48.91 - UNSPECIFIED ATRIAL FIBRILLATION (2) Pneumonia Current Visit: Yes Status: Acute Assessment & Plan: On day #5 meropenem; needs at least 7 and possibly 10d of IV treatment, as she is allergic to many oral meds. Code(s): J18.9 - PNEUMONIA, UNSPECIFIED ORGANISM (3) UTI (urinary tract infection) Current Visit: No Status: Resolved Onset Date: ~08/03/18 Code(s): N39.0 - URINARY TRACT INFECTION, SITE NOT SPECIFIED (4) COPD (chronic obstructive pulmonary disease) Current Visit: No Status: Chronic (5) Coronary artery disease Current Visit: No Status: Chronic Code(s): I25.10 - ATHSCL HEART DISEASE OF [place] CORONARY ARTERY W/O ANG PCTRS (6) Diabetes mellitus Current Visit: No Status: Chronic Code(s): E11.9 - TYPE 2 DIABETES MELLITUS WITHOUT COMPLICATIONS (7) Hypertension Current Visit: No Status: Chronic Code(s): I10 - ESSENTIAL (PRIMARY) HYPERTENSION (8) Morbid obesity Current Visit: No Status: Chronic Code(s): E66.01 - MORBID (SEVERE) OBESITY DUE TO EXCESS CALORIES (9) Diarrhea Current Visit: Yes Status: Acute Assessment & Plan: check GI pathogen panel. Code(s): R19.7 - DIARRHEA, UNSPECIFIED (10) Muscular deconditioning Current Visit: Yes Status: Acute Assessment & Plan: consult PT. would like pt to remain for IV abx and therapy. Code(s): R29.898 - [facility] SYMPTOMS AND SIGNS INVOLVING THE MUSCULOSKELETAL SYSTEM - Discharge Disposition: Swing Bed @ COUNT INCLUDES THE [facility] Condition: Stable Prescriptions: No Action Insulin Aspart [NovoLOG Insulin] 3.1 unit SQ UD Esomeprazole Magnesium [Nexium] 40 mg PO DAILY Atorvastatin Calcium [Lipitor 20MG Tablet] 80 mg PO HS Buspirone HCl 5 mg [Buspar 5 mg] 15 mg PO BID Cyclobenzaprine HCl [Flexeril] 10 mg PO HS Oxycodone HCl/Acetaminophen [Percocet 10-325 mg Tablet] 1 each PO Q4-6HPRN PRN PRN Reason: Pain Liraglutide [Victoza 2-Alcon] 18 mg SQ DAILY Ranitidine HCl [Zantac] 150 mg PO BID Loratadine 10 mg [Claritin 10 mg] 10 mg PO DAILY Pregabalin [Lyrica] 200 mg PO BID Desvenlafaxine Succinate [Pristiq] 100 mg PO DAILY Lisinopril 5 mg [Zestril 5 MG] 5 mg PO DAILY Albuterol Common Canister [Ventolin Common Canister] 1 - 2 puff IH Q4- 6HPRN PRN PRN Reason: Shortness Of Breath Isosorbide Mononitrate 30 mg [Imdur 30 MG] 30 mg PO DAILY Trazodone HCl 50 mg [Desyrel 50 mg] 150 mg PO HSPRN PRN PRN Reason: Insomnia Montelukast Sodium [Singulair] 10 mg PO DAILY Metoprolol Succinate 50 mg PO DAILY Lactobacillus Acidophilus [Acidophilus TABLET] 1 tab PO BID #60 tablet Levothyroxine Sodium 150 Mcg [Synthroid 150 Mcg] 150 mcg PO DAILY Aspirin EC 81 mg [Ecotrin 81 mg] 81 mg PO DAILY Exenatide Microspheres [Bydureon Bcise] 2 mg SQ WEEKLY Nystatin Powder 15 gm [Nystop Powder 15 gm] 1 applic TOP BID Clopidogrel Bisulfate 75 mg [PLAVIX 75 MG Tablet] 75 mg PO DAILY Fluticasone/Salmeterol 500/50* [Advair 500-50 Diskus] 1 each IH BID Cholecalciferol (Vitamin D3) [Vitamin D3] 50,000 unit PO UD Azelastine HCl 1 drop .ROUTE BID Bacitracin Opht 3.5 gm [Bacitracin EYE OINT] 0.1 gm OP QID #1 tube Follow up with: LEORA CORMIER [Primary Care Provider] - 1 Week
[2019-11-05] MEDS: Pepcid 20 MG PO SCH ×2 (09:01→22:25)
[2019-11-05] MEDS: Zestril 5 MG PO SCH (09:01)
[2019-11-05] MEDS: PRISTIQ ER PO SCH (09:01)
[2019-11-05] MEDS: Mucinex 600MG ER Tabs PO SCH ×2 (09:01→22:25)
[2019-11-05] MEDS: BUSPAR 5 MG PO SCH ×2 (09:01→22:24)
[2019-11-05] MEDS: LYRICA 100MG PO SCH ×2 (09:01→22:24)
[2019-11-05] MEDS: ECOTRIN 81 MG PO SCH (09:01)
[2019-11-05] MEDS: Protonix 40MG Tablet PO SCH (09:03)
[2019-11-05] MEDS: ELIQUIS 2.5 MG TABLET PO SCH ×2 (09:03→22:25)
[2019-11-05] MEDS: Acidophilus TABLET PO SCH ×2 (09:03→22:26)
[2019-11-05] MEDS: CLARITIN 10 MG PO SCH (09:03)
[2019-11-05] MEDS: Singulair 10 MG PO SCH (09:03)
[2019-11-05] MEDS: Imdur 30 MG PO SCH (09:03)
[2019-11-05] MEDS: ASTELIN NASAL INTRANASAL SCH ×2 (09:04→22:26)
[2019-11-05] MEDS: Bacitracin EYE OINT OP SCH ×4 (09:04→22:40)
[2019-11-05] MEDS: Toprol Xl 100 MG PO SCH (09:07)
[2019-11-05] MEDS: NYSTOP POWDER 15 GM TOP SCH ×2 (09:13→22:30)
[2019-11-05] MEDS: OXYCODONE-ACETAMINOPHEN 10-325 PO PRN (17:12)
[2019-11-05] MEDS: ZOCOR 20MG PO SCH (22:24)
[2019-11-05] MEDS: Desyrel 150 MG PO PRN (22:25)
[2019-11-05] MEDS: Cyclobenzaprine 10 MG PO SCH (22:25)
[2019-11-06] MEDS: Sodium Chloride 0.9% 1000 ML 1,000 ML IV SCH (00:17)
[2019-11-06] MEDS: Reglan 10 MG/2 ML IV PRN (01:09)
[2019-11-06] MEDS: Zofran 4 MG/2 ML VIAL IV PRN (03:41)
[2019-11-06] MEDS: OXYCODONE-ACETAMINOPHEN 10-325 PO PRN ×2 (04:01→09:34)
[2019-11-06] MEDS: Merrem 1 GM 1 G in Sodium Chloride 100ML MINI-BAG PLUS 100 ML IV SCH (06:05)
[2019-11-06] MEDS: SYNTHROID 150 MCG PO SCH (06:05)
[2019-11-06] MEDS: Advair Hfa 230/21 Mcg COMMON CANISTER IH SCH (06:35)
[2019-11-06] MEDS: DUONEB 0.5-3 MG/3 ml Neb IH SCH (06:35)
[2019-11-06 06:44] VITALS: O2SAT 96
[2019-11-06 08:56] VITALS: BP 92/44; PULSE 86
[2019-11-06] MEDS: ECOTRIN 81 MG PO SCH (09:34)
[2019-11-06] MEDS: LYRICA 100MG PO SCH (09:34)
[2019-11-06] MEDS: PRISTIQ ER PO SCH (09:34)
[2019-11-06] MEDS: BUSPAR 5 MG PO SCH (09:34)
[2019-11-06] MEDS: Pepcid 20 MG PO SCH (09:34)
[2019-11-06] MEDS: Acidophilus TABLET PO SCH (09:34)
[2019-11-06] MEDS: Toprol Xl 100 MG PO SCH (09:34)
[2019-11-06] MEDS: CLARITIN 10 MG PO SCH (09:35)
[2019-11-06] MEDS: Protonix 40MG Tablet PO SCH (09:35)
[2019-11-06] MEDS: Mucinex 600MG ER Tabs PO SCH (09:35)
[2019-11-06] MEDS: ELIQUIS 2.5 MG TABLET PO SCH (09:35)
[2019-11-06] MEDS: Imdur 30 MG PO SCH (09:35)
[2019-11-06] MEDS: Singulair 10 MG PO SCH (09:35)
[2019-11-06] MEDS: ASTELIN NASAL INTRANASAL SCH (09:36)
[2019-11-06] MEDS: NYSTOP POWDER 15 GM TOP SCH (09:36)
[2019-11-06] MEDS: Bacitracin EYE OINT OP SCH (09:40)
[2019-11-06] MEDS: Zestril 5 MG PO SCH (09:40)
--- NOTE | 2019-11-06 10:06 | PCM.DS ---
Discharge Summary Date of Admission: 11/03/19 06:20 Date of Discharge: 11/06/2019 Admitting Physician: LEORA CORMIER Consults: Consults on Case 11/03/19 08:00 Tele-Health Consult ROUTINE Primary Care Provider: LEORA CORMIER Allergies Allergies levofloxacin [From Levaquin] Allergy (Mild, Verified 08/03/18 11:29) red rash/burning when gievn IV cefaclor [From Ceclor] Allergy (Verified 08/03/18 11:29) SOB, HIVES ciprofloxacin [From Cipro] Allergy (Verified 08/03/18 11:29) ciprofloxacin HCl [From Cipro] Allergy (Verified 08/03/18 11:29) clarithromycin [From Biaxin] Allergy (Verified 08/03/18 11:29) diphenhydramine HCl [From Benadryl] Allergy (Verified 08/03/18 11:29) SOB HIVES erythromycin base [Erythromycin Base] Allergy (Verified 08/03/18 11:29) SOB HIVES Iodinated Contrast Media [Iodinated Contrast- Oral and IV Dye] Allergy ( Verified 12/19/18 19:45) iodine Allergy (Verified 08/03/18 11:29) SOB HIVES latex Allergy (Verified 08/03/18 11:29) SOB HIVES Macrolide Antibiotics Allergy (Verified 08/03/18 11:29) SBO HIVES Penicillins Allergy (Verified 08/03/18 11:29) Swelling of Face sulfamethoxazole [From Bactrim] Allergy (Verified 08/03/18 11:29) trimethoprim [From Bactrim] Allergy (Verified 08/03/18 11:29) melon Adverse Reaction (Severe, Verified 08/03/18 11:29) cantaloupe aspirin Adverse Reaction (Verified 08/03/18 11:29) ibuprofen Adverse Reaction (Verified 08/03/18 11:29) Hospital Summary - Hospital Course Hospital Course: Pt is 69 yo female pt of [facility] from [facility] with DM on insulin pump, CHF, OA, CAD with hx [place], chronic hypoxemic respiratory failure, depression, and morbid obesity who came to ER and was found to have pneumonia. She began IV merrem due to her many drug allergies. Was also found to have UTI (E. coli, susceptible to meropenem). She had an episode of afib with RVR her first night with HR to the 140s; converted after about 30 min on cardizem drip. She was started on po cardizem; cardiology was consulted and advised increase her beta meme instead of adding another med, and change her plavix to Eliquis. She has remained in NSR. Today patient is still complaining that she's had diarrhea which made her feel weaker. She has this at home as well. She is also reporting some heart flutter sensations that have been happening intermittently. Cough is very productive today She is feeling better overall, is stand by regarding assistance when she gets up , and has a walker to use at home. However with her many allergies there is not an appropriate po antibiotic with which to treat, so I would like her to finish at least 7 days (and possibly 10) of IV merrem before discharge to home. If possible pt may be discharged to swing bed today. - Vitals & Intake/Output Vital Signs: Vital Signs Temperature 97.7 F 11/06/19 08:00 Pulse Rate 86 11/06/19 08:00 Respiratory Rate 16 11/06/19 08:00 Blood Pressure 92/44 11/06/19 08:00 O2 Sat by Pulse Oximetry 96 11/06/19 08:00 Intake & Output: Intake & Output 11/03/19 11/04/19 11/05/19 11/06/19 11:59 11:59 11:59 11:59 Intake Total 2778 2347 2580 2482 Output Total 4850 600 800 Balance -2072 1747 2580 1682 Weight 145.1 kg 144.8 kg 147.1 kg - Lab Result Diagrams: 11/05/19 04:30 11/05/19 04:30 Lab Results-Last 24 Hrs: Accuchecks Date 11/05/19 Date 11/05/19 Time 17:05 Time 12:04 Accucheck Value: 98 Accucheck Value: 139 Accucheck Value: 130 Accucheck Value: 283 Micro Results-Entire Visit: Microbiology 11/01/19 20:53 Blood Culture Gram Stain - Final Blood Not Reportable Blood Culture - Final NO GROWTH 11/01/19 22:00 Urine Culture - Final Clean Catch Midstream Escherichia Coli 11/01/19 21:00 Blood Culture - Preliminary Blood NO GROWTH TO DATE Accuchecks Date 11/05/19 Date 11/05/19 Time 17:05 Time 12:04 Accucheck Value: 98 Accucheck Value: 139 Accucheck Value: 130 Accucheck Value: 283 - Procedures and Test Procedures and Tests throughout Hospitalization: Therapy Orders & Screens 11/01/19 23:09 Respiratory Therapy Consult ROUTINE Comment: Reason For Exam: 11/02/19 04:29 Oxygen Nasal Cannula 3 lpm Comment: Diagnosis: pulmonary infiltrate, cough Respiratory Therapy Assessment DAILY Comment: Diagnosis: pulmonary infiltrate, cough 11/02/19 04:30 Peak Expiratory Flow Rate DAILY Comment: Reason For Exam: Diagnosis: pulmonary infiltrate, cough 11/02/19 04:38 Respiratory Nebulizer UD Comment: DUONEB QID Diagnosis: pulmonary infiltrate, cough 11/03/19 02:57 EKG STAT Comment: Diagnosis: pulmonary infiltrate, cough 11/03/19 04:41 BiPap/CPAP ROUTINE Comment: Diagnosis: pulmonary infiltrate, cough 11/05/19 08:54 PT Eval & Treat (MD Order) ROUTINE Reason for Eval:: gen weakness Diagnosis: AFIB WITH RVR Discharge Exam General Appearance: mild distress Neurologic Exam: alert, oriented x 3, cooperative, normal mood/affect Eye Exam: eyes nml inspection Neck Exam: normal inspection Respiratory Exam: diminished breath sounds, crackles/rales, wheezing, No respiratory distress Cardiovascular Exam: normal heart sounds, No murmur, No friction rub, No gallop Gastrointestinal/Abdomen Exam: soft, normal bowel sounds, No tenderness Final Diagnosis/Problem List - Final Discharge Diagnosis/Problem (1) Atrial fibrillation with RVR Current Visit: Yes Status: Resolved Assessment & Plan: Final Diagnosis/Problem List - Final Discharge Diagnosis/Problem (1) Atrial fibrillation with RVR Current Visit: Yes Status: Resolved Assessment & Plan: increasing toprol to 100mg po daily today, and d/cing the cardizem. Code(s): I48.91 - UNSPECIFIED ATRIAL FIBRILLATION (2) Pneumonia Current Visit: Yes Status: Acute Assessment & Plan: On day #5 meropenem; needs at least 7 and possibly 10d of IV treatment, as she is allergic to many oral meds. Code(s): J18.9 - PNEUMONIA, UNSPECIFIED ORGANISM (3) UTI (urinary tract infection) Current Visit: No Status: Resolved Onset Date: ~08/03/18 Code(s): N39.0 - URINARY TRACT INFECTION, SITE NOT SPECIFIED (4) COPD (chronic obstructive pulmonary disease) Current Visit: No Status: Chronic (5) Coronary artery disease Current Visit: No Status: Chronic Code(s): I25.10 - ATHSCL HEART DISEASE OF [place] CORONARY ARTERY W/O ANG PCTRS (6) Diabetes mellitus Current Visit: No Status: Chronic Code(s): E11.9 - TYPE 2 DIABETES MELLITUS WITHOUT COMPLICATIONS (7) Hypertension Current Visit: No Status: Chronic Code(s): I10 - ESSENTIAL (PRIMARY) HYPERTENSION (8) Morbid obesity Current Visit: No Status: Chronic Code(s): E66.01 - MORBID (SEVERE) OBESITY DUE TO EXCESS CALORIES (9) Diarrhea Current Visit: Yes Status: Acute Assessment & Plan: check GI pathogen panel. Code(s): R19.7 - DIARRHEA, UNSPECIFIED (10) Muscular deconditioning Current Visit: Yes Status: Acute Assessment & Plan: consult PT. would like pt to remain for IV abx and therapy. Code(s): R29.898 - OTH SYMPTOMS AND SIGNS INVOLVING THE MUSCULOSKELETAL SYSTEM - Discharge Disposition: Swing Bed @ [facility] Code(s): I48.91 - UNSPECIFIED ATRIAL FIBRILLATION - Discharge Discharge Date: 11/06/19 Disposition: Swing Bed @ [facility] Condition: Stable Prescriptions: No Action Insulin Aspart [NovoLOG Insulin] 3.1 unit SQ UD Esomeprazole Magnesium [Nexium] 40 mg PO DAILY Atorvastatin Calcium [Lipitor 20MG Tablet] 80 mg PO HS Buspirone HCl 5 mg [Buspar 5 mg] 15 mg PO BID Cyclobenzaprine HCl [Flexeril] 10 mg PO HS Oxycodone HCl/Acetaminophen [Percocet 10-325 mg Tablet] 1 each PO Q4-6HPRN PRN PRN Reason: Pain Liraglutide [Victoza 2-Alcon] 18 mg SQ DAILY Ranitidine HCl [Zantac] 150 mg PO BID Loratadine 10 mg [Claritin 10 mg] 10 mg PO DAILY Pregabalin [Lyrica] 200 mg PO BID Desvenlafaxine Succinate [Pristiq] 100 mg PO DAILY Lisinopril 5 mg [Zestril 5 MG] 5 mg PO DAILY Albuterol Common Canister [Ventolin Common Canister] 1 - 2 puff IH Q4- 6HPRN PRN PRN Reason: Shortness Of Breath Isosorbide Mononitrate 30 mg [Imdur 30 MG] 30 mg PO DAILY Trazodone HCl 50 mg [Desyrel 50 mg] 150 mg PO HSPRN PRN PRN Reason: Insomnia Montelukast Sodium [Singulair] 10 mg PO DAILY Metoprolol Succinate 50 mg PO DAILY Lactobacillus Acidophilus [Acidophilus TABLET] 1 tab PO BID #60 tablet Levothyroxine Sodium 150 Mcg [Synthroid 150 Mcg] 150 mcg PO DAILY Aspirin EC 81 mg [Ecotrin 81 mg] 81 mg PO DAILY Exenatide Microspheres [Bydureon Bcise] 2 mg SQ WEEKLY Nystatin Powder 15 gm [Nystop Powder 15 gm] 1 applic TOP BID Clopidogrel Bisulfate 75 mg [PLAVIX 75 MG Tablet] 75 mg PO DAILY Fluticasone/Salmeterol 500/50* [Advair 500-50 Diskus] 1 each IH BID Cholecalciferol (Vitamin D3) [Vitamin D3] 50,000 unit PO UD Azelastine HCl 1 drop .ROUTE BID Bacitracin Opht 3.5 gm [Bacitracin EYE OINT] 0.1 gm OP QID #1 tube Follow up with: LEORA CORMIER [Primary Care Provider] - 1 Week
--- NOTE | 2019-11-08 09:16 | ECHO ---
DATE OF PROCEDURE: 11/04/2019 CLINICAL INFORMATION: New onset atrial fibrillation. The M-mode 2D, and Doppler echocardiogram including color flow Doppler is technically difficult. The left ventricular dimension is normal at 4.6 cm. There is no thrombus present. The septal wall thickness is increased at 1.2 cm. The left ventricular posterior wall thickness is increased at 1.3 cm. The contractility of the left ventricle is at the lower limited of normal with an ejection fraction being calculated at 52%. The right ventricle is grossly normal. The left atrium is borderline dilated with 4.0 cm. The interatrial septum is intact. The right atrium is normal. The aortic valve opens well. There is no aortic regurgitation present. There is mitral valve calcification associated with a trace amount of mitral regurgitation present. There is mild tricuspid regurgitation. The right ventricular systolic pressure is normal at 26 mm of Mercury. The pulmonic valve is not well visualized. The aortic root is normal at 2.7 cm. There is no pericardial effusion present. IMPRESSION: 1) LOW NORMAL CONTRACTILITY OF THE LEFT VENTRICLE. 2) MILD CONCENTRIC LEFT VENTRICULAR HYPERTROPHY. 3) MILD TRICUSPID REGURGITATION. 4) NORMAL RIGHT VENTRICULAR SYSTOLIC PRESSURE.
== END 2019-11-06 11:30 | disposition swing bed (61) | DRG 308 ==
LOC: ED 19:43 → INTOOBSV 23:03 → OBSVTOIN 23:03 → MED SURG 23:03 → OBSVTOIN 11-03 06:20 → INTOOBSV 11-03 06:20 → ICU 11-03 06:21 → MED SURG 11-03 06:21 → ICU 11-06 11:58 → MED SURG 11-06 11:58
PROVIDERS: ADMIT Family Medicine; ATTEND Family Medicine
DX: I48.91 Unspecified atrial fibrillation (principal); J18.9 Pneumonia, unspecified organism; N39.0 Urinary tract infection, site not specified; J96.11 Chronic respiratory failure with hypoxia; J44.9 Chronic obstructive pulmonary disease, unspecified; I25.10 Atherosclerotic heart disease of native coronary artery without angina pectoris; E11.9 Type 2 diabetes mellitus without complications; Z79.4 Long term (current) use of insulin; I10 Essential (primary) hypertension; E66.01 Morbid (severe) obesity due to excess calories; R19.7 Diarrhea, unspecified; R29.898 Other symptoms and signs involving the musculoskeletal system; Z79.899 Other long term (current) drug therapy; I50.9 Heart failure, unspecified; M19.90 Unspecified osteoarthritis, unspecified site; I25.2 Old myocardial infarction; G62.9 Polyneuropathy, unspecified; E03.9 Hypothyroidism, unspecified; G47.30 Sleep apnea, unspecified; Z86.73 Personal history of transient ischemic attack (TIA), and cerebral infarction without residual deficits
CPT/HCPCS: 36415; 74176; 80048; 80053; 82962; 84484; 85025; 85027; 87077; 87186; 93005; 93306; 94003; 94150; 94640; 94762; 97161; Q3014; 36000; 36600; 71045; 81001; 82375; 82803; 83036; 83605; 86308; 87040; 87086; 87631; 87651; 94002; 94760; 96360; 96365; 99285; J1650; J2405; J2550; A9270-GY

== ENCOUNTER 2019-11-06 11:30 | Inpatient (IN) | payer MEDICARE ==
[2019-11-06] MEDS ORDERED: TYLENOL 325 MG PO PRN (12:47)
[2019-11-06] MEDS ORDERED: HYDROCODONE-ACETAMIN 2.5-108/5 ML SOLUTION PO PRN (12:47)
[2019-11-06] MEDS ORDERED: VENTOLIN COMMON CANISTER IH PRN (12:47)
[2019-11-06] MEDS ORDERED: PATIENT OWN MEDICATION SQ SCH (12:47)
[2019-11-06] MEDS ORDERED: Reglan 10 MG/2 ML IV PRN (12:47)
[2019-11-06] MEDS ORDERED: Desyrel 150 MG PO PRN (12:47)
[2019-11-06] MEDS ORDERED: Aplisol ID ONE (12:47)
[2019-11-06] MEDS ORDERED: Phenergan 25 MG INJ IV PRN (12:47)
[2019-11-06] MEDS ORDERED: Bacitracin EYE OINT OP SCH (13:00)
[2019-11-06] MEDS: DUONEB 0.5-3 MG/3 ml Neb IH SCH ×2 (14:47→18:55)
[2019-11-06] MEDS: Merrem 1 GM 1 G in Sodium Chloride 100ML MINI-BAG PLUS 100 ML IV SCH ×2 (15:29→20:53)
[2019-11-06] MEDS: Advair Hfa 230/21 Mcg COMMON CANISTER IH SCH (18:56)
[2019-11-06] MEDS: Pepcid 20 MG PO SCH (20:52)
[2019-11-06] MEDS: ZOCOR 20MG PO SCH (20:52)
[2019-11-06] MEDS: BUSPAR 5 MG PO SCH (20:52)
[2019-11-06] MEDS: LYRICA 100MG PO SCH (20:53)
[2019-11-06] MEDS: Mucinex 600MG ER Tabs PO SCH (20:53)
[2019-11-06] MEDS: Cyclobenzaprine 10 MG PO SCH (20:53)
[2019-11-06] MEDS: ELIQUIS 2.5 MG TABLET PO SCH (20:53)
[2019-11-06] MEDS: Acidophilus TABLET PO SCH (20:53)
[2019-11-06] MEDS: OXYCODONE-ACETAMINOPHEN 10-325 PO PRN (20:54)
[2019-11-06] MEDS: NYSTOP POWDER 15 GM TOP SCH (20:54)
[2019-11-06] MEDS: Sodium Chloride 0.9% 1000 ML 1,000 ML IV SCH (21:42)
[2019-11-06] MEDS ORDERED: ASTELIN NASAL INTRANASAL SCH (22:00)
[2019-11-07] MEDS: Zofran 4 MG/2 ML VIAL IV PRN (02:44)
[2019-11-07] MEDS: OXYCODONE-ACETAMINOPHEN 10-325 PO PRN ×2 (02:50→17:14)
[2019-11-07] MEDS: Merrem 1 GM 1 G in Sodium Chloride 100ML MINI-BAG PLUS 100 ML IV SCH ×3 (05:49→21:57)
[2019-11-07] MEDS: SYNTHROID 150 MCG PO SCH (05:49)
[2019-11-07] MEDS: Advair Hfa 230/21 Mcg COMMON CANISTER IH SCH ×2 (06:43→19:17)
[2019-11-07] MEDS: DUONEB 0.5-3 MG/3 ml Neb IH SCH ×4 (06:43→19:15)
[2019-11-07] MEDS: ECOTRIN 81 MG PO SCH (09:39)
[2019-11-07] MEDS: BUSPAR 5 MG PO SCH ×2 (09:39→21:56)
[2019-11-07] MEDS: Pepcid 20 MG PO SCH ×2 (09:39→21:57)
[2019-11-07] MEDS: Mucinex 600MG ER Tabs PO SCH ×2 (09:39→21:57)
[2019-11-07] MEDS: Protonix 40MG Tablet PO SCH (09:39)
[2019-11-07] MEDS: Acidophilus TABLET PO SCH ×2 (09:40→21:56)
[2019-11-07] MEDS: Imdur 30 MG PO SCH (09:40)
[2019-11-07] MEDS: Toprol Xl 100 MG PO SCH (09:40)
[2019-11-07] MEDS: Zestril 5 MG PO SCH (09:40)
[2019-11-07] MEDS: NYSTOP POWDER 15 GM TOP SCH ×2 (09:40→21:58)
[2019-11-07] MEDS: Singulair 10 MG PO SCH (09:40)
[2019-11-07] MEDS: ELIQUIS 2.5 MG TABLET PO SCH ×2 (09:40→21:57)
[2019-11-07] MEDS: LYRICA 100MG PO SCH ×2 (09:40→21:57)
[2019-11-07] MEDS: CLARITIN 10 MG PO SCH (09:40)
[2019-11-07] MEDS: PRISTIQ ER PO SCH (09:40)
[2019-11-07] MEDS ORDERED: Aplisol ID SCH (10:00)
[2019-11-07] MEDS: Sodium Chloride 0.9% 1000 ML 1,000 ML IV SCH (19:24)
[2019-11-07] MEDS: ZOCOR 20MG PO SCH (21:57)
[2019-11-07] MEDS: Cyclobenzaprine 10 MG PO SCH (21:59)
[2019-11-08] MEDS: Merrem 1 GM 1 G in Sodium Chloride 100ML MINI-BAG PLUS 100 ML IV SCH ×2 (05:50→14:03)
[2019-11-08] MEDS: SYNTHROID 150 MCG PO SCH (06:42)
[2019-11-08] MEDS: Advair Hfa 230/21 Mcg COMMON CANISTER IH SCH (06:46)
[2019-11-08] MEDS: DUONEB 0.5-3 MG/3 ml Neb IH SCH ×3 (06:46→14:28)
[2019-11-08 08:26] VITALS: BP 105/56
--- NOTE | 2019-11-08 08:51 | PCM.NOTE ---
Date and Time: 11/08/19 0846 Subjective Assessment: Pt is feeling better but not back to baseline. Still having cough. [place] po. Had diarrhea "all night." - Review of Systems Constitutional: No Fever Respiratory: Cough Abdominal/Gastrointestinal: Diarrhea Objective Exam General Appearance: no apparent distress, obese Neurologic Exam: alert, cooperative Skin Exam: normal color, warm, dry, No rash Respiratory Exam: lungs clear, diminished breath sounds, No crackles/rales, No rhonchi, No wheezing Cardiovascular Exam: regular rate/rhythm, normal heart sounds, No murmur Gastrointestinal/Abdomen Exam: soft, normal bowel sounds, No tenderness, No mass Extremity Exam: No pedal edema, No swelling Back Exam: normal inspection, No rash OBJECTIVE DATA Vital Signs: Vital Signs - 24 hr Temp Pulse Resp BP Pulse Ox 11/08/19 08:00 98.5 F 103 H 19 105/56 93 L 11/08/19 06:47 82 16 94 L 11/07/19 20:00 98.3 F 86 20 92/53 97 11/07/19 19:19 86 18 94 L 11/07/19 19:18 94 L 11/07/19 14:35 95 H 18 96 11/07/19 10:52 99 H 20 94 L Pain Assessment - Last Documented Pain Intensity 8 Pain Scale Used 0-10 Pain Scale Intake and Output: Intake & Output 11/05/19 11/06/19 11/07/19 11/08/19 11:59 11:59 11:59 11:59 Intake Total 2722 2068 Balance 2722 2068 Weight 151.7 kg Lab Results: Accuchecks Accucheck Value: 135 Accucheck Value: 107 Accucheck Value: 69 Accucheck Value: 80 Assessment/Plan (1) Pneumonia Current Visit: No Status: Acute Qualifiers: Pneumonia type: due to unspecified organism Assessment & Plan: on day #10 of meropenem, with some improvement, but will plan to keep pt through the week until she gets 14d of meropenem then likely discharge to home on Friday. Code(s): J18.9 - PNEUMONIA, UNSPECIFIED ORGANISM (2) Diarrhea Current Visit: No Status: Acute Qualifiers: Diarrhea type: unspecified type Qualified Code(s): R19.7 - Diarrhea, unspecified Assessment & Plan: On probiotic. GI panel ordered; pt was unaware. Code(s): R19.7 - DIARRHEA, UNSPECIFIED (3) Diabetes mellitus Current Visit: No Status: Chronic Qualifiers: Diabetes mellitus type: type 2 Diabetes mellitus assisted insulin use: with assisted use Diabetes mellitus complication status: with ophthalmic complications Diabetes mellitus complication detail: with diabetic retinopathy Diabetic retinopathy severity: with unspecified retinopathy severity Diabetes mellitus macular edema: macular edema presence unspecified Laterality: unspecified laterality Qualified Code(s): E11.319 - Type 2 diabetes mellitus with unspecified diabetic retinopathy without macular edema; 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 Code(s): E11.9 - TYPE 2 DIABETES MELLITUS WITHOUT COMPLICATIONS (4) Hypertension Current Visit: No Status: Chronic Qualifiers: Hypertension type: essential hypertension Code(s): I10 - ESSENTIAL (PRIMARY) HYPERTENSION (5) Morbid obesity Current Visit: No Status: Chronic Code(s): E66.01 - MORBID (SEVERE) OBESITY DUE TO EXCESS CALORIES (6) Paroxysmal atrial fibrillation Current Visit: Yes Status: Acute Assessment & Plan: on Eliquis 5mg po BID Code(s): I48.0 - PAROXYSMAL ATRIAL FIBRILLATION (7) DVT prophylaxis Current Visit: No Status: Acute Assessment & Plan: On eliquis now Code(s): Z29.9 - ENCOUNTER FOR PROPHYLACTIC MEASURES, UNSPECIFIED
[2019-11-08] MEDS: BUSPAR 5 MG PO SCH (09:27)
[2019-11-08] MEDS: LYRICA 100MG PO SCH (09:27)
[2019-11-08] MEDS: ECOTRIN 81 MG PO SCH (09:27)
[2019-11-08] MEDS: Protonix 40MG Tablet PO SCH (09:27)
[2019-11-08] MEDS: Mucinex 600MG ER Tabs PO SCH (09:27)
[2019-11-08] MEDS: Imdur 30 MG PO SCH (09:27)
[2019-11-08] MEDS: Toprol Xl 100 MG PO SCH (09:28)
[2019-11-08] MEDS: Zestril 5 MG PO SCH (09:28)
[2019-11-08] MEDS: Acidophilus TABLET PO SCH (09:28)
[2019-11-08] MEDS: PRISTIQ ER PO SCH (09:28)
[2019-11-08] MEDS: Pepcid 20 MG PO SCH (09:28)
[2019-11-08] MEDS: CLARITIN 10 MG PO SCH (09:28)
[2019-11-08] MEDS: ELIQUIS 2.5 MG TABLET PO SCH (09:28)
[2019-11-08] MEDS: Singulair 10 MG PO SCH (09:28)
[2019-11-08] MEDS: OXYCODONE-ACETAMINOPHEN 10-325 PO PRN (09:32)
[2019-11-08] MEDS: NYSTOP POWDER 15 GM TOP SCH (09:46)
[2019-11-08 14:31] VITALS: PULSE 86; O2SAT 97
--- NOTE | 2019-11-08 17:05 | PCM.DS ---
Discharge Summary Date of Admission: 11/06/19 11:30 Admitting Physician: LEORA CORMIER Primary Care Provider: LEORA CORMIER Allergies Allergies levofloxacin [From Levaquin] Allergy (Mild, Verified 08/03/18 11:29) red rash/burning when gievn IV cefaclor [From Ceclor] Allergy (Verified 08/03/18 11:29) SOB, HIVES ciprofloxacin [From Cipro] Allergy (Verified 08/03/18 11:29) ciprofloxacin HCl [From Cipro] Allergy (Verified 08/03/18 11:29) clarithromycin [From Biaxin] Allergy (Verified 08/03/18 11:29) diphenhydramine HCl [From Benadryl] Allergy (Verified 08/03/18 11:29) SOB HIVES erythromycin base [Erythromycin Base] Allergy (Verified 08/03/18 11:29) SOB HIVES Iodinated Contrast Media [Iodinated Contrast- Oral and IV Dye] Allergy ( Verified 12/19/18 19:45) iodine Allergy (Verified 08/03/18 11:29) SOB HIVES latex Allergy (Verified 08/03/18 11:29) SOB HIVES Macrolide Antibiotics Allergy (Verified 08/03/18 11:29) SBO HIVES Penicillins Allergy (Verified 08/03/18 11:29) Swelling of Face sulfamethoxazole [From Bactrim] Allergy (Verified 08/03/18 11:29) trimethoprim [From Bactrim] Allergy (Verified 08/03/18 11:29) melon Adverse Reaction (Severe, Verified 08/03/18 11:29) cantaloupe aspirin Adverse Reaction (Verified 08/03/18 11:29) ibuprofen Adverse Reaction (Verified 08/03/18 11:29) Hospital Summary - Hospital Course Hospital Course: Pt is a 69 yo female pt of mine from [facility] with paroxysmal afib, DM, morbid obesity, OA, and COPD who was admitted to acute care on 11/01/19 for pneumonia. She was put on IV meropenem due to her multiple antibiotic allergies. She improved slowly; after being here several days her HR was 140 and she was in afib; given cardizem for about 30 min and she converted to NSR and has been in sinus with rate controlled ever since. Telecardiology consult was done with [facility], thank you, and she was started on Eliquis 5mg po BID. After about 5 days in an acute care bed, she was changed over to a swing bed for rehab. I saw the pt this morning and she was better, still on IV meropenem , but still having cough and not feeling great. I had decided to likely send her home at the end of this week. However mid-morning she started having chest pain; her EKG without ST changes but her initial troponin was 0.166. The second troponin was minimally decreased from that at 0.122. RN called Dr. Mcfarlane who was food concession manager for [facility] and he suggested transfer, with which I completely agree. Pt is agreeable. I spoke with the hospitalist, Dr. Andrews, who accepts the patient in transfer, with cardiology consulting. - Vitals & Intake/Output Vital Signs: Vital Signs Temperature 98.5 F 11/08/19 08:00 Pulse Rate 86 11/08/19 14:30 Respiratory Rate 18 11/08/19 14:30 Blood Pressure 105/56 11/08/19 08:00 O2 Sat by Pulse Oximetry 97 11/08/19 14:30 Intake & Output: Intake & Output 11/06/19 11/07/19 11/08/19 11/09/19 11:59 11:59 11:59 11:59 Intake Total 2722 2068 1037 Balance 2722 2068 1037 Weight 151.7 kg - Lab Lab Results-Last 24 Hrs: Accuchecks Accucheck Value: 170 Accucheck Value: 161 Accucheck Value: 135 Accucheck Value: 107 Lab Results-Last 24 Hours 11/08/19 11/08/19 Range/Units 09:50 12:30 Troponin I 0.166 H* 0.122 H* (0.000-0.034) ng/mL Micro Results-Entire Visit: Accuchecks Accucheck Value: 170 Accucheck Value: 161 Accucheck Value: 135 Accucheck Value: 107 - Procedures and Test Procedures and Tests throughout Hospitalization: Therapy Orders & Screens 11/06/19 12:47 BiPap/CPAP ROUTINE Comment: Diagnosis: pulmonary infiltrate, cough Oxygen Nasal Cannula 3 lpm Comment: Diagnosis: pulmonary infiltrate, cough Peak Expiratory Flow Rate DAILY Comment: Reason For Exam: Diagnosis: pulmonary infiltrate, cough Respiratory Therapy Assessment DAILY Comment: Diagnosis: pulmonary infiltrate, cough 11/08/19 09:41 EKG ROUTINE Comment: Diagnosis: DECONDITIONING R/T PNEUMONIA Discharge Exam General Appearance: no apparent distress, alert, obese, other (exam done this morning) Neurologic Exam: oriented x 3, cooperative Ears, Nose, Throat Exam: moist mucous membranes Respiratory Exam: lungs clear, diminished breath sounds, No crackles/rales, No rhonchi, No wheezing Cardiovascular Exam: regular rate/rhythm, normal heart sounds, No murmur Gastrointestinal/Abdomen Exam: soft, normal bowel sounds, No tenderness, No mass Extremity Exam: normal inspection, No pedal edema, No swelling Skin Exam: normal color, warm, dry, No rash Final Diagnosis/Problem List - Final Discharge Diagnosis/Problem (1) NSTEMI (non-ST elevated myocardial infarction) Current Visit: Yes Status: Acute Assessment & Plan: Pt being transferred to [facility], thank you. Code(s): I21.4 - NON-ST ELEVATION (NSTEMI) MYOCARDIAL INFARCTION (2) Pneumonia Current Visit: No Status: Acute Assessment & Plan: Has finished 7d of IV meropenem. Code(s): J18.9 - PNEUMONIA, UNSPECIFIED ORGANISM (3) Diarrhea Current Visit: No Status: Acute Assessment & Plan: GI pathogen panel ordered but unsure if it was collected yet. Code(s): R19.7 - DIARRHEA, UNSPECIFIED (4) Diabetes mellitus Current Visit: No Status: Chronic Assessment & Plan: Has insulin pump; sees Dr. Myers. Code(s): E11.9 - TYPE 2 DIABETES MELLITUS WITHOUT COMPLICATIONS (5) Hypertension Current Visit: No Status: Chronic Code(s): I10 - ESSENTIAL (PRIMARY) HYPERTENSION (6) Morbid obesity Current Visit: No Status: Chronic Code(s): E66.01 - MORBID (SEVERE) OBESITY DUE TO EXCESS CALORIES (7) Paroxysmal atrial fibrillation Current Visit: Yes Status: Chronic Assessment & Plan: Likely has been having this for some time. On higher dose of toprol she has maintained sinus rhthym and rate control. Code(s): I48.0 - PAROXYSMAL ATRIAL FIBRILLATION (8) DVT prophylaxis Current Visit: No Status: Acute Assessment & Plan: On Eliquis Code(s): Z29.9 - ENCOUNTER FOR PROPHYLACTIC MEASURES, UNSPECIFIED - Discharge Disposition: DC TO [facility] Condition: Fair Prescriptions: No Action Insulin Aspart [NovoLOG Insulin] 3.1 unit SQ UD Esomeprazole Magnesium [Nexium] 40 mg PO DAILY Atorvastatin Calcium [Lipitor 20MG Tablet] 80 mg PO HS Buspirone HCl 5 mg [Buspar 5 mg] 15 mg PO BID Cyclobenzaprine HCl [Flexeril] 10 mg PO HS Oxycodone HCl/Acetaminophen [Percocet 10-325 mg Tablet] 1 each PO Q4-6HPRN PRN PRN Reason: Pain Liraglutide [Victoza 2-Alcon] 18 mg SQ DAILY Ranitidine HCl [Zantac] 150 mg PO BID Loratadine 10 mg [Claritin 10 mg] 10 mg PO DAILY Pregabalin [Lyrica] 200 mg PO BID Desvenlafaxine Succinate [Pristiq] 100 mg PO DAILY Lisinopril 5 mg [Zestril 5 MG] 5 mg PO DAILY Albuterol Common Canister [Ventolin Common Canister] 1 - 2 puff IH Q4- 6HPRN PRN PRN Reason: Shortness Of Breath Isosorbide Mononitrate 30 mg [Imdur 30 MG] 30 mg PO DAILY Trazodone HCl 50 mg [Desyrel 50 mg] 150 mg PO HSPRN PRN PRN Reason: Insomnia Montelukast Sodium [Singulair] 10 mg PO DAILY Metoprolol Succinate 50 mg PO DAILY Lactobacillus Acidophilus [Acidophilus TABLET] 1 tab PO BID #60 tablet Levothyroxine Sodium 150 Mcg [Synthroid 150 Mcg] 150 mcg PO DAILY Aspirin EC 81 mg [Ecotrin 81 mg] 81 mg PO DAILY Exenatide Microspheres [Bydureon Bcise] 2 mg SQ WEEKLY Nystatin Powder 15 gm [Nystop Powder 15 gm] 1 applic TOP BID Clopidogrel Bisulfate 75 mg [PLAVIX 75 MG Tablet] 75 mg PO DAILY Fluticasone/Salmeterol 500/50* [Advair 500-50 Diskus] 1 each IH BID Cholecalciferol (Vitamin D3) [Vitamin D3] 50,000 unit PO UD Azelastine HCl 1 drop .ROUTE BID Bacitracin Opht 3.5 gm [Bacitracin EYE OINT] 0.1 gm OP QID #1 tube Follow up with: LEORA CORMIER [Primary Care Provider] - 1 Week
[2019-11-08] MEDS: Zofran 4 MG/2 ML VIAL IV PRN (17:53)
[2019-11-08] MEDS: Sodium Chloride 0.9% 1000 ML 1,000 ML IV SCH (17:57)
[2019-11-18] MEDS ORDERED: Aplisol ID SCH (10:00)
== END 2019-11-08 18:20 | disposition home or self-care (01) | DRG 280 ==
LOC: MED SURG 11:30
PROVIDERS: ADMIT Family Medicine; ATTEND Family Medicine
DX: I21.4 Non-ST elevation (NSTEMI) myocardial infarction (principal); J18.9 Pneumonia, unspecified organism; N39.0 Urinary tract infection, site not specified; R19.7 Diarrhea, unspecified; E11.9 Type 2 diabetes mellitus without complications; I10 Essential (primary) hypertension; I25.10 Atherosclerotic heart disease of native coronary artery without angina pectoris; J44.9 Chronic obstructive pulmonary disease, unspecified; E03.9 Hypothyroidism, unspecified; Z79.899 Other long term (current) drug therapy; E66.01 Morbid (severe) obesity due to excess calories; I48.0 Paroxysmal atrial fibrillation; Z79.01 Long term (current) use of anticoagulants; I50.9 Heart failure, unspecified; G62.9 Polyneuropathy, unspecified
CPT/HCPCS: 36415; 82962; 84484; 93005; 94003; 94150; 94640; 94760; J2405; A9270-GY

== ENCOUNTER 2020-01-04 15:49 | Emergency (ER) | payer MEDICARE ==
--- NOTE | 2020-01-04 16:36 | ERPHSYRPT ---
- History of Present Illness Time Seen by Provider: 01/04/20 16:20 Source: patient Exam Limitations: no limitations Patient Subjective Stated Complaint: " I have had a lot of pain in the back of my lower legs, I think I have a blood clot. I was vomiting on and off a couple days ago. I feel really weak all over and lightheaded. I have been hospitalized for two months starting in [facility], I did have some cardiac stents placed and went into cardiac arrest twice and they got me back. I have been in [facility] rehab but I have been home two weeks now". Triage Nursing Assessment: Pt presents to ER with complaints of generalized all over weakness, fatigue, lightheadness. States believes she may have blood clot in lower bilateral extremities. Pt right leg has noticable knot to posterior side and right and left leg are both tender to touch. Skin is pale, warm, and dry. Pt is alert and oriented x 3. Ambulates minimally with unsteady gait. Pt is on 3L O2 via NC at all times at home. Placed on hospital O2 upon arrival. Pt lungs are clear and resp are unlabored at this time. Pt denies any pain at this time. Denies nausea and vomiting at this time. Physician History: This is a 69-year-old obese white female with history of blood clots in her lower extremities in the past. Patient presents with a few day history of bilateral lower extremity pain. Patient believes she has another blood clot. Patient does have a recent history of senior care stay for rehab following cardiac events. Patient has been home for 2 weeks now. Patient does have mild generalized weakness. She denies chest pain she denies shortness of breath. Patient did not have abdominal pain. She had a vomiting episode 2 days ago but has not not had any since that time. No urinary frequency, dysuria, or hematuria. Has no bilateral flank pain. Patient is on Plavix. Quality: aching, cramping Lower Extremities Pain: leg: bilateral Modifying Factors: Improves With: movement Allergies/Adverse Reactions: levofloxacin [From Levaquin] Allergy (Mild, Verified 01/04/20 16:30) red rash/burning when gievn IV cefaclor [From Ceclor] Allergy (Verified 01/04/20 16:30) SOB, HIVES ciprofloxacin [From Cipro] Allergy (Verified 01/04/20 16:30) ciprofloxacin HCl [From Cipro] Allergy (Verified 01/04/20 16:30) clarithromycin [From Biaxin] Allergy (Verified 01/04/20 16:30) diphenhydramine HCl [From Benadryl] Allergy (Verified 01/04/20 16:30) SOB HIVES erythromycin base [Erythromycin Base] Allergy (Verified 01/04/20 16:30) SOB HIVES Iodinated Contrast Media [Iodinated Contrast- Oral and IV Dye] Allergy ( Verified 01/04/20 16:30) iodine Allergy (Verified 01/04/20 16:30) SOB HIVES latex Allergy (Verified 01/04/20 16:30) SOB HIVES Macrolide Antibiotics Allergy (Verified 01/04/20 16:30) SBO HIVES Penicillins Allergy (Verified 01/04/20 16:30) Swelling of Face sulfamethoxazole [From Bactrim] Allergy (Verified 01/04/20 16:30) trimethoprim [From Bactrim] Allergy (Verified 01/04/20 16:30) melon Adverse Reaction (Severe, Verified 01/04/20 16:30) cantaloupe aspirin Adverse Reaction (Verified 01/04/20 16:30) ibuprofen Adverse Reaction (Verified 01/04/20 16:30) Home Medications: Atorvastatin Calcium [Lipitor 20MG Tablet] 80 mg PO HS 02/01/14 [History] Buspirone HCl 5 mg [Buspar 5 mg] 15 mg PO BID 02/01/14 [History] Insulin Aspart [NovoLOG Insulin] 4 unit SQ UD 02/01/14 [History] Oxycodone HCl/Acetaminophen [Percocet 10-325 mg Tablet] 1 each PO Q4-6HPRN PRN 02/01/14 [History] Desvenlafaxine Succinate [Pristiq] 100 mg PO DAILY 07/15/14 [History] Loratadine 10 mg [Claritin 10 mg] 10 mg PO DAILY 07/15/14 [History] Pregabalin [Lyrica] 200 mg PO BID 07/15/14 [History] Lisinopril 5 mg [Zestril 5 MG] 10 mg PO DAILY 11/04/14 [History] Isosorbide Mononitrate 30 mg [Imdur 30 MG] 30 mg PO DAILY 08/19/15 [History ] Metoprolol Succinate 50 mg PO BID 09/06/16 [History] Montelukast Sodium [Singulair] 10 mg PO DAILY 09/06/16 [History] Trazodone HCl 50 mg [Desyrel 50 mg] 150 mg PO HSPRN PRN 09/06/16 [History] Clopidogrel Bisulfate 75 mg [PLAVIX 75 MG Tablet] 75 mg PO DAILY 08/03/18 [History] Levothyroxine Sodium 150 Mcg [Synthroid 150 Mcg] 150 mcg PO DAILY 08/03/18 [History] Apixaban [Eliquis] 5 mg PO BID 01/04/20 [History] Famotidine 20 mg PO DAILY 01/04/20 [History] Hydrochlorothiazide 12.5 mg PO DAILY 01/04/20 [History] Ondansetron HCl [Zofran] 4 mg PO Q4H PRN PRN 01/04/20 [History] PANTOPRAZOLE 40 mg Tablet [Protonix 40MG Tablet] 40 mg PO DAILY 01/04/20 [ History] Pregabalin 200 mg PO HS 01/04/20 [History] Hx Tetanus, Diphtheria Vaccination/Date Given: Yes Hx Influenza Vaccination/Date Given: Yes Hx Pneumococcal Vaccination/Date Given: Yes Immunizations Up to Date: Yes Travel Risk - International Travel Have you traveled outside of the country in past 3 weeks: No Have you or anyone close to you been diagnosed with or: No Do your reside in a community with a known COVID-19 case?: Yes If Yes where:: [place] - Coronavirus Screening Has patient experienced Coronavirus symptoms: Yes Symptoms experienced: muscle pain, weakness - Review of Systems Constitutional: Weakness Eyes: No Symptoms Ears, Nose, & Throat: No Symptoms Respiratory: No Symptoms Cardiac: No Symptoms Abdominal/Gastrointestinal: No Symptoms Genitourinary Symptoms: No Symptoms Musculoskeletal: Other (Lateral lower extremity pain), No Fall, No Injury Skin: No Symptoms Neurological: No Symptoms Psychological: No Symptoms Endocrine: No Symptoms Hematologic/Lymphatic: No Symptoms Immunological/Allergic: No Symptoms All Other Systems: Reviewed and Negative - Past Medical History Pertinent Past Medical History: Yes Neurological History: Stroke ENT History: Cataracts Cardiac History: Coronary Artery Disease, High Cholesterol, Hypertension, Myocardial Infarction ([place]), Other Respiratory History: Asthma, COPD, Pneumonia, Sleep Apnea Endocrine Medical History: Diabetes Type II Musculoskeletal History: No Pertinent History GI Medical History: No Pertinent History History: No Pertinent History Psycho-Social History: No Pertinent History Female Reproductive Disorders: No Pertinent History Other Medical History: Rapid heart rate at times; lump in right breast, biopsy non-cancerous, "stroke" in left eye. States went into Cardiac Arrest two times in Oct 2019 following a heart stent placement. - Past Surgical History Past Surgical History: Yes Neuro Surgical History: No Pertinent History Cardiac: Cardiac Stent Respiratory: No Pertinent History Gastrointestinal: Bowel Surgery, Cholecystectomy, Hernia Repair Genitourinary: No Pertinent History Musculoskeletal: No Pertinent History Female Surgical History: Tubal Ligation, Other Other Surgical History: Breast biopsy, 5 STENTS, CLOT REMOVED FROM ARTERY ON LEFT NECK/STROKE; "part of my bowel was taken out"; - Social History Smoking Status: Never smoker Exposure to second hand smoke: No Drug Use: none Patient Lives Alone: No - Nursing Vital Signs Nursing Vital Signs: Initial Vital Signs Temperature 97.5 F 01/04/20 15:59 Pulse Rate 82 01/04/20 15:59 Respiratory Rate 18 01/04/20 15:59 Blood Pressure 110/48 01/04/20 15:59 O2 Sat by Pulse Oximetry 99 01/04/20 15:59 Pain Scale Pain Intensity 0 - Physical Exam General Appearance: no apparent distress, alert, anxiety Eyes, Ears, Nose, Throat Exam: normal ENT inspection, moist mucous membranes Neck Exam: normal inspection, non-tender, supple, full range of motion Cardiovascular/Respiratory Exam: chest non-tender, normal breath sounds, regular rate/rhythm, heart sounds normal, no respiratory distress Gastrointestinal/Abdominal Exam: non-tender Back Exam: normal inspection, normal range of motion, No CVA tenderness, No vertebral tenderness Hips Exam: bilateral: non-tender, normal inspection, normal range of motion, no evidence of injury Legs Exam: right leg: other (Subcutaneous 1 and half centimeter in diameter superficial mass palpable. It is tender.), bilateral leg: normal inspection, normal range of motion, no evidence of injury, pain Knees Exam: bilateral knee: non-tender, normal inspection, normal range of motion, no evidence of injury Ankle Exam: bilateral ankle: non-tender, normal inspection, normal range of motion, no evidence of injury Foot Exam: bilateral foot: non-tender, normal inspection, normal range of motion , no evidence of injury Neuro/Tendon Exam: normal sensation, normal motor functions, normal tendon functions Mental Status Exam: alert, oriented x 3, cooperative Skin Exam: normal color, dry SpO2 Interpretation: normal SpO2: 99 O2 Delivery: Room Air - Course Nursing assessment & vital signs reviewed: Yes EKG Interpreted by Me: RATE (82), Sinus Rhythm, NORMAL AXIS, NORMAL INTERVALS, Other (No acute ischemic changes) Ordered Tests: Active Orders 24 hr Category Date Time Status Physical Chemistry Teacher STAT Care 01/04/20 16:41 Active EKG-ER Only STAT Care 01/04/20 16:40 Active IV Insertion STAT Care 01/04/20 16:40 Active Pulse Oximetry (ED) STAT Care 01/04/20 16:40 Active VENOUS BILATERAL EXTREMITY [US] Stat Exams 01/04/20 16:26 Completed CBC W DIFF Stat Lab 01/04/20 16:30 Completed CMP Stat Lab 01/04/20 16:30 Completed MAGNESIUM Stat Lab 01/04/20 16:30 Completed Manual Differential NC Stat Lab 01/04/20 16:30 Completed TROPONIN Q3H Lab 01/04/20 16:30 Completed TROPONIN Q3H Lab 01/04/20 19:45 Ordered TROPONIN Q3H Lab 01/04/20 22:45 Ordered TROPONIN Q3H Lab 01/05/20 01:45 Ordered TROPONIN Q3H Lab 01/05/20 04:45 Ordered UA W/RFX UR CULTURE Stat Lab 01/04/20 17:11 Completed Medication Summary Generic Name Dose Route Start Last Admin Trade Name Freq PRN Reason Stop Dose Admin Potassium Chloride 20 meq in 100 mls @ 50 mls/hr 01/04/20 17:44 01/04/20 18: 30 Potassium Chloride 20 Meq In Water 100ml IV 01/04/20 19:43 50 mls/hr STAT ONE Administration Sodium Chloride 1,000 mls @ 50 mls/hr 01/04/20 18:30 01/04/20 18:31 Sodium Chloride 0.9% 1000 Ml IV 02/03/20 18:29 50 mls/hr .Q20H SUZETTE Administration Discontinued Medications Generic Name Dose Route Start Last Admin Trade Name Freq PRN Reason Stop Dose Admin Sodium Chloride 1,000 mls @ 999 mls/hr 01/04/20 16:40 01/04/20 18:06 Sodium Chloride 0.9% 1000 Ml IV 01/04/20 17:40 Infused .Q1H1M STA Infusion Sodium Chloride Confirm 01/04/20 16:49 Sodium Chloride 0.9% 1000 Ml Administered 01/04/20 16:50 Dose 1,000 mls @ ud .ROUTE .STK-MED ONE Magnesium Sulfate/Dextrose 100 mls @ 200 mls/hr 01/04/20 17:43 01/04/20 17:54 Magnesium 1 Gm / 100 Ml D5w IV 01/04/20 18:12 200 mls/hr STAT ONE Administration Magnesium Sulfate/Dextrose Confirm 01/04/20 17:51 Magnesium 1 Gm / 100 Ml D5w Administered 01/04/20 17:52 Dose 100 mls @ ud IV .STK-MED ONE Potassium Chloride Confirm 01/04/20 18:28 Potassium Chloride 20 Meq In Water 100ml Administered 01/04/20 18:29 Dose 100 mls @ ud IV .STK-MED ONE Potassium Chloride 20 meq 01/04/20 17:44 01/04/20 17:55 Klor Con 10 Meq PO 01/04/20 17:45 20 meq STAT ONE Administration Potassium Chloride Confirm 01/04/20 17:51 Klor Con 10 Meq Administered 01/04/20 17:52 Dose 20 meq PO .STK-MED ONE Lab/Rad Data: Laboratory Result Diagrams 01/04/20 16:30 01/04/20 16:30 Laboratory Results 01/04/20 01/04/20 01/04/20 Range/Units 17:11 16:30 16:30 WBC (4.0-10.5) K/mm3 RBC (4.1-5.4) M/mm3 Hgb (12.0-16.0) gm/dl Hct (35-47) % MCV (78-100) fl MCH (26-32) pg MCHC (32-36) g/dl RDW (11.5-14.0) % Plt Count (150-450) K/mm3 MPV (7.5-11.0) fl Sodium 143 (137-145) mmol/L Potassium 2.5 L* (3.5-5.1) mmol/L Chloride 97 L (98-107) mmol/L Carbon Dioxide 34 H (22-30) mmol/L Anion Gap 14.5 (5-15) MEQ/L BUN 10 (7-17) mg/dL Creatinine 0.86 (0.52-1.04) mg/dL Estimated GFR > 60.0 ML/MIN Glucose 209 H (74-106) mg/dL Calcium 6.5 L (8.4-10.2) mg/dL Magnesium 0.6 L* (1.6-2.3) mg/dL Total Bilirubin 0.30 (0.2-1.3) mg/dL AST 23 (14-36) U/L ALT 13 (0-35) U/L Alkaline Phosphatase 129 H (38-126) U/L Troponin I < 0.012 (0.000-0.034) ng/mL Serum Total Protein 6.7 (6.3-8.2) g/dL Albumin 3.1 L (3.5-5.0) g/dL Urine Color YELLOW (YELLOW) Urine Appearance SLIGHTLY CLOUDY (CLEAR) Urine pH 5.0 (5-6) Ur Specific [place] 1.014 (1.005-1.025) Urine Protein NEGATIVE (Negative) Urine Ketones NEGATIVE (NEGATIVE) Urine Blood NEGATIVE (0-5) [place]/ul Urine Nitrite NEGATIVE (NEGATIVE) Urine Bilirubin NEGATIVE (NEGATIVE) Urine Urobilinogen NEGATIVE (0-1) mg/dL Ur Leukocyte Esterase NEGATIVE (NEGATIVE) Urine WBC (Auto) 0-2 (0-5) /HPF Urine RBC (Auto) NONE (0-2) /HPF U Hyaline Cast (Auto) 0-2 (0-2) /LPF U Epithel Cells (Auto) RARE (FEW) /HPF Urine Bacteria (Auto) NONE (NEGATIVE) /HPF Urine Mucus (Auto) SLIGHT (NEGATIVE) /HPF Urine Culture Reflexed NO (NO) Urine Glucose NEGATIVE (NEGATIVE) mg/dL 01/04/20 Range/Units 16:30 WBC 11.9 H (4.0-10.5) K/mm3 RBC 3.42 L (4.1-5.4) M/mm3 Hgb 9.3 L (12.0-16.0) gm/dl Hct 31.6 L (35-47) % MCV 92.4 (78-100) fl MCH 27.2 (26-32) pg MCHC 29.4 L (32-36) g/dl RDW 15.2 H (11.5-14.0) % Plt Count 408 (150-450) K/mm3 MPV 11.7 H (7.5-11.0) fl Sodium (137-145) mmol/L Potassium (3.5-5.1) mmol/L Chloride (98-107) mmol/L Carbon Dioxide (22-30) mmol/L Anion Gap (5-15) MEQ/L BUN (7-17) mg/dL Creatinine (0.52-1.04) mg/dL Estimated GFR ML/MIN Glucose (74-106) mg/dL Calcium (8.4-10.2) mg/dL Magnesium (1.6-2.3) mg/dL Total Bilirubin (0.2-1.3) mg/dL AST (14-36) U/L ALT (0-35) U/L Alkaline Phosphatase (38-126) U/L Troponin I (0.000-0.034) ng/mL Serum Total Protein (6.3-8.2) g/dL Albumin (3.5-5.0) g/dL Urine Color (YELLOW) Urine Appearance (CLEAR) Urine pH (5-6) Ur Specific [place] (1.005-1.025) Urine Protein (Negative) Urine Ketones (NEGATIVE) Urine Blood (0-5) [place]/ul Urine Nitrite (NEGATIVE) Urine Bilirubin (NEGATIVE) Urine Urobilinogen (0-1) mg/dL Ur Leukocyte Esterase (NEGATIVE) Urine WBC (Auto) (0-5) /HPF Urine RBC (Auto) (0-2) /HPF U Hyaline Cast (Auto) (0-2) /LPF U Epithel Cells (Auto) (FEW) /HPF Urine Bacteria (Auto) (NEGATIVE) /HPF Urine Mucus (Auto) (NEGATIVE) /HPF Urine Culture Reflexed (NO) Urine Glucose (NEGATIVE) mg/dL - Progress Progress: improved, pain not gone completely, re-examined Progress Note: 01/04/20 17:14 Venous Doppler of bilateral lower extremities revealed no evidence of deep venous thromboses 01/04/20 18:38 Medical decision making: This patient has multiple medical problems. She has been home for 2 weeks from a senior care rehab stay. Patient does not have any chest pain and her troponin is normal. She was concerned that she had venous thromboses in her lower extremities and the venous Dopplers were negative. Patient does have a low potassium and magnesium level. Is feeling much improved. Since there are patients in the hospital with positive coronavirus I feel this patient can safely be treated as an outpatient. We are running in a potassium rider of 20 mEq right now, we gave her 20 mEq of oral potassium and ran in a gram of intravenous magnesium. I will be writing a prescription for both potassium and magnesium for home use. Patient will have a repeat potassium and magnesium level drawn in 3 days. Patient agrees with this plan and prefers to be discharged to home as well. Counseled pt/family regarding: lab results, diagnosis, need for follow-up, rad results - Departure Departure Disposition: Home Clinical Impression: Bilateral leg pain, Hypokalemia, Hypomagnesemia Condition: Stable Critical Care Time: No Referrals: LEORA CORMIER [Primary Care Provider] - Additional Instructions: Drink plenty of fluids. Take your medications as prescribed. Repeat your lab results as prescribed. Return to the emergency department if your symptoms worsen Prescriptions: Magnesium Oxide 400 mg [Mag-Ox 400] 400 mg PO DAILY #5 tablet Potassium Chloride 10 Meq Tab* [Klor Con 10 MEQ] 10 meq PO DAILY #5 tab
[2020-01-04] MEDS ORDERED: Sodium Chloride 0.9% 1000 ML 1,000 ML IV STA (16:40)
[2020-01-04] MEDS ORDERED: Sodium Chloride 0.9% 1000 ML 1,000 ML ONE ×2 (16:49→18:28)
--- NOTE | 2020-01-04 17:05 | XRAY ---
Indication: Bilateral calf pain. Two-dimensional sonogram and color Doppler imaging of the major venous vessels of the left and right leg was performed. Comparison: Left leg venous ultrasound August 27, 2013. No thrombus seen in the examined deep venous vessels of the left and right leg including greater saphenous vein. Veins demonstrate compressibility. Venous waveforms are normal with and without augmentation. Right mid calf demonstrates a 10.3 x 2.8 x 11.6 mm nonspecific subcutaneous fluid collection. Impression: 1. Left and right legs negative for DVT. 2. Tiny nonspecific right calf subcutaneous fluid collection.
[2020-01-04 17:13] LABS: Hematocrit 31.6 % (35-47); Hemoglobin 9.3 gm/dl (12.0-16.0); Mean Cell Volume 92.4 fl (78-100); Mean Corpuscular Hemoglobin 27.2 pg (26-32); Mean Corpuscular Hgb Concent. 29.4 g/dl (32-36); Mean Platelet Volume 11.7 fl (7.5-11.0); Platelet Count 408 K/mm3 (150-450); Red Blood Count 3.42 M/mm3 (4.1-5.4); Red Cell Distribution Width 15.2 % (11.5-14.0); White Blood Count 11.9 K/mm3 (4.0-10.5)
[2020-01-04 17:29] LABS: ALBUMIN 3.1 g/dL (3.5-5.0); ALKALINE PHOSPHATASE 129 U/L (38-126); ANION GAP 14.5 MEQ/L (5-15); BLOOD UREA NITROGEN 10 mg/dL (7-17); CHLORIDE 97 mmol/L (98-107); Calcium 6.5 mg/dL (8.4-10.2); Carbon Dioxide 34 mmol/L (22-30); Creatinine 1 0.86 mg/dL (0.52-1.04); Glucose 209 mg/dL (74-106); SGOT/AST 23 U/L (14-36); SGPT/ALT 13 U/L (0-35); SODIUM 143 mmol/L (137-145); Total Protein 6.7 g/dL (6.3-8.2)
[2020-01-04 17:42] LABS: MAGNESIUM 0.6 mg/dL (1.6-2.3); Potassium 2.5 mmol/L (3.5-5.1)
[2020-01-04 17:43] LABS: Appearance SLIGHTLY CLOUDY (CLEAR); Bilirubin NEGATIVE (NEGATIVE); Blood NEGATIVE Ery/ul (0-5); Epithelial Cells RARE /HPF (FEW); Glucose NEGATIVE (NEGATIVE); Hyaline Casts 0-2 /LPF (0-2); Ketones NEGATIVE (NEGATIVE); Leukocyte Esterase NEGATIVE (NEGATIVE); Mucus SLIGHT /HPF (NEGATIVE); Nitrite NEGATIVE (NEGATIVE); Protein,Urine Dip NEGATIVE (Negative); Specific Gravity 1.014 (1.005-1.025); Urobilinogen NEGATIVE mg/dL (0-1); WBC 0-2 /HPF (0-5)
[2020-01-04] MEDS ORDERED: Magnesium 1 Gm / 100 Ml D5W*** 100 ML IV ONE ×2 (17:43→17:51)
[2020-01-04] MEDS ORDERED: POTASSIUM CHLORIDE 20 mEq IN WATER 100ML 20 MEQ/100 ML BAG IV ONE (17:44)
[2020-01-04] MEDS ORDERED: Klor Con 10 MEQ PO ONE ×2 (17:44→17:51)
[2020-01-04] MEDS ORDERED: POTASSIUM CHLORIDE 20 mEq IN WATER 100ML 100 ML IV ONE (18:28)
[2020-01-04] MEDS ORDERED: Sodium Chloride 0.9% 1000 ML 1,000 ML IV SCH (18:30)
[2020-01-04 20:09] LABS: Eosinophil 3 % (0.00-3.0); Lymphocytes 25 % (24-44); Monocyte 8 % (0.0-12.0); Neutrophils 64 % (36.0-66.0); Total Cells Counted 100
[2020-01-04 20:10] LABS: ANISOCYTOSIS 1+; Platelet Estimate NORMAL (NORMAL); Poikilocytosis 1+
[2020-01-04 20:11] LABS: Hypochromia 3+
[2020-01-04 20:46] VITALS: BP 113/59; PULSE 85; O2SAT 99
== END 2020-01-04 21:03 | disposition home or self-care (01) ==
LOC: ED 15:49
DX: M79.605 Pain in left leg (principal); M79.604 Pain in right leg; E87.6 Hypokalemia; E83.42 Hypomagnesemia; R53.1 Weakness; Z79.01 Long term (current) use of anticoagulants; Z79.891 Long term (current) use of opiate analgesic; Z79.899 Other long term (current) drug therapy; Z79.4 Long term (current) use of insulin; I25.10 Atherosclerotic heart disease of native coronary artery without angina pectoris; E78.00 Pure hypercholesterolemia, unspecified; I10 Essential (primary) hypertension; I25.2 Old myocardial infarction; J44.9 Chronic obstructive pulmonary disease, unspecified; E11.9 Type 2 diabetes mellitus without complications
CPT/HCPCS: 36000; 36415; 80053; 81001; 83735; 84484; 85025; 93005; 93041; 93970; 94760; 96360; 96365; 96367; 99284; J3475; J3480; A9270-GY

== ENCOUNTER 2020-03-02 08:06 | Inpatient (IN) | payer MEDICARE ==
[2020-03-02] MEDS: Advair Hfa 230/21 Mcg COMMON CANISTER IH SCH (17:52)
[2020-03-02] MEDS ORDERED: Sodium Chloride 0.9% W/ 20 mEq KCl/LITER 1,000 ML IV ONE (17:59)
[2020-03-02] MEDS: POTASSIUM CHLORIDE 20 mEq IN WATER 100ML 20 MEQ/100 ML BAG IV SCH ×2 (18:05→22:14)
[2020-03-02] MEDS: Sodium Chloride 0.9% W/ 20 mEq KCl/LITER 1,000 ML IV SCH (18:05)
[2020-03-02] MEDS ORDERED: OXYCODONE-ACETAMINOPHEN 10-325 PO PRN (20:42)
[2020-03-02] MEDS ORDERED: DESYREL 50 MG PO PRN (20:44)
[2020-03-02] MEDS ORDERED: ZOCOR 20MG PO ONE (22:00)
[2020-03-02] MEDS: BUSPAR 5 MG PO SCH (22:14)
[2020-03-02] MEDS: Toprol Xl 50 MG PO SCH (22:15)
[2020-03-02] MEDS: LYRICA 100MG PO SCH (22:15)
[2020-03-02] MEDS: Acidophilus TABLET PO SCH (22:15)
[2020-03-02] MEDS: ELIQUIS 2.5 MG TABLET PO SCH (22:15)
[2020-03-02] MEDS: HUMALOG SQ PRN (22:26)
[2020-03-03 05:41] LABS: ANION GAP 11.9 MEQ/L (5-15); BLOOD UREA NITROGEN 11 mg/dL (7-17); CHLORIDE 92 mmol/L (98-107); Calcium 6.6 mg/dL (8.4-10.2); Carbon Dioxide 37 mmol/L (22-30); Creatinine 1 0.95 mg/dL (0.52-1.04); Glucose 181 mg/dL (74-106); SODIUM 139 mmol/L (137-145)
[2020-03-03 06:13] LABS: Potassium 2.4 mmol/L (3.5-5.1)
[2020-03-03 06:14] LABS: MAGNESIUM 1.1 mg/dL (1.6-2.3)
[2020-03-03] MEDS: Advair Hfa 230/21 Mcg COMMON CANISTER IH SCH ×2 (07:15→19:58)
[2020-03-03] MEDS ORDERED: ZOFRAN ODT 4 MG PO PRN (07:24)
[2020-03-03] MEDS ORDERED: INSULIN ASPART 4 UNIT SQ SCH (07:30)
[2020-03-03] MEDS: HUMALOG SQ SCH ×3 (08:00→17:09)
--- NOTE | 2020-03-03 08:09 | PCM.HP ---
History of Present Illness - Chief Complaint Chief Complaint: Weakness, hypokalemia History of Present Illness: is a 69 year old female who was direct admitted by Dr Jiang for low potassium, she complains of weakness. states she has chronic vomiting and diarrhea for the last year, generalized weakness and feeling poorly but no specific complaints. - Review of Systems Constitutional: Weakness Respiratory: No Cough, No Short Of Breath Cardiac: No Chest Pain, No Edema, No Syncope Abdominal/Gastrointestinal: Nausea, Vomiting, Diarrhea Genitourinary Symptoms: No Dysuria, No Frequency All Other Systems: Reviewed and Negative Medications & Allergies Home Medications: Home Medication List Atorvastatin Calcium [Lipitor 20MG Tablet] 80 mg PO HS 02/01/14 [History Confirmed 03/02/20] Buspirone HCl 5 mg [Buspar 5 mg] 15 mg PO BID 02/01/14 [History Confirmed 03/02/20] Insulin Aspart [NovoLOG Insulin] 4 unit SQ AC 02/01/14 [History Confirmed ] Oxycodone HCl/Acetaminophen [Percocet 10-325 mg Tablet] 1 each PO Q8H PRN [History Confirmed 03/02/20] Desvenlafaxine Succinate [Pristiq] 100 mg PO DAILY 07/15/14 [History Confirmed 03/02/20] Loratadine 10 mg [Claritin 10 mg] 10 mg PO DAILY 07/15/14 [History Confirmed 03/02/20] Pregabalin [Lyrica] 200 mg PO BID 07/15/14 [History Confirmed 03/02/20] Lisinopril 5 mg [Zestril 5 MG] 10 mg PO DAILY 11/04/14 [History Confirmed 03/02/20] Isosorbide Mononitrate 30 mg [Imdur 30 MG] 30 mg PO DAILY 08/19/15 [ History Confirmed 03/02/20] Metoprolol Succinate 50 mg PO BID 09/06/16 [History Confirmed 03/02/20] Montelukast Sodium [Singulair] 10 mg PO DAILY 09/06/16 [History Confirmed ] Trazodone HCl 50 mg [Desyrel 50 mg] 150 mg PO HSPRN PRN 09/06/16 [History Confirmed 03/02/20] Lactobacillus Acidophilus [Acidophilus TABLET] 1 tab PO BID #60 tablet [Rx Confirmed 03/02/20] Clopidogrel Bisulfate 75 mg [PLAVIX 75 MG Tablet] 75 mg PO DAILY 08/03/18 [History Confirmed 03/02/20] Levothyroxine Sodium 150 Mcg [Synthroid 150 Mcg] 150 mcg PO DAILY 08/03/18 [History Confirmed 03/02/20] Apixaban [Eliquis] 5 mg PO BID 01/04/20 [History Confirmed 03/02/20] Famotidine 20 mg PO DAILY 01/04/20 [History Confirmed 03/02/20] Hydrochlorothiazide 12.5 mg PO DAILY 01/04/20 [History Confirmed 03/02/20] Ondansetron HCl [Zofran] 4 mg PO Q4H PRN PRN 01/04/20 [History Confirmed ] PANTOPRAZOLE 40 mg Tablet [Protonix 40MG Tablet] 40 mg PO DAILY 01/04/20 [ History Confirmed 03/02/20] Budesonide/Formoterol Fumarate [Symbicort 160-4.5 Mcg Inhaler] 2 puff IH BID 08/11 [History Confirmed 03/02/20] Allergies/Adverse Reactions: Allergies Allergy/AdvReac Type Severity Reaction Status Date / Time levofloxacin [From Levaquin] Allergy Mild Verified 03/02/20 18:07 cefaclor [From Ceclor] Allergy SOB, HIVES Verified 03/02/20 18:07 ciprofloxacin [From Cipro] Allergy Verified 03/02/20 18:07 ciprofloxacin HCl Allergy Verified 03/02/20 18:07 [From Cipro] clarithromycin [From Biaxin] Allergy Verified 03/02/20 18:07 diphenhydramine HCl Allergy SOB HIVES Verified 03/02/20 18:07 [From Benadryl] erythromycin base Allergy SOB HIVES Verified 03/02/20 18:07 [Erythromycin Base] Iodinated Contrast Media Allergy Verified 03/02/20 18:07 [Iodinated Contrast- Oral and IV Dye] iodine Allergy SOB HIVES Verified 03/02/20 18:07 latex Allergy SOB HIVES Verified 03/02/20 18:07 Macrolide Antibiotics Allergy SBO HIVES Verified 03/02/20 18:07 Penicillins Allergy Swelling Verified 03/02/20 18:07 of Face sulfamethoxazole Allergy Verified 03/02/20 18:07 [From Bactrim] trimethoprim [From Bactrim] Allergy Verified 03/02/20 18:07 melon AdvReac Severe cantaloupe Verified 03/02/20 18:07 aspirin AdvReac Verified 03/02/20 18:07 ibuprofen AdvReac Verified 03/02/20 18:07 - Past Medical History Past Medical History: Yes Neurological History: Stroke ENT History: Cataracts Cardiac History: Coronary Artery Disease, High Cholesterol, Hypertension, Myocardial Infarction ([place]), Other Respiratory History: Asthma, COPD, Pneumonia, Sleep Apnea Endocrine Medical History: Diabetes Type II Musculoskelatal History: No Pertinent History GI Medical History: No Pertinent History History: No Pertinent History Pyscho-Social History: No Pertinent History Reproductive Disorders: No Pertinent History Comment: Rapid heart rate at times; lump in right breast, biopsy non-cancerous, "stroke" in left eye. States went into Cardiac Arrest two times in Oct 2019 following a heart stent placement. - Female History Are you now?: No - Past Surgical History Past Surgical History: Yes Neuro Surgical History: No Pertinent History Cardiac History: Cardiac Stent Respiratory Surgery: No Pertinent History GI Surgical History: Bowel Surgery, Cholecystectomy, Hernia Repair Genitourinary Surgical Hx: No Pertinent History Musculskeletal Surgical Hx: No Pertinent History Female Surgical History: Tubal Ligation, Other Other Surgical History: Breast biopsy, 5 STENTS, CLOT REMOVED FROM ARTERY ON LEFT NECK/STROKE; "part of my bowel was taken out"; - Social History Smoking Status: Never smoker Exposure to second hand smoke: No Alcohol: None Drug Use: none - Physical Exam Vital Signs: Vital Signs - 24 hr Temp Pulse Resp BP Pulse Ox 03/03/20 07:31 98.5 F 64 18 122/57 97 03/03/20 04:20 98.5 F 78 20 115/58 96 03/03/20 04:00 20 03/03/20 00:00 98.3 F 70 20 103/53 96 03/02/20 20:00 98.5 F 86 20 128/52 93 L 03/02/20 18:08 99.4 F 88 16 105/61 96 03/02/20 17:55 88 16 96 03/02/20 17:52 96 03/02/20 17:47 99.4 F 87 105/61 91 L Oxygen-Last 24 hours Oxygen Flowrate (L/min)-RT 2 Oxygen Flowrate (L/min)-RT 3 Oxygen Flowrate (L/min)-RT 3 General Appearance: no apparent distress, obese Neurologic Exam: alert, oriented x 3, cooperative Respiratory Exam: normal breath sounds, lungs clear, No respiratory distress Cardiovascular Exam: regular rate/rhythm, normal heart sounds, normal peripheral pulses Gastrointestinal/Abdomen Exam: soft, normal bowel sounds, No tenderness, No mass Skin Exam: normal color, warm, dry, No rash Results - Labs Lab/Micro Results: Accuchecks Date 03/02/20 Time 21:00 Accucheck Value: 228 Lab Results-Last 24 Hours 03/03/20 Range/Units 04:00 Sodium 139 (137-145) mmol/L Potassium 2.4 L* (3.5-5.1) mmol/L Chloride 92 L (98-107) mmol/L Carbon Dioxide 37 H (22-30) mmol/L Anion Gap 11.9 (5-15) MEQ/L BUN 11 (7-17) mg/dL Creatinine 0.95 (0.52-1.04) mg/dL Estimated GFR > 60.0 ML/MIN Glucose 181 H (74-106) mg/dL Calcium 6.6 L (8.4-10.2) mg/dL Magnesium 1.1 L (1.6-2.3) mg/dL Accuchecks Date 03/02/20 Time 21:00 Accucheck Value: 228 - Other Procedures and Tests Respiratory Therapy 03/02/20 17:50 Oxygen Nasal Cannula 3 lpm 03/02/20 17:55 Respiratory Therapy Assessment DAILY Assessment/Plan (1) Hypokalemia Current Visit: Yes Status: Acute Assessment & Plan: likely due to gi losses, will replace Code(s): E87.6 - HYPOKALEMIA (2) Weakness Current Visit: Yes Status: Acute Code(s): R53.1 - WEAKNESS
[2020-03-03] MEDS ORDERED: POTASSIUM CHLORIDE IV ONE ×4 (08:30)
[2020-03-03] MEDS ORDERED: XYLOCAINE 1% IV ONE ×4 (08:30)
[2020-03-03] MEDS ORDERED: [UNRECOGNIZED DRUG - OTHER] IV ONE ×4 (08:30)
[2020-03-03] MEDS ORDERED: POTASSIUM CHLORIDE 20 mEq IN WATER 100ML 20 MEQ/100 ML BAG IV SCH ×2 (08:30→17:00)
[2020-03-03] MEDS: BUSPAR 5 MG PO SCH ×2 (08:56→22:28)
[2020-03-03] MEDS: ELIQUIS 2.5 MG TABLET PO SCH ×2 (08:56→22:29)
[2020-03-03] MEDS: Pepcid 20 MG PO SCH (08:56)
[2020-03-03] MEDS: Acidophilus TABLET PO SCH ×2 (08:56→22:29)
[2020-03-03] MEDS: Singulair 10 MG PO SCH (08:56)
[2020-03-03] MEDS: PLAVIX 75 MG Tablet PO SCH (08:56)
[2020-03-03] MEDS: CLARITIN 10 MG PO SCH (08:57)
[2020-03-03] MEDS: PRISTIQ ER PO SCH (08:57)
[2020-03-03] MEDS: Protonix 40MG Tablet PO SCH (08:57)
[2020-03-03] MEDS: Imdur 30 MG PO SCH (08:57)
[2020-03-03] MEDS: LYRICA 100MG PO SCH ×2 (08:57→22:28)
[2020-03-03] MEDS: Toprol Xl 50 MG PO SCH ×2 (08:57→22:29)
[2020-03-03] MEDS: Zestril 10 MG PO SCH (08:57)
[2020-03-03] MEDS: hydroDIURIL 25 MG PO SCH (08:58)
[2020-03-03] MEDS: SYNTHROID 150 MCG PO SCH (09:06)
[2020-03-03] MEDS ORDERED: NON-FORMULARY ITEM (Desvenlafaxine Succinate [Pristiq] 100 MG) PO SCH (10:00)
[2020-03-03] MEDS ORDERED: Zestril 5 MG PO SCH (10:00)
[2020-03-03] MEDS: HUMALOG SQ PRN ×2 (12:10→17:09)
[2020-03-03] MEDS: Sodium Chloride 0.9% W/ 20 mEq KCl/LITER 1,000 ML IV SCH (17:09)
[2020-03-03] MEDS ORDERED: Potassium Chloride 40 MEQ/20 ML VIAL 40 MEQ, XYLOCAINE 1% HCL 20 ML MDV*** 4 ML in Sodi... IV ONE (17:15)
[2020-03-03] MEDS: Magnesium 1 Gm / 100 Ml D5W*** 100 ML IV SCH ×2 (18:30→18:31)
[2020-03-03] MEDS: OXYCODONE-ACETAMINOPHEN 10-325 PO PRN (20:27)
[2020-03-03] MEDS ORDERED: ATORVASTATIN CALCIUM 80 MG PO SCH (22:00)
[2020-03-03] MEDS: ZOCOR 20MG PO SCH (22:29)
[2020-03-03] MEDS ORDERED: K-LYTE 25 MEQ PO ONE (23:55)
[2020-03-04] MEDS: OXYCODONE-ACETAMINOPHEN 10-325 PO PRN ×3 (04:30→21:10)
[2020-03-04] MEDS: SYNTHROID 150 MCG PO SCH (05:36)
[2020-03-04 06:02] LABS: Absolute Neutrophil Ct (ANC) 4.07 (1.4-6.9); BASOPHIL % 0.2 % (0.0-0.4); Basophil (Absolute #) 0.01 (0-0.4); Eosinophil % 2.1 % (0.00-5.0); Eosinophil (Absolute #) 0.14 (0-0.5); Hematocrit 29.5 % (35-47); Hemoglobin 8.6 gm/dl (12.0-16.0); Lymphocyte (Absolute #) 1.91 (1.0-4.6); Lymphocytes % 28.9 % (24.0-44.0); Mean Cell Volume 89.7 fl (78-100); Mean Corpuscular Hemoglobin 26.1 pg (26-32); Mean Corpuscular Hgb Concent. 29.2 g/dl (32-36); Monocyte (Absolute #) 0.47 (0.0-1.3); Monocytes % 7.1 % (0.0-12.0); Neutrophil % 61.7 % (36.0-66.0); Platelet Count 213 K/mm3 (150-450); Red Blood Count 3.29 M/mm3 (4.1-5.4); Red Cell Distribution Width 15.4 % (11.5-14.0); White Blood Count 6.6 K/mm3 (4.0-10.5)
[2020-03-04 06:24] LABS: ANION GAP 10.5 MEQ/L (5-15); BLOOD UREA NITROGEN 8 mg/dL (7-17); CHLORIDE 96 mmol/L (98-107); Carbon Dioxide 38 mmol/L (22-30); Creatinine 1 0.69 mg/dL (0.52-1.04); Glucose 158 mg/dL (74-106); MAGNESIUM 1.4 mg/dL (1.6-2.3); Potassium 3.2 mmol/L (3.5-5.1); SODIUM 142 mmol/L (137-145)
[2020-03-04] MEDS: Advair Hfa 230/21 Mcg COMMON CANISTER IH SCH ×2 (08:10→20:07)
[2020-03-04] MEDS: HUMALOG SQ SCH ×3 (08:14→16:31)
[2020-03-04] MEDS: ELIQUIS 2.5 MG TABLET PO SCH ×2 (09:50→21:06)
[2020-03-04] MEDS: BUSPAR 5 MG PO SCH ×2 (09:50→21:06)
[2020-03-04] MEDS: Acidophilus TABLET PO SCH ×2 (09:50→21:07)
[2020-03-04] MEDS: hydroDIURIL 25 MG PO SCH (09:50)
[2020-03-04] MEDS: CLARITIN 10 MG PO SCH (09:50)
[2020-03-04] MEDS: Imdur 30 MG PO SCH (09:51)
[2020-03-04] MEDS: PLAVIX 75 MG Tablet PO SCH (09:51)
[2020-03-04] MEDS: Protonix 40MG Tablet PO SCH (09:52)
[2020-03-04] MEDS: Singulair 10 MG PO SCH (09:52)
[2020-03-04] MEDS: Pepcid 20 MG PO SCH (09:52)
[2020-03-04] MEDS: PRISTIQ ER PO SCH (09:52)
[2020-03-04] MEDS: Zestril 10 MG PO SCH (09:52)
[2020-03-04] MEDS: LYRICA 100MG PO SCH ×2 (09:52→21:07)
[2020-03-04] MEDS: Toprol Xl 50 MG PO SCH ×2 (09:52→21:07)
--- NOTE | 2020-03-04 10:26 | PCM.NOTE ---
Date and Time: 03/04/20 1025 Subjective Assessment: patient with no specific complaints, states she doesn't feel well. no acute or new problems. Objective Exam General Appearance: no apparent distress, obese Respiratory Exam: normal breath sounds, lungs clear, No respiratory distress Cardiovascular Exam: regular rate/rhythm, normal heart sounds Gastrointestinal/Abdomen Exam: soft, No tenderness, No mass OBJECTIVE DATA Vital Signs: Vital Signs - 24 hr Temp Pulse Resp BP Pulse Ox 03/04/20 09:00 98.1 F 74 16 152/67 97 03/04/20 08:52 77 18 96 03/04/20 08:00 18 03/04/20 04:24 98.0 F 66 18 147/66 97 03/04/20 04:00 18 03/04/20 01:00 98.4 F 70 12 188/73 03/04/20 00:00 12 03/03/20 21:00 98.7 F 77 18 125/58 97 03/03/20 20:00 18 03/03/20 19:58 72 19 97 03/03/20 17:12 98.2 F 63 18 128/60 99 03/03/20 16:00 98.9 F 71 16 126/58 03/03/20 12:00 16 03/03/20 11:42 98.9 F 71 18 126/58 96 Oxygen-Last 24 hours Oxygen Flowrate (L/min)-RT 3 Oxygen Flowrate (L/min)-RT 3 Pain Assessment - Last Documented Pain Intensity 8 Pain Scale Used [facility] Intake and Output: Intake & Output 03/01/20 03/02/20 03/03/20 03/04/20 11:59 11:59 11:59 11:59 Intake Total 1971 3848 Output Total 600 1500 Balance 1371 2348 Weight 125.3 kg Lab Results: Accuchecks Date 03/03/20 Date 03/03/20 Time 07:30 Time 22:36 Accucheck Value: 158 Accucheck Value: 186 Accucheck Value: 238 Lab Results-Last 24 Hours 03/03/20 03/03/20 03/03/20 Range/Units 16:10 16:15 23:32 WBC (4.0-10.5) K/mm3 RBC (4.1-5.4) M/mm3 Hgb (12.0-16.0) gm/dl Hct (35-47) % MCV (78-100) fl MCH (26-32) pg MCHC (32-36) g/dl RDW (11.5-14.0) % Plt Count (150-450) K/mm3 MPV (7.5-11.0) fl Gran % (36.0-66.0) % Eos # (Auto) (0-0.5) Absolute Lymphs (auto) (1.0-4.6) Absolute Monos (auto) (0.0-1.3) Lymphocytes % (24.0-44.0) % Monocytes % (0.0-12.0) % Eosinophils % (0.00-5.0) % Basophils % (0.0-0.4) % Absolute Granulocytes (1.4-6.9) Basophils # (0-0.4) Sodium (137-145) mmol/L Potassium 2.7 L* 2.9 L* (3.5-5.1) mmol/L Chloride (98-107) mmol/L Carbon Dioxide (22-30) mmol/L Anion Gap (5-15) MEQ/L BUN (7-17) mg/dL Creatinine (0.52-1.04) mg/dL Estimated GFR ML/MIN Glucose (74-106) mg/dL Calcium (8.4-10.2) mg/dL Magnesium 1.6 (1.6-2.3) mg/dL 03/04/20 03/04/20 Range/Units 05:00 05:13 WBC 6.6 (4.0-10.5) K/mm3 RBC 3.29 L (4.1-5.4) M/mm3 Hgb 8.6 L (12.0-16.0) gm/dl Hct 29.5 L (35-47) % MCV 89.7 (78-100) fl MCH 26.1 (26-32) pg MCHC 29.2 L (32-36) g/dl RDW 15.4 H (11.5-14.0) % Plt Count 213 (150-450) K/mm3 MPV 12.0 H (7.5-11.0) fl Gran % 61.7 (36.0-66.0) % Eos # (Auto) 0.14 (0-0.5) Absolute Lymphs (auto) 1.91 (1.0-4.6) Absolute Monos (auto) 0.47 (0.0-1.3) Lymphocytes % 28.9 (24.0-44.0) % Monocytes % 7.1 (0.0-12.0) % Eosinophils % 2.1 (0.00-5.0) % Basophils % 0.2 (0.0-0.4) % Absolute Granulocytes 4.07 (1.4-6.9) Basophils # 0.01 (0-0.4) Sodium 142 (137-145) mmol/L Potassium 3.2 L (3.5-5.1) mmol/L Chloride 96 L (98-107) mmol/L Carbon Dioxide 38 H (22-30) mmol/L Anion Gap 10.5 (5-15) MEQ/L BUN 8 (7-17) mg/dL Creatinine 0.69 (0.52-1.04) mg/dL Estimated GFR > 60.0 ML/MIN Glucose 158 H (74-106) mg/dL Calcium 7.0 L (8.4-10.2) mg/dL Magnesium 1.4 L (1.6-2.3) mg/dL Multi-Disciplinary Progress Notes: Multi-Disciplinary Progress Notes 03/03/20 10:58 Respiratory Note by Catherine Gimenez 3LPM N/C AT REST 95%. PLACE ON ROOM AIR AT REST SPO2 88% PLACED BACK ON 3LPM SPO2 95% Initialized on 03/03/20 10:58 - END OF NOTE 03/03/20 10:33 Case Management Note by Brittni Gomez PATIENT STATES SHE DOES NOT HAVE A PORTABLE OXYGEN TANK AT HOME. I CALLED [facility] TO GET PATIENT A PORTABLE TANK. THEY REPORT THEY HAVE NOT BILLED FOR HER OXYGEN EQUIPMENT SINCE 2013. PATIENT WILL NEED REQUALIFIED AND A NEW ORDER SENT IN TO GET A PORTABLE TANK. RT NOTIFIED AND NEW ORDER ENTERED AT THIS TIME Initialized on 03/03/20 10:33 - END OF NOTE Assessment/Plan (1) Hypokalemia Current Visit: Yes Status: Acute Assessment & Plan: improving, secondary to GI loss. has chronic diarrhea and vomiting since bowel resection, might consider questran etc to help with diarrhea after recovery. Code(s): E87.6 - HYPOKALEMIA (2) Weakness Current Visit: Yes Status: Acute Code(s): R53.1 - WEAKNESS
[2020-03-04] MEDS: Magnesium 1 Gm / 100 Ml D5W*** 100 ML IV SCH ×2 (10:56→11:28)
[2020-03-04] MEDS: Klor Con 10 MEQ PO SCH ×2 (11:00→21:07)
[2020-03-04] MEDS: HUMALOG SQ PRN ×3 (11:25→21:15)
[2020-03-04] MEDS: Sodium Chloride 0.9% W/ 20 mEq KCl/LITER 1,000 ML IV SCH (17:01)
[2020-03-04] MEDS: ZOCOR 20MG PO SCH (21:06)
[2020-03-05 06:18] LABS: Absolute Neutrophil Ct (ANC) 3.29 (1.4-6.9); BASOPHIL % 0.4 % (0.0-0.4); Basophil (Absolute #) 0.02 (0-0.4); Eosinophil % 2.5 % (0.00-5.0); Eosinophil (Absolute #) 0.13 (0-0.5); Hematocrit 29.6 % (35-47); Hemoglobin 8.3 gm/dl (12.0-16.0); Lymphocyte (Absolute #) 1.43 (1.0-4.6); Lymphocytes % 27.5 % (24.0-44.0); Mean Cell Volume 91.1 fl (78-100); Mean Corpuscular Hemoglobin 25.5 pg (26-32); Mean Platelet Volume 11.8 fl (7.5-11.0); Monocyte (Absolute #) 0.33 (0.0-1.3); Monocytes % 6.3 % (0.0-12.0); Neutrophil % 63.3 % (36.0-66.0); Platelet Count 204 K/mm3 (150-450); Red Blood Count 3.25 M/mm3 (4.1-5.4); Red Cell Distribution Width 15.6 % (11.5-14.0); White Blood Count 5.2 K/mm3 (4.0-10.5)
[2020-03-05 06:21] LABS: ANION GAP 9.1 MEQ/L (5-15); BLOOD UREA NITROGEN 6 mg/dL (7-17); CHLORIDE 98 mmol/L (98-107); Calcium 7.3 mg/dL (8.4-10.2); Carbon Dioxide 39 mmol/L (22-30); Creatinine 1 0.67 mg/dL (0.52-1.04); Glucose 171 mg/dL (74-106); MAGNESIUM 1.7 mg/dL (1.6-2.3); Potassium 3.7 mmol/L (3.5-5.1); SODIUM 142 mmol/L (137-145)
[2020-03-05] MEDS: SYNTHROID 150 MCG PO SCH (06:43)
[2020-03-05 07:37] LABS: Slide Review 1 YES
[2020-03-05] MEDS: HUMALOG SQ SCH ×3 (08:15→16:39)
[2020-03-05] MEDS: OXYCODONE-ACETAMINOPHEN 10-325 PO PRN (08:16)
[2020-03-05] MEDS: Advair Hfa 230/21 Mcg COMMON CANISTER IH SCH ×2 (08:30→19:43)
--- NOTE | 2020-03-05 09:43 | PCM.NOTE ---
Date and Time: 03/05/20 0942 Subjective Assessment: patient c/o upset stomach and headache, states she feels too poorly to go home today Objective Exam General Appearance: no apparent distress, obese Neurologic Exam: alert, oriented x 3, cooperative Respiratory Exam: normal breath sounds, lungs clear, No respiratory distress Cardiovascular Exam: regular rate/rhythm, normal heart sounds Gastrointestinal/Abdomen Exam: soft, No tenderness, No distention Extremity Exam: normal inspection, normal range of motion OBJECTIVE DATA Vital Signs: Vital Signs - 24 hr Temp Pulse Resp BP Pulse Ox 03/05/20 08:00 16 03/05/20 07:31 97.9 F 69 16 147/63 96 03/05/20 04:00 98.3 F 74 15 128/73 95 03/05/20 00:00 98.3 F 70 14 131/62 97 03/04/20 20:07 74 17 97 03/04/20 20:00 98.5 F 75 18 117/57 97 03/04/20 16:22 98.2 F 103 H 16 108/58 97 03/04/20 16:00 18 03/04/20 13:00 97.7 F 93 H 18 144/65 96 03/04/20 12:00 16 Pain Assessment - Last Documented Pain Intensity 8 Pain Scale Used 0-10 Pain Scale Intake and Output: Intake & Output 03/02/20 03/03/20 03/04/20 03/05/20 11:59 11:59 11:59 11:59 Intake Total 1971 3848 3332 Output Total 600 2200 3250 Balance 1371 1648 82 Weight 125.3 kg Lab Results: Accuchecks Date 03/05/20 Date 03/04/20 Date 03/04/20 Date 03/03/20 Time 07:30 Time 20:30 Time 16:30 Time 11:30 Accucheck Value: 171 Accucheck Value: 231 Accucheck Value: 210 Accucheck Value: 232 Lab Results-Last 24 Hours 03/05/20 03/05/20 Range/Units 05:20 05:20 WBC 5.2 (4.0-10.5) K/mm3 RBC 3.25 L (4.1-5.4) M/mm3 Hgb 8.3 L (12.0-16.0) gm/dl Hct 29.6 L (35-47) % MCV 91.1 (78-100) fl MCH 25.5 L (26-32) pg MCHC 28.0 L (32-36) g/dl RDW 15.6 H (11.5-14.0) % Plt Count 204 (150-450) K/mm3 MPV 11.8 H (7.5-11.0) fl Gran % 63.3 (36.0-66.0) % Eos # (Auto) 0.13 (0-0.5) Absolute Lymphs (auto) 1.43 (1.0-4.6) Absolute Monos (auto) 0.33 (0.0-1.3) Lymphocytes % 27.5 (24.0-44.0) % Monocytes % 6.3 (0.0-12.0) % Eosinophils % 2.5 (0.00-5.0) % Basophils % 0.4 (0.0-0.4) % Absolute Granulocytes 3.29 (1.4-6.9) Basophils # 0.02 (0-0.4) Sodium 142 (137-145) mmol/L Potassium 3.7 (3.5-5.1) mmol/L Chloride 98 (98-107) mmol/L Carbon Dioxide 39 H (22-30) mmol/L Anion Gap 9.1 (5-15) MEQ/L BUN 6 L (7-17) mg/dL Creatinine 0.67 (0.52-1.04) mg/dL Estimated GFR > 60.0 ML/MIN Glucose 171 H (74-106) mg/dL Calcium 7.3 L (8.4-10.2) mg/dL Magnesium 1.7 (1.6-2.3) mg/dL Slides for Path Review YES Assessment/Plan (1) Hypokalemia Current Visit: Yes Status: Acute Assessment & Plan: improved, will follow Code(s): E87.6 - HYPOKALEMIA (2) Weakness Current Visit: Yes Status: Acute Assessment & Plan: PT Code(s): R53.1 - WEAKNESS (3) Abdominal pain Current Visit: No Status: Acute Code(s): R10.9 - UNSPECIFIED ABDOMINAL PAIN
[2020-03-05] MEDS: BUSPAR 5 MG PO SCH ×2 (10:00→20:55)
[2020-03-05] MEDS: Pepcid 20 MG PO SCH (10:00)
[2020-03-05] MEDS: LYRICA 100MG PO SCH ×2 (10:00→20:55)
[2020-03-05] MEDS ORDERED: MAG-OX 400 PO SCH (10:00)
[2020-03-05] MEDS: Klor Con 10 MEQ PO SCH ×2 (10:00→20:55)
[2020-03-05] MEDS: Imdur 30 MG PO SCH (10:00)
[2020-03-05] MEDS: Toprol Xl 50 MG PO SCH ×2 (10:01→20:58)
[2020-03-05] MEDS: Acidophilus TABLET PO SCH ×2 (10:01→21:40)
[2020-03-05] MEDS: hydroDIURIL 25 MG PO SCH (10:01)
[2020-03-05] MEDS: Zestril 10 MG PO SCH (10:01)
[2020-03-05] MEDS: Protonix 40MG Tablet PO SCH (10:01)
[2020-03-05] MEDS: ELIQUIS 2.5 MG TABLET PO SCH ×2 (10:01→20:58)
[2020-03-05] MEDS: CLARITIN 10 MG PO SCH (10:01)
[2020-03-05] MEDS: PRISTIQ ER PO SCH (10:01)
[2020-03-05] MEDS: PLAVIX 75 MG Tablet PO SCH (10:02)
[2020-03-05] MEDS: Singulair 10 MG PO SCH (10:02)
[2020-03-05] MEDS: Sodium Chloride 0.9% W/ 20 mEq KCl/LITER 1,000 ML IV SCH (12:20)
[2020-03-05] MEDS: HUMALOG SQ PRN ×2 (12:22→16:39)
[2020-03-05] MEDS: IMODIUM 2 MG PO PRN ×2 (20:54→23:43)
[2020-03-05] MEDS: ZOCOR 20MG PO SCH (20:54)
[2020-03-06] MEDS: SYNTHROID 150 MCG PO SCH (05:19)
[2020-03-06 05:46] LABS: Absolute Neutrophil Ct (ANC) 4.78 (1.4-6.9); BASOPHIL % 0.3 % (0.0-0.4); Basophil (Absolute #) 0.02 (0-0.4); Eosinophil (Absolute #) 0.14 (0-0.5); Hematocrit 30.2 % (35-47); Hemoglobin 8.5 gm/dl (12.0-16.0); Lymphocyte (Absolute #) 1.78 (1.0-4.6); Lymphocytes % 24.9 % (24.0-44.0); Mean Cell Volume 90.4 fl (78-100); Mean Corpuscular Hemoglobin 25.4 pg (26-32); Mean Corpuscular Hgb Concent. 28.1 g/dl (32-36); Mean Platelet Volume 11.9 fl (7.5-11.0); Monocyte (Absolute #) 0.43 (0.0-1.3); Neutrophil % 66.8 % (36.0-66.0); Platelet Count 209 K/mm3 (150-450); Red Blood Count 3.34 M/mm3 (4.1-5.4); Red Cell Distribution Width 15.6 % (11.5-14.0); White Blood Count 7.2 K/mm3 (4.0-10.5)
[2020-03-06 05:55] LABS: ANION GAP 7.8 MEQ/L (5-15); BLOOD UREA NITROGEN 9 mg/dL (7-17); CHLORIDE 99 mmol/L (98-107); Calcium 7.7 mg/dL (8.4-10.2); Carbon Dioxide 36 mmol/L (22-30); Creatinine 1 0.68 mg/dL (0.52-1.04); Glucose 193 mg/dL (74-106); MAGNESIUM 1.3 mg/dL (1.6-2.3); Potassium 3.7 mmol/L (3.5-5.1); SODIUM 139 mmol/L (137-145)
[2020-03-06] MEDS: Advair Hfa 230/21 Mcg COMMON CANISTER IH SCH (06:44)
[2020-03-06] MEDS ORDERED: Magnesium Sulfate 1 GM/2 ML VIAL IV ONE (07:15)
[2020-03-06] MEDS: Sodium Chloride 0.9% W/ 20 mEq KCl/LITER 1,000 ML IV SCH (08:04)
[2020-03-06] MEDS: HUMALOG SQ SCH ×3 (08:05→16:52)
[2020-03-06] MEDS: Magnesium 1 Gm / 100 Ml D5W*** 100 ML IV SCH ×2 (08:38→09:44)
[2020-03-06 09:05] LABS: Slide Review 1 YES
[2020-03-06] MEDS: Imdur 30 MG PO SCH (09:44)
[2020-03-06] MEDS: BUSPAR 5 MG PO SCH (09:44)
[2020-03-06] MEDS: LYRICA 100MG PO SCH (09:45)
[2020-03-06] MEDS: PRISTIQ ER PO SCH (09:45)
[2020-03-06] MEDS: CLARITIN 10 MG PO SCH (09:46)
[2020-03-06] MEDS: Toprol Xl 50 MG PO SCH (09:46)
[2020-03-06] MEDS: Acidophilus TABLET PO SCH (09:46)
[2020-03-06] MEDS: hydroDIURIL 25 MG PO SCH (09:46)
[2020-03-06] MEDS: Pepcid 20 MG PO SCH (09:46)
[2020-03-06] MEDS: Zestril 10 MG PO SCH (09:46)
[2020-03-06] MEDS: Protonix 40MG Tablet PO SCH (09:46)
[2020-03-06] MEDS: PLAVIX 75 MG Tablet PO SCH (09:46)
[2020-03-06] MEDS: Klor Con 10 MEQ PO SCH (09:47)
[2020-03-06] MEDS: ELIQUIS 2.5 MG TABLET PO SCH (09:47)
[2020-03-06] MEDS: Singulair 10 MG PO SCH (09:47)
[2020-03-06] MEDS ORDERED: MAG-OX 400 PO SCH (10:00)
[2020-03-06] MEDS: HUMALOG SQ PRN ×2 (11:41→16:51)
--- NOTE | 2020-03-06 15:29 | PCM.DS ---
Discharge Summary Date of Admission: 03/03/20 08:06 Admitting Physician: LEORA CORMIER Primary Care Provider: LEORA CORMIER Allergies Allergies levofloxacin [From Levaquin] Allergy (Mild, Verified 03/02/20 18:07) red rash/burning when gievn IV cefaclor [From Ceclor] Allergy (Verified 03/02/20 18:07) SOB, HIVES ciprofloxacin [From Cipro] Allergy (Verified 03/02/20 18:07) ciprofloxacin HCl [From Cipro] Allergy (Verified 03/02/20 18:07) clarithromycin [From Biaxin] Allergy (Verified 03/02/20 18:07) diphenhydramine HCl [From Benadryl] Allergy (Verified 03/02/20 18:07) SOB HIVES erythromycin base [Erythromycin Base] Allergy (Verified 03/02/20 18:07) SOB HIVES Iodinated Contrast Media [Iodinated Contrast- Oral and IV Dye] Allergy ( Verified 03/02/20 18:07) iodine Allergy (Verified 03/02/20 18:07) SOB HIVES latex Allergy (Verified 03/02/20 18:07) SOB HIVES Macrolide Antibiotics Allergy (Verified 03/02/20 18:07) SBO HIVES Penicillins Allergy (Verified 03/02/20 18:07) Swelling of Face sulfamethoxazole [From Bactrim] Allergy (Verified 03/02/20 18:07) trimethoprim [From Bactrim] Allergy (Verified 03/02/20 18:07) melon Adverse Reaction (Severe, Verified 03/02/20 18:07) cantaloupe aspirin Adverse Reaction (Verified 03/02/20 18:07) ibuprofen Adverse Reaction (Verified 03/02/20 18:07) Hospital Summary - Hospital Course Hospital Course: Pt is 69 yo female pt of mine with multiple medical issues including CAD (with hx IN), COPD, DM, arthritis, and morbid obesity who was admitted directly from home with potassium of 2.4. Her potassium and magnesium were repleted several times and today her potassium is 3.7 and mg was 1.3. After Mg SO4 IV will recheck and if her mg is normal she can be discharged to home. She has no specific complaints today. Pt has chronic diarrhea and had also had some vomiting prior to admission. She does get some relief from lomotil and has used questran in the past with some relief. Pt will need to get outpatient labs and f/u with me in 1 week. - Vitals & Intake/Output Vital Signs: Vital Signs Temperature 98.8 F 03/06/20 12:00 Pulse Rate 82 03/06/20 12:00 Respiratory Rate 18 03/06/20 12:00 Blood Pressure 144/70 03/06/20 12:00 O2 Sat by Pulse Oximetry 98 03/06/20 12:00 Intake & Output: Intake & Output 03/04/20 03/05/20 03/06/20 03/07/20 11:59 11:59 11:59 11:59 Intake Total 3848 3332 2323 480 Output Total 2200 3250 200 Balance 1648 82 2123 480 Weight 125.3 kg - Lab Result Diagrams: 03/06/20 05:20 03/06/20 04:30 Lab Results-Last 24 Hrs: Accuchecks Date 03/06/20 Date 03/06/20 Date 03/05/20 Date 03/05/20 Time 11:30 Time 05:00 Time 22:00 Time 16:39 Accucheck Value: 206 Accucheck Value: 144 Accucheck Value: 213 Lab Results-Last 24 Hours 03/06/20 03/06/20 Range/Units 04:30 05:20 WBC 7.2 (4.0-10.5) K/mm3 RBC 3.34 L (4.1-5.4) M/mm3 Hgb 8.5 L (12.0-16.0) gm/dl Hct 30.2 L (35-47) % MCV 90.4 (78-100) fl MCH 25.4 L (26-32) pg MCHC 28.1 L (32-36) g/dl RDW 15.6 H (11.5-14.0) % Plt Count 209 (150-450) K/mm3 MPV 11.9 H (7.5-11.0) fl Gran % 66.8 H (36.0-66.0) % Eos # (Auto) 0.14 (0-0.5) Absolute Lymphs (auto) 1.78 (1.0-4.6) Absolute Monos (auto) 0.43 (0.0-1.3) Lymphocytes % 24.9 (24.0-44.0) % Monocytes % 6.0 (0.0-12.0) % Eosinophils % 2.0 (0.00-5.0) % Basophils % 0.3 (0.0-0.4) % Absolute Granulocytes 4.78 (1.4-6.9) Basophils # 0.02 (0-0.4) Sodium 139 (137-145) mmol/L Potassium 3.7 (3.5-5.1) mmol/L Chloride 99 (98-107) mmol/L Carbon Dioxide 36 H (22-30) mmol/L Anion Gap 7.8 (5-15) MEQ/L BUN 9 (7-17) mg/dL Creatinine 0.68 (0.52-1.04) mg/dL Estimated GFR > 60.0 ML/MIN Glucose 193 H (74-106) mg/dL Calcium 7.7 L (8.4-10.2) mg/dL Magnesium 1.3 L (1.6-2.3) mg/dL Slides for Path Review YES Micro Results-Entire Visit: Accuchecks Date 03/06/20 Date 03/06/20 Date 03/05/20 Date 03/05/20 Time 11:30 Time 05:00 Time 22:00 Time 16:39 Accucheck Value: 206 Accucheck Value: 144 Accucheck Value: 213 - Procedures and Test Procedures and Tests throughout Hospitalization: Therapy Orders & Screens 03/02/20 17:50 Oxygen Nasal Cannula 3 lpm Comment: Diagnosis: WEAKNESS,HYPOKALEMIA 03/02/20 17:55 Respiratory Therapy Assessment DAILY Comment: Diagnosis: WEAKNESS,HYPOKALEMIA 03/03/20 08:09 PT [facility] Justin ( Order) ROUTINE Reason for Eval:: weakness, morbid obesity Diagnosis: Weakness, hypokalemia 03/03/20 10:32 RT Miscellaneous Order ROUTINE Comment: (LINCARE REQUIREMENT-SEE NOTE) Physician Instructions: Reason For Exam: QUALIFY PATIENT FOR HOME OXYGEN Diagnosis: Weakness, hypokalemia 03/04/20 10:26 PT [facility] ( Order) Reason for Eval:: weakness Diagnosis: Weakness, hypokalemia Discharge Exam General Appearance: no apparent distress, alert, obese Neurologic Exam: oriented x 3, cooperative Eye Exam: eyes nml inspection Ears, Nose, Throat Exam: moist mucous membranes Neck Exam: normal inspection Respiratory Exam: normal breath sounds, lungs clear, No crackles/rales, No rhonchi, No wheezing Cardiovascular Exam: regular rate/rhythm, normal heart sounds, No murmur Gastrointestinal/Abdomen Exam: soft, normal bowel sounds, No tenderness, No distention, No mass, No guarding, No rebound Back Exam: normal inspection, No rash Extremity Exam: No pedal edema, No swelling Skin Exam: normal color, warm, dry, No rash Final Diagnosis/Problem List - Final Discharge Diagnosis/Problem (1) Hypokalemia Current Visit: Yes Status: Resolved Assessment & Plan: Likely related to GI losses. OK to try lomotil/questran as needed. Code(s): E87.6 - HYPOKALEMIA (2) Hypomagnesemia Current Visit: No Status: Acute Assessment & Plan: If normal on recheck, will send pt home. Code(s): E83.42 - HYPOMAGNESEMIA (3) COPD (chronic obstructive pulmonary disease) Current Visit: No Status: Chronic Assessment & Plan: stable. (4) Coronary artery disease Current Visit: No Status: Chronic Assessment & Plan: stable. Code(s): I25.10 - ATHSCL HEART DISEASE OF [place] CORONARY ARTERY W/O ANG PCTRS (5) Diabetes mellitus Current Visit: No Status: Chronic Assessment & Plan: stable. Code(s): E11.9 - TYPE 2 DIABETES MELLITUS WITHOUT COMPLICATIONS (6) Hypertension Current Visit: No Status: Chronic Assessment & Plan: stable. Code(s): I10 - ESSENTIAL (PRIMARY) HYPERTENSION (7) Morbid obesity Current Visit: No Status: Chronic Code(s): E66.01 - MORBID (SEVERE) OBESITY DUE TO EXCESS CALORIES (8) Sleep apnea Current Visit: No Status: Chronic Assessment & Plan: My office will schedule her sleep study. Code(s): G47.30 - SLEEP APNEA, UNSPECIFIED - Discharge Disposition: Home, Self-Care Condition: Stable Prescriptions: No Action Insulin Aspart [NovoLOG Insulin] 4 unit SQ AC Atorvastatin Calcium [Lipitor 20MG Tablet] 80 mg PO HS Buspirone HCl 5 mg [Buspar 5 mg] 15 mg PO BID Oxycodone HCl/Acetaminophen [Percocet 10-325 mg Tablet] 1 each PO Q8H PRN PRN Reason: Pain Loratadine 10 mg [Claritin 10 mg] 10 mg PO DAILY Pregabalin [Lyrica] 200 mg PO BID Desvenlafaxine Succinate [Pristiq] 100 mg PO DAILY Lisinopril 5 mg [Zestril 5 MG] 10 mg PO DAILY Isosorbide Mononitrate 30 mg [Imdur 30 MG] 30 mg PO DAILY Trazodone HCl 50 mg [Desyrel 50 mg] 150 mg PO HSPRN PRN PRN Reason: Insomnia Montelukast Sodium [Singulair] 10 mg PO DAILY Metoprolol Succinate 50 mg PO BID Lactobacillus Acidophilus [Acidophilus TABLET] 1 tab PO BID #60 tablet Levothyroxine Sodium 150 Mcg [Synthroid 150 Mcg] 150 mcg PO DAILY Clopidogrel Bisulfate 75 mg [PLAVIX 75 MG Tablet] 75 mg PO DAILY PANTOPRAZOLE 40 mg Tablet [Protonix 40MG Tablet] 40 mg PO DAILY Ondansetron HCl [Zofran] 4 mg PO Q4H PRN PRN PRN Reason: Nausea Hydrochlorothiazide 12.5 mg PO DAILY Famotidine 20 mg PO DAILY Apixaban [Eliquis] 5 mg PO BID Budesonide/Formoterol Fumarate [Symbicort 160-4.5 Mcg Inhaler] 2 puff IH BID Follow up with: LEORA CORMIER [Primary Care Provider] - 1 Week
[2020-03-06 16:27] VITALS: BP 142/92; PULSE 75; O2SAT 96
== END 2020-03-06 19:05 | disposition home or self-care (01) | DRG 641 ==
LOC: MED SURG 08:06 → OBSVTOIN 03-03 08:06
PROVIDERS: ADMIT Family Medicine; ATTEND Family Medicine
DX: E87.6 Hypokalemia (principal); J96.11 Chronic respiratory failure with hypoxia; E83.42 Hypomagnesemia; J44.9 Chronic obstructive pulmonary disease, unspecified; I25.10 Atherosclerotic heart disease of native coronary artery without angina pectoris; E11.9 Type 2 diabetes mellitus without complications; I10 Essential (primary) hypertension; E66.01 Morbid (severe) obesity due to excess calories; G47.30 Sleep apnea, unspecified; R51 Headache; R53.1 Weakness; R11.10 Vomiting, unspecified; R11.2 Nausea with vomiting, unspecified; R19.7 Diarrhea, unspecified; R10.9 Unspecified abdominal pain; Z79.01 Long term (current) use of anticoagulants; Z79.899 Other long term (current) drug therapy
CPT/HCPCS: 36415; 80048; 82962; 83735; 84132; 85025; 93268; 94640; 94760; 97161; G0378; J1817; J3475; J3480; A9270-GY

== ENCOUNTER 2020-06-15 20:09 | Inpatient (IN) | payer MEDICARE ==
[2020-06-15 20:40] LABS: Absolute Neutrophil Ct (ANC) 5.25 (1.4-6.9); BASOPHIL % 0.4 % (0.0-0.4); Basophil (Absolute #) 0.03 (0-0.4); Eosinophil % 2.6 % (0.00-5.0); Eosinophil (Absolute #) 0.21 (0-0.5); Hematocrit 32.4 % (35-47); Hemoglobin 9.8 gm/dl (12.0-16.0); Lymphocyte (Absolute #) 2.01 (1.0-4.6); Lymphocytes % 24.7 % (24.0-44.0); Mean Cell Volume 90.5 fl (78-100); Mean Corpuscular Hemoglobin 27.4 pg (26-32); Mean Corpuscular Hgb Concent. 30.2 g/dl (32-36); Mean Platelet Volume 10.9 fl (7.5-11.0); Monocyte (Absolute #) 0.64 (0.0-1.3); Monocytes % 7.9 % (0.0-12.0); Neutrophil % 64.4 % (36.0-66.0); Platelet Count 269 K/mm3 (150-450); Red Blood Count 3.58 M/mm3 (4.1-5.4); Red Cell Distribution Width 14.8 % (11.5-14.0); White Blood Count 8.1 K/mm3 (4.0-10.5)
--- NOTE | 2020-06-15 20:46 | ERPHSYRPT ---
- History of Present Illness Time Seen by Provider: 06/15/20 20:15 Source: patient Exam Limitations: no limitations Patient Subjective Stated Complaint: "I think my potassium is critically low again." Triage Nursing Assessment: . Physician History: Patient is a 69-year-old female presents to our ED complaining of diffuse body cramping including cramping at her abdomen and extremities. Patient does not have tony abdominal pain. Patient states she has a history of hypokalemia. Patient is currently on potassium and magnesium supplements. Patient is also been experiencing heart palpitations. Patient has been experiencing diarrhea for the past 2 days. No associated chest pain. No nausea vomiting or diaphoresis. Symptoms are constant. Symptoms are moderate in intensity. No specific worsening or improving factors. Patient voices no other complaints or concerns at this time. Patient advises that she has a history of atrial fibrillation and cardiac stent x8. Timing/Duration: today Severity: moderate Modifying Factors: Improves With: nothing Associated Symptoms: other (Diarrhea) Allergies/Adverse Reactions: levofloxacin [From Levaquin] Allergy (Mild, Verified 06/15/20 20:18) red rash/burning when gievn IV cefaclor [From Ceclor] Allergy (Verified 06/15/20 20:18) SOB, HIVES ciprofloxacin [From Cipro] Allergy (Verified 06/15/20 20:18) ciprofloxacin HCl [From Cipro] Allergy (Verified 06/15/20 20:18) clarithromycin [From Biaxin] Allergy (Verified 06/15/20 20:18) diphenhydramine HCl [From Benadryl] Allergy (Verified 06/15/20 20:18) SOB HIVES erythromycin base [Erythromycin Base] Allergy (Verified 06/15/20 20:18) SOB HIVES Iodinated Contrast Media [Iodinated Contrast- Oral and IV Dye] Allergy (Verified 06/15/20 20:18) iodine Allergy (Verified 06/15/20 20:18) SOB HIVES latex Allergy (Verified 06/15/20 20:18) SOB HIVES Macrolide Antibiotics Allergy (Verified 06/15/20 20:18) SBO HIVES Penicillins Allergy (Verified 06/15/20 20:18) Swelling of Face sulfamethoxazole [From Bactrim] Allergy (Verified 06/15/20 20:18) trimethoprim [From Bactrim] Allergy (Verified 06/15/20 20:18) melon Adverse Reaction (Severe, Verified 06/15/20 20:18) cantaloupe aspirin Adverse Reaction (Verified 06/15/20 20:18) ibuprofen Adverse Reaction (Verified 06/15/20 20:18) Home Medications: Atorvastatin Calcium [Lipitor 20MG Tablet] 80 mg PO HS 02/01/14 [History] Buspirone HCl 5 mg [Buspar 5 mg] 15 mg PO BID 02/01/14 [History] Insulin Aspart [NovoLOG Insulin] 4 unit SQ AC 02/01/14 [History] Oxycodone HCl/Acetaminophen [Percocet 10-325 mg Tablet] 1 each PO Q8H PRN 02/01/14 [History] Desvenlafaxine Succinate [Pristiq] 100 mg PO DAILY 07/15/14 [History] Loratadine 10 mg [Claritin 10 mg] 10 mg PO DAILY 07/15/14 [History] Pregabalin [Lyrica] 200 mg PO BID 07/15/14 [History] Lisinopril 5 mg [Zestril 5 MG] 10 mg PO DAILY 11/04/14 [History] Isosorbide Mononitrate 30 mg [Imdur 30 MG] 30 mg PO DAILY 08/19/15 [History] Metoprolol Succinate 50 mg PO BID 09/06/16 [History] Montelukast Sodium [Singulair] 10 mg PO DAILY 09/06/16 [History] Trazodone HCl 50 mg [Desyrel 50 mg] 150 mg PO HSPRN PRN 09/06/16 [History] Clopidogrel Bisulfate 75 mg [PLAVIX 75 MG Tablet] 75 mg PO DAILY 08/03/18 [History] Levothyroxine Sodium 150 Mcg [Synthroid 150 Mcg] 150 mcg PO DAILY 08/03/18 [History] Apixaban [Eliquis] 5 mg PO BID 01/04/20 [History] Famotidine 20 mg PO DAILY 01/04/20 [History] Hydrochlorothiazide 12.5 mg PO DAILY 01/04/20 [History] Ondansetron HCl [Zofran] 4 mg PO Q4H PRN PRN 01/04/20 [History] PANTOPRAZOLE 40 mg Tablet [Protonix 40MG Tablet] 40 mg PO DAILY 01/04/20 [History] Budesonide/Formoterol Fumarate [Symbicort 160-4.5 Mcg Inhaler] 2 puff IH BID 03/02/20 [History] Fluticasone Furoate [Flonase Sensimist] 2 spray IN DAILY 06/15/20 [History] Ondansetron HCl 1 tab PO Q6H PRN 06/15/20 [History] Hx Tetanus, Diphtheria Vaccination/Date Given: Yes Hx Influenza Vaccination/Date Given: Yes Hx Pneumococcal Vaccination/Date Given: Yes Travel Risk - International Travel Have you traveled outside of the country in past 3 weeks: No - Coronavirus Screening Are you exhibiting any of the following symptoms?: No Close contact with a COVID-19 positive Pt in past 14-21 Days: No - Review of Systems Constitutional: No Symptoms, No Fever, No Chills Eyes: No Symptoms Ears, Nose, & Throat: No Symptoms Respiratory: No Symptoms, No Cough, No Dyspnea Cardiac: No Symptoms, No Chest Pain, No Edema, No Syncope Abdominal/Gastrointestinal: No Symptoms, No Abdominal Pain, No Nausea, No Vomiting, No Diarrhea Genitourinary Symptoms: No Symptoms, No Dysuria Musculoskeletal: No Symptoms, No Back Pain, No Neck Pain Skin: No Symptoms, No Rash Neurological: No Symptoms, No Dizziness, No Focal Weakness, No Sensory Changes Psychological: No Symptoms Endocrine: No Symptoms Hematologic/Lymphatic: No Symptoms Immunological/Allergic: No Symptoms All Other Systems: Reviewed and Negative - Past Medical History Pertinent Past Medical History: Yes Neurological History: Stroke ENT History: Cataracts Cardiac History: Coronary Artery Disease, High Cholesterol, Hypertension, Myocardial Infarction ([place]), Other Respiratory History: Asthma, COPD, Pneumonia, Sleep Apnea Endocrine Medical History: Diabetes Type II Musculoskeletal History: No Pertinent History GI Medical History: No Pertinent History History: No Pertinent History Psycho-Social History: No Pertinent History Female Reproductive Disorders: No Pertinent History Other Medical History: Rapid heart rate at times; lump in right breast, biopsy non-cancerous, "stroke" in left eye. States went into Cardiac Arrest two times in Oct 2019 following a heart stent placement. - Past Surgical History Past Surgical History: Yes Neuro Surgical History: No Pertinent History Cardiac: Cardiac Stent Respiratory: No Pertinent History Gastrointestinal: Bowel Surgery, Cholecystectomy, Hernia Repair Genitourinary: No Pertinent History Musculoskeletal: No Pertinent History Female Surgical History: Tubal Ligation, Other Other Surgical History: Breast biopsy, 5 STENTS, CLOT REMOVED FROM ARTERY ON LEFT NECK/STROKE; "part of my bowel was taken out"; - Social History Smoking Status: Never smoker Exposure to second hand smoke: No Drug Use: none Patient Lives Alone: No - Nursing Vital Signs Nursing Vital Signs: Initial Vital Signs Temperature 98.7 F 06/15/20 20:10 Pulse Rate 85 06/15/20 20:10 Respiratory Rate 18 06/15/20 20:10 Blood Pressure 148/93 06/15/20 20:10 O2 Sat by Pulse Oximetry 95 06/15/20 20:10 Pain Scale Pain Intensity 8 - Physical Exam General Appearance: no apparent distress, alert Eye Exam: PERRL/EOMI, eyes nml inspection Ears, Nose, Throat Exam: normal ENT inspection, TMs normal, pharynx normal, moist mucous membranes Neck Exam: normal inspection, non-tender, supple, full range of motion Respiratory Exam: normal breath sounds, lungs clear, No respiratory distress Cardiovascular Exam: regular rate/rhythm, normal heart sounds, normal peripheral pulses Gastrointestinal/Abdomen Exam: soft, normal bowel sounds, No tenderness, No mass Back Exam: normal inspection, normal range of motion, No CVA tenderness, No vertebral tenderness Extremity Exam: normal inspection, normal range of motion, pelvis stable Neurologic Exam: alert, oriented x 3, cooperative, normal mood/affect, nml cerebellar function, nml station & gait, sensation nml, No motor deficits Skin Exam: normal color, warm, dry, No rash Lymphatic Exam: No adenopathy SpO2 Interpretation: normal SpO2: 95 O2 Delivery: Room Air Ordered Tests: Active Orders 24 hr Category Date Time Status EKG-ER Only STAT Care 06/15/20 20:24 Active IV Insertion STAT Care 06/15/20 20:24 Active CBC W DIFF Stat Lab 06/15/20 20:37 Received CMP Stat Lab 06/15/20 20:37 Received LIPASE Stat Lab 06/15/20 20:37 Received MAGNESIUM Stat Lab 06/15/20 20:37 Received TROPONIN Q3H Lab 06/15/20 20:37 Received TROPONIN Q3H Lab 06/15/20 23:30 Ordered TROPONIN Q3H Lab 06/16/20 02:30 Ordered TROPONIN Q3H Lab 06/16/20 05:30 Ordered TROPONIN Q3H Lab 06/16/20 08:30 Ordered UA W/RFX UR CULTURE Stat Lab 06/15/20 20:25 Uncollected - Departure Referrals: LEORA FERRER [Primary Care Provider] -
[2020-06-15 21:00] LABS: ALBUMIN 3.5 g/dL (3.5-5.0); ALKALINE PHOSPHATASE 85 U/L (38-126); ANION GAP 9.4 MEQ/L (5-15); BLOOD UREA NITROGEN 9 mg/dL (7-17); CHLORIDE 97 mmol/L (98-107); Carbon Dioxide 38 mmol/L (22-30); Creatinine 1 0.88 mg/dL (0.52-1.04); EST GLOMERULAR FILTRATION RATE > 60.0 ML/MIN; Glucose 118 mg/dL (74-106); LIPASE 68 U/L (23-300); SGOT/AST 15 U/L (14-36); SGPT/ALT 10 U/L (0-35); SODIUM 142 mmol/L (137-145); Total Protein 6.5 g/dL (6.3-8.2)
[2020-06-15 21:06] LABS: Appearance CLEAR (CLEAR); Bilirubin NEGATIVE (NEGATIVE); Blood NEGATIVE Ery/ul (0-5); Glucose NEGATIVE (NEGATIVE); Ketones NEGATIVE (NEGATIVE); Leukocyte Esterase NEGATIVE (NEGATIVE); Mucus SLIGHT /HPF (NEGATIVE); Nitrite NEGATIVE (NEGATIVE); Protein,Urine Dip NEGATIVE (Negative); Specific Gravity 1.016 (1.005-1.025); Urobilinogen NEGATIVE mg/dL (0-1)
[2020-06-15 21:11] LABS: Potassium 2.7 mmol/L (3.5-5.1)
[2020-06-15 21:12] LABS: MAGNESIUM 0.5 mg/dL (1.6-2.3)
[2020-06-15] MEDS ORDERED: Calcium Gluconate 10% 1000 MG IV ONE ×2 (21:17→21:23)
[2020-06-15] MEDS ORDERED: Klor Con 10 MEQ PO ONE ×2 (21:18→21:23)
[2020-06-15] MEDS ORDERED: Magnesium 1 Gm / 100 Ml D5W*** 100 ML IV ONE ×2 (21:23→22:09)
[2020-06-15] MEDS: Magnesium 1 Gm / 100 Ml D5W*** 100 ML IV SCH ×2 (21:27→22:11)
[2020-06-15] MEDS ORDERED: OXYCODONE-ACETAMINOPHEN 10-325 PO STA (23:13)
[2020-06-15] MEDS ORDERED: MORPHINE SULFATE 2 MG INJ IV PRN (23:28)
[2020-06-15] MEDS ORDERED: Zofran 4 MG/2 ML VIAL IV PRN (23:28)
[2020-06-15] MEDS ORDERED: OXYCODONE-ACETAMINOPHEN 10-325 ONE (23:38)
[2020-06-16] MEDS ORDERED: PROVENTIL 2.5 MG/3 ML NEB IH PRN (00:02)
[2020-06-16 06:06] LABS: ALBUMIN 3.1 g/dL (3.5-5.0); ALKALINE PHOSPHATASE 75 U/L (38-126); BLOOD UREA NITROGEN 9 mg/dL (7-17); CHLORIDE 95 mmol/L (98-107); Creatinine 1 0.95 mg/dL (0.52-1.04); EST GLOMERULAR FILTRATION RATE > 60.0 ML/MIN; Glucose 177 mg/dL (74-106); SGOT/AST 14 U/L (14-36); SGPT/ALT 8 U/L (0-35); SODIUM 139 mmol/L (137-145); Total Protein 5.9 g/dL (6.3-8.2)
[2020-06-16 06:12] LABS: Carbon Dioxide 40 mmol/L (22-30)
[2020-06-16 06:19] LABS: Absolute Neutrophil Ct (ANC) 4.78 (1.4-6.9); BASOPHIL % 0.3 % (0.0-0.4); Basophil (Absolute #) 0.02 (0-0.4); Eosinophil % 2.4 % (0.00-5.0); Eosinophil (Absolute #) 0.17 (0-0.5); Hematocrit 29.3 % (35-47); Hemoglobin 8.7 gm/dl (12.0-16.0); Lymphocyte (Absolute #) 1.63 (1.0-4.6); Lymphocytes % 22.9 % (24.0-44.0); Mean Corpuscular Hgb Concent. 29.7 g/dl (32-36); Mean Platelet Volume 11.4 fl (7.5-11.0); Monocyte (Absolute #) 0.53 (0.0-1.3); Monocytes % 7.4 % (0.0-12.0); Platelet Count 211 K/mm3 (150-450); Red Blood Count 3.22 M/mm3 (4.1-5.4); Red Cell Distribution Width 14.6 % (11.5-14.0); White Blood Count 7.1 K/mm3 (4.0-10.5)
[2020-06-16 06:29] LABS: Potassium 2.6 mmol/L (3.5-5.1)
[2020-06-16 06:30] LABS: Calcium 5.9 mg/dL (8.4-10.2)
[2020-06-16 06:33] LABS: MAGNESIUM 0.9 mg/dL (1.6-2.3)
[2020-06-16] MEDS ORDERED: Calcium Gluconate 10% 1000 MG IV ONE (06:45)
[2020-06-16] MEDS ORDERED: POTASSIUM CHLORIDE 20 mEq IN WATER 100ML 20 MEQ/100 ML BAG IV SCH (06:45)
[2020-06-16] MEDS ORDERED: PHARMACY DOSING REQUEST MC ONE (06:55)
[2020-06-16] MEDS: Advair Hfa 230/21 Mcg COMMON CANISTER IH SCH ×2 (07:07→19:22)
[2020-06-16] MEDS ORDERED: Magnesium Sulfate 40 Gm/1000 Ml H2O Premix*** 1,000 ML IV SCH (08:00)
[2020-06-16] MEDS ORDERED: [UNRECOGNIZED DRUG - OTHER] IV SCH (08:00)
[2020-06-16] MEDS ORDERED: POTASSIUM CHLORIDE IV SCH ×2 (08:00)
[2020-06-16] MEDS ORDERED: Magnesium 1 Gm / 100 Ml D5W*** 100 ML IV ONE ×2 (08:00→09:00)
[2020-06-16] MEDS ORDERED: CALCIUM GLUCONATE IV SCH (08:00)
[2020-06-16] MEDS ORDERED: CALCIUM CHLORIDE IV SCH (08:00)
[2020-06-16] MEDS ORDERED: [UNRECOGNIZED DRUG - OTHER] IV SCH (08:00)
[2020-06-16] MEDS ORDERED: Sodium Chloride 0.9% 250 ML 250 ML IV ONE (08:18)
[2020-06-16] MEDS ORDERED: Desyrel 150 MG PO PRN (08:27)
[2020-06-16] MEDS ORDERED: Sodium Chloride 0.9% 250 ML 250 ML IV SCH (08:30)
[2020-06-16] MEDS ORDERED: ZOFRAN ODT 4 MG PO PRN (08:33)
--- NOTE | 2020-06-16 08:35 | PCM.HP ---
History of Present Illness - Chief Complaint Chief Complaint: electrolyte abnormality History of Present Illness: is a 69 year old female pt of mine from [facility] with PMHx COPD, arthritis, fibromyalgia, HTN, hypothyroid, DM, diabetic peripheral neuropathy, CAD (hx stents x 8) who was admitted with hypokalemia, hypomagnesemia, and hypocalcemia through the ER. Her Mg was 0.5 and potassium 2.7. She had been complaining of generalized muscle cramping and palpitations, and L sided achy/s harp chest pain (nonradiating). She also had diarrhea for the past 2 days; she has chronic diarrhea, but was having 5 episodes per hour recently. She was given 1g Mg IV in ER and po potassium. This morning her potassium was 2.6 and her Mg was 0.9. Her Ca was 6.0 at admission and 5.9 this morning. Pt takes her medications regularly, but she had not gotten a refill on her potassium and magnesium supplements so did stop those last month. Medications & Allergies Home Medications: Home Medication List Atorvastatin Calcium [Lipitor 20MG Tablet] 80 mg PO DAILY 02/01/14 [History Confirmed 06/16/20] Buspirone HCl 5 mg [Buspar 5 mg] 15 mg PO BID 02/01/14 [History Confirmed 06/16/20] Insulin Aspart [NovoLOG Insulin] 4 unit SQ AC 02/01/14 [History Confirmed 06/16/20] Oxycodone HCl/Acetaminophen [Percocet 10-325 mg Tablet] 1 tab PO QID 02/01/14 [History Confirmed 06/16/20] Desvenlafaxine Succinate [Pristiq] 100 mg PO DAILY 07/15/14 [History Confirmed 06/16/20] Loratadine 10 mg [Claritin 10 mg] 10 mg PO DAILY 07/15/14 [History Confirmed 06/16/20] Pregabalin [Lyrica] 200 mg PO BID 07/15/14 [History Confirmed 06/16/20] Lisinopril 5 mg [Zestril 5 MG] 10 mg PO DAILY 11/04/14 [History Confirmed 06/16/20] Isosorbide Mononitrate 30 mg [Imdur 30 MG] 30 mg PO DAILY 08/19/15 [History Confirmed 06/16/20] Metoprolol Succinate 50 mg PO BID 09/06/16 [History Confirmed 06/16/20] Montelukast Sodium [Singulair] 10 mg PO DAILY 09/06/16 [History Confirmed 06/16/20] Trazodone HCl 50 mg [Desyrel 50 mg] 150 mg PO HSPRN PRN 09/06/16 [History Confirmed 06/15/20] Clopidogrel Bisulfate 75 mg [PLAVIX 75 MG Tablet] 75 mg PO DAILY 08/03/18 [History Confirmed 06/16/20] Levothyroxine Sodium 150 Mcg [Synthroid 150 Mcg] 150 mcg PO DAILY 08/03/18 [History Confirmed 06/16/20] Apixaban [Eliquis] 5 mg PO BID 01/04/20 [History Confirmed 06/16/20] Famotidine 20 mg PO BID 01/04/20 [History Confirmed 06/16/20] Hydrochlorothiazide 12.5 mg PO DAILY 01/04/20 [History Confirmed 06/16/20] Ondansetron HCl [Zofran] 4 mg PO Q4H PRN PRN 01/04/20 [History Confirmed 06/16/20] PANTOPRAZOLE 40 mg Tablet [Protonix 40MG Tablet] 40 mg PO DAILY 01/04/20 [History Confirmed 06/16/20] Budesonide/Formoterol Fumarate [Symbicort 160-4.5 Mcg Inhaler] 2 puff IH BID 03/02/20 [History Confirmed 06/16/20] Fluticasone Furoate [Flonase Sensimist] 2 spray IN DAILY 06/15/20 [History Confirmed 06/16/20] Ondansetron HCl 1 tab PO Q6H PRN 06/15/20 [History Confirmed 06/15/20] Fexofenadine HCl 180 mg PO DAILY 06/16/20 [History Confirmed 06/16/20] Insulin Detemir [Levemir] 30 unit SQ BID 06/16/20 [History Confirmed 06/16/20] Magnesium Oxide 1 tab PO BID 06/16/20 [History Confirmed 06/16/20] Potassium Chloride 10 Meq Tab* [Klor Con 10 MEQ] 2 tab PO DAILY 06/16/20 [History Confirmed 06/16/20] Allergies/Adverse Reactions: Allergies Allergy/AdvReac Type Severity Reaction Status Date / Time levofloxacin [From Levaquin] Allergy Mild Verified 06/16/20 00:49 cefaclor [From Ceclor] Allergy SOB, HIVES Verified 06/16/20 00:49 ciprofloxacin [From Cipro] Allergy Verified 06/16/20 00:49 ciprofloxacin HCl Allergy Verified 06/16/20 00:49 [From Cipro] clarithromycin [From Biaxin] Allergy Verified 06/16/20 00:49 diphenhydramine HCl Allergy SOB HIVES Verified 06/16/20 00:49 [From Benadryl] erythromycin base Allergy SOB HIVES Verified 06/16/20 00:49 [Erythromycin Base] Iodinated Contrast Media Allergy Verified 06/16/20 00:49 [Iodinated Contrast- Oral and IV Dye] iodine Allergy SOB HIVES Verified 06/16/20 00:49 latex Allergy SOB HIVES Verified 06/16/20 00:49 Macrolide Antibiotics Allergy SBO HIVES Verified 06/16/20 00:49 Penicillins Allergy Swelling Verified 06/16/20 00:49 of Face sulfamethoxazole Allergy Verified 06/16/20 00:49 [From Bactrim] trimethoprim [From Bactrim] Allergy Verified 06/16/20 00:49 melon AdvReac Severe cantaloupe Verified 06/16/20 00:49 aspirin AdvReac Verified 06/16/20 00:49 ibuprofen AdvReac Verified 06/16/20 00:49 - Past Medical History Past Medical History: Yes Neurological History: Stroke ENT History: Cataracts Cardiac History: Coronary Artery Disease, High Cholesterol, Hypertension, Myocardial Infarction ([place]), Other Respiratory History: COPD, Pneumonia, Sleep Apnea Endocrine Medical History: Diabetes Type II Musculoskelatal History: No Pertinent History GI Medical History: No Pertinent History History: No Pertinent History Pyscho-Social History: No Pertinent History Reproductive Disorders: No Pertinent History Comment: Rapid heart rate at times; lump in right breast, biopsy non-cancerous, "stroke" in left eye. States went into Cardiac Arrest two times in Oct 2019 following a heart stent placement. - Female History Are you now?: No - Past Surgical History Past Surgical History: Yes Neuro Surgical History: No Pertinent History Cardiac History: Cardiac Stent Respiratory Surgery: No Pertinent History GI Surgical History: Bowel Surgery, Cholecystectomy, Hernia Repair Genitourinary Surgical Hx: No Pertinent History Musculskeletal Surgical Hx: No Pertinent History Female Surgical History: Tubal Ligation, Other Other Surgical History: Breast biopsy, 5 STENTS, CLOT REMOVED FROM ARTERY ON LEFT NECK/STROKE; "part of my bowel was taken out, 3 inches or more"; - Social History Smoking Status: Never smoker Exposure to second hand smoke: No Alcohol: None Drug Use: none - Physical Exam Vital Signs: Vital Signs - 24 hr Temp Pulse Resp BP Pulse Ox 06/16/20 07:19 68 18 94 L 06/16/20 06:54 98.3 F 68 12 116/51 95 06/16/20 04:00 97.8 F 74 19 131/51 98 06/16/20 00:01 66 16 96 06/16/20 00:00 98.7 F 66 16 140/92 96 06/15/20 21:10 54 L 18 140/92 97 06/15/20 20:46 95 06/15/20 20:10 98.7 F 85 18 148/93 95 General Appearance: no apparent distress, alert, obese Neurologic Exam: oriented x 3, cooperative Eye Exam: eyes nml inspection Ears, Nose, Throat Exam: moist mucous membranes Neck Exam: normal inspection Respiratory Exam: lungs clear, diminished breath sounds, No crackles/rales, No rhonchi, No wheezing Cardiovascular Exam: regular rate/rhythm, normal heart sounds, No murmur Gastrointestinal/Abdomen Exam: soft, normal bowel sounds, tenderness (mild diffuse), No distention, No mass, No guarding, No rebound Back Exam: normal inspection, No rash Extremity Exam: normal inspection, No pedal edema, No swelling Skin Exam: normal color, warm, dry, No rash Results - Labs Lab/Micro Results: Lab Results-Last 24 Hours 06/15/20 06/15/20 06/15/20 Range/Units 20:37 20:37 20:37 WBC 8.1 (4.0-10.5) K/mm3 RBC 3.58 L (4.1-5.4) M/mm3 Hgb 9.8 L (12.0-16.0) gm/dl Hct 32.4 L (35-47) % MCV 90.5 (78-100) fl MCH 27.4 (26-32) pg MCHC 30.2 L (32-36) g/dl RDW 14.8 H (11.5-14.0) % Plt Count 269 (150-450) K/mm3 MPV 10.9 (7.5-11.0) fl Gran % 64.4 (36.0-66.0) % Eos # (Auto) 0.21 (0-0.5) Absolute Lymphs (auto) 2.01 (1.0-4.6) Absolute Monos (auto) 0.64 (0.0-1.3) Lymphocytes % 24.7 (24.0-44.0) % Monocytes % 7.9 (0.0-12.0) % Eosinophils % 2.6 (0.00-5.0) % Basophils % 0.4 (0.0-0.4) % Absolute Granulocytes 5.25 (1.4-6.9) Basophils # 0.03 (0-0.4) Sodium 142 (137-145) mmol/L Potassium 2.7 L* (3.5-5.1) mmol/L Chloride 97 L (98-107) mmol/L Carbon Dioxide 38 H (22-30) mmol/L Anion Gap 9.4 (5-15) MEQ/L BUN 9 (7-17) mg/dL Creatinine 0.88 (0.52-1.04) mg/dL Estimated GFR > 60.0 ML/MIN Glucose 118 H (74-106) mg/dL POC Glucometer (74 to 106) mg/dL Calcium 6.0 L (8.4-10.2) mg/dL Phosphorus (2.5-4.5) mg/dL Magnesium 0.5 L* (1.6-2.3) mg/dL Total Bilirubin 0.30 (0.2-1.3) mg/dL AST 15 (14-36) U/L ALT 10 (0-35) U/L Alkaline Phosphatase 85 (38-126) U/L Troponin I < 0.012 (0.000-0.034) ng/mL Serum Total Protein 6.5 (6.3-8.2) g/dL Albumin 3.5 (3.5-5.0) g/dL Lipase 68 (23-300) U/L Urine Color (YELLOW) Urine Appearance (CLEAR) Urine pH (5-6) Ur Specific [place] (1.005-1.025) Urine Protein (Negative) Urine Ketones (NEGATIVE) Urine Blood (0-5) [place]/ul Urine Nitrite (NEGATIVE) Urine Bilirubin (NEGATIVE) Urine Urobilinogen (0-1) mg/dL Ur Leukocyte Esterase (NEGATIVE) Urine WBC (Auto) (0-5) /HPF Urine RBC (Auto) (0-2) /HPF U Epithel Cells (Auto) (FEW) /HPF Urine Bacteria (Auto) (NEGATIVE) /HPF Urine Mucus (Auto) (NEGATIVE) /HPF Urine Culture Reflexed (NO) Urine Glucose (NEGATIVE) mg/dL SARS-CoV-2 (PCR) (NEGATIVE) 06/15/20 06/15/20 06/15/20 Range/Units 21:00 21:16 21:50 WBC (4.0-10.5) K/mm3 RBC (4.1-5.4) M/mm3 Hgb (12.0-16.0) gm/dl Hct (35-47) % MCV (78-100) fl MCH (26-32) pg MCHC (32-36) g/dl RDW (11.5-14.0) % Plt Count (150-450) K/mm3 MPV (7.5-11.0) fl Gran % (36.0-66.0) % Eos # (Auto) (0-0.5) Absolute Lymphs (auto) (1.0-4.6) Absolute Monos (auto) (0.0-1.3) Lymphocytes % (24.0-44.0) % Monocytes % (0.0-12.0) % Eosinophils % (0.00-5.0) % Basophils % (0.0-0.4) % Absolute Granulocytes (1.4-6.9) Basophils # (0-0.4) Sodium (137-145) mmol/L Potassium (3.5-5.1) mmol/L Chloride (98-107) mmol/L Carbon Dioxide (22-30) mmol/L Anion Gap (5-15) MEQ/L BUN (7-17) mg/dL Creatinine (0.52-1.04) mg/dL Estimated GFR ML/MIN Glucose (74-106) mg/dL POC Glucometer (74 to 106) mg/dL Calcium (8.4-10.2) mg/dL Phosphorus 2.9 (2.5-4.5) mg/dL Magnesium (1.6-2.3) mg/dL Total Bilirubin (0.2-1.3) mg/dL AST (14-36) U/L ALT (0-35) U/L Alkaline Phosphatase (38-126) U/L Troponin I (0.000-0.034) ng/mL Serum Total Protein (6.3-8.2) g/dL Albumin (3.5-5.0) g/dL Lipase (23-300) U/L Urine Color YELLOW (YELLOW) Urine Appearance CLEAR (CLEAR) Urine pH 6.0 (5-6) Ur Specific [place] 1.016 (1.005-1.025) Urine Protein NEGATIVE (Negative) Urine Ketones NEGATIVE (NEGATIVE) Urine Blood NEGATIVE (0-5) [place]/ul Urine Nitrite NEGATIVE (NEGATIVE) Urine Bilirubin NEGATIVE (NEGATIVE) Urine Urobilinogen NEGATIVE (0-1) mg/dL Ur Leukocyte Esterase NEGATIVE (NEGATIVE) Urine WBC (Auto) NONE (0-5) /HPF Urine RBC (Auto) NONE (0-2) /HPF U Epithel Cells (Auto) NONE (FEW) /HPF Urine Bacteria (Auto) NONE (NEGATIVE) /HPF Urine Mucus (Auto) SLIGHT (NEGATIVE) /HPF Urine Culture Reflexed NO (NO) Urine Glucose NEGATIVE (NEGATIVE) mg/dL SARS-CoV-2 (PCR) NEGATIVE (NEGATIVE) 06/15/20 06/16/20 06/16/20 Range/Units 23:59 02:43 05:25 WBC (4.0-10.5) K/mm3 RBC (4.1-5.4) M/mm3 Hgb (12.0-16.0) gm/dl Hct (35-47) % MCV (78-100) fl MCH (26-32) pg MCHC (32-36) g/dl RDW (11.5-14.0) % Plt Count (150-450) K/mm3 MPV (7.5-11.0) fl Gran % (36.0-66.0) % Eos # (Auto) (0-0.5) Absolute Lymphs (auto) (1.0-4.6) Absolute Monos (auto) (0.0-1.3) Lymphocytes % (24.0-44.0) % Monocytes % (0.0-12.0) % Eosinophils % (0.00-5.0) % Basophils % (0.0-0.4) % Absolute Granulocytes (1.4-6.9) Basophils # (0-0.4) Sodium (137-145) mmol/L Potassium (3.5-5.1) mmol/L Chloride (98-107) mmol/L Carbon Dioxide (22-30) mmol/L Anion Gap (5-15) MEQ/L BUN (7-17) mg/dL Creatinine (0.52-1.04) mg/dL Estimated GFR ML/MIN Glucose (74-106) mg/dL POC Glucometer (74 to 106) mg/dL Calcium (8.4-10.2) mg/dL Phosphorus (2.5-4.5) mg/dL Magnesium (1.6-2.3) mg/dL Total Bilirubin (0.2-1.3) mg/dL AST (14-36) U/L ALT (0-35) U/L Alkaline Phosphatase (38-126) U/L Troponin I 0.013 < 0.012 0.015 (0.000-0.034) ng/mL Serum Total Protein (6.3-8.2) g/dL Albumin (3.5-5.0) g/dL Lipase (23-300) U/L Urine Color (YELLOW) Urine Appearance (CLEAR) Urine pH (5-6) Ur Specific [place] (1.005-1.025) Urine Protein (Negative) Urine Ketones (NEGATIVE) Urine Blood (0-5) [place]/ul Urine Nitrite (NEGATIVE) Urine Bilirubin (NEGATIVE) Urine Urobilinogen (0-1) mg/dL Ur Leukocyte Esterase (NEGATIVE) Urine WBC (Auto) (0-5) /HPF Urine RBC (Auto) (0-2) /HPF U Epithel Cells (Auto) (FEW) /HPF Urine Bacteria (Auto) (NEGATIVE) /HPF Urine Mucus (Auto) (NEGATIVE) /HPF Urine Culture Reflexed (NO) Urine Glucose (NEGATIVE) mg/dL SARS-CoV-2 (PCR) (NEGATIVE) 09/06/16/20 06/16/20 Range/Units 05:25 05:25 07:03 WBC 7.1 (4.0-10.5) K/mm3 RBC 3.22 L (4.1-5.4) M/mm3 Hgb 8.7 L (12.0-16.0) gm/dl Hct 29.3 L (35-47) % MCV 91.0 (78-100) fl MCH 27.0 (26-32) pg MCHC 29.7 L (32-36) g/dl RDW 14.6 H (11.5-14.0) % Plt Count 211 (150-450) K/mm3 MPV 11.4 H (7.5-11.0) fl Gran % 67.0 H (36.0-66.0) % Eos # (Auto) 0.17 (0-0.5) Absolute Lymphs (auto) 1.63 (1.0-4.6) Absolute Monos (auto) 0.53 (0.0-1.3) Lymphocytes % 22.9 L (24.0-44.0) % Monocytes % 7.4 (0.0-12.0) % Eosinophils % 2.4 (0.00-5.0) % Basophils % 0.3 (0.0-0.4) % Absolute Granulocytes 4.78 (1.4-6.9) Basophils # 0.02 (0-0.4) Sodium 139 (137-145) mmol/L Potassium 2.6 L* (3.5-5.1) mmol/L Chloride 95 L (98-107) mmol/L Carbon Dioxide 40 H (22-30) mmol/L Anion Gap Pending (5-15) MEQ/L BUN 9 (7-17) mg/dL Creatinine 0.95 (0.52-1.04) mg/dL Estimated GFR > 60.0 ML/MIN Glucose 177 H (74-106) mg/dL POC Glucometer 144 H (74 to 106) mg/dL Calcium 5.9 L* (8.4-10.2) mg/dL Phosphorus (2.5-4.5) mg/dL Magnesium 0.9 L* (1.6-2.3) mg/dL Total Bilirubin 0.20 (0.2-1.3) mg/dL AST 14 (14-36) U/L ALT 8 (0-35) U/L Alkaline Phosphatase 75 (38-126) U/L Troponin I (0.000-0.034) ng/mL Serum Total Protein 5.9 L (6.3-8.2) g/dL Albumin 3.1 L (3.5-5.0) g/dL Lipase (23-300) U/L Urine Color (YELLOW) Urine Appearance (CLEAR) Urine pH (5-6) Ur Specific [place] (1.005-1.025) Urine Protein (Negative) Urine Ketones (NEGATIVE) Urine Blood (0-5) [place]/ul Urine Nitrite (NEGATIVE) Urine Bilirubin (NEGATIVE) Urine Urobilinogen (0-1) mg/dL Ur Leukocyte Esterase (NEGATIVE) Urine WBC (Auto) (0-5) /HPF Urine RBC (Auto) (0-2) /HPF U Epithel Cells (Auto) (FEW) /HPF Urine Bacteria (Auto) (NEGATIVE) /HPF Urine Mucus (Auto) (NEGATIVE) /HPF Urine Culture Reflexed (NO) Urine Glucose (NEGATIVE) mg/dL SARS-CoV-2 (PCR) (NEGATIVE) Accuchecks Date 06/16/20 Time 07:03 - Other Procedures and Tests Respiratory Therapy 06/16/20 00:01 Oxygen Nasal Cannula 3 lpm 06/16/20 00:02 Respiratory Therapy Assessment DAILY 06/16/20 00:03 BiPap/CPAP ROUTINE 06/16/20 02:33 Respiratory MDI BID 06/16/20 07:58 EKG ROUTINE Assessment/Plan (1) Hypocalcemia Current Visit: Yes Status: Acute Assessment & Plan: Gave pt more IV calcium this morning, but since it will only bump up her calcium for several hours, have also added po calcium. Likely low due to hypomagnesemia. Code(s): E83.51 - HYPOCALCEMIA (2) Hypokalemia Current Visit: No Status: Acute Assessment & Plan: Also affected by low magenesium. Repleting IV now, and have increased her po supplements. Code(s): E87.6 - HYPOKALEMIA (3) Hypomagnesemia Current Visit: No Status: Acute Assessment & Plan: Likely somewhat low at baseline (without supplements for the past 1 mo) then exacerbated by severe diarrhea. Repleting IV with 2g bolus then 1 g/hr; recheck at noon. Code(s): E83.42 - HYPOMAGNESEMIA (4) Diarrhea Current Visit: No Status: Acute Qualifiers: Diarrhea type: unspecified type Qualified Code(s): R19.7 - Diarrhea, unspecified Assessment & Plan: No diarrhea since admission. GI pathogen panel ordered if she does have more diarrhea. Code(s): R19.7 - DIARRHEA, UNSPECIFIED (5) COPD (chronic obstructive pulmonary disease) Current Visit: No Status: Chronic Qualifiers: COPD type: unspecified COPD Qualified Code(s): J44.9 - Chronic obstructive pulmonary disease, unspecified (6) Coronary artery disease Current Visit: No Status: Chronic Qualifiers: Coronary Disease-Associated Artery/Lesion type: [place] artery [place] vs. transplanted heart: [place] heart Associated angina: with stable angina Qualified Code(s): I25.118 - Atherosclerotic heart disease of [place] coronary artery with other forms of angina pectoris Code(s): I25.10 - ATHSCL HEART DISEASE OF [place] CORONARY ARTERY W/O ANG PCTRS (7) Hypertension Current Visit: No Status: Chronic Qualifiers: Hypertension type: essential hypertension Code(s): I10 - ESSENTIAL (PRIMARY) HYPERTENSION (8) Insulin dependent diabetes mellitus Current Visit: No Status: Chronic Code(s): E11.9 - TYPE 2 DIABETES MELLITUS WITHOUT COMPLICATIONS; Z79.4 - CITIZEN PARTICIPATION SPECIALIST (CURRENT) 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 (9) Paroxysmal atrial fibrillation Current Visit: No Status: Chronic Code(s): I48.0 - PAROXYSMAL ATRIAL FIBRILLATION
[2020-06-16] MEDS ORDERED: HUMALOG SQ PRN (09:23)
[2020-06-16] MEDS: SYNTHROID 150 MCG PO SCH (09:26)
[2020-06-16] MEDS: MAG-OX 400 PO SCH ×3 (09:26→22:38)
[2020-06-16] MEDS: Flonase NASAL NS SCH (09:26)
[2020-06-16] MEDS: LYRICA 100MG PO SCH ×2 (09:26→22:38)
[2020-06-16] MEDS: Toprol Xl 50 MG PO SCH ×2 (09:26→22:40)
[2020-06-16] MEDS: Klor Con 10 MEQ PO SCH ×3 (09:27→22:37)
[2020-06-16] MEDS: PLAVIX 75 MG Tablet PO SCH (09:27)
[2020-06-16] MEDS: PRISTIQ ER PO SCH (09:27)
[2020-06-16] MEDS: Singulair 10 MG PO SCH (09:27)
[2020-06-16] MEDS: Zestril 10 MG PO SCH (09:27)
[2020-06-16] MEDS: BUSPAR 5 MG PO SCH ×2 (09:27→22:37)
[2020-06-16] MEDS: Imdur 30 MG PO SCH (09:27)
[2020-06-16] MEDS: Lantus Insulin SQ SCH ×2 (09:28→22:38)
[2020-06-16] MEDS: Protonix 40MG Tablet PO SCH (09:28)
[2020-06-16] MEDS: Pepcid 20 MG PO SCH ×2 (09:28→22:39)
[2020-06-16] MEDS: OXYCODONE-ACETAMINOPHEN 10-325 PO SCH ×4 (09:28→22:38)
[2020-06-16] MEDS: ZOCOR 20MG PO SCH (09:28)
[2020-06-16] MEDS: ELIQUIS 2.5 MG TABLET PO SCH ×2 (09:28→22:37)
[2020-06-16] MEDS: Tums EX 750 MG PO SCH ×2 (09:29→22:40)
[2020-06-16] MEDS: CLARITIN 10 MG PO SCH (09:30)
[2020-06-16] MEDS ORDERED: MAGNESIUM OXIDE PO SCH (10:00)
[2020-06-16] MEDS ORDERED: NON-FORMULARY ITEM (Insulin Detemir [Levemir] 30 UNIT) SQ SCH (10:00)
[2020-06-16] MEDS ORDERED: ATORVASTATIN CALCIUM 80 MG PO SCH (10:00)
[2020-06-16] MEDS ORDERED: NON-FORMULARY ITEM (Desvenlafaxine Succinate [Pristiq] 100 MG) PO SCH (10:00)
[2020-06-16] MEDS ORDERED: FLUTICASONE FUROATE IN SCH (10:00)
[2020-06-16] MEDS ORDERED: NON-FORMULARY ITEM (Fexofenadine Hcl [Fexofenadine Hcl] 180 MG) PO SCH (10:00)
[2020-06-16] MEDS ORDERED: INSULIN ASPART 4 UNIT SQ SCH (11:30)
[2020-06-16 11:56] LABS: ANION GAP 16.6 MEQ/L (5-15)
[2020-06-16] MEDS: HUMALOG SQ SCH ×2 (12:14→17:46)
[2020-06-16 12:43] LABS: ANION GAP 7.7 MEQ/L (5-15); BLOOD UREA NITROGEN 8 mg/dL (7-17); CHLORIDE 95 mmol/L (98-107); Calcium 6.3 mg/dL (8.4-10.2); Carbon Dioxide 38 mmol/L (22-30); Creatinine 1 0.79 mg/dL (0.52-1.04); EST GLOMERULAR FILTRATION RATE > 60.0 ML/MIN; Glucose 206 mg/dL (74-106); MAGNESIUM 2.2 mg/dL (1.6-2.3); Potassium 3.1 mmol/L (3.5-5.1); SODIUM 138 mmol/L (137-145)
[2020-06-16 14:58] LABS: Calcium 6.3 mg/dL (8.4-10.2)
[2020-06-16 15:10] LABS: Potassium 2.9 mmol/L (3.5-5.1)
[2020-06-17 06:08] LABS: Hematocrit 29.3 % (35-47); Hemoglobin 8.8 gm/dl (12.0-16.0); Mean Corpuscular Hemoglobin 27.3 pg (26-32); Mean Platelet Volume 11.6 fl (7.5-11.0); Platelet Count 229 K/mm3 (150-450); Red Blood Count 3.22 M/mm3 (4.1-5.4); Red Cell Distribution Width 14.6 % (11.5-14.0); White Blood Count 6.3 K/mm3 (4.0-10.5)
[2020-06-17 06:22] LABS: BLOOD UREA NITROGEN 10 mg/dL (7-17); CHLORIDE 92 mmol/L (98-107); Calcium 6.4 mg/dL (8.4-10.2); Creatinine 1 0.74 mg/dL (0.52-1.04); EST GLOMERULAR FILTRATION RATE > 60.0 ML/MIN; Glucose 118 mg/dL (74-106); MAGNESIUM 2.3 mg/dL (1.6-2.3); Potassium 3.1 mmol/L (3.5-5.1); SODIUM 136 mmol/L (137-145)
[2020-06-17 06:28] LABS: Carbon Dioxide 40 mmol/L (22-30)
[2020-06-17] MEDS: Advair Hfa 230/21 Mcg COMMON CANISTER IH SCH ×2 (07:07→19:58)
[2020-06-17] MEDS: HUMALOG SQ SCH ×3 (08:23→16:31)
[2020-06-17] MEDS: MAG-OX 400 PO SCH ×3 (08:47→21:51)
[2020-06-17] MEDS: CLARITIN 10 MG PO SCH (08:47)
[2020-06-17] MEDS: Klor Con 10 MEQ PO SCH ×3 (08:47→21:53)
[2020-06-17] MEDS: PRISTIQ ER PO SCH (08:47)
[2020-06-17] MEDS: Flonase NASAL NS SCH (08:47)
[2020-06-17] MEDS: BUSPAR 5 MG PO SCH ×2 (08:48→21:52)
[2020-06-17] MEDS: Imdur 30 MG PO SCH (08:48)
[2020-06-17] MEDS: Singulair 10 MG PO SCH (08:48)
[2020-06-17] MEDS: Pepcid 20 MG PO SCH ×2 (08:48→21:52)
[2020-06-17] MEDS: OXYCODONE-ACETAMINOPHEN 10-325 PO SCH ×4 (08:48→21:52)
[2020-06-17] MEDS: ELIQUIS 2.5 MG TABLET PO SCH ×2 (08:48→21:53)
[2020-06-17] MEDS: PLAVIX 75 MG Tablet PO SCH (08:48)
[2020-06-17] MEDS: Toprol Xl 50 MG PO SCH ×2 (08:48→21:51)
[2020-06-17] MEDS: Zestril 10 MG PO SCH (08:48)
[2020-06-17] MEDS: ZOCOR 20MG PO SCH (08:49)
[2020-06-17] MEDS: SYNTHROID 150 MCG PO SCH (08:49)
[2020-06-17] MEDS: Protonix 40MG Tablet PO SCH (08:49)
[2020-06-17] MEDS: Lantus Insulin SQ SCH ×2 (08:49→21:53)
[2020-06-17] MEDS: LYRICA 100MG PO SCH ×2 (08:49→21:52)
[2020-06-17] MEDS: Tums EX 750 MG PO SCH ×2 (08:50→21:54)
[2020-06-17] MEDS ORDERED: FLUZONE HIGH-DOSE QUAD 2020-21 IM ONE ×2 (10:00→16:17)
[2020-06-17 15:26] LABS: ANION GAP 7.1 MEQ/L (5-15)
[2020-06-18 06:13] LABS: Absolute Neutrophil Ct (ANC) 5.91 (1.4-6.9); BASOPHIL % 0.3 % (0.0-0.4); Basophil (Absolute #) 0.02 (0-0.4); Eosinophil % 1.9 % (0.00-5.0); Eosinophil (Absolute #) 0.14 (0-0.5); Hematocrit 29.7 % (35-47); Hemoglobin 8.7 gm/dl (12.0-16.0); Lymphocyte (Absolute #) 0.96 (1.0-4.6); Lymphocytes % 12.8 % (24.0-44.0); Mean Cell Volume 93.1 fl (78-100); Mean Corpuscular Hemoglobin 27.3 pg (26-32); Mean Corpuscular Hgb Concent. 29.3 g/dl (32-36); Mean Platelet Volume 11.7 fl (7.5-11.0); Monocyte (Absolute #) 0.49 (0.0-1.3); Monocytes % 6.5 % (0.0-12.0); Neutrophil % 78.5 % (36.0-66.0); Platelet Count 233 K/mm3 (150-450); Red Blood Count 3.19 M/mm3 (4.1-5.4); Red Cell Distribution Width 14.9 % (11.5-14.0); White Blood Count 7.5 K/mm3 (4.0-10.5)
[2020-06-18 06:25] LABS: ALBUMIN 3.1 g/dL (3.5-5.0); ALKALINE PHOSPHATASE 83 U/L (38-126); ANION GAP 6.5 MEQ/L (5-15); BLOOD UREA NITROGEN 10 mg/dL (7-17); CHLORIDE 95 mmol/L (98-107); Calcium 7.2 mg/dL (8.4-10.2); Carbon Dioxide 39 mmol/L (22-30); Creatinine 1 0.76 mg/dL (0.52-1.04); EST GLOMERULAR FILTRATION RATE > 60.0 ML/MIN; Glucose 150 mg/dL (74-106); MAGNESIUM 2.2 mg/dL (1.6-2.3); SGOT/AST 20 U/L (14-36); SGPT/ALT 11 U/L (0-35); SODIUM 136 mmol/L (137-145); Total Protein 6.2 g/dL (6.3-8.2)
[2020-06-18] MEDS: Advair Hfa 230/21 Mcg COMMON CANISTER IH SCH ×2 (07:29→19:15)
[2020-06-18] MEDS: HUMALOG SQ SCH ×3 (08:17→17:27)
[2020-06-18] MEDS: Pepcid 20 MG PO SCH ×2 (10:41→22:11)
[2020-06-18] MEDS: MAG-OX 400 PO SCH ×3 (10:41→22:11)
[2020-06-18] MEDS: ZOCOR 20MG PO SCH (10:41)
[2020-06-18] MEDS: Singulair 10 MG PO SCH (10:42)
[2020-06-18] MEDS: SYNTHROID 150 MCG PO SCH (10:42)
[2020-06-18] MEDS: Imdur 30 MG PO SCH (10:42)
[2020-06-18] MEDS: LYRICA 100MG PO SCH ×2 (10:42→22:10)
[2020-06-18] MEDS: ELIQUIS 2.5 MG TABLET PO SCH ×2 (10:42→22:09)
[2020-06-18] MEDS: Toprol Xl 50 MG PO SCH ×2 (10:42→22:11)
[2020-06-18] MEDS: CLARITIN 10 MG PO SCH (10:42)
[2020-06-18] MEDS: OXYCODONE-ACETAMINOPHEN 10-325 PO SCH ×4 (10:42→22:08)
[2020-06-18] MEDS: PLAVIX 75 MG Tablet PO SCH (10:42)
[2020-06-18] MEDS: Klor Con 10 MEQ PO SCH ×3 (10:42→22:10)
[2020-06-18] MEDS: BUSPAR 5 MG PO SCH ×2 (10:42→22:08)
[2020-06-18] MEDS: Zestril 10 MG PO SCH (10:42)
[2020-06-18] MEDS: Tums EX 750 MG PO SCH ×2 (10:43→22:11)
[2020-06-18] MEDS: Protonix 40MG Tablet PO SCH (10:43)
[2020-06-18] MEDS: PRISTIQ ER PO SCH (10:43)
[2020-06-18] MEDS: Flonase NASAL NS SCH (10:44)
[2020-06-18] MEDS: Lantus Insulin SQ SCH ×2 (10:49→22:10)
[2020-06-19 05:57] LABS: Hematocrit 30.6 % (35-47); Hemoglobin 8.9 gm/dl (12.0-16.0); Mean Cell Volume 93.9 fl (78-100); Mean Corpuscular Hemoglobin 27.3 pg (26-32); Mean Corpuscular Hgb Concent. 29.1 g/dl (32-36); Mean Platelet Volume 11.6 fl (7.5-11.0); Platelet Count 240 K/mm3 (150-450); Red Blood Count 3.26 M/mm3 (4.1-5.4); Red Cell Distribution Width 14.9 % (11.5-14.0)
[2020-06-19 06:14] LABS: ALBUMIN 3.2 g/dL (3.5-5.0); ALKALINE PHOSPHATASE 88 U/L (38-126); ANION GAP 5.2 MEQ/L (5-15); BLOOD UREA NITROGEN 13 mg/dL (7-17); CHLORIDE 98 mmol/L (98-107); Calcium 8.1 mg/dL (8.4-10.2); Carbon Dioxide 37 mmol/L (22-30); Creatinine 1 0.83 mg/dL (0.52-1.04); EST GLOMERULAR FILTRATION RATE > 60.0 ML/MIN; Glucose 143 mg/dL (74-106); MAGNESIUM 2.1 mg/dL (1.6-2.3); Potassium 4.8 mmol/L (3.5-5.1); SGOT/AST 28 U/L (14-36); SGPT/ALT 15 U/L (0-35); SODIUM 135 mmol/L (137-145); Total Protein 6.4 g/dL (6.3-8.2)
[2020-06-19] MEDS: Advair Hfa 230/21 Mcg COMMON CANISTER IH SCH (06:57)
[2020-06-19] MEDS: HUMALOG SQ SCH ×2 (07:27→11:58)
--- NOTE | 2020-06-19 08:31 | PCM.DS ---
Discharge Summary Date of Admission: 06/15/20 23:28 Admitting Physician: LEORA FERRER Primary Care Provider: LEORA FERRER Allergies Allergies levofloxacin [From Levaquin] Allergy (Mild, Verified 06/16/20 00:49) red rash/burning when gievn IV cefaclor [From Ceclor] Allergy (Verified 06/16/20 00:49) SOB, HIVES ciprofloxacin [From Cipro] Allergy (Verified 06/16/20 00:49) ciprofloxacin HCl [From Cipro] Allergy (Verified 06/16/20 00:49) clarithromycin [From Biaxin] Allergy (Verified 06/16/20 00:49) diphenhydramine HCl [From Benadryl] Allergy (Verified 06/16/20 00:49) SOB HIVES erythromycin base [Erythromycin Base] Allergy (Verified 06/16/20 00:49) SOB HIVES Iodinated Contrast Media [Iodinated Contrast- Oral and IV Dye] Allergy (Verified 06/16/20 00:49) iodine Allergy (Verified 06/16/20 00:49) SOB HIVES latex Allergy (Verified 06/16/20 00:49) SOB HIVES Macrolide Antibiotics Allergy (Verified 06/16/20 00:49) SBO HIVES Penicillins Allergy (Verified 06/16/20 00:49) Swelling of Face sulfamethoxazole [From Bactrim] Allergy (Verified 06/16/20 00:49) trimethoprim [From Bactrim] Allergy (Verified 06/16/20 00:49) melon Adverse Reaction (Severe, Verified 06/16/20 00:49) cantaloupe aspirin Adverse Reaction (Verified 06/16/20 00:49) ibuprofen Adverse Reaction (Verified 06/16/20 00:49) Hospital Summary - Hospital Course Hospital Course: Pt is 69 yo female pt of mine with COPD, CAD, DM, fibromyalgia, and morbid obesity who was admitted through ER with 2d hx of diarrhea and potassium of 2.6, Mg of 0.5, and Ca of 6.0. In addition to diarrhea 5x/hr for the previous 2d, she had not gotten refills on her po Mg and K+ for about the past 1 month. Her electrolytes were repleted IV and po. She was better yesterday but said she would not have someone at home with her until today. She did not have any diarrhea while admitted. Tolerating po well. Will be sent home on po magnesium, potassium, and calcium. Recheck later this week/early next week when she follows up with me. - Vitals & Intake/Output Vital Signs: Vital Signs Temperature 98.4 F 06/19/20 06:52 Pulse Rate 82 06/19/20 06:55 Respiratory Rate 16 06/19/20 08:00 Blood Pressure 111/51 06/19/20 06:52 O2 Sat by Pulse Oximetry 90 L 06/19/20 06:55 Intake & Output: Intake & Output 06/16/20 06/17/20 06/18/20 06/19/20 11:59 11:59 11:59 11:59 Intake Total 1500 1560 1880 1900 Output Total 800 1600 2400 6000 Balance 700 -40 -520 -4100 Weight 129.4 kg - Lab Result Diagrams: 06/19/20 04:40 06/19/20 04:40 Lab Results-Last 24 Hrs: Lab Results-Last 24 Hours 06/18/20 06/18/20 06/18/20 Range/Units 11:20 16:00 20:59 WBC (4.0-10.5) K/mm3 RBC (4.1-5.4) M/mm3 Hgb (12.0-16.0) gm/dl Hct (35-47) % MCV (78-100) fl MCH (26-32) pg MCHC (32-36) g/dl RDW (11.5-14.0) % Plt Count (150-450) K/mm3 MPV (7.5-11.0) fl Sodium (137-145) mmol/L Potassium (3.5-5.1) mmol/L Chloride (98-107) mmol/L Carbon Dioxide (22-30) mmol/L Anion Gap (5-15) MEQ/L BUN (7-17) mg/dL Creatinine (0.52-1.04) mg/dL Estimated GFR ML/MIN Glucose (74-106) mg/dL POC Glucometer 206 H 178 H 149 H (74 to 106) mg/dL Calcium (8.4-10.2) mg/dL Magnesium (1.6-2.3) mg/dL Total Bilirubin (0.2-1.3) mg/dL AST (14-36) U/L ALT (0-35) U/L Alkaline Phosphatase (38-126) U/L Serum Total Protein (6.3-8.2) g/dL Albumin (3.5-5.0) g/dL 06/19/20 06/19/20 06/19/20 Range/Units 04:40 04:40 06:28 WBC 9.0 (4.0-10.5) K/mm3 RBC 3.26 L (4.1-5.4) M/mm3 Hgb 8.9 L (12.0-16.0) gm/dl Hct 30.6 L (35-47) % MCV 93.9 (78-100) fl MCH 27.3 (26-32) pg MCHC 29.1 L (32-36) g/dl RDW 14.9 H (11.5-14.0) % Plt Count 240 (150-450) K/mm3 MPV 11.6 H (7.5-11.0) fl Sodium 135 L (137-145) mmol/L Potassium 4.8 (3.5-5.1) mmol/L Chloride 98 (98-107) mmol/L Carbon Dioxide 37 H (22-30) mmol/L Anion Gap 5.2 (5-15) MEQ/L BUN 13 (7-17) mg/dL Creatinine 0.83 (0.52-1.04) mg/dL Estimated GFR > 60.0 ML/MIN Glucose 143 H (74-106) mg/dL POC Glucometer 128 H (74 to 106) mg/dL Calcium 8.1 L (8.4-10.2) mg/dL Magnesium 2.1 (1.6-2.3) mg/dL Total Bilirubin 0.30 (0.2-1.3) mg/dL AST 28 (14-36) U/L ALT 15 (0-35) U/L Alkaline Phosphatase 88 (38-126) U/L Serum Total Protein 6.4 (6.3-8.2) g/dL Albumin 3.2 L (3.5-5.0) g/dL Micro Results-Entire Visit: Accuchecks Date 06/18/20 Date 06/18/20 - Procedures and Test Procedures and Tests throughout Hospitalization: Therapy Orders & Screens 06/16/20 00:01 Oxygen Nasal Cannula 3 lpm Comment: Diagnosis: electrolyte abnormality 06/16/20 00:02 Respiratory Therapy Assessment DAILY Comment: Diagnosis: electrolyte abnormality 06/16/20 00:03 BiPap/CPAP ROUTINE Comment: Diagnosis: electrolyte abnormality 06/16/20 00:47 RT Screen per Nursing Assess ONCE Comment: Protocol Order Physician Instructions: Greater than 3 points order RT Admission Screen Reason For Exam: Triggered on Admission Diagnosis: electrolyte abnormality Diagnosis: electrolyte abnormality Pneumonia: No Home O2: Yes Asthma: No CHF: No Home CPAP/BIPAP: Yes Home Nebs/MDI: Yes Total Points: 15 06/16/20 02:33 Respiratory MDI BID Comment: YOAV 115/21 2 PUFFS BID Diagnosis: electrolyte abnormality 06/16/20 07:58 EKG ROUTINE Comment: Diagnosis: electrolyte abnormality Discharge Exam General Appearance: no apparent distress, alert, obese Neurologic Exam: oriented x 3, cooperative, normal mood/affect Eye Exam: eyes nml inspection Ears, Nose, Throat Exam: moist mucous membranes Neck Exam: normal inspection Respiratory Exam: lungs clear, diminished breath sounds, No crackles/rales, No rhonchi, No wheezing Cardiovascular Exam: regular rate/rhythm, normal heart sounds, murmur (I/ sys murmur) Gastrointestinal/Abdomen Exam: soft, normal bowel sounds, No tenderness, No rebound Back Exam: normal inspection, No rash Extremity Exam: normal inspection, No pedal edema, No swelling Skin Exam: normal color, warm, dry, No rash Final Diagnosis/Problem List - Final Discharge Diagnosis/Problem (1) Hypocalcemia Current Visit: Yes Status: Acute Assessment & Plan: Very mild now. Code(s): E83.51 - HYPOCALCEMIA (2) Hypokalemia Current Visit: No Status: Resolved Code(s): E87.6 - HYPOKALEMIA (3) Hypomagnesemia Current Visit: No Status: Resolved Code(s): E83.42 - HYPOMAGNESEMIA (4) Diarrhea Current Visit: No Status: Resolved Code(s): R19.7 - DIARRHEA, UNSPECIFIED (5) COPD (chronic obstructive pulmonary disease) Current Visit: No Status: Chronic (6) Coronary artery disease Current Visit: No Status: Chronic Code(s): I25.10 - ATHSCL HEART DISEASE OF [place] CORONARY ARTERY W/O ANG PCTRS (7) Hypertension Current Visit: No Status: Chronic Assessment & Plan: well controlled here Code(s): I10 - ESSENTIAL (PRIMARY) HYPERTENSION (8) Insulin dependent diabetes mellitus Current Visit: No Status: Chronic Assessment & Plan: BS 128-200 here Code(s): E11.9 - TYPE 2 DIABETES MELLITUS WITHOUT COMPLICATIONS; Z79.4 - LONG-TERM (CURRENT) 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 (9) Paroxysmal atrial fibrillation Current Visit: No Status: Chronic Assessment & Plan: On Eliquis Code(s): I48.0 - PAROXYSMAL ATRIAL FIBRILLATION (10) Anemia Current Visit: No Status: Chronic Assessment & Plan: Stable, hgb 8.9. Code(s): D64.9 - ANEMIA, UNSPECIFIED - Discharge Disposition: Home, Self-Care Condition: Stable Prescriptions: New Calcium Carbonate 750 mg [Tums EX 750 MG] 750 mg PO TID 30 Days #90 tab.chew Continue Insulin Aspart [NovoLOG Insulin] 4 unit SQ AC Atorvastatin Calcium [Lipitor 20MG Tablet] 80 mg PO DAILY Buspirone HCl 5 mg [Buspar 5 mg] 15 mg PO BID Oxycodone HCl/Acetaminophen [Percocet 10-325 mg Tablet] 1 tab PO QID Loratadine 10 mg [Claritin 10 mg] 10 mg PO DAILY Pregabalin [Lyrica] 200 mg PO BID Desvenlafaxine Succinate [Pristiq] 100 mg PO DAILY Lisinopril 5 mg [Zestril 5 MG] 10 mg PO DAILY Isosorbide Mononitrate 30 mg [Imdur 30 MG] 30 mg PO DAILY Trazodone HCl 50 mg [Desyrel 50 mg] 150 mg PO HSPRN PRN PRN Reason: Insomnia Montelukast Sodium [Singulair] 10 mg PO DAILY Metoprolol Succinate 50 mg PO BID Levothyroxine Sodium 150 Mcg [Synthroid 150 Mcg] 150 mcg PO DAILY Clopidogrel Bisulfate 75 mg [PLAVIX 75 MG Tablet] 75 mg PO DAILY PANTOPRAZOLE 40 mg Tablet [Protonix 40MG Tablet] 40 mg PO DAILY Ondansetron HCl [Zofran] 4 mg PO Q4H PRN PRN PRN Reason: Nausea Hydrochlorothiazide 12.5 mg PO DAILY Famotidine 20 mg PO BID Apixaban [Eliquis] 5 mg PO BID Budesonide/Formoterol Fumarate [Symbicort 160-4.5 Mcg Inhaler] 2 puff IH BID Fluticasone Furoate [Flonase Sensimist] 2 spray IN DAILY Ondansetron HCl 1 tab PO Q6H PRN PRN Reason: Nausea Fexofenadine HCl 180 mg PO DAILY Insulin Detemir [Levemir] 30 unit SQ BID Magnesium Oxide 1 tab PO BID #60 tablet Changed Potassium Chloride 10 Meq Tab* [Klor Con 10 MEQ] 2 tab PO BID #120 tablet Follow up with: LEORA FERRER [Primary Care Provider] - 1 Week
[2020-06-19] MEDS: PLAVIX 75 MG Tablet PO SCH (09:53)
[2020-06-19] MEDS: MAG-OX 400 PO SCH (09:53)
[2020-06-19] MEDS: OXYCODONE-ACETAMINOPHEN 10-325 PO SCH ×2 (09:53→12:53)
[2020-06-19] MEDS: CLARITIN 10 MG PO SCH (09:53)
[2020-06-19] MEDS: ZOCOR 20MG PO SCH (09:53)
[2020-06-19] MEDS: Klor Con 10 MEQ PO SCH (09:53)
[2020-06-19] MEDS: Pepcid 20 MG PO SCH (09:53)
[2020-06-19] MEDS: BUSPAR 5 MG PO SCH (09:53)
[2020-06-19] MEDS: Zestril 10 MG PO SCH (09:54)
[2020-06-19] MEDS: SYNTHROID 150 MCG PO SCH (09:54)
[2020-06-19] MEDS: Imdur 30 MG PO SCH (09:54)
[2020-06-19] MEDS: PRISTIQ ER PO SCH (09:54)
[2020-06-19] MEDS: Toprol Xl 50 MG PO SCH (09:54)
[2020-06-19] MEDS: LYRICA 100MG PO SCH (09:54)
[2020-06-19] MEDS: Tums EX 750 MG PO SCH (09:55)
[2020-06-19] MEDS: Protonix 40MG Tablet PO SCH (09:55)
[2020-06-19] MEDS: Singulair 10 MG PO SCH (09:55)
[2020-06-19] MEDS: Flonase NASAL NS SCH (09:55)
[2020-06-19] MEDS: ELIQUIS 2.5 MG TABLET PO SCH (09:58)
[2020-06-19] MEDS: Lantus Insulin SQ SCH (09:58)
[2020-06-19 12:28] VITALS: BP 105/50; PULSE 90; O2SAT 91
== END 2020-06-19 14:30 | disposition home or self-care (01) | DRG 641 ==
LOC: ED 20:09 → MED SURG 21:47 → OBSVTOIN 23:28
PROVIDERS: ADMIT Family Medicine; ATTEND Family Medicine
DX: E83.51 Hypocalcemia (principal); E87.6 Hypokalemia; E83.42 Hypomagnesemia; R19.7 Diarrhea, unspecified; I25.10 Atherosclerotic heart disease of native coronary artery without angina pectoris; I10 Essential (primary) hypertension; D64.9 Anemia, unspecified; R07.9 Chest pain, unspecified; Z79.01 Long term (current) use of anticoagulants; J44.9 Chronic obstructive pulmonary disease, unspecified; Z79.899 Other long term (current) drug therapy; E78.00 Pure hypercholesterolemia, unspecified; E03.9 Hypothyroidism, unspecified; G47.30 Sleep apnea, unspecified; M79.7 Fibromyalgia
CPT/HCPCS: 36000; 36415; 80048; 80053; 81001; 82310; 82962; 83690; 83735; 84100; 84132; 84484; 85025; 85027; 93005; 93268; 94640; 94760; 96374; 99285; G0008; U0003; 90662; J0610; J1817; J3475; J3480; A9270-GY

== ENCOUNTER 2020-08-20 00:27 | Inpatient (IN) | payer MEDICARE ==
--- NOTE | 2020-08-20 00:34 | ERPHSYRPT ---
- History of Present Illness Time Seen by Provider: 08/20/20 00:34 Source: patient Exam Limitations: no limitations Physician History: This is a morbidly obese 70-year-old white female patient of Dr. Hiral Camarena who presents with 1 week history of cough and shortness of breath. The patient denies fever. Patient does have a history of fibromyalgia and chronically has body aches and pains. Patient has a history of CHF, COPD, arthritis, hypertension, hypothyroidism, diabetes, diabetes diabetic peripheral neuropathy, coronary artery disease with 8 cardiac stents placed in the past. The patient is on both Plavix and Eliquis daily. Patient has a history of atrial fibrillation and is on metoprolol for this. Patient wears approximately 2 L of oxygen via nasal cannula on a daily basis. Timing/Duration: week(s) (one) Cough Quality/Degree: mild, dry cough Possible Cause: occasional episodes Modifying Factors: Improves With: activity (Worsen symptoms), coughing Associated Symptoms: cough, shortness of breath, No chest pain/soreness Allergies/Adverse Reactions: levofloxacin [From Levaquin] Allergy (Mild, Verified 06/16/20 00:49) red rash/burning when gievn IV cefaclor [From Ceclor] Allergy (Verified 06/16/20 00:49) SOB, HIVES ciprofloxacin [From Cipro] Allergy (Verified 06/16/20:49) ciprofloxacin HCl [From Cipro] Allergy (Verified 06/16/20 00:49) clarithromycin [From Biaxin] Allergy (Verified 06/16/20 00:49) diphenhydramine HCl [From Benadryl] Allergy (Verified 06/16/20 00:49) SOB HIVES erythromycin base [Erythromycin Base] Allergy (Verified 06/16/20 00:49) SOB HIVES Iodinated Contrast Media [Iodinated Contrast- Oral and IV Dye] Allergy (Verified 06/16/20 00:49) iodine Allergy (Verified 06/16/20 00:49) SOB HIVES latex Allergy (Verified 06/16/20 00:49) SOB HIVES Macrolide Antibiotics Allergy (Verified 06/16/20 00:49) SBO HIVES Penicillins Allergy (Verified 06/16/20 00:49) Swelling of Face sulfamethoxazole [From Bactrim] Allergy (Verified 06/16/20 00:49) trimethoprim [From Bactrim] Allergy (Verified 06/16/20 00:49) melon Adverse Reaction (Severe, Verified 06/16/20 00:49) cantaloupe aspirin Adverse Reaction (Verified 06/16/20 00:49) ibuprofen Adverse Reaction (Verified 06/16/20 00:49) Home Medications: Atorvastatin Calcium [Lipitor 20MG Tablet] 80 mg PO DAILY 02/01/14 [History] Buspirone HCl 5 mg [Buspar 5 mg] 15 mg PO BID 02/01/14 [History] Insulin Aspart [NovoLOG Insulin] 4 unit SQ AC 02/01/14 [History] Oxycodone HCl/Acetaminophen [Percocet 10-325 mg Tablet] 1 tab PO QID 02/01/14 [History] Desvenlafaxine Succinate [Pristiq] 100 mg PO DAILY 07/15/14 [History] Loratadine 10 mg [Claritin 10 mg] 10 mg PO DAILY 07/15/14 [History] Pregabalin [Lyrica] 200 mg PO BID 07/15/14 [History] Lisinopril 5 mg [Zestril 5 MG] 10 mg PO DAILY 11/04/14 [History] Isosorbide Mononitrate 30 mg [Imdur 30 MG] 30 mg PO DAILY 08/19/15 [History] Metoprolol Succinate 50 mg PO BID 09/06/16 [History] Montelukast Sodium [Singulair] 10 mg PO DAILY 09/06/16 [History] Trazodone HCl 50 mg [Desyrel 50 mg] 150 mg PO HS 09/06/16 [History] Clopidogrel Bisulfate 75 mg [PLAVIX 75 MG Tablet] 75 mg PO DAILY 08/03/18 [History] Levothyroxine Sodium 150 Mcg [Synthroid 150 Mcg] 150 mcg PO DAILY 08/03/18 [History] Apixaban [Eliquis] 5 mg PO BID 01/04/20 [History] Famotidine 20 mg PO BID 01/04/20 [History] Ondansetron HCl [Zofran] 4 mg PO Q4H PRN PRN 01/04/20 [History] PANTOPRAZOLE 40 mg Tablet [Protonix 40MG Tablet] 40 mg PO DAILY 01/04/20 [History] Budesonide/Formoterol Fumarate [Symbicort 160-4.5 Mcg Inhaler] 2 puff IH BID 03/02/20 [History] Fluticasone Furoate [Flonase Sensimist] 2 spray IN DAILY 06/15/20 [History] Fexofenadine HCl 180 mg PO DAILY 06/16/20 [History] Insulin Detemir [Levemir] 30 unit SQ BID 06/16/20 [History] Bumetanide 1 mg [Bumex 1 mg] 0.5 mg PO DAILY 08/20/20 [History] Potassium Chloride 10 Meq Tab* [Klor Con 10 MEQ] 2 tab PO DAILY 08/20/20 [History] Hx Tetanus, Diphtheria Vaccination/Date Given: Yes Hx Influenza Vaccination/Date Given: Yes Hx Pneumococcal Vaccination/Date Given: Yes Travel Risk - International Travel Have you traveled outside of the country in past 3 weeks: No - Coronavirus Screening Are you exhibiting any of the following symptoms?: Yes Symptoms: Cough: New Onset, Shortness of Breath Close contact with a COVID-19 positive Pt in past 14-21 Days: No - Review of Systems Constitutional: No Symptoms Eyes: No Symptoms Ears, Nose, & Throat: No Symptoms Respiratory: Cough, Dyspnea Cardiac: No Symptoms Abdominal/Gastrointestinal: No Symptoms Genitourinary Symptoms: No Symptoms Musculoskeletal: No Symptoms Skin: No Symptoms Neurological: No Symptoms Psychological: No Symptoms Endocrine: No Symptoms Hematologic/Lymphatic: No Symptoms Immunological/Allergic: No Symptoms All Other Systems: Reviewed and Negative - Past Medical History Pertinent Past Medical History: Yes Neurological History: Stroke ENT History: Cataracts Cardiac History: Coronary Artery Disease, High Cholesterol, Hypertension, Myocardial Infarction ([place]), Other Respiratory History: COPD, Pneumonia, Sleep Apnea Endocrine Medical History: Diabetes Type II Musculoskeletal History: No Pertinent History GI Medical History: No Pertinent History History: No Pertinent History Psycho-Social History: No Pertinent History Female Reproductive Disorders: No Pertinent History Other Medical History: Rapid heart rate at times; lump in right breast, biopsy non-cancerous, "stroke" in left eye. States went into Cardiac Arrest two times in Oct 2019 following a heart stent placement. - Past Surgical History Past Surgical History: Yes Neuro Surgical History: No Pertinent History Cardiac: Cardiac Stent Respiratory: No Pertinent History Gastrointestinal: Bowel Surgery, Cholecystectomy, Hernia Repair Genitourinary: No Pertinent History Musculoskeletal: No Pertinent History Female Surgical History: Tubal Ligation, Other Other Surgical History: Breast biopsy, 5 STENTS, CLOT REMOVED FROM ARTERY ON LEFT NECK/STROKE; "part of my bowel was taken out, 3 inches or more"; - Social History Smoking Status: Never smoker Exposure to second hand smoke: No Drug Use: none Patient Lives Alone: No - Nursing Vital Signs Nursing Vital Signs: Initial Vital Signs Temperature 98.8 F 08/20/20 01:03 Pulse Rate 115 H 08/20/20 01:03 Respiratory Rate 22 08/20/20 01:03 Blood Pressure 158/86 08/20/20 01:03 O2 Sat by Pulse Oximetry 99 08/20/20 01:03 Pain Scale Pain Intensity 6 - Physical Exam General Appearance: mild distress, alert, anxiety, obese Eye Exam: PERRL/EOMI, eyes nml inspection Ears, Nose, Throat Exam: normal ENT inspection, moist mucous membranes Neck Exam: normal inspection, non-tender, supple, full range of motion Respiratory Exam: normal breath sounds, lungs clear, respiratory distress (Old), No chest tenderness Cardiovascular Exam: irregular, edema Gastrointestinal/Abdomen Exam: soft, normal bowel sounds, No tenderness Pelvic Exam: not done Rectal Exam: not done Back Exam: normal inspection, normal range of motion, No CVA tenderness, No vertebral tenderness Extremity Exam: normal range of motion, pelvis stable, pedal edema Neurologic Exam: alert, oriented x 3, cooperative, brick pitcher II-XII nml as tested, normal mood/affect, nml cerebellar function, nml station & gait, sensation nml Skin Exam: normal color, warm, dry Lymphatic Exam: No adenopathy SpO2 Interpretation: normal O2 Delivery: Nasal Cannula (2 L) - Course Nursing assessment & vital signs reviewed: Yes EKG Interpreted by Me: RATE (53), A-fib, NORMAL AXIS, NORMAL ST-T, Other (There are no acute ischemic changes present. There is new atrial fibrillation when compared to EKG dated 06/16/2020. On today's EKG, there is resolution of nonspecific ST segment changes that were present on the prior EKG.) Ordered Tests: Active Orders 24 hr Category Date Time Status Head Of Operation And Logistics STAT Care 08/20/20 01:06 Active EKG-ER Only STAT Care 08/20/20 01:05 Active IV Insertion STAT Care 08/20/20 01:05 Active Isolation, Initiate & Maintain STAT Care 08/20/20 01:05 Active Pulse Oximetry (ED) ROUTINE Care 08/20/20 01:06 Active CHEST 1 VIEW (PORTABLE) Stat Exams 08/20/20 01:08 Taken BLOOD CULTURE Stat Lab 08/20/20 01:20 Received CBC W DIFF Stat Lab 08/20/20 01:20 Completed CMP Stat Lab 08/20/20 01:20 Completed D-DIMER QUANTITATIVE Stat Lab 08/20/20 01:20 Completed Ferritin Stat Lab 08/20/20 01:20 Completed INFLUENZA A+B SONJA Stat Lab 08/20/20 01:20 Completed LDH-LACTATE DEHYDROGENASE Stat Lab 08/20/20 01:20 Completed Lactic Acid Stat Lab 08/20/20 04:35 Completed [place] Screen Stat Lab 08/20/20 01:20 Completed NT PRO BNP Stat Lab 08/20/20 01:46 Completed PROTIME WITH INR Stat Lab 08/20/20 01:20 Completed TROPONIN Q3H Lab 08/20/20 01:20 Completed TROPONIN Q3H Lab 08/20/20 04:33 Completed TROPONIN Q3H Lab 08/20/20 07:15 Ordered TROPONIN Q3H Lab 08/20/20 10:15 Ordered TROPONIN Q3H Lab 08/20/20 13:15 Ordered Transfer Order Routine Transfer 08/20/20 Ordered Medication Summary Generic Name Dose Route Start Last Admin Trade Name Freq PRN Reason Stop Dose Admin Sodium Chloride 1,000 mls @ 50 mls/hr 08/20/20 01:15 08/20/20 01:17 Sodium Chloride 0.9% 1000 Ml IV 09/19/20 01:14 50 mls/hr .Q20H SUZETTE Administration Discontinued Medications Generic Name Dose Route Start Last Admin Trade Name Freq PRN Reason Stop Dose Admin Hydrocodone Bitart/Acetaminophen 1 tab 08/20/20 03:37 08/20/20 03:40 [place] 5/325 Mg PO 08/20/20 03:38 1 tab STAT ONE Administration Hydrocodone Bitart/Acetaminophen Confirm 08/20/20 03:40 [place] 5/325 Mg Administered 08/20/20 03:41 Dose 1 tab .ROUTE .STK-MED ONE Bumetanide 1 mg 08/20/20 02:45 08/20/20 02:55 Bumex 1 Mg IV 08/20/20 02:46 1 mg STAT ONE Administration Bumetanide Confirm 08/20/20 02:55 Bumex 1 Mg Administered 08/20/20 02:56 Dose 1 mg .ROUTE .STK-MED ONE Lab/Rad Data: Laboratory Result Diagrams 08/20/20 01:20 08/20/20 01:20 Laboratory Results 08/20/20 08/20/20 08/20/20 Range/Units 04:35 04:33 03:05 WBC (4.0-10.5) K/mm3 RBC (4.1-5.4) M/mm3 Hgb (12.0-16.0) gm/dl Hct (35-47) % MCV (78-100) fl MCH (26-32) pg MCHC (32-36) g/dl RDW (11.5-14.0) % Plt Count (150-450) K/mm3 MPV (7.5-11.0) fl Gran % (36.0-66.0) % Eos # (Auto) (0-0.5) Absolute Lymphs (auto) (1.0-4.6) Absolute Monos (auto) (0.0-1.3) Lymphocytes % (24.0-44.0) % Monocytes % (0.0-12.0) % Eosinophils % (0.00-5.0) % Basophils % (0.0-0.4) % Absolute Granulocytes (1.4-6.9) Basophils # (0-0.4) PT (9.95-12.35) SECONDS INR (0.8-3.0) D-Dimer (215-500) ng/mL Sodium (137-145) mmol/L Potassium (3.5-5.1) mmol/L Chloride (98-107) mmol/L Carbon Dioxide (22-30) mmol/L Anion Gap (5-15) MEQ/L BUN (7-17) mg/dL Creatinine (0.52-1.04) mg/dL Estimated GFR ML/MIN Glucose (74-106) mg/dL Lactic Acid 1.1 (0.4-2.0) Calcium (8.4-10.2) mg/dL Ferritin (11.1-264) ng/mL Total Bilirubin (0.2-1.3) mg/dL AST (14-36) U/L ALT (0-35) U/L Alkaline Phosphatase (38-126) U/L Lactate Dehydrogenase (120-246) U/L Troponin I 0.018 (0.000-0.034) ng/mL NT-Pro-B Natriuret Pep (0-900) pg/mL Serum Total Protein (6.3-8.2) g/dL Albumin (3.5-5.0) g/dL Monoscreen (Negative) Influenza Type A Ag (NEGATIVE) Influenza Type B Ag (NEGATIVE) SARS-CoV-2 (PCR) NEGATIVE (NEGATIVE) Group A Strep Antibody (NEGATIVE) Slides for Path Review 08/20/20 08/20/20 08/20/20 Range/Units 01:46 01:20 01:20 WBC 8.7 (4.0-10.5) K/mm3 RBC 3.22 L (4.1-5.4) M/mm3 Hgb 8.3 L (12.0-16.0) gm/dl Hct 29.8 L (35-47) % MCV 92.5 (78-100) fl MCH 25.8 L (26-32) pg MCHC 27.9 L (32-36) g/dl RDW 15.0 H (11.5-14.0) % Plt Count 221 (150-450) K/mm3 MPV 12.0 H (7.5-11.0) fl Gran % 76.0 H (36.0-66.0) % Eos # (Auto) 0.06 (0-0.5) Absolute Lymphs (auto) 1.41 (1.0-4.6) Absolute Monos (auto) 0.59 (0.0-1.3) Lymphocytes % 16.2 L (24.0-44.0) % Monocytes % 6.8 (0.0-12.0) % Eosinophils % 0.7 (0.00-5.0) % Basophils % 0.3 (0.0-0.4) % Absolute Granulocytes 6.59 (1.4-6.9) Basophils # 0.03 (0-0.4) PT (9.95-12.35) SECONDS INR (0.8-3.0) D-Dimer (215-500) ng/mL Sodium (137-145) mmol/L Potassium (3.5-5.1) mmol/L Chloride (98-107) mmol/L Carbon Dioxide (22-30) mmol/L Anion Gap (5-15) MEQ/L BUN (7-17) mg/dL Creatinine (0.52-1.04) mg/dL Estimated GFR ML/MIN Glucose (74-106) mg/dL Lactic Acid (0.4-2.0) Calcium (8.4-10.2) mg/dL Ferritin (11.1-264) ng/mL Total Bilirubin (0.2-1.3) mg/dL AST (14-36) U/L ALT (0-35) U/L Alkaline Phosphatase (38-126) U/L Lactate Dehydrogenase (120-246) U/L Troponin I (0.000-0.034) ng/mL NT-Pro-B Natriuret Pep 2130 H (0-900) pg/mL Serum Total Protein (6.3-8.2) g/dL Albumin (3.5-5.0) g/dL Monoscreen NEGATIVE (Negative) Influenza Type A Ag (NEGATIVE) Influenza Type B Ag (NEGATIVE) SARS-CoV-2 (PCR) (NEGATIVE) Group A Strep Antibody (NEGATIVE) Slides for Path Review YES 08/20/20 08/20/20 08/20/20 Range/Units 01:20 01:20 01:20 WBC (4.0-10.5) K/mm3 RBC (4.1-5.4) M/mm3 Hgb (12.0-16.0) gm/dl Hct (35-47) % MCV (78-100) fl MCH (26-32) pg MCHC (32-36) g/dl RDW (11.5-14.0) % Plt Count (150-450) K/mm3 MPV (7.5-11.0) fl Gran % (36.0-66.0) % Eos # (Auto) (0-0.5) Absolute Lymphs (auto) (1.0-4.6) Absolute Monos (auto) (0.0-1.3) Lymphocytes % (24.0-44.0) % Monocytes % (0.0-12.0) % Eosinophils % (0.00-5.0) % Basophils % (0.0-0.4) % Absolute Granulocytes (1.4-6.9) Basophils # (0-0.4) PT (9.95-12.35) SECONDS INR (0.8-3.0) D-Dimer (215-500) ng/mL Sodium (137-145) mmol/L Potassium (3.5-5.1) mmol/L Chloride (98-107) mmol/L Carbon Dioxide (22-30) mmol/L Anion Gap (5-15) MEQ/L BUN (7-17) mg/dL Creatinine (0.52-1.04) mg/dL Estimated GFR ML/MIN Glucose (74-106) mg/dL Lactic Acid (0.4-2.0) Calcium (8.4-10.2) mg/dL Ferritin 10.3 L (11.1-264) ng/mL Total Bilirubin (0.2-1.3) mg/dL AST (14-36) U/L ALT (0-35) U/L Alkaline Phosphatase (38-126) U/L Lactate Dehydrogenase (120-246) U/L Troponin I < 0.012 (0.000-0.034) ng/mL NT-Pro-B Natriuret Pep (0-900) pg/mL Serum Total Protein (6.3-8.2) g/dL Albumin (3.5-5.0) g/dL Monoscreen (Negative) Influenza Type A Ag NEGATIVE (NEGATIVE) Influenza Type B Ag NEGATIVE (NEGATIVE) SARS-CoV-2 (PCR) (NEGATIVE) Group A Strep Antibody (NEGATIVE) Slides for Path Review 08/20/20 08/20/20 08/20/20 Range/Units 01:20 01:20 01:07 WBC (4.0-10.5) K/mm3 RBC (4.1-5.4) M/mm3 Hgb (12.0-16.0) gm/dl Hct (35-47) % MCV (78-100) fl MCH (26-32) pg MCHC (32-36) g/dl RDW (11.5-14.0) % Plt Count (150-450) K/mm3 MPV (7.5-11.0) fl Gran % (36.0-66.0) % Eos # (Auto) (0-0.5) Absolute Lymphs (auto) (1.0-4.6) Absolute Monos (auto) (0.0-1.3) Lymphocytes % (24.0-44.0) % Monocytes % (0.0-12.0) % Eosinophils % (0.00-5.0) % Basophils % (0.0-0.4) % Absolute Granulocytes (1.4-6.9) Basophils # (0-0.4) PT 14.7 H (9.95-12.35) SECONDS INR 1.30 (0.8-3.0) D-Dimer 968 H* (215-500) ng/mL Sodium 142 (137-145) mmol/L Potassium 3.8 (3.5-5.1) mmol/L Chloride 105 (98-107) mmol/L Carbon Dioxide 32 H (22-30) mmol/L Anion Gap 8.9 (5-15) MEQ/L BUN 12 (7-17) mg/dL Creatinine 0.75 (0.52-1.04) mg/dL Estimated GFR > 60.0 ML/MIN Glucose 207 H (74-106) mg/dL Lactic Acid (0.4-2.0) Calcium 8.5 (8.4-10.2) mg/dL Ferritin (11.1-264) ng/mL Total Bilirubin 0.30 (0.2-1.3) mg/dL AST 16 (14-36) U/L ALT 12 (0-35) U/L Alkaline Phosphatase 104 (38-126) U/L Lactate Dehydrogenase 191 (120-246) U/L Troponin I (0.000-0.034) ng/mL NT-Pro-B Natriuret Pep (0-900) pg/mL Serum Total Protein 6.7 (6.3-8.2) g/dL Albumin 3.4 L (3.5-5.0) g/dL Monoscreen (Negative) Influenza Type A Ag (NEGATIVE) Influenza Type B Ag (NEGATIVE) SARS-CoV-2 (PCR) (NEGATIVE) Group A Strep Antibody NOT DETECTED (NEGATIVE) Slides for Path Review - Progress Progress: improved, re-examined Air Movement: good Progress Note: 08/20/20 05:42 Chest x-ray reveals cardiomegaly. There is associated mild bilateral pleural effusions and increased vascular markings. 08/20/20 05:44 Medical decision making: This patient has a negative COVID-19 test. She does have shortness of breath that worsens with exertion despite her oxygen of 2 L via nasal cannula. She has a history of chronic atrial fibrillation and her heart rate increases with exertion. She has physical findings, radiographic evidence and laboratory value consistent with congestive heart failure. She has chronic anemia but the values have decreased since her last hemoglobin. I discussed this patient, her condition, her history and reviewed the patient's EKG, laboratory results and chest x-ray findings with Dr. Del Rosario who is covering for Dr. Camarena. Additionally, the patient has an elevated D-dimer. I do not believe the patient necessarily has pulmonary emboli since she is taking both Plavix and Eliquis on a daily basis but we will also admit her to the hospital to perform a VQ pulmonary scan to rule this out. The patient has a real allergy to iodine. Dr. Del Rosario accepts the patient for admission. Blood Culture(s) Obtained: No Antibiotics given: No Discussed with : Paloma Counseled pt/family regarding: lab results, diagnosis, rad results - Departure Departure Disposition: In-patient Admission Clinical Impression: Congestive heart failure, Atrial fibrillation, Shortness of breath, Anemia Condition: Fair Critical Care Time: Yes Critical Care Time(excluding separately billable procedures): Critical 30-74 mins Referrals: HIRAL CAMARENA [Primary Care Provider] - Instructions: Heart Failure
[2020-08-20] MEDS ORDERED: Sodium Chloride 0.9% 1000 ML 1,000 ML IV SCH (01:15)
[2020-08-20 01:24] LABS: Absolute Neutrophil Ct (ANC) 6.59 (1.4-6.9); BASOPHIL % 0.3 % (0.0-0.4); Basophil (Absolute #) 0.03 (0-0.4); Eosinophil % 0.7 % (0.00-5.0); Eosinophil (Absolute #) 0.06 (0-0.5); Hematocrit 29.8 % (35-47); Hemoglobin 8.3 gm/dl (12.0-16.0); Lymphocyte (Absolute #) 1.41 (1.0-4.6); Lymphocytes % 16.2 % (24.0-44.0); Mean Cell Volume 92.5 fl (78-100); Mean Corpuscular Hemoglobin 25.8 pg (26-32); Mean Corpuscular Hgb Concent. 27.9 g/dl (32-36); Monocyte (Absolute #) 0.59 (0.0-1.3); Monocytes % 6.8 % (0.0-12.0); Platelet Count 221 K/mm3 (150-450); Red Blood Count 3.22 M/mm3 (4.1-5.4); White Blood Count 8.7 K/mm3 (4.0-10.5)
[2020-08-20 01:40] LABS: INR 1.3 (0.8-3.0); PROTIME 14.7 SECONDS (9.95-12.35)
[2020-08-20 01:46] LABS: ALBUMIN 3.4 g/dL (3.5-5.0); ALKALINE PHOSPHATASE 104 U/L (38-126); ANION GAP 8.9 MEQ/L (5-15); BLOOD UREA NITROGEN 12 mg/dL (7-17); CHLORIDE 105 mmol/L (98-107); Calcium 8.5 mg/dL (8.4-10.2); Carbon Dioxide 32 mmol/L (22-30); Creatinine 1 0.75 mg/dL (0.52-1.04); EST GLOMERULAR FILTRATION RATE > 60.0 ML/MIN; Glucose 207 mg/dL (74-106); LDH-LACTATE DEHYDROGENASE 191 U/L (120-246); Potassium 3.8 mmol/L (3.5-5.1); SGOT/AST 16 U/L (14-36); SGPT/ALT 12 U/L (0-35); SODIUM 142 mmol/L (137-145); Total Protein 6.7 g/dL (6.3-8.2)
[2020-08-20 02:11] LABS: INFLUENZA A NEGATIVE (NEGATIVE); INFLUENZA B NEGATIVE (NEGATIVE)
[2020-08-20] MEDS ORDERED: BUMEX 1 MG IV ONE (02:45)
[2020-08-20] MEDS ORDERED: BUMEX 1 MG ONE (02:55)
[2020-08-20 03:14] LABS: Slide Review 1 YES
[2020-08-20] MEDS ORDERED: NORCO 5/325 MG PO ONE (03:37)
[2020-08-20] MEDS ORDERED: NORCO 5/325 MG ONE (03:40)
[2020-08-20] MEDS ORDERED: Zofran 4 MG/2 ML VIAL IV PRN (06:11)
[2020-08-20] MEDS ORDERED: TYLENOL 325 MG PO PRN (06:11)
[2020-08-20] MEDS ORDERED: VENTOLIN COMMON CANISTER IH PRN (07:57)
[2020-08-20] MEDS: Advair Hfa 230/21 Mcg COMMON CANISTER IH SCH ×2 (08:00→20:40)
--- NOTE | 2020-08-20 08:18 | XRAY ---
Indication: Cough. Suspect Covid 19. Comparison: May 11, 2020. Portable chest demonstrates new cardiomegaly, vascular congestion, small bibasilar effusions, and lingula subsegmental atelectasis favoring cardiac decompensation. Superimposed pneumonia not completely excluded.
[2020-08-20] MEDS ORDERED: BUMEX 1 MG PO SCH (10:00)
[2020-08-20] MEDS ORDERED: MAG-OX 400 PO SCH (11:00)
[2020-08-20] MEDS ORDERED: ZOFRAN ODT 4 MG PO PRN (11:12)
[2020-08-20] MEDS: LYRICA 100MG PO SCH ×2 (11:13→22:15)
[2020-08-20] MEDS: BUSPAR 5 MG PO SCH ×2 (11:14→22:15)
[2020-08-20] MEDS: CLARITIN 10 MG PO SCH (11:14)
[2020-08-20] MEDS: Pepcid 20 MG PO SCH ×2 (11:14→22:14)
[2020-08-20] MEDS: PLAVIX 75 MG Tablet PO SCH (11:14)
[2020-08-20] MEDS: Zestril 10 MG PO SCH (11:14)
[2020-08-20] MEDS: ELIQUIS 2.5 MG TABLET PO SCH ×2 (11:14→22:15)
[2020-08-20] MEDS: PRISTIQ ER PO SCH (11:14)
[2020-08-20] MEDS: ZOCOR 20MG PO SCH (11:14)
[2020-08-20] MEDS: Imdur 30 MG PO SCH (11:15)
[2020-08-20] MEDS: Klor Con 10 MEQ PO SCH (11:15)
[2020-08-20] MEDS: BUMEX 1 MG PO SCH (11:15)
[2020-08-20] MEDS ORDERED: INSULIN ASPART 4 UNIT SQ SCH (11:30)
[2020-08-20] MEDS: Toprol Xl 50 MG PO SCH ×2 (11:43→22:15)
[2020-08-20] MEDS: Flonase NASAL NS SCH (11:43)
[2020-08-20] MEDS: Singulair 10 MG PO SCH (11:43)
[2020-08-20] MEDS: SYNTHROID 150 MCG PO SCH (11:44)
[2020-08-20] MEDS: Protonix 40MG Tablet PO SCH (11:44)
[2020-08-20] MEDS: Lantus Insulin SQ SCH ×2 (11:47→22:16)
[2020-08-20] MEDS: HUMALOG SQ SCH ×2 (11:48→17:15)
[2020-08-20] MEDS: OXYCODONE-ACETAMINOPHEN 10-325 PO SCH ×3 (13:24→22:16)
[2020-08-20] MEDS: HUMULIN R SQ PRN ×2 (17:19→22:16)
[2020-08-20] MEDS ORDERED: PROVENTIL 2.5 MG/3 ML NEB IH ONE (20:30)
[2020-08-20] MEDS: PROVENTIL 2.5 MG/3 ML NEB IH SCH (20:40)
[2020-08-20] MEDS ORDERED: DESYREL 50 MG PO SCH (22:00)
[2020-08-20] MEDS ORDERED: NON-FORMULARY ITEM (Insulin Detemir [Levemir] 30 UNIT) SQ SCH (22:00)
[2020-08-20] MEDS ORDERED: MAGNESIUM OXIDE PO SCH (22:00)
[2020-08-20] MEDS: MAG-OX 400 PO SCH (22:14)
[2020-08-20] MEDS: Desyrel 150 MG PO SCH (22:15)
[2020-08-21 05:14] LABS: BASOPHIL % 0.5 % (0.0-0.4); Basophil (Absolute #) 0.03 (0-0.4); Eosinophil % 2.4 % (0.00-5.0); Eosinophil (Absolute #) 0.15 (0-0.5); Hematocrit 27.5 % (35-47); Hemoglobin 7.6 gm/dl (12.0-16.0); Lymphocyte (Absolute #) 1.22 (1.0-4.6); Lymphocytes % 19.6 % (24.0-44.0); Mean Cell Volume 92.6 fl (78-100); Mean Corpuscular Hemoglobin 25.6 pg (26-32); Mean Corpuscular Hgb Concent. 27.6 g/dl (32-36); Mean Platelet Volume 12.1 fl (7.5-11.0); Monocyte (Absolute #) 0.53 (0.0-1.3); Monocytes % 8.5 % (0.0-12.0); Platelet Count 203 K/mm3 (150-450); Red Blood Count 2.97 M/mm3 (4.1-5.4); Red Cell Distribution Width 15.2 % (11.5-14.0); White Blood Count 6.2 K/mm3 (4.0-10.5)
[2020-08-21] MEDS: PROVENTIL 2.5 MG/3 ML NEB IH SCH ×4 (05:23→20:16)
[2020-08-21] MEDS: Advair Hfa 230/21 Mcg COMMON CANISTER IH SCH ×2 (05:27→20:16)
[2020-08-21] MEDS: SYNTHROID 150 MCG PO SCH (05:36)
[2020-08-21 05:37] LABS: ALKALINE PHOSPHATASE 86 U/L (38-126); BLOOD UREA NITROGEN 10 mg/dL (7-17); CHLORIDE 97 mmol/L (98-107); Calcium 8.2 mg/dL (8.4-10.2); Carbon Dioxide 39 mmol/L (22-30); Creatinine 1 0.85 mg/dL (0.52-1.04); EST GLOMERULAR FILTRATION RATE > 60.0 ML/MIN; Glucose 171 mg/dL (74-106); Potassium 4.1 mmol/L (3.5-5.1); SGOT/AST 15 U/L (14-36); SGPT/ALT 10 U/L (0-35); SODIUM 137 mmol/L (137-145); Total Protein 6.1 g/dL (6.3-8.2)
[2020-08-21 05:58] LABS: Slide Review 1 YES
[2020-08-21] MEDS: HUMALOG SQ SCH ×3 (08:24→17:18)
[2020-08-21] MEDS: Lantus Insulin SQ SCH ×2 (08:25→21:50)
[2020-08-21] MEDS ORDERED: Oxycontin 20 MG ER PO ONE (08:36)
[2020-08-21] MEDS ORDERED: Ativan 1 MG PO ONE (08:37)
--- NOTE | 2020-08-21 08:46 | PCM.DS ---
Discharge Summary Date of Admission: 08/20/20 06:07 Admitting Physician: LEORA FERRER Primary Care Provider: LEORA FERRER Allergies Allergies levofloxacin [From Levaquin] Allergy (Mild, Verified 06/16/20 00:49) red rash/burning when gievn IV cefaclor [From Ceclor] Allergy (Verified 06/16/20 00:49) SOB, HIVES ciprofloxacin [From Cipro] Allergy (Verified 06/16/20 00:49) ciprofloxacin HCl [From Cipro] Allergy (Verified 06/16/20 00:49) clarithromycin [From Biaxin] Allergy (Verified 06/16/20 00:49) diphenhydramine HCl [From Benadryl] Allergy (Verified 06/16/20 00:49) SOB HIVES erythromycin base [Erythromycin Base] Allergy (Verified 06/16/20 00:49) SOB HIVES Iodinated Contrast Media [Iodinated Contrast- Oral and IV Dye] Allergy (Verified 06/16/20 00:49) iodine Allergy (Verified 06/16/20 00:49) SOB HIVES latex Allergy (Verified 06/16/20 00:49) SOB HIVES Macrolide Antibiotics Allergy (Verified 06/16/20 00:49) SBO HIVES Penicillins Allergy (Verified 06/16/20 00:49) Swelling of Face sulfamethoxazole [From Bactrim] Allergy (Verified 06/16/20 00:49) trimethoprim [From Bactrim] Allergy (Verified 06/16/20 00:49) melon Adverse Reaction (Severe, Verified 06/16/20 00:49) cantaloupe aspirin Adverse Reaction (Verified 06/16/20 00:49) ibuprofen Adverse Reaction (Verified 06/16/20 00:49) Hospital Summary - Hospital Course Hospital Course: See progress note; pt not being discharged to home today. - Vitals & Intake/Output Vital Signs: Vital Signs Temperature 97.0 F 08/21/20 07:04 Pulse Rate 62 08/21/20 07:04 Respiratory Rate 16 08/21/20 07:04 Blood Pressure 135/59 08/21/20 07:04 O2 Sat by Pulse Oximetry 90 L 08/21/20 07:04 Intake & Output: Intake & Output 08/18/20 08/19/20 08/20/20 08/21/20 11:59 11:59 11:59 11:59 Intake Total 240 1540 Output Total 1999 Balance 240 -460 Weight 143.1 kg 145.9 kg - Lab Result Diagrams: 08/21/20 04:20 08/21/20 04:20 Lab Results-Last 24 Hrs: Lab Results-Last 24 Hours 08/20/20 08/20/20 08/20/20 Range/Units 10:12 11:10 13:22 WBC (4.0-10.5) K/mm3 RBC (4.1-5.4) M/mm3 Hgb (12.0-16.0) gm/dl Hct (35-47) % MCV (78-100) fl MCH (26-32) pg MCHC (32-36) g/dl RDW (11.5-14.0) % Plt Count (150-450) K/mm3 MPV (7.5-11.0) fl Gran % (36.0-66.0) % Eos # (Auto) (0-0.5) Absolute Lymphs (auto) (1.0-4.6) Absolute Monos (auto) (0.0-1.3) Lymphocytes % (24.0-44.0) % Monocytes % (0.0-12.0) % Eosinophils % (0.00-5.0) % Basophils % (0.0-0.4) % Absolute Granulocytes (1.4-6.9) Basophils # (0-0.4) Sodium (137-145) mmol/L Potassium (3.5-5.1) mmol/L Chloride (98-107) mmol/L Carbon Dioxide (22-30) mmol/L Anion Gap (5-15) MEQ/L BUN (7-17) mg/dL Creatinine (0.52-1.04) mg/dL Estimated GFR ML/MIN Glucose (74-106) mg/dL POC Glucometer 210 H (74 to 106) mg/dL Calcium (8.4-10.2) mg/dL Total Bilirubin (0.2-1.3) mg/dL AST (14-36) U/L ALT (0-35) U/L Alkaline Phosphatase (38-126) U/L Troponin I < 0.012 < 0.012 (0.000-0.034) ng/mL NT-Pro-B Natriuret Pep (0-900) pg/mL Serum Total Protein (6.3-8.2) g/dL Albumin (3.5-5.0) g/dL Slides for Path Review 08/20/20 08/20/20 08/21/20 Range/Units 15:13 20:17 04:20 WBC 6.2 (4.0-10.5) K/mm3 RBC 2.97 L (4.1-5.4) M/mm3 Hgb 7.6 L (12.0-16.0) gm/dl Hct 27.5 L (35-47) % MCV 92.6 (78-100) fl MCH 25.6 L (26-32) pg MCHC 27.6 L (32-36) g/dl RDW 15.2 H (11.5-14.0) % Plt Count 203 (150-450) K/mm3 MPV 12.1 H (7.5-11.0) fl Gran % 69.0 H (36.0-66.0) % Eos # (Auto) 0.15 (0-0.5) Absolute Lymphs (auto) 1.22 (1.0-4.6) Absolute Monos (auto) 0.53 (0.0-1.3) Lymphocytes % 19.6 L (24.0-44.0) % Monocytes % 8.5 (0.0-12.0) % Eosinophils % 2.4 (0.00-5.0) % Basophils % 0.5 (0.0-0.4) % Absolute Granulocytes 4.30 (1.4-6.9) Basophils # 0.03 (0-0.4) Sodium (137-145) mmol/L Potassium (3.5-5.1) mmol/L Chloride (98-107) mmol/L Carbon Dioxide (22-30) mmol/L Anion Gap (5-15) MEQ/L BUN (7-17) mg/dL Creatinine (0.52-1.04) mg/dL Estimated GFR ML/MIN Glucose (74-106) mg/dL POC Glucometer 245 H 198 H (74 to 106) mg/dL Calcium (8.4-10.2) mg/dL Total Bilirubin (0.2-1.3) mg/dL AST (14-36) U/L ALT (0-35) U/L Alkaline Phosphatase (38-126) U/L Troponin I (0.000-0.034) ng/mL NT-Pro-B Natriuret Pep (0-900) pg/mL Serum Total Protein (6.3-8.2) g/dL Albumin (3.5-5.0) g/dL Slides for Path Review YES 08/21/20 08/21/20 Range/Units 04:20 04:20 WBC (4.0-10.5) K/mm3 RBC (4.1-5.4) M/mm3 Hgb (12.0-16.0) gm/dl Hct (35-47) % MCV (78-100) fl MCH (26-32) pg MCHC (32-36) g/dl RDW (11.5-14.0) % Plt Count (150-450) K/mm3 MPV (7.5-11.0) fl Gran % (36.0-66.0) % Eos # (Auto) (0-0.5) Absolute Lymphs (auto) (1.0-4.6) Absolute Monos (auto) (0.0-1.3) Lymphocytes % (24.0-44.0) % Monocytes % (0.0-12.0) % Eosinophils % (0.00-5.0) % Basophils % (0.0-0.4) % Absolute Granulocytes (1.4-6.9) Basophils # (0-0.4) Sodium 137 (137-145) mmol/L Potassium 4.1 (3.5-5.1) mmol/L Chloride 97 L (98-107) mmol/L Carbon Dioxide 39 H (22-30) mmol/L Anion Gap 6.0 (5-15) MEQ/L BUN 10 (7-17) mg/dL Creatinine 0.85 (0.52-1.04) mg/dL Estimated GFR > 60.0 ML/MIN Glucose 171 H (74-106) mg/dL POC Glucometer (74 to 106) mg/dL Calcium 8.2 L (8.4-10.2) mg/dL Total Bilirubin 0.30 (0.2-1.3) mg/dL AST 15 (14-36) U/L ALT 10 (0-35) U/L Alkaline Phosphatase 86 (38-126) U/L Troponin I (0.000-0.034) ng/mL NT-Pro-B Natriuret Pep 1680 H (0-900) pg/mL Serum Total Protein 6.1 L (6.3-8.2) g/dL Albumin 3.0 L (3.5-5.0) g/dL Slides for Path Review Micro Results-Entire Visit: Microbiology 08/20/20 01:20 Blood Culture - Preliminary Blood NO GROWTH TO DATE Accuchecks Date 08/21/20 Date 08/20/20 Time 22:00 - Radiology Exams Ordered Rad Exams-Entire Visit: Radiology Procedures Category Date Time Status CHEST 1 VIEW (PORTABLE) Stat Exams 08/20/20 01:08 Completed PULMONARY PERF VENTILATION [NUCMED] Stat Exams 08/21/20 06:11 Ordered - Procedures and Test Procedures and Tests throughout Hospitalization: Therapy Orders & Screens 08/20/20 06:11 EKG REPEAT IN AM Comment: Oxygen Nasal Cannula 2 lpm Comment: Respiratory Therapy Consult ROUTINE Comment: Reason For Exam: 08/20/20 07:38 BiPap/CPAP ROUTINE Comment: 08/20/20 07:57 Respiratory Therapy Assessment DAILY Comment: 08/20/20 08:09 RT Screen per Nursing Assess ONCE Comment: Protocol Order Physician Instructions: Greater than 3 points order RT Admission Screen Reason For Exam: Triggered on Admission Diagnosis: CHF, AFIB, SOB Diagnosis: CHF, AFIB, SOB Pneumonia: No Home O2: Yes Asthma: No CHF: Yes Home CPAP/BIPAP: Yes Home Nebs/MDI: Yes Total Points: 18 - Discharge Disposition: Home, Self-Care Condition: Fair Prescriptions: No Action Insulin Aspart [NovoLOG Insulin] 4 unit SQ AC Atorvastatin Calcium [Lipitor 20MG Tablet] 80 mg PO DAILY Buspirone HCl 5 mg [Buspar 5 mg] 15 mg PO BID Oxycodone HCl/Acetaminophen [Percocet 10-325 mg Tablet] 1 tab PO QID Pregabalin [Lyrica] 200 mg PO BID Desvenlafaxine Succinate [Pristiq] 100 mg PO DAILY Lisinopril 5 mg [Zestril 5 MG] 10 mg PO DAILY Isosorbide Mononitrate 30 mg [Imdur 30 MG] 30 mg PO DAILY Trazodone HCl 50 mg [Desyrel 50 mg] 150 mg PO HS Montelukast Sodium [Singulair] 10 mg PO DAILY Metoprolol Succinate 50 mg PO BID Levothyroxine Sodium 150 Mcg [Synthroid 150 Mcg] 150 mcg PO DAILY Clopidogrel Bisulfate 75 mg [PLAVIX 75 MG Tablet] 75 mg PO DAILY PANTOPRAZOLE 40 mg Tablet [Protonix 40MG Tablet] 40 mg PO DAILY Ondansetron HCl [Zofran] 4 mg PO Q4H PRN PRN PRN Reason: Nausea Famotidine 20 mg PO BID Apixaban [Eliquis] 5 mg PO BID Budesonide/Formoterol Fumarate [Symbicort 160-4.5 Mcg Inhaler] 2 puff IH BID Fluticasone Furoate [Flonase Sensimist] 2 spray IN DAILY Fexofenadine HCl 180 mg PO DAILY Insulin Detemir [Levemir] 30 unit SQ BID Magnesium Oxide 1 tab PO BID #60 tablet Bumetanide 1 mg [Bumex 1 mg] 0.5 mg PO DAILY Potassium Chloride 10 Meq Tab* [Klor Con 10 MEQ] 2 tab PO BID Follow up with: LEORA FERRER [Primary Care Provider] - 08/29/20 11:00 am
--- NOTE | 2020-08-21 08:52 | PCM.NOTE ---
Date and Time: 08/21/20 0847 Subjective Assessment: Pt was SOB with O2 desat when up to the bathroom. [place] po fine. C/o eyes watering, which is ferry terminal agent. Also c/o some recent matting in bilat eyes. - Review of Systems Respiratory: Short Of Breath Abdominal/Gastrointestinal: No Vomiting Objective Exam General Appearance: no apparent distress, alert, obese Neurologic Exam: oriented x 3, cooperative Skin Exam: normal color, warm, dry, No rash Eye Exam: pale conjunctivae, other (eyes watering bilat) Ears, Nose, Throat Exam: moist mucous membranes Neck Exam: normal inspection Respiratory Exam: lungs clear, diminished breath sounds, No crackles/rales, No rhonchi, No wheezing Cardiovascular Exam: regular rate/rhythm, normal heart sounds, No murmur Extremity Exam: swelling (trace pretibial edema bilat) OBJECTIVE DATA Vital Signs: Vital Signs - 24 hr Temp Pulse Resp BP Pulse Ox 08/21/20 07:04 97.0 F 62 16 135/59 90 L 08/21/20 05:27 60 17 95 08/21/20 03:54 98.1 F 64 17 118/59 93 L 08/20/20 23:50 97.5 F 68 17 120/54 96 08/20/20 20:40 71 16 95 08/20/20 19:46 97.5 F 68 16 125/58 96 08/20/20 15:50 98.1 F 80 298 H 119/56 08/20/20 12:33 85 L Pain Assessment - Last Documented Pain Intensity 8 Pain Scale Used [facility] Intake and Output: Intake & Output 08/18/20 08/19/20 08/20/20 08/21/20 11:59 11:59 11:59 11:59 Intake Total 240 1540 Output Total 1999 Balance 240 -460 Weight 143.1 kg 145.9 kg Lab Results: Lab Results-Last 24 Hours 08/20/20 08/20/20 08/20/20 Range/Units 10:12 11:10 13:22 WBC (4.0-10.5) K/mm3 RBC (4.1-5.4) M/mm3 Hgb (12.0-16.0) gm/dl Hct (35-47) % MCV (78-100) fl MCH (26-32) pg MCHC (32-36) g/dl RDW (11.5-14.0) % Plt Count (150-450) K/mm3 MPV (7.5-11.0) fl Gran % (36.0-66.0) % Eos # (Auto) (0-0.5) Absolute Lymphs (auto) (1.0-4.6) Absolute Monos (auto) (0.0-1.3) Lymphocytes % (24.0-44.0) % Monocytes % (0.0-12.0) % Eosinophils % (0.00-5.0) % Basophils % (0.0-0.4) % Absolute Granulocytes (1.4-6.9) Basophils # (0-0.4) Sodium (137-145) mmol/L Potassium (3.5-5.1) mmol/L Chloride (98-107) mmol/L Carbon Dioxide (22-30) mmol/L Anion Gap (5-15) MEQ/L BUN (7-17) mg/dL Creatinine (0.52-1.04) mg/dL Estimated GFR ML/MIN Glucose (74-106) mg/dL POC Glucometer 210 H (74 to 106) mg/dL Calcium (8.4-10.2) mg/dL Total Bilirubin (0.2-1.3) mg/dL AST (14-36) U/L ALT (0-35) U/L Alkaline Phosphatase (38-126) U/L Troponin I < 0.012 < 0.012 (0.000-0.034) ng/mL NT-Pro-B Natriuret Pep (0-900) pg/mL Serum Total Protein (6.3-8.2) g/dL Albumin (3.5-5.0) g/dL Slides for Path Review 08/20/20 08/20/20 08/21/20 Range/Units 15:13 20:17 04:20 WBC 6.2 (4.0-10.5) K/mm3 RBC 2.97 L (4.1-5.4) M/mm3 Hgb 7.6 L (12.0-16.0) gm/dl Hct 27.5 L (35-47) % MCV 92.6 (78-100) fl MCH 25.6 L (26-32) pg MCHC 27.6 L (32-36) g/dl RDW 15.2 H (11.5-14.0) % Plt Count 203 (150-450) K/mm3 MPV 12.1 H (7.5-11.0) fl Gran % 69.0 H (36.0-66.0) % Eos # (Auto) 0.15 (0-0.5) Absolute Lymphs (auto) 1.22 (1.0-4.6) Absolute Monos (auto) 0.53 (0.0-1.3) Lymphocytes % 19.6 L (24.0-44.0) % Monocytes % 8.5 (0.0-12.0) % Eosinophils % 2.4 (0.00-5.0) % Basophils % 0.5 (0.0-0.4) % Absolute Granulocytes 4.30 (1.4-6.9) Basophils # 0.03 (0-0.4) Sodium (137-145) mmol/L Potassium (3.5-5.1) mmol/L Chloride (98-107) mmol/L Carbon Dioxide (22-30) mmol/L Anion Gap (5-15) MEQ/L BUN (7-17) mg/dL Creatinine (0.52-1.04) mg/dL Estimated GFR ML/MIN Glucose (74-106) mg/dL POC Glucometer 245 H 198 H (74 to 106) mg/dL Calcium (8.4-10.2) mg/dL Total Bilirubin (0.2-1.3) mg/dL AST (14-36) U/L ALT (0-35) U/L Alkaline Phosphatase (38-126) U/L Troponin I (0.000-0.034) ng/mL NT-Pro-B Natriuret Pep (0-900) pg/mL Serum Total Protein (6.3-8.2) g/dL Albumin (3.5-5.0) g/dL Slides for Path Review YES 08/21/20 08/21/20 Range/Units 04:20 04:20 WBC (4.0-10.5) K/mm3 RBC (4.1-5.4) M/mm3 Hgb (12.0-16.0) gm/dl Hct (35-47) % MCV (78-100) fl MCH (26-32) pg MCHC (32-36) g/dl RDW (11.5-14.0) % Plt Count (150-450) K/mm3 MPV (7.5-11.0) fl Gran % (36.0-66.0) % Eos # (Auto) (0-0.5) Absolute Lymphs (auto) (1.0-4.6) Absolute Monos (auto) (0.0-1.3) Lymphocytes % (24.0-44.0) % Monocytes % (0.0-12.0) % Eosinophils % (0.00-5.0) % Basophils % (0.0-0.4) % Absolute Granulocytes (1.4-6.9) Basophils # (0-0.4) Sodium 137 (137-145) mmol/L Potassium 4.1 (3.5-5.1) mmol/L Chloride 97 L (98-107) mmol/L Carbon Dioxide 39 H (22-30) mmol/L Anion Gap 6.0 (5-15) MEQ/L BUN 10 (7-17) mg/dL Creatinine 0.85 (0.52-1.04) mg/dL Estimated GFR > 60.0 ML/MIN Glucose 171 H (74-106) mg/dL POC Glucometer (74 to 106) mg/dL Calcium 8.2 L (8.4-10.2) mg/dL Total Bilirubin 0.30 (0.2-1.3) mg/dL AST 15 (14-36) U/L ALT 10 (0-35) U/L Alkaline Phosphatase 86 (38-126) U/L Troponin I (0.000-0.034) ng/mL NT-Pro-B Natriuret Pep 1680 H (0-900) pg/mL Serum Total Protein 6.1 L (6.3-8.2) g/dL Albumin 3.0 L (3.5-5.0) g/dL Slides for Path Review Radiology Exams: Radiology Procedures Category Date Time Status CHEST 1 VIEW (PORTABLE) Stat Exams 08/20/20 01:08 Completed PULMONARY PERF VENTILATION [NUCMED] Stat Exams 08/21/20 06:11 Ordered Assessment/Plan (1) Elevated d-dimer Current Visit: Yes Status: Acute Assessment & Plan: Pt to have VQ scan today, if she can tolerate it. She has trouble with lying flat even at home due to back pain and SOB; one time dose of oxycontin and ativan ordered. Code(s): R79.89 - OTHER SPECIFIED ABNORMAL FINDINGS OF BLOOD CHEMISTRY (2) Anemia Current Visit: Yes Status: Chronic Qualifiers: Anemia type: iron deficiency Iron deficiency anemia type: unspecified iron deficiency Qualified Code(s): D50.9 - Iron deficiency anemia, unspecified Assessment & Plan: With her CAD, will transfuse since she is < 8.0 Hgb and having sx of SOB. Code(s): D64.9 - ANEMIA, UNSPECIFIED (3) Congestive heart failure Current Visit: Yes Status: Acute Qualifiers: Heart failure type: unspecified Heart failure chronicity: unspecified Qualified Code(s): I50.9 - Heart failure, unspecified Assessment & Plan: Her BNP is improved, and clinically she is improved. Code(s): I50.9 - HEART FAILURE, UNSPECIFIED (4) Atrial fibrillation Current Visit: Yes Status: Acute Code(s): I48.91 - UNSPECIFIED ATRIAL FIBRILLATION (5) Coronary artery disease Current Visit: No Status: Chronic Qualifiers: Coronary Disease-Associated Artery/Lesion type: [place] artery [place] vs. transplanted heart: [place] heart Associated angina: with stable angina Qualified Code(s): I25.118 - Atherosclerotic heart disease of [place] coronary artery with other forms of angina pectoris Code(s): I25.10 - ATHSCL HEART DISEASE OF [place] CORONARY ARTERY W/O ANG PCTRS (6) Diabetes mellitus Current Visit: No Status: Chronic Qualifiers: Diabetes mellitus type: type 2 Diabetes mellitus ferry terminal agent insulin use: with fpc use Diabetes mellitus complication status: with ophthalmic complications Diabetes mellitus complication detail: with diabetic retinopathy Diabetic retinopathy severity: with unspecified retinopathy severity Diabetes mellitus macular edema: macular edema presence unspecified Laterality: unspecified laterality Qualified Code(s): E11.319 - Type 2 diabetes mellitus with unspecified diabetic retinopathy without macular edema; Z79.4 - ferry terminal agent (current) use of insulin Code(s): E11.9 - TYPE 2 DIABETES MELLITUS WITHOUT COMPLICATIONS
[2020-08-21] MEDS: ZOCOR 20MG PO SCH (09:43)
[2020-08-21] MEDS: Pepcid 20 MG PO SCH ×2 (09:43→21:49)
[2020-08-21] MEDS: BUSPAR 5 MG PO SCH ×2 (09:43→21:49)
[2020-08-21] MEDS: PRISTIQ ER PO SCH (09:44)
[2020-08-21] MEDS: Imdur 30 MG PO SCH (09:44)
[2020-08-21] MEDS: LYRICA 100MG PO SCH ×2 (09:44→21:50)
[2020-08-21] MEDS: Flonase NASAL NS SCH (09:44)
[2020-08-21] MEDS: Zestril 10 MG PO SCH (09:44)
[2020-08-21] MEDS: Toprol Xl 50 MG PO SCH ×2 (09:45→21:50)
[2020-08-21] MEDS: Protonix 40MG Tablet PO SCH (09:45)
[2020-08-21] MEDS: Klor Con 10 MEQ PO SCH (09:45)
[2020-08-21] MEDS: PLAVIX 75 MG Tablet PO SCH (09:45)
[2020-08-21] MEDS: Singulair 10 MG PO SCH (09:45)
[2020-08-21] MEDS: MAG-OX 400 PO SCH ×2 (09:45→21:49)
[2020-08-21] MEDS: ELIQUIS 2.5 MG TABLET PO SCH ×2 (09:45→21:50)
[2020-08-21] MEDS: CLARITIN 10 MG PO SCH (09:45)
[2020-08-21] MEDS: BUMEX 1 MG PO SCH (09:46)
[2020-08-21] MEDS: OXYCODONE-ACETAMINOPHEN 10-325 PO SCH ×4 (09:51→21:50)
[2020-08-21] MEDS ORDERED: NON-FORMULARY ITEM (Fexofenadine Hcl [Fexofenadine Hcl] 180 MG) PO SCH (10:00)
[2020-08-21] MEDS ORDERED: FLUTICASONE FUROATE IN SCH (10:00)
[2020-08-21] MEDS ORDERED: NON-FORMULARY ITEM (Desvenlafaxine Succinate [Pristiq] 100 MG) PO SCH (10:00)
[2020-08-21] MEDS ORDERED: Zestril 5 MG PO SCH (10:00)
[2020-08-21] MEDS ORDERED: ATORVASTATIN CALCIUM 80 MG PO SCH (10:00)
[2020-08-21 10:32] LABS: ABO TYPING O; Antibody Screen NEGATIVE (NEGATIVE); RH TYPING POSITIVE
[2020-08-21 10:33] LABS: CROSS MATCH (PRBC) COMPATIBLE (COMPATIBLE)
--- NOTE | 2020-08-21 11:12 | HP ---
CHIEF COMPLAINT: Shortness of breath. HISTORY OF PRESENT ILLNESS: The patient is a 70 year old white female with long history of chronic obstructive pulmonary disease, congestive heart failure, previous coronary artery disease. The patient reports that she had been sick for about a week and began feeling like her throat was closing up. She presented to the emergency room due to the additional complaint. The patient does see Dr. Reddy who did a tele-medicine consult. She sees Dr. Camarena on a regular basis otherwise. The patient denies any recent fever. No exposure to COVID. On initial evaluation when asked to tell me about her history the patient was so short of breath she could not begin to even talk to me. However over the next two to three minutes after talking with her and distracting her, she was able to talk in full sentences without any obvious shortness of breath whatsoever. The patient in the emergency room was found to have an elevated proBNP at 2,000. She was given additional diuretic after which she diuresed nicely but did not help her shortness of breath. The patient was also noted to have an elevated D-dimer but was unable to be evaluated due to her allergy list and was scheduled for VQ scan which could not be performed until 08/21/2020. HOME MEDICATIONS: The patient's home medication list is quite extensive including levothyroxine 150 mcg daily, Lisinopril 5 mg a day, Claritin 10 mg a day, magnesium tablets twice a day, metoprolol 50 mg b.i.d., Montelukast 10 mg a day, Zofran 4 mg PRN for nausea, oxycodone 10/325 four times a day, pantoprazole 40 mg a day, potassium 10 mEq two tablets daily, Lyrica 200 mg b.i.d., trazodone 150 mg at night, Eliquis 5 mg b.i.d., atorvastatin 20 mg, Symbicort 160/4.5, Bumex 0.5 mg daily, Buspar 15 mg b.i.d., Plavix 75 mg a day, Pristiq 100 mg daily, famotidine 20 mg b.i.d., fexofenadine 180 mg daily, fluticasone nasal spray, insulin 4 units subcu a.c., Levemir 30 mg b.i.d., isosorbide 30 mg daily. ALLERGIES: LEVAQUIN. CEFACLOR. CIPRO. ERYTHROMYCIN. BENADRYL. ERYTHROMYCIN. IODINATED IV CONTRAST MATERIAL. LATEX. MACROLIDE ANTIBIOTICS. PENICILLIN. SULFAMETHOXAZOLE. ASPIRIN. IBUPROFEN. PHYSICAL EXAMINATION: The patient's vital signs on admission showed her temperature to 98.8F, pulse 115, respiratory rate 22 and blood pressure 158/86. O2 saturation 99%. HEENT: Normocephalic, atraumatic. The patient is wearing oxygen per nasal cannula. She reports she uses 3 liters at home. Oropharynx is pink and moist. NECK: Supple. CHEST: Clear to auscultation with good air movement bilaterally. HEART: Regular rate and rhythm. ABDOMEN: Protuberant. No masses were felt. EXTREMITIES: Without significant cyanosis or clubbing. There is trace edema. NEUROLOGIC: The patient is alert and oriented x3 with no focal deficits. LAB DATA AND TESTS: Serial troponins less than 0.012. Her hemoglobin 8.3, white count 8,700, PLT count 221,000. Sugar 207, BUN 12, creatinine 0.75. Electrolytes were normal. Liver enzymes were normal. ProBNP was 2,130. D-dimer was greater than 900. INR 1.3. Lactic acid 1.1. Ferritin 10.3. COVID test was negative. [place] screen was negative. Group A Strep was negative. Influenza A and B were both negative. ASSESSMENT: A patient with mild congestive heart failure after IV Bumex. She is being monitored on oxygen saturations, continued on her O2. She has an elevated D-dimer for which we are going to do a VQ scan earliest opportunity which will be 08/21/2020. She will be continued on her usual home medications presently and monitored closely.
--- NOTE | 2020-08-21 12:42 | XRAY ---
Indication: Chest pain, short of breath, and elevated d-dimer. Known contrast allergy. Patient received 5.7 mCi technetium 99 MAA for the perfusion portion of the exam and patient inhaled 35.6 mCi aerosolized technetium 99 DTPA for the ventilation portion of the exam. Multiple planar images obtained. Comparison: None Perfusion images demonstrates normal radiopharmaceutical activity bilaterally without focal perfusion defect. Ventilation images also demonstrates normal homogeneous radiopharmaceutical activity bilaterally. Impression: Nuclear medicine ventilation perfusion scan is negative.
[2020-08-21 15:47] LABS: Hematocrit 31.1 % (35-47); Hemoglobin 8.8 gm/dl (12.0-16.0)
[2020-08-21] MEDS: Desyrel 150 MG PO SCH (21:50)
[2020-08-21] MEDS: HUMULIN R SQ PRN (21:51)
[2020-08-22] MEDS: SYNTHROID 150 MCG PO SCH (05:12)
[2020-08-22 05:22] LABS: Hemoglobin 8.3 gm/dl (12.0-16.0); Mean Cell Volume 92.9 fl (78-100); Mean Corpuscular Hemoglobin 25.7 pg (26-32); Mean Corpuscular Hgb Concent. 27.7 g/dl (32-36); Mean Platelet Volume 11.9 fl (7.5-11.0); Platelet Count 197 K/mm3 (150-450); Red Blood Count 3.23 M/mm3 (4.1-5.4); Red Cell Distribution Width 15.6 % (11.5-14.0); White Blood Count 6.9 K/mm3 (4.0-10.5)
[2020-08-22 05:46] LABS: BLOOD UREA NITROGEN 12 mg/dL (7-17); CHLORIDE 97 mmol/L (98-107); Calcium 8.3 mg/dL (8.4-10.2); Creatinine 1 0.74 mg/dL (0.52-1.04); EST GLOMERULAR FILTRATION RATE > 60.0 ML/MIN; Glucose 187 mg/dL (74-106); Potassium 4.1 mmol/L (3.5-5.1); SODIUM 139 mmol/L (137-145)
[2020-08-22 05:50] LABS: Carbon Dioxide 37 mmol/L (22-30)
[2020-08-22] MEDS: PROVENTIL 2.5 MG/3 ML NEB IH SCH (07:09)
[2020-08-22] MEDS: Advair Hfa 230/21 Mcg COMMON CANISTER IH SCH (07:11)
[2020-08-22 07:24] VITALS: O2SAT 97
[2020-08-22 08:13] LABS: Slide Review YES
--- NOTE | 2020-08-22 08:21 | PCM.DS ---
Discharge Summary Date of Admission: 08/20/20 06:07 Admitting Physician: LEORA FERRER Primary Care Provider: LEORA FERRER Allergies Allergies levofloxacin [From Levaquin] Allergy (Mild, Verified 06/16/20 00:49) red rash/burning when gievn IV cefaclor [From Ceclor] Allergy (Verified 06/16/20 00:49) SOB, HIVES ciprofloxacin [From Cipro] Allergy (Verified 06/16/20 00:49) ciprofloxacin HCl [From Cipro] Allergy (Verified 06/16/20 00:49) clarithromycin [From Biaxin] Allergy (Verified 06/16/20 00:49) diphenhydramine HCl [From Benadryl] Allergy (Verified 06/16/20 00:49) SOB HIVES erythromycin base [Erythromycin Base] Allergy (Verified 06/16/20 00:49) SOB HIVES Iodinated Contrast Media [Iodinated Contrast- Oral and IV Dye] Allergy (Verified 06/16/20 00:49) iodine Allergy (Verified 06/16/20 00:49) SOB HIVES latex Allergy (Verified 06/16/20 00:49) SOB HIVES Macrolide Antibiotics Allergy (Verified 06/16/20 00:49) SBO HIVES Penicillins Allergy (Verified 06/16/20 00:49) Swelling of Face sulfamethoxazole [From Bactrim] Allergy (Verified 06/16/20 00:49) trimethoprim [From Bactrim] Allergy (Verified 06/16/20 00:49) melon Adverse Reaction (Severe, Verified 06/16/20 00:49) cantaloupe aspirin Adverse Reaction (Verified 06/16/20 00:49) ibuprofen Adverse Reaction (Verified 06/16/20 00:49) Hospital Summary - Hospital Course Hospital Course: Pt is a 70 yo female pt of mine from [facility] with PMHx COPD, CHF, afib, CAD, and DM who was admitted through ER with CHF exacerbation and SOB (Covid neg). Troponins were neg x 5. She had hgb 8.3 at admission; yesterday Hgb was <8 so with her CAD I decided to give her 1 unit PRBC. Post transfusion hemoglobin was 8.8; this morning it is 8.3. She is asx. Just generally not feeling well today. Will send pt home on bumex. Repeat CBC in 3-5 days. Fecal occult blood immunoassay ordered (can do OP if no stool sample produced here). F/u with me in 1 week. - Vitals & Intake/Output Vital Signs: Vital Signs Temperature 97.7 F 08/22/20 07:23 Pulse Rate 70 08/22/20 07:23 Respiratory Rate 14 08/22/20 07:23 Blood Pressure 124/59 08/22/20 07:23 O2 Sat by Pulse Oximetry 97 08/22/20 07:23 Intake & Output: Intake & Output 08/19/20 08/20/20 08/21/20 08/22/20 11:59 11:59 11:59 11:59 Intake Total 240 1900 1590 Output Total 2000 700 Balance 240 -100 890 Weight 143.1 kg 145.9 kg 146.9 kg - Lab Result Diagrams: 08/22/20 04:45 08/22/20 04:45 Lab Results-Last 24 Hrs: Lab Results-Last 24 Hours 08/21/20 08/21/20 08/21/20 Range/Units 09:12 10:58 15:40 WBC (4.0-10.5) K/mm3 RBC (4.1-5.4) M/mm3 Hgb 8.8 L (12.0-16.0) gm/dl Hct 31.1 L (35-47) % MCV (78-100) fl MCH (26-32) pg MCHC (32-36) g/dl RDW (11.5-14.0) % Plt Count (150-450) K/mm3 MPV (7.5-11.0) fl Sodium (137-145) mmol/L Potassium (3.5-5.1) mmol/L Chloride (98-107) mmol/L Carbon Dioxide (22-30) mmol/L Anion Gap BUN (7-17) mg/dL Creatinine (0.52-1.04) mg/dL Estimated GFR ML/MIN Glucose (74-106) mg/dL POC Glucometer 192 H (74 to 106) mg/dL Calcium (8.4-10.2) mg/dL NT-Pro-B Natriuret Pep ABO Group O Rh Factor POSITIVE Antibody Screen NEGATIVE (NEGATIVE) Crossmatch COMPATIBLE (COMPATIBLE) 08/21/20 08/21/20 08/22/20 Range/Units 16:02 21:28 04:45 WBC 6.9 (4.0-10.5) K/mm3 RBC 3.23 L (4.1-5.4) M/mm3 Hgb 8.3 L (12.0-16.0) gm/dl Hct 30.0 L (35-47) % MCV 92.9 (78-100) fl MCH 25.7 L (26-32) pg MCHC 27.7 L (32-36) g/dl RDW 15.6 H (11.5-14.0) % Plt Count 197 (150-450) K/mm3 MPV 11.9 H (7.5-11.0) fl Sodium (137-145) mmol/L Potassium (3.5-5.1) mmol/L Chloride (98-107) mmol/L Carbon Dioxide (22-30) mmol/L Anion Gap BUN (7-17) mg/dL Creatinine (0.52-1.04) mg/dL Estimated GFR ML/MIN Glucose (74-106) mg/dL POC Glucometer 218 H 216 H (74 to 106) mg/dL Calcium (8.4-10.2) mg/dL NT-Pro-B Natriuret Pep ABO Group Rh Factor Antibody Screen (NEGATIVE) Crossmatch (COMPATIBLE) 08/22/20 08/22/20 Range/Units 04:45 07:13 WBC (4.0-10.5) K/mm3 RBC (4.1-5.4) M/mm3 Hgb (12.0-16.0) gm/dl Hct (35-47) % MCV (78-100) fl MCH (26-32) pg MCHC (32-36) g/dl RDW (11.5-14.0) % Plt Count (150-450) K/mm3 MPV (7.5-11.0) fl Sodium 139 (137-145) mmol/L Potassium 4.1 (3.5-5.1) mmol/L Chloride 97 L (98-107) mmol/L Carbon Dioxide 37 H (22-30) mmol/L Anion Gap Pending BUN 12 (7-17) mg/dL Creatinine 0.74 (0.52-1.04) mg/dL Estimated GFR > 60.0 ML/MIN Glucose 187 H (74-106) mg/dL POC Glucometer 153 H (74 to 106) mg/dL Calcium 8.3 L (8.4-10.2) mg/dL NT-Pro-B Natriuret Pep Pending ABO Group Rh Factor Antibody Screen (NEGATIVE) Crossmatch (COMPATIBLE) Micro Results-Entire Visit: Microbiology 08/20/20 01:20 Blood Culture - Preliminary Blood NO GROWTH TO DATE Accuchecks Date 08/21/20 Date 08/21/20 Date 08/21/20 Time 21:28 - Radiology Exams Ordered Rad Exams-Entire Visit: Radiology Procedures Category Date Time Status PULMONARY PERF VENTILATION [NUCMED] Stat Exams 08/21/20 06:11 Completed - Procedures and Test Procedures and Tests throughout Hospitalization: Therapy Orders & Screens 08/20/20 06:11 EKG REPEAT IN AM Comment: Oxygen Nasal Cannula 2 lpm Comment: Respiratory Therapy Consult ROUTINE Comment: Reason For Exam: 08/20/20 07:38 BiPap/CPAP ROUTINE Comment: 08/20/20 07:57 Respiratory Therapy Assessment DAILY Comment: 08/20/20 08:09 RT Screen per Nursing Assess ONCE Comment: Protocol Order Physician Instructions: Greater than 3 points order RT Admission Screen Reason For Exam: Triggered on Admission Diagnosis: CHF, AFIB, SOB Diagnosis: CHF, AFIB, SOB Pneumonia: No Home O2: Yes Asthma: No CHF: Yes Home CPAP/BIPAP: Yes Home Nebs/MDI: Yes Total Points: 18 Discharge Exam General Appearance: no apparent distress, obese Neurologic Exam: oriented x 3, cooperative Eye Exam: eyes nml inspection Ears, Nose, Throat Exam: moist mucous membranes Respiratory Exam: diminished breath sounds, wheezing (faint, expiratory, throughout), No crackles/rales, No rhonchi Cardiovascular Exam: normal heart sounds, irregular, No murmur Back Exam: normal inspection, No rash Extremity Exam: No pedal edema Skin Exam: normal color, warm, dry, No rash Final Diagnosis/Problem List - Final Discharge Diagnosis/Problem (1) Anemia Current Visit: Yes Status: Chronic Assessment & Plan: Recheck CBC in 3-5 d outpatient. Code(s): D64.9 - ANEMIA, UNSPECIFIED (2) CHF exacerbation Current Visit: Yes Status: Acute Assessment & Plan: much improved. Lungs wnl today and no LE edema. Will discharge to home on current meds. Code(s): I50.9 - HEART FAILURE, UNSPECIFIED (3) Elevated d-dimer Current Visit: Yes Status: Acute Assessment & Plan: VQ scan was wnl. Code(s): R79.89 - OTHER SPECIFIED ABNORMAL FINDINGS OF BLOOD CHEMISTRY (4) Atrial fibrillation Current Visit: Yes Status: Chronic Code(s): I48.91 - UNSPECIFIED ATRIAL FIBRILLATION (5) Coronary artery disease Current Visit: No Status: Chronic Code(s): I25.10 - ATHSCL HEART DISEASE OF [place] CORONARY ARTERY W/O ANG PCTRS (6) Diabetes mellitus Current Visit: No Status: Chronic Code(s): E11.9 - TYPE 2 DIABETES MELLITUS WITHOUT COMPLICATIONS - Discharge Disposition: Home, Self-Care Condition: Stable Prescriptions: Continue Insulin Aspart [NovoLOG Insulin] 4 unit SQ AC Atorvastatin Calcium [Lipitor 20MG Tablet] 80 mg PO DAILY Buspirone HCl 5 mg [Buspar 5 mg] 15 mg PO BID Oxycodone HCl/Acetaminophen [Percocet 10-325 mg Tablet] 1 tab PO QID Pregabalin [Lyrica] 200 mg PO BID Desvenlafaxine Succinate [Pristiq] 100 mg PO DAILY Lisinopril 5 mg [Zestril 5 MG] 10 mg PO DAILY Isosorbide Mononitrate 30 mg [Imdur 30 MG] 30 mg PO DAILY Trazodone HCl 50 mg [Desyrel 50 mg] 150 mg PO HS Montelukast Sodium [Singulair] 10 mg PO DAILY Metoprolol Succinate 50 mg PO BID Levothyroxine Sodium 150 Mcg [Synthroid 150 Mcg] 150 mcg PO DAILY Clopidogrel Bisulfate 75 mg [PLAVIX 75 MG Tablet] 75 mg PO DAILY PANTOPRAZOLE 40 mg Tablet [Protonix 40MG Tablet] 40 mg PO DAILY Ondansetron HCl [Zofran] 4 mg PO Q4H PRN PRN PRN Reason: Nausea Famotidine 20 mg PO BID Apixaban [Eliquis] 5 mg PO BID Budesonide/Formoterol Fumarate [Symbicort 160-4.5 Mcg Inhaler] 2 puff IH BID Fluticasone Furoate [Flonase Sensimist] 2 spray IN DAILY Fexofenadine HCl 180 mg PO DAILY Insulin Detemir [Levemir] 30 unit SQ BID Magnesium Oxide 1 tab PO BID #60 tablet Bumetanide 1 mg [Bumex 1 mg] 0.5 mg PO DAILY Potassium Chloride 10 Meq Tab* [Klor Con 10 MEQ] 2 tab PO BID Follow up with: LEORA FERRER [Primary Care Provider] - 08/29/20 11:00 am
[2020-08-22] MEDS: HUMALOG SQ SCH ×2 (08:43→12:28)
[2020-08-22] MEDS: HUMALOG SQ PRN ×2 (08:44→12:29)
[2020-08-22] MEDS: Lantus Insulin SQ SCH (08:48)
[2020-08-22] MEDS ORDERED: DUONEB 0.5-3 MG/3 ml Neb IH ONE (09:00)
[2020-08-22] MEDS: PRISTIQ ER PO SCH (09:53)
[2020-08-22] MEDS: PLAVIX 75 MG Tablet PO SCH (09:53)
[2020-08-22] MEDS: Klor Con 10 MEQ PO SCH (09:54)
[2020-08-22] MEDS: Pepcid 20 MG PO SCH (09:54)
[2020-08-22] MEDS: OXYCODONE-ACETAMINOPHEN 10-325 PO SCH ×2 (09:54→14:06)
[2020-08-22] MEDS: Imdur 30 MG PO SCH (09:54)
[2020-08-22] MEDS: CLARITIN 10 MG PO SCH (09:54)
[2020-08-22] MEDS: ZOCOR 20MG PO SCH (09:54)
[2020-08-22] MEDS: MAG-OX 400 PO SCH (09:54)
[2020-08-22] MEDS: Zestril 10 MG PO SCH (09:55)
[2020-08-22] MEDS: BUMEX 1 MG PO SCH (09:55)
[2020-08-22] MEDS: BUSPAR 5 MG PO SCH (09:55)
[2020-08-22] MEDS: LYRICA 100MG PO SCH (09:55)
[2020-08-22] MEDS: Toprol Xl 50 MG PO SCH (09:56)
[2020-08-22] MEDS: Protonix 40MG Tablet PO SCH (09:56)
[2020-08-22] MEDS: Flonase NASAL NS SCH (09:56)
[2020-08-22] MEDS: Singulair 10 MG PO SCH (09:56)
[2020-08-22] MEDS: ELIQUIS 2.5 MG TABLET PO SCH (09:56)
[2020-08-22 10:40] LABS: NT PRO BNP 1050 pg/mL (0-900)
[2020-08-22 10:47] LABS: ANION GAP 6.2 MEQ/L (5-15)
[2020-08-22 13:23] VITALS: BP 120/65; PULSE 68
== END 2020-08-22 14:40 | disposition home or self-care (01) | DRG 293 ==
LOC: ED 00:27 → MED SURG 06:07
PROVIDERS: ADMIT Family Medicine; ATTEND Family Medicine
DX: I50.9 Heart failure, unspecified (principal); D64.9 Anemia, unspecified; J44.9 Chronic obstructive pulmonary disease, unspecified; I10 Essential (primary) hypertension; E03.9 Hypothyroidism, unspecified; E11.9 Type 2 diabetes mellitus without complications; I48.91 Unspecified atrial fibrillation; Z79.01 Long term (current) use of anticoagulants; I25.10 Atherosclerotic heart disease of native coronary artery without angina pectoris; Z79.899 Other long term (current) drug therapy; Z99.81 Dependence on supplemental oxygen; E78.00 Pure hypercholesterolemia, unspecified; R79.89 Other specified abnormal findings of blood chemistry
CPT/HCPCS: 36000; 36415; 71045; 78582; 80048; 80053; 82728; 82947; 83605; 83615; 83880; 84484; 85014; 85018; 85025; 85027; 85379; 85610; 86308; 86850; 86900; 86901; 86922; 87040; 87400; 87651; 93005; 93041; 94640; 94660; 94760; 94762; 96374; 99284; 99291; A9540; A9567; P9016; U0003; J1815; J1817; J7609; A9270-GY

== ENCOUNTER 2020-10-20 19:25 | Emergency (ER) | payer MEDICARE ==
--- NOTE | 2020-10-20 20:13 | ERPHSYRPT ---
- History of Present Illness Patient Subjective Stated Complaint: "My potassium and magnesium are low. I had my labs drawn today." Triage Nursing Assessment: Patient reported having labs drawn today and that the office contacted her saying her potassium and magnessium were low. Patient reported having generalized cramps with chest pain. Denied nausea/vomiting/diarrhea. pupils 3mm bilateral. Neck supple non-tender. No noted bruits/thrills. Heart tones S1/S2 regular rate and rhythm with S3. Lungs clear to auscultation. Abdomen obese non-tender. Radial pulse +2 bilateral Physician History: Patient is a 70-year-old female who presents with a report that she has been having trouble keeping her potassium and magnesium at acceptable levels. She reports that she was told by her physician after the labs were drawn today to come to the ER because they were low. Been taking magnesium oxide and potassium chloride to substitute but says they have been going down all week. Allergies/Adverse Reactions: levofloxacin [From Levaquin] Allergy (Mild, Verified 10/20/20 19:35) red rash/burning when gievn IV cefaclor [From Ceclor] Allergy (Verified 10/20/20 19:35) SOB, HIVES ciprofloxacin [From Cipro] Allergy (Verified 10/20/20 19:35) ciprofloxacin HCl [From Cipro] Allergy (Verified 10/20/20 19:35) clarithromycin [From Biaxin] Allergy (Verified 10/20/20 19:35) diphenhydramine HCl [From Benadryl] Allergy (Verified 10/20/20 19:35) SOB HIVES erythromycin base [Erythromycin Base] Allergy (Verified 10/20/20 19:35) SOB HIVES Iodinated Contrast Media [Iodinated Contrast- Oral and IV Dye] Allergy (Verified 10/20/20 19:35) Does well if pre-medicated iodine Allergy (Verified 10/20/20 19:35) SOB HIVES latex Allergy (Verified 10/20/20 19:35) SOB HIVES Macrolide Antibiotics Allergy (Verified 10/20/20 19:35) SBO HIVES Penicillins Allergy (Verified 10/20/20 19:35) Swelling of Face sulfamethoxazole [From Bactrim] Allergy (Verified 10/20/20 19:35) trimethoprim [From Bactrim] Allergy (Verified 01/29/21 19:35) melon Adverse Reaction (Severe, Verified 10/20/20 19:35) cantaloupe aspirin Adverse Reaction (Verified 10/20/20 19:35) ibuprofen Adverse Reaction (Verified 10/20/20 19:35) Home Medications: Atorvastatin Calcium [Lipitor 20MG Tablet] 80 mg PO DAILY 02/01/14 [History] Buspirone HCl 5 mg [Buspar 5 mg] 15 mg PO BID 02/01/14 [History] Insulin Aspart [NovoLOG Insulin] 4 unit SQ AC 02/01/14 [History] Oxycodone HCl/Acetaminophen [Percocet 10-325 mg Tablet] 1 tab PO QID 02/01/14 [History] Desvenlafaxine Succinate [Pristiq] 100 mg PO DAILY 07/15/14 [History] Pregabalin [Lyrica] 200 mg PO BID 07/15/14 [History] Lisinopril 5 mg [Zestril 5 MG] 10 mg PO DAILY 11/04/14 [History] Isosorbide Mononitrate 30 mg [Imdur 30 MG] 30 mg PO DAILY 08/19/15 [History] Metoprolol Succinate 50 mg PO BID 09/06/16 [History] Montelukast Sodium [Singulair] 10 mg PO DAILY 09/06/16 [History] Trazodone HCl 50 mg [Desyrel 50 mg] 150 mg PO HS 09/06/16 [History] Clopidogrel Bisulfate 75 mg [PLAVIX 75 MG Tablet] 75 mg PO DAILY 08/03/18 [History] Levothyroxine Sodium 150 Mcg [Synthroid 150 Mcg] 150 mcg PO DAILY 08/03/18 [History] Apixaban [Eliquis] 5 mg PO BID 01/04/20 [History] Famotidine 20 mg PO BID 01/04/20 [History] Ondansetron HCl [Zofran] 4 mg PO Q4H PRN PRN 01/04/20 [History] PANTOPRAZOLE 40 mg Tablet [Protonix 40MG Tablet] 40 mg PO DAILY 01/04/20 [History] Budesonide/Formoterol Fumarate [Symbicort 160-4.5 Mcg Inhaler] 2 puff IH BID 03/02/20 [History] Fluticasone Furoate [Flonase Sensimist] 2 spray IN DAILY 06/15/20 [History] Fexofenadine HCl 180 mg PO DAILY 06/16/20 [History] Insulin Detemir [Levemir] 30 unit SQ BID 06/16/20 [History] Potassium Chloride 10 Meq Tab* [Klor Con 10 MEQ] 2 tab PO BID 08/20/20 [History] Bumetanide 2 tab PO DAILY 10/20/20 [History] Metronidazole 500 mg [Flagyl 500 MG] 1 tab PO TID 10/20/20 [History] Hx Tetanus, Diphtheria Vaccination/Date Given: Yes Hx Influenza Vaccination/Date Given: Yes Hx Pneumococcal Vaccination/Date Given: Yes Travel Risk - International Travel Have you traveled outside of the country in past 3 weeks: No - Coronavirus Screening Are you exhibiting any of the following symptoms?: No Close contact with a COVID-19 positive Pt in past 14-21 Days: No - Review of Systems Constitutional: No Fever, No Chills Eyes: No Symptoms Ears, Nose, & Throat: No Symptoms Respiratory: No Cough, No Dyspnea Cardiac: No Chest Pain, No Edema, No Syncope Abdominal/Gastrointestinal: No Abdominal Pain, No Nausea, No Vomiting, No Diarrhea Genitourinary Symptoms: No Dysuria Musculoskeletal: No Back Pain, No Neck Pain Skin: No Rash Neurological: No Dizziness, No Focal Weakness, No Sensory Changes Psychological: No Symptoms Endocrine: No Symptoms All Other Systems: Reviewed and Negative - Past Medical History Pertinent Past Medical History: Yes Neurological History: Stroke ENT History: Cataracts Cardiac History: Coronary Artery Disease, High Cholesterol, Hypertension, Myocardial Infarction ([place]), Other Respiratory History: COPD, Pneumonia, Sleep Apnea Endocrine Medical History: Diabetes Type II Musculoskeletal History: No Pertinent History GI Medical History: No Pertinent History History: No Pertinent History Psycho-Social History: No Pertinent History Female Reproductive Disorders: No Pertinent History Other Medical History: Rapid heart rate at times; lump in right breast, biopsy non-cancerous, "stroke" in left eye. States went into Cardiac Arrest two times in Oct 2019 following a heart stent placement. - Past Surgical History Past Surgical History: Yes Neuro Surgical History: No Pertinent History Cardiac: Cardiac Stent Respiratory: No Pertinent History Gastrointestinal: Bowel Surgery, Cholecystectomy, Hernia Repair Genitourinary: No Pertinent History Musculoskeletal: No Pertinent History Female Surgical History: Tubal Ligation, Other Other Surgical History: Breast biopsy, 8 STENTS, CLOT REMOVED FROM ARTERY ON LEFT NECK/STROKE; "part of my bowel was taken out, 3 inches or more"; - Social History Smoking Status: Never smoker Exposure to second hand smoke: No Drug Use: none Patient Lives Alone: No - Female History Hx Now: No - Nursing Vital Signs Nursing Vital Signs: Initial Vital Signs Temperature 98.7 F 10/20/20 19:25 Pulse Rate 85 10/20/20 19:25 Respiratory Rate 18 10/20/20 19:25 Blood Pressure 126/67 10/20/20 19:25 O2 Sat by Pulse Oximetry 95 10/20/20 19:25 Pain Scale Pain Intensity 5 - Physical Exam General Appearance: mild distress, alert Eye Exam: PERRL/EOMI, eyes nml inspection Ears, Nose, Throat Exam: normal ENT inspection, TMs normal, pharynx normal, moist mucous membranes Neck Exam: normal inspection, non-tender, supple, full range of motion Respiratory Exam: normal breath sounds, lungs clear, No respiratory distress Cardiovascular Exam: regular rate/rhythm, normal heart sounds, normal peripheral pulses Gastrointestinal/Abdomen Exam: soft, normal bowel sounds, No tenderness, No mass Back Exam: normal inspection, normal range of motion, No CVA tenderness, No vertebral tenderness Extremity Exam: normal inspection, normal range of motion, pelvis stable Neurologic Exam: alert, oriented x 3, cooperative, normal mood/affect, nml cerebellar function, nml station & gait, sensation nml, No motor deficits Skin Exam: normal color, warm, dry, No rash Lymphatic Exam: No adenopathy SpO2: 95 - Course Nursing assessment & vital signs reviewed: Yes EKG Interpreted by Me: RATE (80), Sinus Rhythm, NORMAL AXIS, prolonged QT interval, NORMAL QRS, Non-specific ST Changes, Other (Isolated PVC) Ordered Tests: Active Orders 24 hr Category Date Time Status CBC W DIFF Stat Lab 10/20/20 20:30 Completed CMP Stat Lab 10/20/20 20:30 Results MAGNESIUM Stat Lab 10/20/20 20:30 Results Medication Summary Discontinued Medications Generic Name Dose Route Start Last Admin Trade Name Freq PRN Reason Stop Dose Admin Magnesium Oxide 800 mg 10/20/20 21:36 Mag-Ox 400 PO 10/20/20 21:37 ONCE STA Potassium Chloride 20 meq 10/20/20 21:38 Klor Con 10 Meq PO 10/20/20 21:39 STAT ONE Lab/Rad Data: Laboratory Result Diagrams 10/20/20 20:30 10/20/20 20:30 Laboratory Results 10/20/20 10/20/20 Range/Units 20:30 20:30 WBC 11.2 H (4.0-10.5) K/mm3 RBC 3.97 L (4.1-5.4) M/mm3 Hgb 10.5 L (12.0-16.0) gm/dl Hct 35.8 (35-47) % MCV 90.2 (78-100) fl MCH 26.4 (26-32) pg MCHC 29.3 L (32-36) g/dl RDW 16.8 H (11.5-14.0) % Plt Count 298 (150-450) K/mm3 MPV 11.2 H (7.5-11.0) fl Gran % 74.2 H (36.0-66.0) % Eos # (Auto) 0.12 (0-0.5) Absolute Lymphs (auto) 2.11 (1.0-4.6) Absolute Monos (auto) 0.63 (0.0-1.3) Lymphocytes % 18.8 L (24.0-44.0) % Monocytes % 5.6 (0.0-12.0) % Eosinophils % 1.1 (0.00-5.0) % Basophils % 0.3 (0.0-0.4) % Absolute Granulocytes 8.34 H (1.4-6.9) Basophils # 0.03 (0-0.4) Sodium 137 (137-145) mmol/L Potassium 4.0 (3.5-5.1) mmol/L Chloride 90 L (98-107) mmol/L Carbon Dioxide 38 H (22-30) mmol/L Anion Gap Pending BUN 17 (7-17) mg/dL Creatinine 0.97 (0.52-1.04) mg/dL Estimated GFR > 60.0 ML/MIN Glucose 266 H (74-106) mg/dL Calcium 8.7 (8.4-10.2) mg/dL Magnesium 1.2 L (1.6-2.3) mg/dL Total Bilirubin 0.40 (0.2-1.3) mg/dL AST 18 (14-36) U/L ALT 16 (0-35) U/L Alkaline Phosphatase 101 (38-126) U/L Serum Total Protein 7.2 (6.3-8.2) g/dL Albumin 3.9 (3.5-5.0) g/dL - Progress Progress: improved - Departure Departure Disposition: Home Clinical Impression: Hypomagnesemia Condition: Stable Critical Care Time: No Referrals: LEORA FERRER [Primary Care Provider] - Instructions: Low Magnesium Level (DC) Additional Instructions: 1 extra dose of magnesium daily that would be magnesium oxide 403 times a day continue the potassium chloride 10 mEq 2 tablets twice a day
[2020-10-20 20:52] LABS: Absolute Neutrophil Ct (ANC) 8.34 (1.4-6.9); BASOPHIL % 0.3 % (0.0-0.4); Basophil (Absolute #) 0.03 (0-0.4); Eosinophil % 1.1 % (0.00-5.0); Eosinophil (Absolute #) 0.12 (0-0.5); Hematocrit 35.8 % (35-47); Hemoglobin 10.5 gm/dl (12.0-16.0); Lymphocyte (Absolute #) 2.11 (1.0-4.6); Lymphocytes % 18.8 % (24.0-44.0); Mean Cell Volume 90.2 fl (78-100); Mean Corpuscular Hemoglobin 26.4 pg (26-32); Mean Corpuscular Hgb Concent. 29.3 g/dl (32-36); Mean Platelet Volume 11.2 fl (7.5-11.0); Monocyte (Absolute #) 0.63 (0.0-1.3); Monocytes % 5.6 % (0.0-12.0); Neutrophil % 74.2 % (36.0-66.0); Platelet Count 298 K/mm3 (150-450); Red Blood Count 3.97 M/mm3 (4.1-5.4); Red Cell Distribution Width 16.8 % (11.5-14.0); White Blood Count 11.2 K/mm3 (4.0-10.5)
[2020-10-20 21:06] LABS: ALBUMIN 3.9 g/dL (3.5-5.0); ALKALINE PHOSPHATASE 101 U/L (38-126); BLOOD UREA NITROGEN 17 mg/dL (7-17); CHLORIDE 90 mmol/L (98-107); Calcium 8.7 mg/dL (8.4-10.2); Creatinine 1 0.97 mg/dL (0.52-1.04); EST GLOMERULAR FILTRATION RATE > 60.0 ML/MIN; Glucose 266 mg/dL (74-106); MAGNESIUM 1.2 mg/dL (1.6-2.3); SGOT/AST 18 U/L (14-36); SGPT/ALT 16 U/L (0-35); SODIUM 137 mmol/L (137-145); Total Protein 7.2 g/dL (6.3-8.2)
[2020-10-20 21:12] LABS: Carbon Dioxide 38 mmol/L (22-30)
[2020-10-20] MEDS ORDERED: MAG-OX 400 PO STA (21:36)
[2020-10-20] MEDS ORDERED: Klor Con 10 MEQ PO ONE ×2 (21:38→21:42)
[2020-10-20] MEDS ORDERED: MAG-OX 400 ONE (21:42)
[2020-10-20 21:56] LABS: ANION GAP 13 MEQ/L (5-15)
[2020-10-20 22:05] VITALS: BP 101/58; PULSE 78; O2SAT 96
== END 2020-10-20 22:15 | disposition home or self-care (01) ==
LOC: ED 19:25
DX: R79.89 Other specified abnormal findings of blood chemistry (principal); E83.42 Hypomagnesemia; E78.5 Hyperlipidemia, unspecified; I10 Essential (primary) hypertension; E11.9 Type 2 diabetes mellitus without complications; I25.10 Atherosclerotic heart disease of native coronary artery without angina pectoris; I25.2 Old myocardial infarction; Z79.899 Other long term (current) drug therapy
CPT/HCPCS: 36415; 80053; 83735; 83880; 85025; 99283; A9270-GY

== ENCOUNTER 2020-10-23 15:31 | Observation (INO) | payer MEDICARE ==
[2020-10-23 19:40] LABS: ALBUMIN 3.8 g/dL (3.5-5.0); ANION GAP 10.3 MEQ/L (5-15); BILIRUBIN,TOTAL 0.4 mg/dL (0.2-1.3); Calcium 9.5 mg/dL (8.4-10.2); Creatinine 1 1.18 mg/dL (0.52-1.04); EST GLOMERULAR FILTRATION RATE 48.4 ML/MIN; MAGNESIUM 1.5 mg/dL (1.6-2.3); Potassium 5.4 mmol/L (3.5-5.1)
[2020-10-23] MEDS ORDERED: HUMALOG SQ PRN (21:11)
[2020-10-23] MEDS: Magnesium 1 Gm / 100 Ml D5W*** 100 ML IV SCH ×2 (21:20→21:57)
[2020-10-23] MEDS ORDERED: ZOCOR 20MG PO ONE (22:00)
[2020-10-23] MEDS ORDERED: Desyrel 150 MG PO SCH (22:00)
[2020-10-23] MEDS ORDERED: PROVENTIL 2.5 MG/3 ML NEB IH ONE (22:24)
[2020-10-23] MEDS: BUSPAR 5 MG PO SCH (22:28)
[2020-10-23] MEDS: Klor Con 10 MEQ PO SCH (22:29)
[2020-10-23] MEDS: ELIQUIS 2.5 MG TABLET PO SCH (22:29)
[2020-10-23] MEDS: Flagyl 500 MG PO SCH (22:29)
[2020-10-23] MEDS: OXYCODONE-ACETAMINOPHEN 10-325 PO SCH (22:30)
[2020-10-23] MEDS: LYRICA 100MG PO SCH (22:30)
[2020-10-23] MEDS: Pepcid 20 MG PO SCH (22:31)
[2020-10-23] MEDS: Toprol Xl 50 MG PO SCH (22:31)
[2020-10-23] MEDS ORDERED: PROVENTIL 2.5 MG/3 ML NEB IH PRN (22:33)
[2020-10-23] MEDS ORDERED: VENTOLIN COMMON CANISTER IH PRN (22:34)
[2020-10-23] MEDS ORDERED: ZOCOR 20MG ONE (22:45)
[2020-10-24] MEDS ORDERED: ZOFRAN ODT 4 MG PO PRN (01:03)
[2020-10-24] MEDS ORDERED: Advair Hfa 230/21 Mcg COMMON CANISTER IH SCH (07:00)
[2020-10-24 07:48] VITALS: BP 119/55; PULSE 60; O2SAT 96
[2020-10-24] MEDS ORDERED: HUMALOG SQ SCH ×3 (08:00→17:00)
[2020-10-24] MEDS: Pepcid 20 MG PO SCH (08:13)
[2020-10-24] MEDS: LYRICA 100MG PO SCH (08:13)
[2020-10-24] MEDS: OXYCODONE-ACETAMINOPHEN 10-325 PO SCH (08:13)
[2020-10-24] MEDS: Flagyl 500 MG PO SCH (08:13)
[2020-10-24] MEDS: BUSPAR 5 MG PO SCH (08:14)
[2020-10-24] MEDS: Toprol Xl 50 MG PO SCH (08:14)
[2020-10-24] MEDS: ELIQUIS 2.5 MG TABLET PO SCH (08:14)
[2020-10-24] MEDS: Klor Con 10 MEQ PO SCH (08:14)
--- NOTE | 2020-10-24 08:50 | PCM.SSS ---
History of Present Illness - Chief Complaint Chief Complaint: hypomagnesia History of Present Illness: is a 70 year old female pt of mine from [facility] with COPD, CHF, CAD, DM on insulin who has had low Mg (as low as 1.2) over the past week. She was sent to ER one day and given 1 po magnesium and sent home. She had a script for Mg but it was only for 3 days prior to her most recent CT scan. Here she was given IV and po magnesium; initial Mg 1.5 and follow up Mg was 2.2. She will be sent home on po mg and will titrate to appropriate dose. - Review of Systems Constitutional: Other (just feeling "crummy") Respiratory: Short Of Breath (chronic) All Other Systems: Reviewed and Negative Medications & Allergies Home Medications: Home Medication List Atorvastatin Calcium [Lipitor 20MG Tablet] 80 mg PO DAILY 02/01/14 [History Confirmed 10/23/20] Buspirone HCl 5 mg [Buspar 5 mg] 15 mg PO BID 02/01/14 [History Confirmed 10/23/20] Insulin Aspart [NovoLOG Insulin] 0 unit SQ UD 02/01/14 [History Confirmed 10/23/20] Oxycodone HCl/Acetaminophen [Percocet 10-325 mg Tablet] 1 tab PO QID 02/01/14 [History Confirmed 10/23/20] Desvenlafaxine Succinate [Pristiq] 100 mg PO DAILY 07/15/14 [History Confirmed 10/23/20] Pregabalin [Lyrica] 200 mg PO BID 07/15/14 [History Confirmed 10/23/20] Lisinopril 5 mg [Zestril 5 MG] 10 mg PO DAILY 11/04/14 [History Confirmed 10/23/20] Isosorbide Mononitrate 30 mg [Imdur 30 MG] 30 mg PO DAILY 08/19/15 [History Confirmed 10/23/20] Metoprolol Succinate 50 mg PO BID 09/06/16 [History Confirmed 10/23/20] Montelukast Sodium [Singulair] 10 mg PO 0800 09/06/16 [History Confirmed 10/23/20] Trazodone HCl 50 mg [Desyrel 50 mg] 150 mg PO HS 09/06/16 [History Confirmed 10/23/20] Clopidogrel Bisulfate 75 mg [PLAVIX 75 MG Tablet] 75 mg PO DAILY 08/03/18 [History Confirmed 10/23/20] Levothyroxine Sodium 150 Mcg [Synthroid 150 Mcg] 150 mcg PO 0800 08/03/18 [History Confirmed 10/23/20] Apixaban [Eliquis] 5 mg PO BID 01/04/20 [History Confirmed 10/23/20] Famotidine 20 mg PO BID 01/04/20 [History Confirmed 10/23/20] Ondansetron HCl [Zofran] 4 mg PO Q4H PRN PRN 01/04/20 [History Confirmed 10/23/20] PANTOPRAZOLE 40 mg Tablet [Protonix 40MG Tablet] 40 mg PO DAILY 01/04/20 [History Confirmed 10/23/20] Budesonide/Formoterol Fumarate [Symbicort 160-4.5 Mcg Inhaler] 2 puff IH BID 03/02/20 [History Confirmed 10/23/20] Fluticasone Furoate [Flonase Sensimist] 2 spray IN BID 06/15/20 [History Confirmed 10/23/20] Fexofenadine HCl 180 mg PO DAILY 06/16/20 [History Confirmed 10/23/20] Potassium Chloride 10 Meq Tab* [Klor Con 10 MEQ] 20 meq PO BID 08/20/20 [History Confirmed 10/23/20] Metronidazole 500 mg [Flagyl 500 MG] 500 mg PO TID 10/20/20 [History Confirmed 10/23/20] Bumetanide 1 mg [Bumex 1 mg] 0.5 mg PO DAILY 10/23/20 [History Confirmed 10/23/20] Insulin Degludec [Tresiba Flextouch U-200] 70 units SQ BREAKFAST 10/23/20 [History Confirmed 10/23/20] Loratadine 10 mg [Claritin 10 mg] 10 mg PO DAILY 10/23/20 [History Confirmed 10/23/20] Magnesium Oxide 400 mg [Mag-Ox 400] 400 mg PO TID #90 tablet 10/24/20 [Rx] Allergies/Adverse Reactions: Allergies Allergy/AdvReac Type Severity Reaction Status Date / Time levofloxacin [From Levaquin] Allergy Mild Verified 10/23/20 19:55 cefaclor [From Ceclor] Allergy SOB, HIVES Verified 10/23/20 19:55 ciprofloxacin [From Cipro] Allergy Verified 10/23/20 19:55 ciprofloxacin HCl Allergy Verified 10/23/20 19:55 [From Cipro] clarithromycin [From Biaxin] Allergy Verified 10/23/20 19:55 diphenhydramine HCl Allergy SOB HIVES Verified 10/23/20 19:55 [From Benadryl] erythromycin base Allergy SOB HIVES Verified 10/23/20 19:55 [Erythromycin Base] Iodinated Contrast Media Allergy Verified 10/23/20 19:55 [Iodinated Contrast- Oral and IV Dye] iodine Allergy SOB HIVES Verified 10/23/20 19:55 latex Allergy SOB HIVES Verified 10/23/20 19:55 Macrolide Antibiotics Allergy SBO HIVES Verified 10/23/20 19:55 Penicillins Allergy Swelling Verified 10/23/20 19:55 of Face sulfamethoxazole Allergy Verified 10/23/20 19:55 [From Bactrim] trimethoprim [From Bactrim] Allergy Verified 10/23/20 19:55 melon AdvReac Severe cantaloupe Verified 10/23/20 19:55 aspirin AdvReac Verified 10/23/20 19:55 ibuprofen AdvReac Verified 10/23/20 19:55 - Past Medical History Past Medical History: Yes Neurological History: Stroke ENT History: Cataracts, Other Cardiac History: Coronary Artery Disease, High Cholesterol, Hypertension, Myocardial Infarction ([place]), Other Respiratory History: Asthma, CHF, COPD, Pneumonia, Sleep Apnea Endocrine Medical History: Diabetes Type II Musculoskelatal History: No Pertinent History GI Medical History: No Pertinent History History: No Pertinent History Pyscho-Social History: No Pertinent History Reproductive Disorders: No Pertinent History Comment: Rapid heart rate at times; lump in right breast, biopsy non-cancerous, "stroke" in left eye. States went into Cardiac Arrest two times in Oct 2019 following a heart stent placement. Blind in left eye - Female History Are you now?: No - Past Surgical History Past Surgical History: Yes Neuro Surgical History: No Pertinent History Cardiac History: Cardiac Stent Respiratory Surgery: No Pertinent History GI Surgical History: Bowel Surgery, Cholecystectomy, Hernia Repair Genitourinary Surgical Hx: No Pertinent History Musculskeletal Surgical Hx: No Pertinent History Female Surgical History: Tubal Ligation, Other Other Surgical History: Breast biopsy, 8 STENTS, CLOT REMOVED FROM ARTERY ON LEFT NECK/STROKE; "part of my bowel was taken out, 3 inches or more"; - Social History Smoking Status: Never smoker Exposure to second hand smoke: No Alcohol: None Drug Use: none - Physical Exam Vital Signs: Vital Signs - 24 hr Temp Pulse Resp BP Pulse Ox 10/24/20 08:00 18 10/24/20 07:47 98.0 F 60 18 119/55 96 10/24/20 07:31 62 16 92 L 10/24/20 04:00 97.1 F 61 18 109/55 97 10/24/20 00:00 18 10/23/20 23:59 97.2 F 78 18 110/55 96 10/23/20 22:30 75 20 97 10/23/20 19:28 98.3 F 96 H 20 126/60 91 L 10/23/20 19:23 98.3 F 96 H 20 126/60 91 L 10/23/20 18:49 98.3 F 96 H 20 126/60 91 L General Appearance: no apparent distress, alert, obese Neurologic Exam: oriented x 3, cooperative Ears, Nose, Throat Exam: moist mucous membranes Neck Exam: normal inspection, non-tender, No lymphadenopathy Respiratory Exam: normal breath sounds, lungs clear, other (O2 in place per NC), No crackles/rales, No rhonchi, No wheezing Cardiovascular Exam: regular rate/rhythm, normal heart sounds, No murmur Gastrointestinal/Abdomen Exam: soft, normal bowel sounds, tenderness (diffuse), No mass, No guarding, No rebound Back Exam: normal inspection, No rash Extremity Exam: normal inspection, No pedal edema, No swelling Skin Exam: normal color, warm, dry, No rash Results - Labs Lab/Micro Results: Lab Results-Last 24 Hours 10/23/20 10/23/20 10/24/20 Range/Units 19:20 20:10 04:20 Sodium 136 L (137-145) mmol/L Potassium 5.4 H (3.5-5.1) mmol/L Chloride 93 L (98-107) mmol/L Carbon Dioxide 38 H (22-30) mmol/L Anion Gap 10.3 (5-15) MEQ/L BUN 22 H (7-17) mg/dL Creatinine 1.18 H (0.52-1.04) mg/dL Estimated GFR 48.4 ML/MIN Glucose 329 H (74-106) mg/dL POC Glucometer 274 H (74 to 106) mg/dL Calcium 9.5 (8.4-10.2) mg/dL Magnesium 1.5 L 2.2 (1.6-2.3) mg/dL Total Bilirubin 0.40 (0.2-1.3) mg/dL AST 17 (14-36) U/L ALT 16 (0-35) U/L Alkaline Phosphatase 94 (38-126) U/L Serum Total Protein 7.0 (6.3-8.2) g/dL Albumin 3.8 (3.5-5.0) g/dL 10/24/20 Range/Units 07:32 Sodium (137-145) mmol/L Potassium (3.5-5.1) mmol/L Chloride (98-107) mmol/L Carbon Dioxide (22-30) mmol/L Anion Gap (5-15) MEQ/L BUN (7-17) mg/dL Creatinine (0.52-1.04) mg/dL Estimated GFR ML/MIN Glucose (74-106) mg/dL POC Glucometer 223 H (74 to 106) mg/dL Calcium (8.4-10.2) mg/dL Magnesium (1.6-2.3) mg/dL Total Bilirubin (0.2-1.3) mg/dL AST (14-36) U/L ALT (0-35) U/L Alkaline Phosphatase (38-126) U/L Serum Total Protein (6.3-8.2) g/dL Albumin (3.5-5.0) g/dL Accuchecks Date 10/24/20 Date 10/23/20 Time 07:46 Time 20:10 - Other Procedures and Tests Respiratory Therapy 10/23/20 21:11 Oxygen Nasal Cannula 3 lpm 10/23/20 21:12 Respiratory Therapy Assessment DAILY 10/23/20 22:37 BiPap/CPAP ROUTINE Assessment/Plan (1) Hypomagnesemia Current Visit: No Status: Acute Assessment & Plan: Repleted; send home on po magnesium. F/u with me in office in 1 week. Code(s): E83.42 - HYPOMAGNESEMIA Hospital Summary - Hospital Course Hospital Course: is a 70 year old female pt of mine from [facility] with COPD, CHF, CAD, DM on insulin who has had low Mg (as low as 1.2) over the past week. She was sent to ER one day and given 1 po magnesium and sent home. She had a script for Mg but it was only for 3 days prior to her most recent CT scan. Here she was given IV and po magnesium; initial Mg 1.5 and follow up Mg was 2.2. She will be sent home on po mg and will titrate to appropriate dose. - Vitals & Intake/Output Vital Signs: Vital Signs Temperature 98.0 F 10/24/20 07:47 Pulse Rate 60 10/24/20 07:47 Respiratory Rate 18 10/24/20 08:00 Blood Pressure 119/55 10/24/20 07:47 O2 Sat by Pulse Oximetry 96 10/24/20 07:47 Intake & Output: Intake & Output 10/21/20 10/22/20 10/23/20 10/24/20 11:59 11:59 11:59 11:59 Intake Total 360 Output Total 250 Balance 110 Weight 134.3 kg - Lab Result Diagrams: 10/23/20 19:20 Lab Results-Last 24 Hrs: Lab Results-Last 24 Hours 10/23/20 10/23/20 10/24/20 Range/Units 19:20 20:10 04:20 Sodium 136 L (137-145) mmol/L Potassium 5.4 H (3.5-5.1) mmol/L Chloride 93 L (98-107) mmol/L Carbon Dioxide 38 H (22-30) mmol/L Anion Gap 10.3 (5-15) MEQ/L BUN 22 H (7-17) mg/dL Creatinine 1.18 H (0.52-1.04) mg/dL Estimated GFR 48.4 ML/MIN Glucose 329 H (74-106) mg/dL POC Glucometer 274 H (74 to 106) mg/dL Calcium 9.5 (8.4-10.2) mg/dL Magnesium 1.5 L 2.2 (1.6-2.3) mg/dL Total Bilirubin 0.40 (0.2-1.3) mg/dL AST 17 (14-36) U/L ALT 16 (0-35) U/L Alkaline Phosphatase 94 (38-126) U/L Serum Total Protein 7.0 (6.3-8.2) g/dL Albumin 3.8 (3.5-5.0) g/dL 10/24/20 Range/Units 07:32 Sodium (137-145) mmol/L Potassium (3.5-5.1) mmol/L Chloride (98-107) mmol/L Carbon Dioxide (22-30) mmol/L Anion Gap (5-15) MEQ/L BUN (7-17) mg/dL Creatinine (0.52-1.04) mg/dL Estimated GFR ML/MIN Glucose (74-106) mg/dL POC Glucometer 223 H (74 to 106) mg/dL Calcium (8.4-10.2) mg/dL Magnesium (1.6-2.3) mg/dL Total Bilirubin (0.2-1.3) mg/dL AST (14-36) U/L ALT (0-35) U/L Alkaline Phosphatase (38-126) U/L Serum Total Protein (6.3-8.2) g/dL Albumin (3.5-5.0) g/dL Micro Results-Entire Visit: Accuchecks Date 10/24/20 Date 10/23/20 Time 07:46 Time 20:10 - Procedures and Test Procedures and Tests throughout Hospitalization: Therapy Orders & Screens 10/23/20 20:14 RT Screen per Nursing Assess ONCE Comment: Protocol Order Physician Instructions: Greater than 3 points order RT Admission Screen Reason For Exam: Triggered on Admission Diagnosis: hypomagnesia Diagnosis: hypomagnesia Pneumonia: No Home O2: Yes Asthma: Yes CHF: Yes Home CPAP/BIPAP: Yes Home Nebs/MDI: Yes Total Points: 22 10/23/20 21:11 Oxygen Nasal Cannula 3 lpm Comment: Diagnosis: hypomagnesia 10/23/20 21:12 Respiratory Therapy Assessment DAILY Comment: Diagnosis: hypomagnesia 10/23/20 22:37 BiPap/CPAP ROUTINE Comment: Diagnosis: hypomagnesia - Discharge Disposition: Home, Self-Care Condition: Good Prescriptions: New Magnesium Oxide 400 mg [Mag-Ox 400] 400 mg PO TID #90 tablet Continue Insulin Aspart [NovoLOG Insulin] 0 unit SQ UD Atorvastatin Calcium [Lipitor 20MG Tablet] 80 mg PO DAILY Buspirone HCl 5 mg [Buspar 5 mg] 15 mg PO BID Oxycodone HCl/Acetaminophen [Percocet 10-325 mg Tablet] 1 tab PO QID Pregabalin [Lyrica] 200 mg PO BID Desvenlafaxine Succinate [Pristiq] 100 mg PO DAILY Lisinopril 5 mg [Zestril 5 MG] 10 mg PO DAILY Isosorbide Mononitrate 30 mg [Imdur 30 MG] 30 mg PO DAILY Trazodone HCl 50 mg [Desyrel 50 mg] 150 mg PO HS Montelukast Sodium [Singulair] 10 mg PO 0800 Metoprolol Succinate 50 mg PO BID Levothyroxine Sodium 150 Mcg [Synthroid 150 Mcg] 150 mcg PO 0800 Clopidogrel Bisulfate 75 mg [PLAVIX 75 MG Tablet] 75 mg PO DAILY PANTOPRAZOLE 40 mg Tablet [Protonix 40MG Tablet] 40 mg PO DAILY Ondansetron HCl [Zofran] 4 mg PO Q4H PRN PRN PRN Reason: Nausea Famotidine 20 mg PO BID Apixaban [Eliquis] 5 mg PO BID Budesonide/Formoterol Fumarate [Symbicort 160-4.5 Mcg Inhaler] 2 puff IH BID Fluticasone Furoate [Flonase Sensimist] 2 spray IN BID Fexofenadine HCl 180 mg PO DAILY Potassium Chloride 10 Meq Tab* [Klor Con 10 MEQ] 20 meq PO BID Metronidazole 500 mg [Flagyl 500 MG] 500 mg PO TID Bumetanide 1 mg [Bumex 1 mg] 0.5 mg PO DAILY Loratadine 10 mg [Claritin 10 mg] 10 mg PO DAILY Insulin Degludec [Tresiba Flextouch U-200] 70 units SQ BREAKFAST Follow up with: LEORA FERRER [Primary Care Provider] -
[2020-10-24] MEDS ORDERED: Imdur 30 MG PO SCH (10:00)
[2020-10-24] MEDS ORDERED: Lantus Insulin SQ SCH (10:00)
[2020-10-24] MEDS ORDERED: NON-FORMULARY ITEM (Desvenlafaxine Succinate [Pristiq] 100 MG) PO SCH (10:00)
[2020-10-24] MEDS ORDERED: ATORVASTATIN CALCIUM 80 MG PO SCH (10:00)
[2020-10-24] MEDS ORDERED: PRISTIQ ER PO SCH (10:00)
[2020-10-24] MEDS ORDERED: Zestril 10 MG PO SCH (10:00)
[2020-10-24] MEDS ORDERED: CLARITIN 10 MG PO SCH (10:00)
[2020-10-24] MEDS ORDERED: BUMEX 1 MG PO SCH (10:00)
[2020-10-24] MEDS ORDERED: NON-FORMULARY ITEM (Fexofenadine Hcl [Fexofenadine Hcl] 180 MG) PO SCH (10:00)
[2020-10-24] MEDS ORDERED: FLUTICASONE FUROATE IN SCH (10:00)
[2020-10-24] MEDS ORDERED: PLAVIX 75 MG Tablet PO SCH (10:00)
[2020-10-24] MEDS ORDERED: Protonix 40MG Tablet PO SCH (10:00)
[2020-10-24] MEDS ORDERED: Singulair 10 MG PO SCH (10:00)
[2020-10-24] MEDS ORDERED: SYNTHROID 150 MCG PO SCH (10:00)
[2020-10-24] MEDS ORDERED: Flonase NASAL NS SCH (22:00)
[2020-10-24] MEDS ORDERED: ZOCOR 20MG PO ONE (22:15)
[2020-10-25] MEDS ORDERED: INSULIN DEGLUDEC 70 UNIT SQ SCH (08:00)
== END 2020-10-24 11:15 | disposition home or self-care (01) ==
LOC: MED SURG 18:47
PROVIDERS: ADMIT Family Medicine; ATTEND Family Medicine
DX: E83.42 Hypomagnesemia (principal); J44.9 Chronic obstructive pulmonary disease, unspecified; E11.9 Type 2 diabetes mellitus without complications; Z79.4 Long term (current) use of insulin; Z79.899 Other long term (current) drug therapy; Z79.01 Long term (current) use of anticoagulants; I25.10 Atherosclerotic heart disease of native coronary artery without angina pectoris; E78.00 Pure hypercholesterolemia, unspecified; I10 Essential (primary) hypertension; G47.30 Sleep apnea, unspecified
CPT/HCPCS: 36415; 80053; 82947; 83036; 83735; 93268; 94640; 94762; G0378; J1817; J3475; J7609; A9270-GY